=== PATIENT | male | born 1955 | race Caucasian/White ===

== ENCOUNTER 2020-06-27 12:12 | Emergency (ER) | payer MEDICARE, MEDICAID, SELFPAY ==
--- NOTE | ~2020-06-27 | CT_ITS ---
EXAMINATION: CT cervical spine wo con DATE: 06/27/2020 13:08 INDICATION: Head injury. Neck pain. TECHNIQUE: Computed tomography (CT) of the cervical spine was performed without intravenous contrast. Automated exposure control and iterative reconstruction technique were employed. The dose-length pro duct was 494.14 mGy-cm. COMPARISON: None FINDINGS: There is kyphosis and 3 degrees levocurvature of cervical spine. There is mild chronic ante rior wedging of T1 vertebral body. There is mildly decreased disc height at C5-C6 and C6-C7. 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 The following disc levels are specifically discussed: C2-C3: There is mild bilateral uncovertebral joint osteoarthritis. There is mild right and severe lef t facet joint osteoarthritis. There is no neural foraminal stenosis. There is no central canal stenos is. C3-C4: There is mild bilateral uncovertebral joint osteoarthritis. There is severe right and mild lef t facet joint osteoarthritis. There is mild right neural foraminal stenosis. There is mild central ca nal stenosis. C4-C5: There is mild bilateral uncovertebral joint osteoarthritis. There is severe right and mild lef t facet joint osteoarthritis. There is mild right neural foraminal stenosis. There is mild central ca nal stenosis. C5-C6: There is mild bilateral uncovertebral joint osteoarthritis. There is mild bilateral facet join t osteoarthritis. There is mild left neural foraminal stenosis. There is mild central canal stenosis. C6-C7: There is mild right and moderate left uncovertebral joint osteoarthritis. There is mild bilate ral facet joint osteoarthritis. There is mild left neural foraminal stenosis. There is mild central c anal stenosis. C7-T1: There is no uncovertebral joint osteoarthritis. There is moderate bilateral facet joint osteoa rthritis. There is no neural foraminal stenosis. There is no central canal stenosis. IMPRESSION: 1. No acute fracture. 2. Mild cervical spondylosis. Reviewed, dictated and finalized at location A. [facility]
--- NOTE | ~2020-06-27 | CT_ITS ---
EXAMINATION: CT brain wo con DATE: 06/27/2020 13:08 INDICATION: Head injury. Headache. Dizziness. TECHNIQUE: Computed tomography (CT) of the head was performed without intravenous contrast. The mA wa s adjusted according to patient size. Iterative reconstruction technique was employed. The dose-lengt h product was 605.33 mGy-cm. COMPARISON: Head CT 06/18/2012 FINDINGS: There are scattered areas of low attenuation in the cerebral white matter, which is within normal limits for the patient's age. There is no intracranial hemorrhage, acute infarction, or abnorm al intracranial mass lesion. The ventricles are normal in size. There is posterior scalp soft tissue swelling. There is mild mucosal thickening in the paranasal sinuses. The orbits are normal. The masto id air cells are normal. IMPRESSION: 1. Normal aging brain. Reviewed, dictated and finalized at location A. M1 [employer] IMPRESSION: 1. Normal aging brain.
[2020-06-27 12:43] VITALS: BP 159/81; PULSE 87; RESP 13; TEMP 37.1; O2SAT 97
--- NOTE | 2020-06-27 13:01 | ED.FALL ---
HPI - Fall General Chief Complaint: Fall Stated Complaint: fall, hit head Time Seen by Provider: 06/27/20 12:20 Source: patient Mode of arrival: wheelchair Limitations: no limitations History of Present Illness HPI Narrative: 65-year-old male Presents with complaint of concussion He has a lot of troubles with his hips, numerous operations, almost always uses a wheelchair instead of a walker He was trying to back his wheelchair into his house and flipped himself over backwards and whacked his head on the ground No loss of consciousness, not much of a headache, very little neck pain, no new neurologic symptoms, no amnesia, does take aspirin but no other blood thinners, main risk is general physical frailty and his age His only current complaint is slight nonspecific dizziness Related Data Allergies Allergy/AdvReac Type Severity Reaction Status Date / Time No Known Allergies Allergy Verified 02/24/13 15:38 Review of Systems Review of Systems: All systems reviewed & are unremarkable except as noted in HPI and below Constitutional: Constitutional: Denies chills, Reports fatigue, Denies fever(s), Denies headache(s) and Reports weakness Eyes: Eyes: Reports no additional eye complaints and Denies change in vision ENT: Denies headache(s), Denies epistaxis, Denies nasal congestion and Denies sore throat Cardiovascular: Cardiovascular: Denies chest pain, Denies leg edema, Denies palpitations and Denies dyspnea Respiratory: Respiratory: Denies cough, Denies dyspnea and Denies wheezing Gastrointestinal: Gastrointestinal: Denies nausea and Denies vomiting Musculoskeletal: Musculoskeletal: Reports myalgias, Denies deformity, Reports arthralgias, Reports joint swelling, Denies muscle weakness and Denies numbness Integumentary/Breasts: Skin/Breast: Denies rash and Denies wounds Neurologic: Reports dizziness, Denies headache(s), Reports focal weakness, Denies numbness and Denies weakness Psychiatric: Psychiatric: Reports no additional psychiatric complaints Endocrine: Endocrine: Denies fatigue and Denies palpitations Hematologic/Lymphatic: Hematologic/Lymphatic: Denies easy bleeding and Denies easy bruising Allergic/Immunologic: Allergic/Immunologic: Denies wheezing [facility] Family History Family History (Updated 04/06/14 @ 07:13 by DOCTOR UNKNOWN) Mother Family history of coronary artery disease Family history of osteoporosis Cerebrovascular accident Family history of arthritis Family history of heart disease in male family member before age 55 Sibling Family history of mental disorder Family history of arthritis Grandparent Family history of Alzheimer's disease Father Family history of emphysema Social History Social History Smoking status: Never smoker Alcohol intake: current Gender identity (if verbalized by the patient): Male Exam Const: General: no acute distress, well developed and awake Orientation/consciousness: patient oriented x3 (alert) Limitations: no limitations HENMT: Head: normal to inspection, normocephalic, atraumatic, no contusions, no hematomas and no lacerations Ears: external ears normal General nose exam: No nasal discharge present and no epistaxis Face and sinus: face symmetric Mouth: Yes moist mucous membranes Eyes: Conjunctivae: conjunctivae normal Sclera: sclerae normal EOM: EOMs intact bilaterally Neck: Neck: normal visual inspection, supple and no JVD Other: Nontender, good range of motion Chest: Chest palpation & inspection: normal inspection of the chest and deferred Resp: Effort & Inspection: normal respiratory effort Auscultation: clear to auscultation bilaterally and other (BS =) Cardio: Rate: regular rate Rhythm: regular rhythm Heart sounds: no gallops and no murmurs GI: Inspection: normal to inspection Back/Spine/Pelvis: Thoracic/Lumbar Spine: thoracic and lumbar spine normal to inspection Other: No T or L-spine tenderness Skin: Gene
--- NOTE | 2020-06-27 13:28 | ECG_ITS ---
Measurements Intervals V[place]ve Rate: 79 P: 36 [place]: 163 QRS: -24 QRSD: 126 T: 32 QT: 433 QTc: 499 Interpretive Statements SINUS RHYTHM INTRAVENTRICULAR CONDUCTION DELAY NONSPECIFIC ST & T-WAVE ABNORMALITY- DIFFUSE LEADS BASELINE ARTIFACT- I, II, AVR, AVF, V2-V6 BORDERLINE ECG Electronically Signed On 06-27-2020 15:40:58 PANTOGRAPH TRANSFERRER by Tiago Yeboah D.O.
[2020-06-27 13:45] LABS: Basophils Percent Auto 0.5 % (0.2-1.2); Eosinophils Absolute Auto 0.1 K/mm3 (0-0.3); Eosinophils Percent Auto 0.8 % (0-4.4); Hematocrit 43.5 % (42.0-52.0); Hemoglobin 14.8 g/dL (14.0-18.0); Immature Granulocyte Absolute 0.04 K/mm3 (0.00-0.031); Immature Granulocyte Percent A 0.6 % (0-0.5); Lymphocytes Absolute Auto 0.88 K/mm3 (0.9-3.2); Lymphocytes Percent Auto 13.6 % (18.3-44.2); Mean Corpuscular Hemoglobin 32.4 pg (26-34); Mean Corpuscular Volume 95.2 fl (80-100); Mean Platelet Volume 9.9 fl (7.4-10.4); Monocytes Absolute Auto 0.3 K/mm3 (0.1-0.6); Monocytes Percent Auto 4.8 % (2.6-8.5); Neutrophils Absolute Auto 5.2 K/mm3 (1.3-6.7); Neutrophils Percent Auto 79.7 % (45.5-73.1); Platelet Count Result 172 k/mm3 (150-375); Red Blood Count 4.57 M/mm3 (4.6-6.20); Red Cell Distribution Width 13.5 % (11.5-14.5); White Blood Count 6.5 K/mm3 (4.5-10.0)
[2020-06-27 13:59] LABS: Anion Gap 7 mmol/L (8-16); Blood Urea Nitrogen 12 mg/dL (9-20); Calcium 9.2 mg/dL (8.4-10.2); Carbon Dioxide 30 mmol/L (22-30); Chloride 101 mmol/L (98-107); Estimated CRCL calculation 141 ml/min; Estimated Glomerular Filt Rate > 60; Glucose 314 mg/dL (75-110); Potassium 4.5 mmol/L (3.4-5.0); Sodium 138 mmol/L (137-145)
[2020-06-27 14:46] VITALS: BP 124/77; PULSE 77; RESP 18; O2SAT 99
== END 2020-06-27 14:49 | disposition home or self-care (01) ==
PROVIDERS: Emergency Provider Emergency Medicine; PCP Family Medicine
DX: S00.93XA Contusion of unspecified part of head, initial encounter (principal); W05.0XXA Fall from non-moving wheelchair, initial encounter
CPT/HCPCS: 36415; 70450; 72125; 80048; 85025; 93005; 99284

== ENCOUNTER 2021-03-28 12:58 | Emergency (ER) | payer MEDICARE, MEDICAID, SELFPAY ==
[2021-03-28 13:32] VITALS: BP 165/77; PULSE 88; RESP 16; TEMP 36.8; O2SAT 100
--- NOTE | 2021-03-28 14:20 | PC.NURSE ---
Pt to desk yelling that he can not wait anymore because he needs to go home to take his diabetes medications. Pt demanded the ambulance that brought him be called back to take him home. Pt told that RN would be happy to call him a cab or family member for a ride but an ambulance cant be called for a ride home. Pt stated he wanted his brother called. Pts brother was called and came to picket [employer] patient. Pt told he is welcome to come back and be seen at anytime. Pt ambulatory with walker on departure with brother.
== END 2021-03-28 14:21 | disposition left against medical advice (07) ==
PROVIDERS: PCP Family Medicine
DX: S61.210A Laceration without foreign body of right index finger without damage to nail, initial encounter (principal)
CPT/HCPCS: 99199

== ENCOUNTER 2021-10-31 14:09 | Inpatient (IN) | payer OTHER, SELFPAY ==
[2021-10-31] VITALS (7 sets, daily range): BP systolic 130–142; BP diastolic 77–85; PULSE 80–88; RESP 16–18; TEMP 36.2–36.6; O2SAT 95–98; BMI 24.0
--- NOTE | ~2021-10-31 | XR_ITS ---
EXAMINATION: XR hip LT min 3V w AP pelvis INDICATION: Pain after fall, multiple pelvic surgeries TECHNIQUE: AP view the pelvis and three views of the left hip are obtained. COMPARISON: None available FINDINGS: There appears to be a nondisplaced intertrochanteric fracture of the left femur. Surgical c hanges are noted in the pelvis. There is profuse heterotopic ossification lateral to the acetabula. C alcified atherosclerosis is noted. IMPRESSION: 1. Probable nondisplaced intertrochanteric fracture of the left femur. CT is recommended for confirma tion. Reviewed, dictated and finalized at location B. IMPRESSION: 1. Probable nondisplaced intertrochanteric fracture of the left femur. CT is re commended for confirmation.
--- NOTE | ~2021-10-31 | CT_ITS ---
EXAMINATION: CT hip LT wo con EXAM DATE: 10/31/2021 15:31 INDICATION: Abnormal x-ray, left hip fracture. TECHNIQUE: Spiral CT hip LT wo con was performed without contrast. Axial, coronal and sagittal imag es were reviewed. The dose-length product (DLP) for this examination was 281.94 mGy-cm. The exposur e was tailored according to patient size (auto mA exposure control), and iterative reconstruction ( IR) was used as additional dose reduction technique. Correlation is made to left hip x-ray same date. FINDINGS: There is acute closed posttraumatic nondisplaced comminuted left hip intertrochanteric frac ture. There are old left rami and acetabular fractures. The left acetabular hardware is intact. No le ft inguinal lymphadenopathy. IMPRESSION: Acute nondisplaced left intertrochanteric fracture. Reviewed, dictated and finalized at location .
--- NOTE | ~2021-10-31 | XR_ITS ---
EXAMINATION: XR surgery orthopedic EXAM DATE: 11/01/2021 16:08 INDICATION: Left hip intertrochanteric fracture. TECHNIQUE: Fluoroscopy used during XR surgery orthopedic performed by Dr. Garry Rainey MD. Rad iologist was not present for the imaging or procedure. Total fluoroscopic time of 225 seconds. The DAP for this procedure was 2 mGym2. A total of 5 images sent to PACS from the exam. FINDINGS: Images demonstrate left hip gamma nail in expected position. There was pre-existing left a cetabular hardware. Correlate with procedure note. IMPRESSION: Fluoroscopy used during left hip gamma nail insertion. Reviewed, dictated and finalized at location G.
--- NOTE | ~2021-10-31 | XR_ITS ---
EXAMINATION: XR hip RT 1V INDICATION: Right hip pain after fall TECHNIQUE: Single AP view of the right hip is obtained. COMPARISON: None available FINDINGS: There are surgical changes in the pelvis. No acute fracture is identified. There is advance d osteoarthritis right hip. Heterotopic ossification is seen near the right acetabulum. IMPRESSION: 1. No acute osseous abnormality. Reviewed, dictated and finalized at location B.
--- NOTE | ~2021-10-31 | XR_ITS ---
EXAMINATION: XR chest 1V portable EXAM DATE: 10/31/2021 15:52 INDICATION: Pre-op. Left hip fracture. TECHNIQUE: Portable AP frontal chest x-ray was obtained. Comparison is made to prior examination from 11/06/2015. FINDINGS: The lungs are clear. There are no pleural effusions. The cardiomediastinal silhouette is within normal limits. There is no pneumothorax suspected. The bones and soft tissues are unremarkab le. IMPRESSION: No acute cardiopulmonary findings. Reviewed, dictated and finalized at location G.
--- NOTE | ~2021-10-31 | XR_ITS ---
EXAMINATION: XR chest 1V portable DATE: 11/02/2021 09:55 INDICATION: Chest pain TECHNIQUE: frontal view of the chest was obtained. COMPARISON: Chest radiograph dated 10/31/2021 FINDINGS: The lungs remain clear with no focal airspace opacities, pulmonary edema, pleural effusion or pneumot horax. The cardiomediastinal silhouette is normal. Old anterior right fourth rib fracture. Additional healed fracture of the proximal left humerus with partially visualized plate and screw fixation. IMPRESSION: 1. No acute cardiopulmonary disease. Reviewed, dictated and finalized at location A.
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
[2021-10-31 16:38] LABS: Basophils Percent Auto 0.4 % (0.2-1.2); Eosinophils Percent Auto 0.4 % (0-4.4); Hematocrit 43.1 % (42.0-52.0); Hemoglobin 14.8 g/dL (14.0-18.0); Immature Granulocyte Absolute 0.05 K/mm3 (0.00-0.031); Immature Granulocyte Percent A 0.6 % (0-0.5); Lymphocytes Absolute Auto 0.91 K/mm3 (0.9-3.2); Lymphocytes Percent Auto 11.3 % (18.3-44.2); Mean Corpuscular HGB Conc 34.3 g/dl (32-36); Mean Corpuscular Hemoglobin 33.2 pg (26-34); Mean Corpuscular Volume 96.6 fl (80-100); Mean Platelet Volume 9.9 fl (7.4-10.4); Monocytes Absolute Auto 0.4 K/mm3 (0.1-0.6); Monocytes Percent Auto 4.8 % (2.6-8.5); Neutrophils Absolute Auto 6.7 K/mm3 (1.3-6.7); Neutrophils Percent Auto 82.5 % (45.5-73.1); Platelet Count Result 155 k/mm3 (150-375); Red Blood Count 4.46 M/mm3 (4.6-6.20); Red Cell Distribution Width 13.3 % (11.5-14.5); White Blood Count 8.1 K/mm3 (4.5-10.0)
[2021-10-31 17:10] LABS: Anion Gap 7 mmol/L (8-16); Blood Urea Nitrogen 11 mg/dL (9-20); Calcium 9.4 mg/dL (8.4-10.2); Carbon Dioxide 29 mmol/L (22-30); Chloride 100 mmol/L (98-107); Estimated CRCL calculation 131 ml/min; Estimated Glomerular Filt Rate > 60; Glucose 190 mg/dL (65-110); Potassium 3.9 mmol/L (3.4-5.0); Sodium 136 mmol/L (137-145)
[2021-10-31 17:12] LABS: INR 1.1; Prothrombin Time 13.4 Seconds (11.1-14.7)
[2021-10-31 17:13] LABS: Partial Thromboplastin Time 29.9 SECONDS (22.3-36.8)
[2021-10-31] MEDS: SODIUM CHLORIDE 0.9% IV 1,000 ML 125 ML IV CONT ×2 (17:59→20:10)
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
--- NOTE | 2021-10-31 19:28 | ADMGEN ---
This patient, Lukas Benson, was admitted to [facility] Surg Room 306-02. Patient/family oriented to hospital policies and general routines including ID bracelet, bed and alarms, visiting hours, pain management, procedures, bathroom and other care routines, personal items, smoking policy, room service/diet, and visiting hours. Information on how to activate the Rapid Response Team has been discussed. Patient/Family are encouraged to report perceived risks to care and to ask questions if they do not understand what they are told or what they should do.
[2021-10-31] MEDS: MORPHINE SULFATE (*CRX) 4 MG/ML INJ IV PUSH (20:10)
[2021-11-01] VITALS (10 sets, daily range): BP systolic 102–159; BP diastolic 52–81; PULSE 73–90; RESP 10–20; TEMP 35.8–37.2; O2SAT 92–100
[2021-11-01 06:30] LABS: Anion Gap 10 mmol/L (8-16); Blood Urea Nitrogen 10 mg/dL (9-20); Calcium 8.9 mg/dL (8.4-10.2); Carbon Dioxide 25 mmol/L (22-30); Chloride 101 mmol/L (98-107); Estimated CRCL calculation 131 ml/min; Estimated Glomerular Filt Rate > 60; Glucose 196 mg/dL (65-110); Magnesium 1.7 mg/dL (1.6-2.3); Potassium 4.2 mmol/L (3.4-5.0); Sodium 136 mmol/L (137-145)
[2021-11-01 06:38] LABS: Basophils Percent Auto 0.4 % (0.2-1.2); Eosinophils Absolute Auto 0.1 K/mm3 (0-0.3); Eosinophils Percent Auto 0.8 % (0-4.4); Hematocrit 41.4 % (42.0-52.0); Immature Granulocyte Absolute 0.02 K/mm3 (0.00-0.031); Immature Granulocyte Percent A 0.3 % (0-0.5); Immature Platelet Fraction Pct 5.8 % (0.9-11.2); Lymphocytes Absolute Auto 0.87 K/mm3 (0.9-3.2); Lymphocytes Percent Auto 12.3 % (18.3-44.2); Mean Corpuscular HGB Conc 33.8 g/dl (32-36); Mean Corpuscular Hemoglobin 32.3 pg (26-34); Mean Corpuscular Volume 95.4 fl (80-100); Mean Platelet Volume 10.9 fl (7.4-10.4); Monocytes Absolute Auto 0.5 K/mm3 (0.1-0.6); Monocytes Percent Auto 6.4 % (2.6-8.5); Neutrophils Absolute Auto 5.6 K/mm3 (1.3-6.7); Neutrophils Percent Auto 79.8 % (45.5-73.1); Platelet Count Result 154 k/mm3 (150-375); Red Blood Count 4.34 M/mm3 (4.6-6.20); Red Cell Distribution Width 13.2 % (11.5-14.5); White Blood Count 7.1 K/mm3 (4.5-10.0)
[2021-11-01 07:42] LABS: Glucose Point of Care 192 mg/dl (65-105)
[2021-11-01] MEDS: ALPRAZolam (*CRX) 0.5 MG TABLET PO ×2 (08:14→17:24)
[2021-11-01] MEDS: MORPHINE SULFATE (*CRX) 4 MG/ML INJ IV PUSH (08:14)
--- NOTE | 2021-11-01 10:51 | PM.IMPN ---
Progress Note: A&P Assessment and Plan (1) Intertrochanteric fracture of left hip: Code(s): S72.142A - Displaced intertrochanteric fracture of left femur, initial encounter for closed fracture Status: Acute Assessment and Plan: -plan is for surgery today -management per ortho, appreciate the consulation -pt now c/o bilateral hip pain and ankle pain. Stat XR ordered prior to surgery today. (2) Hypertension: Code(s): I10 - Essential (primary) hypertension Status: Acute Assessment and Plan: -stable -home meds (3) Diabetes mellitus: Code(s): E11.9 - Type 2 diabetes mellitus without complications Status: Acute Assessment and Plan: -Accuchecks ACHS and sliding scale Subjective Date/time seen: 11/01/21 10:51 Interval history: 66 yo male w/ hx of HTN, HLD, DM, bipolar disorder, admitted for L hip fracture. Pt states pain is improved after morphine. He now c/o R hip pain and bilateral ankle pain, worse on the right. No N/V/abd pain/cp/sob. Scheduled for hip surgery this afternoon. Review of Systems Review of Systems: All systems reviewed & are unremarkable except as noted in HPI and below Exam Narrative: Constitutional: Patient is a 66-year-old gentleman who is unkempt and well-nourished. Patient is in no acute distress. Patient is alert and oriented x3 HEENT: Moist mucous membranes. No scleral icterus. Neck: Supple Lungs: Lung sounds are clear to auscultation bilaterally. No accessory muscle use. No rhonchi, rales, or wheezes noted. Cardiovascular: RRR, no murmur Abdomen: Soft, round, and nontender. No palpable masses. Extremities: No edema. Patient complains of pain to BI hips and BLE lower extremity. At this time there is no shortening or external rotation to the left leg. Skin: No rashes or lesions. Warm and dry. Skin is intact. Neurological: No focal neurological deficits. Cranial nerves II-XII grossly intact. Psychiatric: Cooperative, appropriate mood, and affect Objective Data Vital Signs Vital Signs: Vital Signs - 24 hr 10/31/21 14:29 10/31/21 15:20 10/31/21 16:30 Temperature 97.2 F L 97.6 F 97.6 F Pulse Rate 84 82 80 Respiratory Rate 16 16 16 Blood Pressure 141/77 H 140/80 Pulse Oximetry 98 98 98 10/31/21 17:30 10/31/21 18:31 10/31/21 20:00 Temperature 97.8 F 97.8 F 97.7 F Pulse Rate 82 80 88 Respiratory Rate 16 16 18 Blood Pressure 132/80 130/80 142/85 H Pulse Oximetry 98 98 95 10/31/21 21:14 Temperature Pulse Rate Respiratory Rate Blood Pressure Pulse Oximetry 95 Intake/Output Intake/Output: Intake & Output 10/29/21 10/30/21 10/31/21 11/01/21 23:59 23:59 23:59 23:59 Intake Total 1000 1000 Balance 1000 1000 Meds/Results Medications: Active Medications Generic Name Dose Route Start Last Admin Trade Name Freq PRN Reason Stop Dose Admin Alprazolam 0.5 mg 11/01/21 09:00 11/01/21 08:14 Alprazolam (*Crx) 0.5 Mg Tablet PO 0.5 mg BID CHONG Administration Dextrose 12.5 gm 10/31/21 19:37 Dextrose 50% 25 Gm/50 Ml Syringe IV PUSH PRN PRN Hypoglycemia Protocol Ezetimibe 10 mg 11/01/21 09:00 Ezetimibe 10 Mg Tablet PO DAILY CHONG Fluticasone Propionate 2 spray 11/01/21 07:18 Fluticasone Propionate 0.05% Na Spr 16 Gm Btl (*Bkc) NASAL DAILY PRN Runny Nose Glucagon 1 mg 10/31/21 19:37 Glucagon For Inj 1 Mg Vial IM PRN PRN Hypoglycemia Protocol Glucose 15 gm 10/31/21 19:37 Glucose Oral Gel 15 Gm Of Glucse In 37.5 Gm Tube PO PRN PRN Hypoglycemia Protocol Hydrochlorothiazide 25 mg 11/01/21 09:00 Hydrochlorothiazide 25 Mg Tablet PO DAILY CHONG Acetaminophen 1,000 mg in 100 mls @ 400 mls/hr 10/31/21 16:23 Ofirmev 1,000 Mg Ivpb IVPB 11/01/21 16:22 Q6H PRN Mild Pain (1-3) or Fever Sodium Chloride 1,000 mls @ 100 mls/hr 10/31/21 16:25 11/01/21 04:45 No
[2021-11-01 11:21] LABS: Glucose Point of Care 203 mg/dl (65-105)
[2021-11-01] MEDS: INSULIN ASPART (*BKC) 100 UNITS/ML SUB-Q (12:11)
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
[2021-11-01 13:57] LABS: Glucose Point of Care 148 mg/dl (65-105)
--- NOTE | 2021-11-01 14:04 | WPDANESEPPF ---
Anes - Initial Pre Proc Eval Procedure: Operation Date: 11/01/21 15:00 Proposed Procedures p Left Intertrochanteric Nail - Garry Rainey MD Date/Time: 11/01/21 14:04 Surgeon: Jacqueline Langley PA-C Pre Op Diagnosis: Hip R fracture Patient Data Age: 66 Gender: M Height: 1.96 m Weight: 92.1 kg Last Vital Signs Temp 36.5 C 10/31/21 20:00 Pulse 88 10/31/21 20:00 Resp 18 10/31/21 20:00 BP 142/85 H 10/31/21 20:00 Pulse Ox 95 10/31/21 21:14 Allergies Allergy/AdvReac Type Severity Reaction Status Date / Time No Known Allergies Allergy Verified 02/24/13 15:38 Home Medications Medication Instructions Recorded Confirmed Type alprazolam 0.5 mg PO BID 11/01/21 11/01/21 History ezetimibe 10 mg PO DAILY 11/01/21 11/01/21 History fluticasone propionate 50 mcg INTRANASAL DAILY PRN 11/01/21 11/01/21 History glimepiride 2 mg PO BID 11/01/21 11/01/21 History hydrochlorothiazide 25 mg PO DAILY 11/01/21 11/01/21 History losartan 25 mg PO DAILY 11/01/21 11/01/21 History metformin 500 mg PO BID 11/01/21 11/01/21 History mirabegron [Myrbetriq] 50 mg PO DAILY 11/01/21 11/01/21 History montelukast 10 mg PO DAILY 11/01/21 11/01/21 History sertraline 100 mg PO DAILY 11/01/21 11/01/21 History Laboratory Tests 10/31/21 10/31/21 10/31/21 16:12 16:12 16:56 WBC 8.1 K/mm3 K/mm3 (4.5-10.0) RBC 4.46 M/mm3 L M/mm3 (4.6-6.20) Hgb 14.8 g/dL g/dL (14.0-18.0) Hct 43.1 % % (42.0-52.0) MCV 96.6 fl fl (80-100) MCH 33.2 pg pg (26-34) MCHC 34.3 g/dl g/dl (32-36) RDW 13.3 % % (11.5-14.5) Plt Count 155 k/mm3 k/mm3 (150-375) MPV 9.9 fl fl (7.4-10.4) Immature Gran % (Auto) 0.6 % H % (0-0.5) Neut % (Auto) 82.5 % H % (45.5-73.1) Lymph % (Auto) 11.3 % L % (18.3-44.2) [place] % (Auto) 4.8 % % (2.6-8.5) Eos % (Auto) 0.4 % % (0-4.4) Baso % (Auto) 0.4 % % (0.2-1.2) Lymph # (Auto) 0.91 K/mm3 K/mm3 (0.9-3.2) [place] # (Auto) 0.4 K/mm3 K/mm3 (0.1-0.6) Eos # (Auto) 0.0 K/mm3 K/mm3 (0-0.3) Baso # (Auto) 0.0 K/mm3 K/mm3 (0.0-0.1) Abs Immat Gran (auto) 0.05 K/mm3 H K/mm3 (0.00-0.031) Absolute Neuts (auto) 6.7 K/mm3 K/mm3 (1.3-6.7) Absolute Nucleated RBC 0.0 K/mm3 K/mm3 (0.0-0.012) Nucleated RBC % 0.0 % % (0.0-0.2) % Immature Plt Fraction PT 13.4 Seconds Seconds (11.1-14.7) INR 1.1 APTT 29.9 SECONDS SECONDS (22.3-36.8) Sodium 136 mmol/L L mmol/L (137-145) Potassium 3.9 mmol/L mmol/L (3.4-5.0) Chloride 100 mmol/L mmol/L (98-107) Carbon Dioxide 29 mmol/L mmol/L (22-30) Anion Gap 7 mmol/L L mmol/L (8-16) BUN 11 mg/dL mg/dL (9-20) Creatinine 0.60 mg/dL L mg/dL (0.7-1.3) Estim Creat Clear Calc 131 ml/min ml/min Estimated GFR > 60 (59 - ) Glucose 190 mg/dL H mg/dL (65-110) POC Capillary Glucose Calcium 9.4 mg/dL mg/dL (8.4-10.2) Magnesium 11/01/21 11/01/21 11/01/21 06:05 06:05 07:39 WBC 7.1 K/mm3 K/mm3 (4.5-10.0) RBC 4.34 M/mm3 L M/mm3 (4.6-6.20) Hgb 14.0 g/dL g/dL (14.0-18.0) Hct 41.4 % L % (42.0-52.0) MCV 95.4 fl fl (80-100) MCH 32.3 pg pg (26-34) MCHC 33.8 g/dl g/dl (32-36) RDW 13.2 % % (11.5-14.5) Plt Count 154 k/mm3 k/mm3 (150-375) MPV 10.9 fl H fl (7.4-10.4) Immature Gran % (Auto) 0.3 % % (0-0.5) Neut % (Auto) 79.8 % H % (45.5-73.1) Lymph % (Auto) 12.3 % L % (18.3-44.2) [place] % (Auto) 6.4 % % (2.6-8.5) Eos % (Auto) 0.8 % % (0-4.4) Baso % (Auto) 0.4 % % (0.2-1.2) Ly
--- NOTE | 2021-11-01 14:04 | SUR.PREOP ---
1340; PT ALERT AND ORIENTED. ENTIRE BED IS FILLED WITH WET AND DRY URINE. PT STATES I ALMOST YESTERDAY, THERE FORE I HAVE AN AVERSION TO THE URINAL. CLEAN BEDDING WILL BE SENT TO OR. OFFERED PT A DEPENDS. PT STATES HE WOULD WEAR THAT. PT'S BILAT LEGS AND FEET ARE COVERED IN OLD ABRASIONS. MULTIPLE SCABS.
[2021-11-01] MEDS: LACTATED RINGERS 1,000 ML 30 ML IV CONT (14:07)
--- NOTE | 2021-11-01 14:28 | WPDHPUPDATE1 ---
History and Physical Update Update Date/Time: 11/01/21 14:28 History and Physical has been reviewed, including an updated exam of the patient. There are NO changes in the patient's condition. Risks, benefits, and alternatives have been discussed and questions answered. Patient agrees to proceed with procedure.
[2021-11-01] MEDS: ceFAZolin 2 GM/D5W 50 ML 2 GM/50 ML BAG IVPB ×2 (14:29→20:19)
[2021-11-01] MEDS: TRANEXAMIC ACID 1,000 MG/10 ML AMPUL 1000 MG IV PUSH (15:20)
--- NOTE | 2021-11-01 15:49 | W.PM.PROC2 ---
Procedure Note - Detailed Date of Procedure 11/01/21 Pre-op Diagnosis LEFT INTERTROCHANTERIC FEMUR FRACTURE Post-op Diagnosis Same Procedure Performed INSERTION IM KEVEN LEFT HIP Surgeon Garry Rainey MD Anesthesia General Description of Procedure THE PATIENT WAS TAKEN TO THE OPERATING ROOM AND PLACED ON A FRACTURE TABLE AFTER GIVEN GENERAL ANESTHESIA. THE LEFT LOWER EXTREMITY WAS PLACED IN A TRACTION BOOT AND USING SOME TRACTION AND INTERNAL ROTATION THE INNER TROCHANTERIC FRACTURE WAS REDUCED TO ANATOMIC POSITION. NEXT THE LEFT LOWER EXTREMITY WAS PREPPED AND DRAPED IN THE STERILE FASHION. AN INCISION WAS MADE PROXIMAL TO THE TIP OF THE GREATER TROCHANTER AND DISSECTION CONTINUED TILL THE TIP OF THE GREATER TROCHANTER WAS PALPATED. A GUIDE PIN WAS PLACED DOWN THE FEMORAL CANAL AND PAST THE FRACTURE SITE. THIS WAS CHECKED ON FLUOROSCOPY AND FOUND TO BE IN GOOD POSITION. AN INITIAL REAMER WAS USED TO REAM THE FEMORAL CANAL. A 10 BY 200 MM ARTHREX IM HIP KEVEN WAS INSERTED TILL THE CORRECT POSITION WAS IDENTIFIED ON XRAY. A GUIDE PIN WAS INSERTED THROUGH THE FEMORAL NECK AT [address] TILL IT REACHED THE TIP OF THE SUB CHONDRAL BONE SEEN ON XRAY. AFTER REAMING, LAG SCREW WAS INSERTED MEASURING 105 MM. XRAYS SHOWED IT TO BE IN GOOD POSITION. THE LAG SCREW WAS LOCKED PROXIMALLY. NEXT A DISTAL LOCKING SCREW WAS PLACED ACROSS THE KEVEN AND WAS IN GOOD POSITION ON XRAY. THE TRACTION WAS RELEASED. THE WOUNDS WERE WASHED. THE DEEP FASCIA WAS REPAIRED WITH 0 VICRYL SUTURE, THE SUB CUTANEOUS LAYER WITH 2-0 VICRYL, AND THE SKIN WITH LEN. THE WOUNDS WERE WASHED AND THEN STERILE DRESSING WAS APPLIED. PATIENT WAS EXTUBATED AND SENT TO RECOVERY ROOM. Estimated Blood Loss 100 Urine Output 300 Complications No immediate complications Condition Stable Disposition PACU
[2021-11-01 16:37] LABS: Glucose Point of Care 176 mg/dl (65-105)
[2021-11-01] MEDS: SODIUM CHLORIDE 0.9% IV 1,000 ML 125 ML IV CONT (17:23)
[2021-11-01] MEDS: MORPHINE SULFATE (*CRX) 4 MG/ML INJ 3 MG IV PUSH (17:24)
[2021-11-01] MEDS: ONDANSETRON INJ 4 MG/2 ML VIAL IV PUSH (17:24)
[2021-11-01] MEDS: SENNA/DOCUSATE SODIUM TABLET 2 TAB PO (17:25)
[2021-11-01] MEDS: metFORMIN HCL XR 500 MG TAB.SR.24H PO (17:26)
[2021-11-01 20:12] LABS: Glucose Point of Care 204 mg/dl (65-105)
[2021-11-01] MEDS: FAMOTIDINE 20 MG TABLET PO (20:19)
[2021-11-01] MEDS: HEPARIN SODIUM 5,000 UNITS/ML VIAL 5000 UNITS SUB-Q (20:19)
[2021-11-02] VITALS: BP 125/63; PULSE 90; RESP 20; TEMP 37.2; O2SAT 92
[2021-11-02] MEDS: SODIUM CHLORIDE 0.9% IV 1,000 ML 125 ML IV CONT ×3 (01:47→20:18)
[2021-11-02 04:00] VITALS: BP 142/58; PULSE 88; RESP 18; TEMP 36.2; O2SAT 98
[2021-11-02] MEDS: ceFAZolin 2 GM/D5W 50 ML 2 GM/50 ML BAG IVPB ×2 (05:44→13:33)
[2021-11-02 07:54] LABS: Basophils Percent Auto 0.6 % (0.2-1.2); Eosinophils Absolute Auto 0.1 K/mm3 (0-0.3); Eosinophils Percent Auto 0.7 % (0-4.4); Hematocrit 34.5 % (42.0-52.0); Hemoglobin 11.7 g/dL (14.0-18.0); Immature Granulocyte Absolute 0.04 K/mm3 (0.00-0.031); Immature Granulocyte Percent A 0.6 % (0-0.5); Lymphocytes Absolute Auto 0.57 K/mm3 (0.9-3.2); Mean Corpuscular HGB Conc 33.9 g/dl (32-36); Mean Corpuscular Hemoglobin 32.6 pg (26-34); Mean Corpuscular Volume 96.1 fl (80-100); Mean Platelet Volume 9.9 fl (7.4-10.4); Monocytes Absolute Auto 0.4 K/mm3 (0.1-0.6); Monocytes Percent Auto 6.1 % (2.6-8.5); Platelet Count Result 145 k/mm3 (150-375); Red Blood Count 3.59 M/mm3 (4.6-6.20); Red Cell Distribution Width 13.2 % (11.5-14.5); White Blood Count 7.1 K/mm3 (4.5-10.0)
[2021-11-02 08:00] VITALS: BP 138/56; PULSE 88; RESP 18; TEMP 35.9; O2SAT 97; O2SAT 98
[2021-11-02 08:05] LABS: Anion Gap 9 mmol/L (8-16); Blood Urea Nitrogen 8 mg/dL (9-20); Calcium 8.4 mg/dL (8.4-10.2); Carbon Dioxide 25 mmol/L (22-30); Chloride 102 mmol/L (98-107); Estimated CRCL calculation 155 ml/min; Estimated Glomerular Filt Rate > 60; Glucose 221 mg/dL (65-110); Potassium 3.8 mmol/L (3.4-5.0); Sodium 136 mmol/L (137-145)
[2021-11-02 08:13] LABS: Glucose Point of Care 218 mg/dl (65-105)
--- NOTE | 2021-11-02 09:11 | PM.PNORT ---
Progress Note: A&P Additional Plan POD 1 DOING WELL. HGB STABLE. RECOMMEND SNF ONCE STABLE PER MEDICINE Subjective Subjective Date/Time Seen: 11/02/21 09:11 POD 1 DOING WELL. SOME CONFUSION. NO CALF PAIN Exam Extrem: Other: VSS AFEBRILE DRESSING DRY NV INTACT MILD HEMATOMA, NEG HOMANS SIGN CALF SOFT Objective Data Vital Signs Vital Signs: Vital Signs - 24 hr 11/01/21 14:05 11/01/21 14:06 11/01/21 15:59 Temperature 36.6 C 36.4 C Pulse Rate 74 73 Respiratory Rate 16 10 L Blood Pressure 144/69 H 102/52 L Pulse Oximetry 95 99 100 11/01/21 16:05 11/01/21 16:20 11/01/21 16:35 Temperature 36.0 C L 35.8 C L Pulse Rate 80 82 81 Respiratory Rate 14 16 16 Blood Pressure 157/78 H 151/68 H 130/54 L Pulse Oximetry 96 95 11/01/21 16:50 11/01/21 17:05 11/01/21 18:05 Temperature 35.8 C L 36.1 C L Pulse Rate 81 85 85 Respiratory Rate 14 18 18 Blood Pressure 147/71 H 141/81 H 135/59 L Pulse Oximetry 94 94 96 11/01/21 20:00 11/02/21 00:00 11/02/21 04:00 Temperature 37.2 C 37.2 C 36.2 C L Pulse Rate 90 90 88 Respiratory Rate 20 20 18 Blood Pressure 156/53 H 125/63 142/58 H Pulse Oximetry 95 92 98 11/02/21 08:00 Temperature 35.9 C L Pulse Rate 88 Respiratory Rate 18 Blood Pressure 138/56 L Pulse Oximetry 98 Intake/Output Intake/Output: Intake & Output 10/30/21 10/31/21 11/01/21 11/02/21 23:59 23:59 23:59 23:59 Intake Total 1000 1310 1200 Output Total 350 700 Balance 1000 960 500 Meds/Results Medications: Active Medications Generic Name Dose Route Start Last Admin Trade Name Freq PRN Reason Stop Dose Admin Acetaminophen 650 mg 11/01/21 15:53 Acetaminophen 325 Mg Tablet PO Q6H PRN Mild Pain (1-3) or Fever Hydrocodone Bitart/Acetaminophen 1 tab 11/01/21 15:53 Hydrocodone/Acetaminophen (*Crx) 7.5-325 Mg Tablet PO Q3H PRN Pain Rated 4-6 Alprazolam 0.5 mg 11/01/21 09:00 11/01/21 17:24 Alprazolam (*Crx) 0.5 Mg Tablet PO 0.5 mg BID CHONG Administration Dextrose 12.5 gm 10/31/21 19:37 Dextrose 50% 25 Gm/50 Ml Syringe IV PUSH PRN PRN Hypoglycemia Protocol Ezetimibe 10 mg 11/01/21 09:00 11/01/21 10:52 Ezetimibe 10 Mg Tablet PO Not Given DAILY CHONG Famotidine 20 mg 11/01/21 21:00 11/01/21 20:19 Famotidine 20 Mg Tablet PO 20 mg Q12HR CHONG Administration Fluticasone Propionate 2 spray 11/01/21 07:18 Fluticasone Propionate 0.05% Na Spr 16 Gm Btl (*Bkc) NASAL DAILY PRN Runny Nose Glucagon 1 mg 10/31/21 19:37 Glucagon For Inj 1 Mg Vial IM PRN PRN Hypoglycemia Protocol Glucose 15 gm 10/31/21 19:37 Glucose Oral Gel 15 Gm Of Glucse In 37.5 Gm Tube PO PRN PRN Hypoglycemia Protocol Heparin Sodium (Porcine) 5,000 units 11/01/21 21:00 11/01/21 20:19 Heparin Sodium 5,000 Units/Ml Vial SUB-Q 5,000 units Q12HR CHONG Administration Hydrochlorothiazide 25 mg 11/01/21 09:00 11/01/21 10:52 Hydrochlorothiazide 25 Mg Tablet PO Not Given DAILY CHONG Hydroxyzine Pamoate 50 mg 11/01/21 15:53 Hydroxyzine Pamoate 25 Mg Capsule PO Q4H PRN Itching Dextrose 1,000 mls @ 100 mls/hr 10/31/21 19:37 Dextrose 5% 1,000 Ml IVPB PRN PRN Hypoglycemia Protocol Sodium Chloride 1,000 mls @ 125 mls/hr 11/01/21 15:55 11/02/21 01:47 Normal Saline Iv IV CONT 125 mls/hr .Q8H CHONG Administration Cefazolin Sodium 2 gm in 50 mls @ 100 mls/hr 11/01/21 20:00 11/02/21 05:44 Ancef 2 Gm/D5w 50 Ml IVPB 11/02/21 12:29 100 mls/hr Q8H CHONG Administration Insulin Aspart 3 - 6 units 11/02/21 12:00 Insulin Aspart (*Bkc) 100 Units/Ml SUB-Q TIDWM CHONG Protocol Losartan Potassium 25 mg 11/01/21 09:00 11/01/21 10:52 Losartan Potassium 25 Mg Tablet PO Not Given DAILY CHONG Metformin HCl 500 mg 11/01/21 08:00 11/01/21 17:26 Metformin Hcl Xr 500 Mg Tab.Sr.24h PO 500 mg BIDWM CHONG Administra
--- NOTE | 2021-11-02 09:41 | PM.IMPN ---
Progress Note: A&P Assessment and Plan (1) Intertrochanteric fracture of left hip: Qualifiers: Encounter type: initial encounter Fracture type: closed Fracture alignment: nondisplaced Qualified Code(s): S72.145A - Nondisplaced intertrochanteric fracture of left femur, initial encounter for closed fracture Code(s): S72.142A - Displaced intertrochanteric fracture of left femur, initial encounter for closed fracture Status: Acute Assessment and Plan: -POD #1 -stable for discharge to SNF from ortho standpoint\ -discharge planning, pain control, DVT prophylaxis per ortho (2) Hypertension: Code(s): I10 - Essential (primary) hypertension Status: Acute Assessment and Plan: -stable -home meds (3) Diabetes mellitus: Code(s): E11.9 - Type 2 diabetes mellitus without complications Status: Acute Assessment and Plan: -Accuchecks ACHS and sliding scale -somewhat elevated still, 221 this AM. Increased to moderate dose SS (4) Chest pain: Code(s): R07.9 - Chest pain, unspecified Status: Acute Assessment and Plan: -new as of this AM -check serial troponin, EKG, and CXR -consider cardiology consult if any abnormalities Subjective Date/time seen: 11/02/21 09:41 Interval history: 66 yo male w/ hx of HTN, HLD, DM, bipolar disorder, admitted for L hip fracture. Pt is A/Ox3 with some confusion. He c/o 9/10 pain to his hip. He also c/o 9/10 chest pain that started this morning. The pain is constant and non radiating. He denies sob or cough. Review of Systems Review of Systems: All systems reviewed & are unremarkable except as noted in HPI and below Exam Narrative: Constitutional: Patient is a 66-year-old gentleman who is unkempt and well-nourished. Patient is in no acute distress. Patient is alert and oriented x3 HEENT: Moist mucous membranes. No scleral icterus. Neck: Supple Lungs: rhonchi noted L upper lobe. Lungs otherwise CTA. No wheezing. No respiratory distress. Cardiovascular: RRR, no murmur Abdomen: Soft, round, and nontender. No palpable masses. Extremities: L hip dressing C/D/I Neurological: No focal neurological deficits. Cranial nerves II-XII grossly intact. Psychiatric: Confused but cooperative Objective Data Vital Signs Vital Signs: Vital Signs - 24 hr 11/01/21 14:05 11/01/21 14:06 11/01/21 15:59 Temperature 97.8 F 97.6 F Pulse Rate 74 73 Respiratory Rate 16 10 L Blood Pressure 144/69 H 102/52 L Pulse Oximetry 95 99 100 11/01/21 16:05 11/01/21 16:20 11/01/21 16:35 Temperature 96.8 F L 96.5 F L Pulse Rate 80 82 81 Respiratory Rate 14 16 16 Blood Pressure 157/78 H 151/68 H 130/54 L Pulse Oximetry 96 95 11/01/21 16:50 11/01/21 17:05 11/01/21 18:05 Temperature 96.5 F L 96.9 F L Pulse Rate 81 85 85 Respiratory Rate 14 18 18 Blood Pressure 147/71 H 141/81 H 135/59 L Pulse Oximetry 94 94 96 11/01/21 20:00 11/02/21 00:00 11/02/21 04:00 Temperature 98.9 F 98.9 F 97.2 F L Pulse Rate 90 90 88 Respiratory Rate 20 20 18 Blood Pressure 156/53 H 125/63 142/58 H Pulse Oximetry 95 92 98 11/02/21 08:00 Temperature 96.6 F L Pulse Rate 88 Respiratory Rate 18 Blood Pressure 138/56 L Pulse Oximetry 98 Intake/Output Intake/Output: Intake & Output 10/30/21 10/31/21 11/01/21 11/02/21 23:59 23:59 23:59 23:59 Intake Total 1000 1310 1200 Output Total 350 700 Balance 1000 960 500 Meds/Results Medications: Active Medications Generic Name Dose Route Start Last Admin Trade Name Freq PRN Reason Stop Dose Admin Acetaminophen 650 mg 11/01/21 15:53 Acetaminophen 325 Mg Tablet PO Q6H PRN Mild Pain (1-3) or Fever Hydrocodone Bitart/Acetaminophen 1 tab 11/01/21 15:53 Hydrocodone/Acetaminophen (*Crx) 7.5-325 Mg Tablet PO Q3H PRN Pain Rated 4-6 Alprazolam 0.5 mg 11/01/21 09:00 11/01/21 17:24 Alprazolam
--- NOTE | 2021-11-02 09:42 | ECG_ITS ---
Measurements Intervals [place] Rate: 86 P: 33 UT: 132 QRS: 3 QRSD: 118 T: 56 QT: 392 QTc: 470 Interpretive Statements SINUS RHYTHM MODERATE INTRAVENTRICULAR CONDUCTION DELAY [110+ ms QRS DURATION] NONSPECIFIC ST & T-WAVE ABNORMALITY COMPARED TO ECG 06/27/2020 12:31:38 NO SIGNIFICANT CHANGE, SLIGHTLY DIFFERENT LEAD POSITION Electronically Signed On 11-02-2021 13:22:15 CDT by Cortes Velez M.D.
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
[2021-11-02 10:23] LABS: Troponin I < 0.012 ng/mL (0.000-0.034)
[2021-11-02] MEDS: HYDROcodone/acetaminophen (*CRX) 7.5-325 MG TABLET 1 TAB PO ×2 (10:32→22:30)
[2021-11-02] MEDS: FAMOTIDINE 20 MG TABLET PO ×2 (10:33→20:19)
[2021-11-02] MEDS: metFORMIN HCL XR 500 MG TAB.SR.24H PO ×2 (10:33→17:44)
[2021-11-02] MEDS: MIRABEGRON 50 MG ER TABLET PO (10:33)
[2021-11-02] MEDS: EZETIMIBE 10 MG TABLET PO (10:33)
[2021-11-02] MEDS: SERTRALINE HCL 50 MG TABLET 100 MG PO (10:33)
[2021-11-02] MEDS: hydrOXYzine pamoate 25 MG CAPSULE 50 MG PO (10:33)
[2021-11-02] MEDS: LOSARTAN POTASSIUM 25 MG TABLET PO (10:34)
[2021-11-02] MEDS: hydroCHLOROthiazide 25 MG TABLET PO (10:34)
[2021-11-02] MEDS: MONTELUKAST SODIUM 10 MG TABLET PO (10:34)
[2021-11-02] MEDS: SENNA/DOCUSATE SODIUM TABLET 2 TAB PO ×2 (10:34→17:43)
[2021-11-02] MEDS: FLUTICASONE PROPIONATE 0.05% NA SPR 16 GM BTL (*BKC) 2 SPRAY NASAL (10:35)
[2021-11-02] MEDS: polyethylene glycoL 3350 17 GM POWD.PACK PO (10:35)
[2021-11-02] MEDS: HEPARIN SODIUM 5,000 UNITS/ML VIAL 5000 UNITS SUB-Q ×2 (10:35→20:19)
[2021-11-02] MEDS: ALPRAZolam (*CRX) 0.5 MG TABLET PO ×2 (10:37→17:45)
[2021-11-02 11:53] LABS: Troponin I < 0.012 ng/mL (0.000-0.034)
[2021-11-02 12:00] VITALS: BP 127/57; PULSE 86; RESP 16; TEMP 36.7; O2SAT 94
[2021-11-02 12:07] LABS: Glucose Point of Care 227 mg/dl (65-105)
[2021-11-02] MEDS: INSULIN ASPART (*BKC) 100 UNITS/ML SUB-Q (13:32)
[2021-11-02 14:42] LABS: Troponin I < 0.012 ng/mL (0.000-0.034)
[2021-11-02 16:00] VITALS: BP 135/62; PULSE 86; RESP 16; TEMP 36.8; O2SAT 94
[2021-11-02 16:54] LABS: Glucose Point of Care 165 mg/dl (65-105)
[2021-11-02 20:00] VITALS: BP 137/69; PULSE 84; RESP 18; TEMP 36.3; O2SAT 94
[2021-11-02 20:26] LABS: Glucose Point of Care 235 mg/dl (65-105)
[2021-11-03 06:00] VITALS: BP 156/64; PULSE 83; RESP 20; TEMP 36.4; O2SAT 93
[2021-11-03 07:31] LABS: Glucose Point of Care 195 mg/dl (65-105)
[2021-11-03] MEDS: hydrOXYzine pamoate 25 MG CAPSULE 50 MG PO (08:58)
[2021-11-03] MEDS: metFORMIN HCL XR 500 MG TAB.SR.24H PO ×2 (08:58→17:43)
[2021-11-03] MEDS: FAMOTIDINE 20 MG TABLET PO ×2 (08:59→21:20)
[2021-11-03] MEDS: SENNA/DOCUSATE SODIUM TABLET 2 TAB PO ×2 (08:59→17:43)
[2021-11-03] MEDS: hydroCHLOROthiazide 25 MG TABLET PO (08:59)
[2021-11-03] MEDS: LOSARTAN POTASSIUM 25 MG TABLET PO (08:59)
[2021-11-03] MEDS: MIRABEGRON 50 MG ER TABLET PO (08:59)
[2021-11-03] MEDS: EZETIMIBE 10 MG TABLET PO (08:59)
[2021-11-03] MEDS: MONTELUKAST SODIUM 10 MG TABLET PO (08:59)
[2021-11-03] MEDS: SERTRALINE HCL 50 MG TABLET 100 MG PO (08:59)
[2021-11-03] MEDS: polyethylene glycoL 3350 17 GM POWD.PACK PO (09:00)
[2021-11-03] MEDS: FLUTICASONE PROPIONATE 0.05% NA SPR 16 GM BTL (*BKC) 2 SPRAY NASAL (09:00)
[2021-11-03] MEDS: HEPARIN SODIUM 5,000 UNITS/ML VIAL 5000 UNITS SUB-Q ×2 (09:00→21:20)
[2021-11-03] MEDS: ALPRAZolam (*CRX) 0.5 MG TABLET PO ×2 (09:03→17:43)
--- NOTE | 2021-11-03 09:08 | PM.IMPN ---
Progress Note: A&P Assessment and Plan (1) Intertrochanteric fracture of left hip: Qualifiers: Encounter type: initial encounter Fracture alignment: nondisplaced Fracture type: closed Qualified Code(s): S72.145A - Nondisplaced intertrochanteric fracture of left femur, initial encounter for closed fracture Code(s): S72.142A - Displaced intertrochanteric fracture of left femur, initial encounter for closed fracture Status: Acute Assessment and Plan: -POD # -stable for discharge to SNF from ortho standpoint -discharge planning, pain control, DVT prophylaxis per ortho (2) Hypertension: Code(s): I10 - Essential (primary) hypertension Status: Acute Assessment and Plan: -stable -home meds (3) Diabetes mellitus: Code(s): E11.9 - Type 2 diabetes mellitus without complications Status: Acute Assessment and Plan: -Accuchecks ACHS and sliding scale -somewhat elevated still, 241 this AM. Increased to moderate dose SS. Consider adding Lantus. -check A1c (4) Chest pain: Code(s): R07.9 - Chest pain, unspecified Status: Acute Assessment and Plan: -resolved -trop x3 negative, EKG no ischemic changes, cxr negative. -unclear how reliable the complaint of chest pain at the time was due to patient's odd affect and sometimes confusion Subjective Date/time seen: 11/03/21 09:08 Interval history: 66 yo male w/ hx of HTN, HLD, DM, bipolar disorder, admitted for L hip fracture. Pt is A/Ox3 with some confusion. Today he has no complaints and denies pain. No cp, sob. No n/v/abd pain. No LE edema. Review of Systems Review of Systems: All systems reviewed & are unremarkable except as noted in HPI and below Exam Narrative: Constitutional: Patient is a 66-year-old gentleman who is unkempt and well-nourished. Patient is in no acute distress. Patient is alert and oriented x3 HEENT: Moist mucous membranes. No scleral icterus. Neck: Supple Lungs: rhonchi noted L upper lobe. Lungs otherwise CTA. No wheezing. No respiratory distress. Cardiovascular: RRR, no murmur Abdomen: Soft, round, and nontender. No palpable masses. Extremities: L hip dressing C/D/I, no edema BLE Neurological: No focal neurological deficits. Cranial nerves II-XII grossly intact. Psychiatric: Confused but cooperative Objective Data Vital Signs Vital Signs: Vital Signs - 24 hr 11/02/21 12:00 11/02/21 16:00 11/02/21 20:00 Temperature 98.1 F 98.3 F 97.3 F L Pulse Rate 86 86 84 Respiratory Rate 16 16 18 Blood Pressure 127/57 L 135/62 137/69 Pulse Oximetry 94 94 94 11/03/21 06:00 Temperature 97.5 F L Pulse Rate 83 Respiratory Rate 20 Blood Pressure 156/64 H Pulse Oximetry 93 Intake/Output Intake/Output: Intake & Output 10/31/21 11/01/21 11/02/21 11/03/21 23:59 23:59 23:59 23:59 Intake Total 1000 1310 4330 290 Output Total 350 1650 700 Balance 4382 735 2248 -410 Meds/Results Medications: Active Medications Generic Name Dose Route Start Last Admin Trade Name Freq PRN Reason Stop Dose Admin Acetaminophen 650 mg 11/01/21 15:53 Acetaminophen 325 Mg Tablet PO Q6H PRN Mild Pain (1-3) or Fever Hydrocodone Bitart/Acetaminophen 1 tab 11/01/21 15:53 11/02/21 22:30 Hydrocodone/Acetaminophen (*Crx) 7.5-325 Mg Tablet PO 1 tab Q3H PRN Administration Pain Rated 4-6 Alprazolam 0.5 mg 11/01/21 09:00 11/03/21 09:03 Alprazolam (*Crx) 0.5 Mg Tablet PO 0.5 mg BID CHONG Administration Dextrose 12.5 gm 10/31/21 19:37 Dextrose 50% 25 Gm/50 Ml Syringe IV PUSH PRN PRN Hypoglycemia Protocol Ezetimibe 10 mg 11/01/21 09:00 11/03/21 08:59 Ezetimibe 10 Mg Tablet PO 10 mg DAILY CHONG Administration Famotidine 20 mg 11/01/21 21:00 11/03/21 08:59 Famotidine 20 Mg Tablet PO 20 mg Q12HR CHONG Administration Fluticasone Propionate 2 spray 11/01/21 0
[2021-11-03] MEDS: HYDROcodone/acetaminophen (*CRX) 7.5-325 MG TABLET 1 TAB PO (09:21)
[2021-11-03 09:50] LABS: Basophils Percent Auto 0.5 % (0.2-1.2); Eosinophils Absolute Auto 0.1 K/mm3 (0-0.3); Eosinophils Percent Auto 1.9 % (0-4.4); Hematocrit 27.6 % (42.0-52.0); Hemoglobin 9.6 g/dL (14.0-18.0); Immature Granulocyte Absolute 0.04 K/mm3 (0.00-0.031); Immature Granulocyte Percent A 0.6 % (0-0.5); Lymphocytes Absolute Auto 0.59 K/mm3 (0.9-3.2); Lymphocytes Percent Auto 9.5 % (18.3-44.2); Mean Corpuscular HGB Conc 34.8 g/dl (32-36); Mean Corpuscular Hemoglobin 33.4 pg (26-34); Mean Corpuscular Volume 96.2 fl (80-100); Mean Platelet Volume 10.3 fl (7.4-10.4); Monocytes Absolute Auto 0.5 K/mm3 (0.1-0.6); Monocytes Percent Auto 7.3 % (2.6-8.5); Neutrophils Percent Auto 80.2 % (45.5-73.1); Platelet Count Result 126 k/mm3 (150-375); Red Blood Count 2.87 M/mm3 (4.6-6.20); Red Cell Distribution Width 13.2 % (11.5-14.5); White Blood Count 6.2 K/mm3 (4.5-10.0)
[2021-11-03 09:59] LABS: Anion Gap 4 mmol/L (8-16); Blood Urea Nitrogen 7 mg/dL (9-20); Calcium 8.1 mg/dL (8.4-10.2); Carbon Dioxide 28 mmol/L (22-30); Chloride 101 mmol/L (98-107); Estimated CRCL calculation 155 ml/min; Estimated Glomerular Filt Rate > 60; Glucose 241 mg/dL (65-110); Potassium 3.2 mmol/L (3.4-5.0); Sodium 133 mmol/L (137-145)
[2021-11-03 11:53] LABS: Glucose Point of Care 269 mg/dl (65-105)
[2021-11-03 12:00] VITALS: BP 130/57; PULSE 89; RESP 18; TEMP 36.4; O2SAT 96
[2021-11-03] MEDS: INSULIN ASPART (*BKC) 100 UNITS/ML SUB-Q ×2 (12:46→17:42)
[2021-11-03] MEDS: SODIUM CHLORIDE 0.9% IV 1,000 ML 125 ML IV CONT ×2 (12:52→21:20)
--- NOTE | 2021-11-03 13:51 | PM.PNORT ---
Progress Note: A&P Additional Plan POD 2 DOING WELL. HGB STABLE. SNF ONCE STABLE PER MEDICINE Subjective Subjective Date/Time Seen: 11/03/21 13:51 POD 2 DOING WELL. NO CALF PAIN Exam Extrem: Other: VSS AFEBRILE DRESSING DRY NV INTACT MILD HEMATOMA, NEG HOMANS SIGN CALF SOFT Objective Data Vital Signs Vital Signs: Vital Signs - 24 hr 11/02/21 16:00 11/02/21 20:00 11/03/21 06:00 Temperature 36.8 C 36.3 C L 36.4 C L Pulse Rate 86 84 83 Respiratory Rate 16 18 20 Blood Pressure 135/62 137/69 156/64 H Pulse Oximetry 94 94 93 Intake/Output Intake/Output: Intake & Output 10/31/21 11/01/21 11/02/21 11/03/21 23:59 23:59 23:59 23:59 Intake Total 1000 1310 4330 1290 Output Total 350 1650 700 Balance 9358 083 8826 590 Meds/Results Medications: Active Medications Generic Name Dose Route Start Last Admin Trade Name Freq PRN Reason Stop Dose Admin Acetaminophen 650 mg 11/01/21 15:53 Acetaminophen 325 Mg Tablet PO Q6H PRN Mild Pain (1-3) or Fever Hydrocodone Bitart/Acetaminophen 1 tab 11/01/21 15:53 11/03/21 09:21 Hydrocodone/Acetaminophen (*Crx) 7.5-325 Mg Tablet PO 1 tab Q3H PRN Administration Pain Rated 4-6 Alprazolam 0.5 mg 11/01/21 09:00 11/03/21 09:03 Alprazolam (*Crx) 0.5 Mg Tablet PO 0.5 mg BID CHONG Administration Dextrose 12.5 gm 10/31/21 19:37 Dextrose 50% 25 Gm/50 Ml Syringe IV PUSH PRN PRN Hypoglycemia Protocol Ezetimibe 10 mg 11/01/21 09:00 11/03/21 08:59 Ezetimibe 10 Mg Tablet PO 10 mg DAILY CHONG Administration Famotidine 20 mg 11/01/21 21:00 11/03/21 08:59 Famotidine 20 Mg Tablet PO 20 mg Q12HR CHONG Administration Fluticasone Propionate 2 spray 11/01/21 07:18 11/03/21 09:00 Fluticasone Propionate 0.05% Na Spr 16 Gm Btl (*Bkc) NASAL 2 spray DAILY PRN Administration Runny Nose Glucagon 1 mg 10/31/21 19:37 Glucagon For Inj 1 Mg Vial IM PRN PRN Hypoglycemia Protocol Glucose 15 gm 10/31/21 19:37 Glucose Oral Gel 15 Gm Of Glucse In 37.5 Gm Tube PO PRN PRN Hypoglycemia Protocol Heparin Sodium (Porcine) 5,000 units 11/01/21 21:00 11/03/21 09:00 Heparin Sodium 5,000 Units/Ml Vial SUB-Q 5,000 units Q12HR CHONG Administration Hydrochlorothiazide 25 mg 11/01/21 09:00 11/03/21 08:59 Hydrochlorothiazide 25 Mg Tablet PO 25 mg DAILY CHONG Administration Hydroxyzine Pamoate 50 mg 11/01/21 15:53 11/03/21 08:58 Hydroxyzine Pamoate 25 Mg Capsule PO 50 mg Q4H PRN Administration Itching Dextrose 1,000 mls @ 100 mls/hr 10/31/21 19:37 Dextrose 5% 1,000 Ml IVPB PRN PRN Hypoglycemia Protocol Sodium Chloride 1,000 mls @ 125 mls/hr 11/01/21 15:55 11/03/21 12:52 Normal Saline Iv IV CONT 125 mls/hr .Q8H CHONG Administration Insulin Aspart 3 - 6 units 11/02/21 12:00 11/03/21 12:46 Insulin Aspart (*Bkc) 100 Units/Ml SUB-Q 3 units TIDWM CHONG Administration Protocol Losartan Potassium 25 mg 11/01/21 09:00 11/03/21 08:59 Losartan Potassium 25 Mg Tablet PO 25 mg DAILY CHONG Administration Metformin HCl 500 mg 11/01/21 08:00 11/03/21 08:58 Metformin Hcl Xr 500 Mg Tab.Sr.24h PO 500 mg BIDWM CHONG Administration Mirabegron 50 mg 11/01/21 09:00 11/03/21 08:59 Mirabegron 50 Mg Er Tablet PO 50 mg DAILY CHONG Administration Montelukast Sodium 10 mg 11/01/21 09:00 11/03/21 08:59 Montelukast Sodium 10 Mg Tablet PO 10 mg DAILY CHONG Administration Morphine Sulfate 3 mg 11/01/21 15:53 11/01/21 17:24 Morphine Sulfate (*Crx) 4 Mg/Ml Inj IV PUSH 3 mg Q3H PRN Administration Pain Rated 7-10 Naloxone HCl 0.1 mg 11/01/21 15:53 Naloxone Hcl 0.4 Mg/Ml Vial IV PUSH Q2M PRN Opiate Reversal Ondansetron HCl 4 mg 11/01/21 15:53 11/01/21 17:24 Ondansetron Inj 4 Mg/2 Ml Vial IV PUSH 4 mg Q4H PRN Administration Nausea And Vomiting Polyethy
--- NOTE | 2021-11-03 15:46 | PCPTNOTE ---
Attempted to see patient for Physical therapy session; patient covered his head with blankets and refused stating my legs don't feel too good right now Reiterated importance of therapy, patient continued to declined stating maybe later .
[2021-11-03 17:07] LABS: Glucose Point of Care 258 mg/dl (65-105)
[2021-11-03 20:00] VITALS: PULSE 89; RESP 18; O2SAT 96
[2021-11-03 20:37] LABS: Glucose Point of Care 180 mg/dl (65-105)
--- NOTE | 2021-11-03 21:21 | ECG_ITS ---
Measurements Intervals [place] Rate: 88 P: 64 MA: 158 QRS: -12 QRSD: 121 T: 59 QT: 398 QTc: 483 Interpretive Statements MOTION ARTIFACT, POOR DATA QUALITY SINUS RHYTHM POSSIBLE RIGHT VENTRICULAR CONDUCTION DELAY [RSR (QR) IN V1/V2] NONSPECIFIC ST & T-WAVE ABNORMALITY COMPARED TO ECG 11/02/2021 11:02:43 NO SIGNIFICANT CHANGES Electronically Signed On 11-04-2021 7:40:01 CDT by Cortes Velez M.D.
[2021-11-04] MEDS: QUEtiapine FUMARATE 25 MG TABLET PO (00:16)
[2021-11-04] MEDS: MORPHINE SULFATE (*CRX) 4 MG/ML INJ 3 MG IV PUSH ×2 (00:18→09:44)
[2021-11-04 06:00] VITALS: BP 166/45; PULSE 86; RESP 18; TEMP 36.2; O2SAT 96
[2021-11-04 06:31] LABS: Basophils Percent Auto 0.6 % (0.2-1.2); Eosinophils Absolute Auto 0.2 K/mm3 (0-0.3); Eosinophils Percent Auto 2.8 % (0-4.4); Hemoglobin 9.3 g/dL (14.0-18.0); Immature Granulocyte Absolute 0.04 K/mm3 (0.00-0.031); Immature Granulocyte Percent A 0.8 % (0-0.5); Immature Platelet Fraction Pct 5.4 % (0.9-11.2); Lymphocytes Absolute Auto 0.69 K/mm3 (0.9-3.2); Lymphocytes Percent Auto 13.1 % (18.3-44.2); Mean Corpuscular HGB Conc 34.4 g/dl (32-36); Mean Corpuscular Volume 95.7 fl (80-100); Mean Platelet Volume 10.5 fl (7.4-10.4); Monocytes Absolute Auto 0.5 K/mm3 (0.1-0.6); Monocytes Percent Auto 8.5 % (2.6-8.5); Neutrophils Absolute Auto 3.9 K/mm3 (1.3-6.7); Neutrophils Percent Auto 74.2 % (45.5-73.1); Platelet Count Result 149 k/mm3 (150-375); Red Blood Count 2.82 M/mm3 (4.6-6.20); White Blood Count 5.3 K/mm3 (4.5-10.0)
[2021-11-04 06:32] LABS: Hemoglobin A1C 6.7 % (<5.7)
[2021-11-04 06:41] LABS: Potassium 3.1 mmol/L (3.4-5.0)
[2021-11-04 06:58] LABS: Anion Gap 5 mmol/L (8-16); Blood Urea Nitrogen 7 mg/dL (9-20); Calcium 8.1 mg/dL (8.4-10.2); Carbon Dioxide 29 mmol/L (22-30); Chloride 98 mmol/L (98-107); Estimated CRCL calculation 155 ml/min; Estimated Glomerular Filt Rate > 60; Glucose 221 mg/dL (65-110); Sodium 132 mmol/L (137-145)
[2021-11-04 07:57] LABS: Glucose Point of Care 214 mg/dl (65-105)
[2021-11-04] MEDS: POTASSIUM CHLORIDE 20 MEQ TABLET 40 MEQ PO (09:32)
[2021-11-04] MEDS: SERTRALINE HCL 50 MG TABLET 100 MG PO (09:33)
[2021-11-04] MEDS: SENNA/DOCUSATE SODIUM TABLET 2 TAB PO ×2 (09:33→16:51)
[2021-11-04] MEDS: MONTELUKAST SODIUM 10 MG TABLET PO (09:33)
[2021-11-04] MEDS: metFORMIN HCL XR 500 MG TAB.SR.24H PO ×2 (09:34→16:50)
[2021-11-04] MEDS: FAMOTIDINE 20 MG TABLET PO ×2 (09:34→20:22)
[2021-11-04] MEDS: hydroCHLOROthiazide 25 MG TABLET PO (09:34)
[2021-11-04] MEDS: EZETIMIBE 10 MG TABLET PO (09:34)
[2021-11-04] MEDS: LOSARTAN POTASSIUM 25 MG TABLET PO (09:34)
[2021-11-04] MEDS: MIRABEGRON 50 MG ER TABLET PO (09:34)
[2021-11-04] MEDS: ALPRAZolam (*CRX) 0.5 MG TABLET PO ×2 (09:38→16:50)
[2021-11-04] MEDS: polyethylene glycoL 3350 17 GM POWD.PACK PO (09:38)
[2021-11-04] MEDS: HEPARIN SODIUM 5,000 UNITS/ML VIAL 5000 UNITS SUB-Q ×2 (09:38→20:22)
[2021-11-04] MEDS: INSULIN ASPART (*BKC) 100 UNITS/ML SUB-Q ×2 (09:48→11:54)
[2021-11-04 11:20] LABS: Glucose Point of Care 216 mg/dl (65-105)
--- NOTE | 2021-11-04 14:32 | PM.IMPN ---
Progress Note: A&P Assessment and Plan (1) Intertrochanteric fracture of left hip: Qualifiers: Encounter type: initial encounter Fracture type: closed Fracture alignment: nondisplaced Qualified Code(s): S72.145A - Nondisplaced intertrochanteric fracture of left femur, initial encounter for closed fracture Code(s): S72.142A - Displaced intertrochanteric fracture of left femur, initial encounter for closed fracture Status: Acute Assessment and Plan: -POD # 2 -stable for discharge to SNF from ortho standpoint -discharge planning, pain control, DVT prophylaxis per ortho (2) Hypertension: Code(s): I10 - Essential (primary) hypertension Status: Acute Assessment and Plan: -stable -home meds (3) Diabetes mellitus: Code(s): E11.9 - Type 2 diabetes mellitus without complications Status: Acute Assessment and Plan: -Accuchecks ACHS and sliding scale -somewhat elevated still but improving Increased to moderate dose SS. Consider adding Lantus. -A1c 6.7 (4) Chest pain: Code(s): R07.9 - Chest pain, unspecified Status: Acute Assessment and Plan: -resolved -trop x3 negative, EKG no ischemic changes, cxr negative. -unclear how reliable the complaint of chest pain at the time was due to patient's odd affect and sometimes confusion Subjective Date/time seen: 11/04/21 14:32 Interval history: 66 yo male w/ hx of HTN, HLD, DM, bipolar disorder, admitted for L hip fracture. Pt is A/Ox3 with some intermittent confusion. Odd affect. Today he has no complaints and denies pain. No cp, sob. No n/v/abd pain. No LE edema. Review of Systems Review of Systems: All systems reviewed & are unremarkable except as noted in HPI and below Exam Narrative: Constitutional: Patient is a 66-year-old gentleman who is unkempt and well-nourished. Patient is in no acute distress. Patient is alert and oriented x3 HEENT: Moist mucous membranes. No scleral icterus. Neck: Supple Lungs: Lungs otherwise CTA. No wheezing. No respiratory distress. Cardiovascular: RRR, no murmur Abdomen: Soft, round, and nontender. No palpable masses. Extremities: L hip dressing C/D/I, no edema BLE Neurological: No focal neurological deficits. Cranial nerves II-XII grossly intact. Psychiatric: Confused but cooperative Objective Data Vital Signs Vital Signs: Vital Signs - 24 hr 11/03/21 20:00 11/04/21 06:00 Temperature 97.2 F L Pulse Rate 89 86 Respiratory Rate 18 18 Blood Pressure 166/45 H Pulse Oximetry 96 96 Intake/Output Intake/Output: Intake & Output 11/01/21 11/02/21 11/03/21 11/04/21 23:59 23:59 23:59 23:59 Intake Total 1310 4330 2770 1240 Output Total 350 1650 1400 875 Balance 960 2680 1370 365 Meds/Results Medications: Active Medications Generic Name Dose Route Start Last Admin Trade Name Freq PRN Reason Stop Dose Admin Acetaminophen 650 mg 11/01/21 15:53 Acetaminophen 325 Mg Tablet PO Q6H PRN Mild Pain (1-3) or Fever Hydrocodone Bitart/Acetaminophen 1 tab 11/01/21 15:53 11/03/21 09:21 Hydrocodone/Acetaminophen (*Crx) 7.5-325 Mg Tablet PO 1 tab Q3H PRN Administration Pain Rated 4-6 Alprazolam 0.5 mg 11/01/21 09:00 11/04/21 09:38 Alprazolam (*Crx) 0.5 Mg Tablet PO 0.5 mg BID CHONG Administration Dextrose 12.5 gm 10/31/21 19:37 Dextrose 50% 25 Gm/50 Ml Syringe IV PUSH PRN PRN Hypoglycemia Protocol Ezetimibe 10 mg 11/01/21 09:00 11/04/21 09:34 Ezetimibe 10 Mg Tablet PO 10 mg DAILY CHONG Administration Famotidine 20 mg 11/01/21 21:00 11/04/21 09:34 Famotidine 20 Mg Tablet PO 20 mg Q12HR CHONG Administration Fluticasone Propionate 2 spray 11/01/21 07:18 11/03/21 09:00 Fluticasone Propionate 0.05% Na Spr 16 Gm Btl (*Bkc) NASAL 2 spray DAILY PRN Administration Runny Nose Glucagon 1 mg 10/31/21 19:37
[2021-11-04 16:17] LABS: Glucose Point of Care 199 mg/dl (65-105)
[2021-11-04 20:00] VITALS: BP 138/63; PULSE 86; RESP 18; TEMP 36.8; O2SAT 97
[2021-11-04 20:13] LABS: Glucose Point of Care 179 mg/dl (65-105)
[2021-11-05] VITALS (7 sets, daily range): BP systolic 100–138; BP diastolic 48–61; PULSE 78–92; RESP 16–18; TEMP 35.7–37; O2SAT 96–98
[2021-11-05] MEDS: MORPHINE SULFATE (*CRX) 4 MG/ML INJ 3 MG IV PUSH (01:24)
[2021-11-05 06:19] LABS: Hematocrit 27.1 % (42.0-52.0); Hemoglobin 9.2 g/dL (14.0-18.0); Mean Corpuscular HGB Conc 33.9 g/dl (32-36); Mean Corpuscular Hemoglobin 32.7 pg (26-34); Mean Corpuscular Volume 96.4 fl (80-100); Mean Platelet Volume 10.3 fl (7.4-10.4); Platelet Count Result 152 k/mm3 (150-375); Red Blood Count 2.81 M/mm3 (4.6-6.20); Red Cell Distribution Width 13.2 % (11.5-14.5); White Blood Count 4.6 K/mm3 (4.5-10.0)
[2021-11-05 06:42] LABS: Anion Gap 3 mmol/L (8-16); Blood Urea Nitrogen 11 mg/dL (9-20); Calcium 8.5 mg/dL (8.4-10.2); Carbon Dioxide 32 mmol/L (22-30); Chloride 98 mmol/L (98-107); Estimated CRCL calculation 131 ml/min; Estimated Glomerular Filt Rate > 60; Glucose 265 mg/dL (65-110); Potassium 3.7 mmol/L (3.4-5.0); Sodium 133 mmol/L (137-145)
[2021-11-05 08:43] LABS: Glucose Point of Care 268 mg/dl (65-105)
[2021-11-05] MEDS: HEPARIN SODIUM 5,000 UNITS/ML VIAL 5000 UNITS SUB-Q ×2 (08:57→21:30)
[2021-11-05] MEDS: INSULIN ASPART (*BKC) 100 UNITS/ML SUB-Q ×2 (08:58→17:19)
[2021-11-05] MEDS: MIRABEGRON 50 MG ER TABLET PO (09:00)
[2021-11-05] MEDS: SENNA/DOCUSATE SODIUM TABLET 2 TAB PO ×2 (09:00→17:19)
[2021-11-05] MEDS: hydroCHLOROthiazide 25 MG TABLET PO (09:00)
[2021-11-05] MEDS: LOSARTAN POTASSIUM 25 MG TABLET PO (09:00)
[2021-11-05] MEDS: MONTELUKAST SODIUM 10 MG TABLET PO (09:00)
[2021-11-05] MEDS: ALPRAZolam (*CRX) 0.5 MG TABLET PO ×2 (09:00→17:19)
[2021-11-05] MEDS: EZETIMIBE 10 MG TABLET PO (09:00)
[2021-11-05] MEDS: metFORMIN HCL XR 500 MG TAB.SR.24H PO ×2 (09:01→17:19)
[2021-11-05] MEDS: SERTRALINE HCL 50 MG TABLET 100 MG PO (09:01)
[2021-11-05] MEDS: HYDROcodone/acetaminophen (*CRX) 7.5-325 MG TABLET 1 TAB PO (09:02)
[2021-11-05] MEDS: FAMOTIDINE 20 MG TABLET PO ×2 (09:05→21:25)
--- NOTE | 2021-11-05 11:06 | PM.IMPN ---
Progress Note: A&P Assessment and Plan (1) Intertrochanteric fracture of left hip: Qualifiers: Encounter type: initial encounter Fracture type: closed Fracture alignment: nondisplaced Qualified Code(s): S72.145A - Nondisplaced intertrochanteric fracture of left femur, initial encounter for closed fracture Code(s): S72.142A - Displaced intertrochanteric fracture of left femur, initial encounter for closed fracture Status: Acute Assessment and Plan: -POD # 3 -stable for discharge to SNF from ortho standpoint -discharge planning, pain control, DVT prophylaxis per ortho (2) Hypertension: Code(s): I10 - Essential (primary) hypertension Status: Acute Assessment and Plan: -stable -home meds (3) Diabetes mellitus: Code(s): E11.9 - Type 2 diabetes mellitus without complications Status: Acute Assessment and Plan: -Accuchecks ACHS and sliding scale -somewhat elevated still but improving Increased to moderate dose SS. -A1c 6.7 -still having >200 fasting glucose in the mornings, will try adding 10 units of Lantus tonight (4) Chest pain: Code(s): R07.9 - Chest pain, unspecified Status: Acute Assessment and Plan: -resolved -trop x3 negative, EKG no ischemic changes, cxr negative. -unclear how reliable the complaint of chest pain at the time was due to patient's odd affect and sometimes confusion Subjective Date/time seen: 11/05/21 11:06 Interval history: 66 yo male w/ hx of HTN, HLD, DM, bipolar disorder, admitted for L hip fracture. Pt is A/Ox3 with some intermittent confusion. Odd affect. Today he has no complaints and denies pain. No cp, sob. No n/v/abd pain. No LE edema. Review of Systems Review of Systems: All systems reviewed & are unremarkable except as noted in HPI and below Exam Narrative: Constitutional: Patient is a 66-year-old gentleman who is unkempt and well-nourished. Patient is in no acute distress. Patient is alert and oriented x3 HEENT: Moist mucous membranes. No scleral icterus. Neck: Supple Lungs: Lungs CTA. No wheezing. No respiratory distress. Cardiovascular: RRR, no murmur Abdomen: Soft, round, and nontender. No palpable masses. Extremities: L hip dressing C/D/I, no edema BLE Neurological: No focal neurological deficits. Cranial nerves II-XII grossly intact. Psychiatric: Confused but cooperative Objective Data Vital Signs Vital Signs: Vital Signs - 24 hr 11/04/21 20:00 11/05/21 02:26 11/05/21 04:00 Temperature 98.2 F 98.2 F 96.5 F L Pulse Rate 86 79 Respiratory Rate 18 18 Blood Pressure 138/63 138/61 Pulse Oximetry 97 98 11/05/21 08:00 Temperature 96.5 F L Pulse Rate 78 Respiratory Rate 18 Blood Pressure 133/56 L Pulse Oximetry 98 Intake/Output Intake/Output: Intake & Output 11/02/21 11/03/21 11/04/21 11/05/21 23:59 23:59 23:59 23:59 Intake Total 4330 2770 1340 100 Output Total 1650 1400 1675 800 Balance 2680 1370 -335 -700 Meds/Results Medications: Active Medications Generic Name Dose Route Start Last Admin Trade Name Freq PRN Reason Stop Dose Admin Acetaminophen 650 mg 11/01/21 15:53 Acetaminophen 325 Mg Tablet PO Q6H PRN Mild Pain (1-3) or Fever Hydrocodone Bitart/Acetaminophen 1 tab 11/01/21 15:53 11/05/21 09:02 Hydrocodone/Acetaminophen (*Crx) 7.5-325 Mg Tablet PO 1 tab Q3H PRN Administration Pain Rated 4-6 Alprazolam 0.5 mg 11/01/21 09:00 11/05/21 09:00 Alprazolam (*Crx) 0.5 Mg Tablet PO 0.5 mg BID CHONG Administration Dextrose 12.5 gm 10/31/21 19:37 Dextrose 50% 25 Gm/50 Ml Syringe IV PUSH PRN PRN Hypoglycemia Protocol Ezetimibe 10 mg 11/01/21 09:00 11/05/21 09:00 Ezetimibe 10 Mg Tablet PO 10 mg DAILY CHONG Administration Famotidine 20 mg 11/01/21 21:00 11/05/21 09:05 Famotidine 20 Mg Tablet PO 20 mg Q12HR CHONG Administr
[2021-11-05 17:04] LABS: Glucose Point of Care 230 mg/dl (65-105)
[2021-11-05] MEDS: INSULIN GLARGINE (*BKC) 100 UNITS/ML 10 UNITS SUB-Q (21:30)
[2021-11-05 21:48] LABS: Glucose Point of Care 237 mg/dl (65-105)
[2021-11-06 06:00] VITALS: BP 147/64; PULSE 81; RESP 16; TEMP 36.1; O2SAT 97
[2021-11-06 06:48] LABS: Hematocrit 26.7 % (42.0-52.0); Hemoglobin 9.1 g/dL (14.0-18.0); Mean Corpuscular HGB Conc 34.1 g/dl (32-36); Mean Corpuscular Hemoglobin 32.2 pg (26-34); Mean Corpuscular Volume 94.3 fl (80-100); Mean Platelet Volume 10.6 fl (7.4-10.4); Platelet Count Result 158 k/mm3 (150-375); Red Blood Count 2.83 M/mm3 (4.6-6.20)
[2021-11-06 06:50] LABS: Anion Gap 7 mmol/L (8-16); Blood Urea Nitrogen 10 mg/dL (9-20); Calcium 8.5 mg/dL (8.4-10.2); Carbon Dioxide 29 mmol/L (22-30); Chloride 97 mmol/L (98-107); Estimated CRCL calculation 155 ml/min; Estimated Glomerular Filt Rate > 60; Glucose 222 mg/dL (65-110); Potassium 3.4 mmol/L (3.4-5.0); Sodium 133 mmol/L (137-145)
[2021-11-06 08:19] LABS: Glucose Point of Care 227 mg/dl (65-105)
[2021-11-06] MEDS: MIRABEGRON 50 MG ER TABLET PO (08:46)
[2021-11-06] MEDS: INSULIN ASPART (*BKC) 100 UNITS/ML SUB-Q ×3 (08:46→17:17)
[2021-11-06] MEDS: metFORMIN HCL XR 500 MG TAB.SR.24H PO ×2 (08:46→17:18)
[2021-11-06] MEDS: hydroCHLOROthiazide 25 MG TABLET PO (08:46)
[2021-11-06] MEDS: ALPRAZolam (*CRX) 0.5 MG TABLET PO ×2 (08:46→17:18)
[2021-11-06] MEDS: SERTRALINE HCL 50 MG TABLET 100 MG PO (08:46)
[2021-11-06] MEDS: LOSARTAN POTASSIUM 25 MG TABLET PO (08:46)
[2021-11-06] MEDS: FAMOTIDINE 20 MG TABLET PO ×2 (08:46→21:10)
[2021-11-06] MEDS: MONTELUKAST SODIUM 10 MG TABLET PO (08:46)
[2021-11-06] MEDS: SENNA/DOCUSATE SODIUM TABLET 2 TAB PO ×2 (08:46→17:18)
[2021-11-06] MEDS: EZETIMIBE 10 MG TABLET PO (08:46)
[2021-11-06] MEDS: HEPARIN SODIUM 5,000 UNITS/ML VIAL 5000 UNITS SUB-Q ×2 (08:47→21:12)
[2021-11-06] MEDS: HYDROcodone/acetaminophen (*CRX) 7.5-325 MG TABLET 1 TAB PO ×2 (09:17→17:18)
[2021-11-06 12:02] LABS: Glucose Point of Care 259 mg/dl (65-105)
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
[2021-11-06 14:00] VITALS: BP 135/86; PULSE 80; RESP 16; TEMP 36.6; O2SAT 98
[2021-11-06 17:25] LABS: Glucose Point of Care 224 mg/dl (65-105)
[2021-11-06 20:00] VITALS: PULSE 79; RESP 16; O2SAT 96
[2021-11-06] MEDS: INSULIN GLARGINE (*BKC) 100 UNITS/ML 10 UNITS SUB-Q (21:10)
[2021-11-06 21:12] LABS: Glucose Point of Care 215 mg/dl (65-105)
[2021-11-06 22:00] VITALS: BP 132/62; PULSE 79; RESP 16; TEMP 36.3; O2SAT 96
[2021-11-07 06:00] VITALS: BP 144/63; PULSE 80; RESP 16; TEMP 36.5; O2SAT 98
[2021-11-07 06:09] LABS: Hemoglobin 10.4 g/dL (14.0-18.0); Mean Corpuscular HGB Conc 33.5 g/dl (32-36); Mean Corpuscular Hemoglobin 32.7 pg (26-34); Mean Corpuscular Volume 97.5 fl (80-100); Mean Platelet Volume 10.4 fl (7.4-10.4); Platelet Count Result 193 k/mm3 (150-375); Red Blood Count 3.18 M/mm3 (4.6-6.20); Red Cell Distribution Width 13.2 % (11.5-14.5); White Blood Count 5.2 K/mm3 (4.5-10.0)
[2021-11-07 06:23] LABS: Anion Gap 7 mmol/L (8-16); Blood Urea Nitrogen 17 mg/dL (9-20); Calcium 9.2 mg/dL (8.4-10.2); Carbon Dioxide 30 mmol/L (22-30); Chloride 98 mmol/L (98-107); Estimated CRCL calculation 131 ml/min; Estimated Glomerular Filt Rate > 60; Glucose 217 mg/dL (65-110); Potassium 3.8 mmol/L (3.4-5.0); Sodium 135 mmol/L (137-145)
[2021-11-07 08:00] VITALS: PULSE 80; RESP 16; O2SAT 98
[2021-11-07 08:43] VITALS: O2SAT 94
[2021-11-07] MEDS: EZETIMIBE 10 MG TABLET PO (08:53)
[2021-11-07] MEDS: metFORMIN HCL XR 500 MG TAB.SR.24H PO ×2 (08:53→17:18)
[2021-11-07] MEDS: SENNA/DOCUSATE SODIUM TABLET 2 TAB PO (08:53)
[2021-11-07] MEDS: MIRABEGRON 50 MG ER TABLET PO (08:53)
[2021-11-07] MEDS: hydroCHLOROthiazide 25 MG TABLET PO (08:53)
[2021-11-07] MEDS: FLUTICASONE PROPIONATE 0.05% NA SPR 16 GM BTL (*BKC) 2 SPRAY NASAL (08:53)
[2021-11-07] MEDS: SERTRALINE HCL 50 MG TABLET 100 MG PO (08:53)
[2021-11-07] MEDS: LOSARTAN POTASSIUM 25 MG TABLET PO (08:53)
[2021-11-07] MEDS: MONTELUKAST SODIUM 10 MG TABLET PO (08:54)
[2021-11-07] MEDS: INSULIN ASPART (*BKC) 100 UNITS/ML SUB-Q ×3 (08:54→17:18)
[2021-11-07] MEDS: FAMOTIDINE 20 MG TABLET PO ×2 (08:54→20:33)
[2021-11-07] MEDS: ALPRAZolam (*CRX) 0.5 MG TABLET PO ×2 (08:56→17:18)
[2021-11-07] MEDS: polyethylene glycoL 3350 17 GM POWD.PACK PO (09:01)
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
--- NOTE | 2021-11-07 09:20 | PC.NURSE ---
pt continues to yell and chant obscenities.
[2021-11-07] MEDS: ARIPiprazole 2.5 MG TABLET PO (11:43)
[2021-11-07 11:49] LABS: Glucose Point of Care 222 mg/dl (65-105)
[2021-11-07 11:49] LABS: Glucose Point of Care 209 mg/dl (65-105)
[2021-11-07 14:00] VITALS: BP 138/67; PULSE 79; RESP 18; TEMP 36.1; O2SAT 98
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
[2021-11-07 16:46] LABS: Glucose Point of Care 217 mg/dl (65-105)
[2021-11-07 20:00] VITALS: PULSE 82; RESP 18; O2SAT 96
[2021-11-07] MEDS: HEPARIN SODIUM 5,000 UNITS/ML VIAL 5000 UNITS SUB-Q (20:33)
[2021-11-07] MEDS: INSULIN GLARGINE (*BKC) 100 UNITS/ML 10 UNITS SUB-Q (20:33)
[2021-11-07] MEDS: QUEtiapine FUMARATE 12.5 MG TABLET PO (20:34)
[2021-11-07] MEDS: hydrOXYzine pamoate 25 MG CAPSULE 50 MG PO (20:34)
[2021-11-07 20:46] LABS: Glucose Point of Care 244 mg/dl (65-105)
[2021-11-07 22:00] VITALS: BP 126/64; PULSE 82; RESP 18; TEMP 36.4; O2SAT 96
[2021-11-08 00:02] VITALS: O2SAT 95
[2021-11-08] MEDS: HYDROcodone/acetaminophen (*CRX) 7.5-325 MG TABLET 1 TAB PO (00:38)
[2021-11-08 06:00] VITALS: BP 122/55; PULSE 78; RESP 16; TEMP 36.2; O2SAT 97
[2021-11-08 08:00] VITALS: O2SAT 97
[2021-11-08 08:22] LABS: Glucose Point of Care 227 mg/dl (65-105)
--- NOTE | 2021-11-08 08:48 | PCNWS ---
Weekly nutritional screen. Patient screened in for length of stay. Patient is tolerating current diet with adequate intake. No weight loss reported. No nutritional needs at this time. No nutritional interventions at this time. Will follow up in 7 days if pt has not been discharged.
[2021-11-08] MEDS: SERTRALINE HCL 50 MG TABLET 100 MG PO (08:51)
[2021-11-08] MEDS: FAMOTIDINE 20 MG TABLET PO (08:52)
[2021-11-08] MEDS: ARIPiprazole 2.5 MG TABLET PO (08:52)
[2021-11-08] MEDS: metFORMIN HCL XR 500 MG TAB.SR.24H PO ×2 (08:52→18:17)
[2021-11-08] MEDS: FLUTICASONE PROPIONATE 0.05% NA SPR 16 GM BTL (*BKC) 2 SPRAY NASAL (08:52)
[2021-11-08] MEDS: hydrOXYzine pamoate 25 MG CAPSULE 50 MG PO (08:52)
[2021-11-08] MEDS: LOSARTAN POTASSIUM 25 MG TABLET PO (08:52)
[2021-11-08] MEDS: MONTELUKAST SODIUM 10 MG TABLET PO (08:52)
[2021-11-08] MEDS: MIRABEGRON 50 MG ER TABLET PO (08:52)
[2021-11-08] MEDS: hydroCHLOROthiazide 25 MG TABLET PO (08:52)
[2021-11-08] MEDS: EZETIMIBE 10 MG TABLET PO (08:52)
[2021-11-08] MEDS: SENNA/DOCUSATE SODIUM TABLET 2 TAB PO (08:52)
[2021-11-08] MEDS: INSULIN ASPART (*BKC) 100 UNITS/ML SUB-Q ×3 (08:53→18:19)
[2021-11-08] MEDS: ALPRAZolam (*CRX) 0.5 MG TABLET PO ×2 (08:54→18:19)
[2021-11-08] MEDS: HEPARIN SODIUM 5,000 UNITS/ML VIAL 5000 UNITS SUB-Q (08:55)
[2021-11-08] MEDS: polyethylene glycoL 3350 17 GM POWD.PACK PO (08:58)
--- NOTE | 2021-11-08 11:49 | PCPTNOTE ---
Patient refused treatment this session stating I want to rest. Patient educated on the importance of participating with PT to improve mobility and strength. Patient continued to refuse stating I will be just fine. I am resting. I recommended patient to change his position in bed due to being positioned in the lower half of the bed with hips and knees flexed with no room to extend legs. Patient refused repositioning.
[2021-11-08 12:21] LABS: Glucose Point of Care 285 mg/dl (65-105)
[2021-11-08 13:39] LABS: EDCOVIDSCREEN Negative (Negative)
[2021-11-08 14:59] VITALS: O2SAT 96
[2021-11-08 14:59] LABS: Glucose Point of Care 191 mg/dl (65-105)
--- NOTE | 2021-11-08 15:05 | PM.DS ---
DS: Admitting Diagnosis Discharge Date 11/08/2021 Admitting Diagnosis Left hip fracture DS: Discharge Diagnosis Discharge Diagnosis (1) Intertrochanteric fracture of left hip: Qualifiers: Encounter type: initial encounter Fracture alignment: nondisplaced Fracture type: closed Qualified Code(s): S72.145A - Nondisplaced intertrochanteric fracture of left femur, initial encounter for closed fracture Code(s): S72.142A - Displaced intertrochanteric fracture of left femur, initial encounter for closed fracture Status: Acute Assessment and Plan: Patient fell onto left hip after slipping on wet concrete Hip x-ray on presentation showed nondisplaced intertrochanteric fracture of the left femur Patient is s/p surgical repair on 11/01/[address] Rainey Will continue therapy at SNF. Patient to be weight-bearing as tolerated Continue with heparin 5000 units subq BID for 4 weeks per Orthopedic surgery recommendations Follow-up with Dr. Rainey in 6 weeks (2) Hypertension: Code(s): I10 - Essential (primary) hypertension Status: Acute Assessment and Plan: Blood pressure reviewed and were stable Continue hydrochlorothiazide, losartan (3) Diabetes mellitus: Code(s): E11.9 - Type 2 diabetes mellitus without complications Status: Acute Assessment and Plan: A1c is 6.7 Blood sugars were elevated above target during admission Started Lantus 10 units which will be continued at nursing facility Continue home metformin and glimepiride Monitor glucose ACHS at facility and implement hypoglycemia protocol (4) Chest pain: Code(s): R07.9 - Chest pain, unspecified Status: Acute Assessment and Plan: Resolved trop x3 negative, EKG showed no ischemic changes, cxr negative seems to be situational, more likely related to anxiety based on overall clinical picture (5) Delusions: Code(s): F22 - Delusional disorders Status: Acute Assessment and Plan: Patient with history of bipolar disorder and schizophrenia exhibiting delusions during admission He was not on any antipsychotic medications Started on Abilify 2.5 mg daily and Seroquel 12.5 mg qHS He had overall improvement with these medications and no more delusions He will need outpatient psychiatric evaluation at his facility DS: Summary Hospital Course Hospital Course: Date of Admission: 10/31/2021 Date of discharge: 11/08/2021 Lukas Marcelino is a 66-year-old male with a history of bipolar disorder, hypertension, hyperlipidemia, and diabetes mellitus who presented to the emergency department on 10/31/2021 with complaints of left hip pain after slipping on wet concrete and landing onto the left hip. On evaluation, his hip x-ray showed nondisplaced intertrochanteric fracture of the left. He was admitted to the hospitalist service for further evaluation management was seen in consultation by Orthopedic surgery. Please see above for further details. Patient underwent surgical repair and tolerated this well. He had slow progress with physical therapy. He will continue to receive therapy at half-way facility. Patient has many underlying social and psychiatric issues that may placement somewhat difficult but eventually was able to find an accepting facility. Patient did experience delusions during admission and was started on Abilify and Seroquel with overall improvement. He will need psychiatric evaluation. Blood sugars will be monitored closely at his facility and he should continue to follow a diabetic diet. Patient had overall improvement was determined to no longer require inpatient care. Discussed case with orthopedic surgeon who was in agreement with plans for discharge. He was discharged in hemodynamically stable condition on 11/08/2021 Status at Discharge Overall status at discharge: patient is progressing back to baseline Time Spent with Patient Time attest
[2021-11-08 18:17] LABS: Glucose Point of Care 279 mg/dl (65-105)
== END 2021-11-08 20:33 | DRG 482 ==
LOC: ANHED 15:28 → ANH3MEDSUR 17:36
PROVIDERS: Nurse Practitioner Adult Health; Orthopaedic Surgery; Physician Assistant; Admitting Provider Internal Medicine; Emergency Provider Emergency Medicine; Visit Provider Family Medicine
PROC: 0QS734Z Reposition Left Upper Femur with Internal Fixation Device, Percutaneous Approach (ICD-10-PCS; CPT 27245; principal; 2021-11-01 15:00)
DX: S72.145A Nondisplaced intertrochanteric fracture of left femur, initial encounter for closed fracture (principal); W01.0XXA Fall on same level from slipping, tripping and stumbling without subsequent striking against object, initial encounter; F22 Delusional disorders; R07.9 Chest pain, unspecified; I10 Essential (primary) hypertension; E11.9 Type 2 diabetes mellitus without complications; Z20.822 Contact with and (suspected) exposure to COVID-19; F20.9 Schizophrenia, unspecified; F31.9 Bipolar disorder, unspecified; E78.5 Hyperlipidemia, unspecified; Z28.21 Immunization not carried out because of patient refusal; Z79.84 Long term (current) use of oral hypoglycemic drugs; Z79.899 Other long term (current) drug therapy
CPT/HCPCS: 36415; 71045; 73501; 73502; 73700; 80048; 82948; 83036; 83735; 84484; 85025; 85027; 85055; 85610; 85730; 87426; 93005; 96361; 96374; 96376; 97110; 97162; 97530; 97535; 99285; A9270; C1713; C9803; G0378; J0690; J1644; J1815; J2250; J2270; J2405; J7030; J7120

== ENCOUNTER 2021-11-27 10:18 | Inpatient (IN) | payer MEDICARE, MEDICAID, SELFPAY ==
[2021-11-27] VITALS (24 sets, daily range): BP systolic 103–125; BP diastolic 57–75; PULSE 79–86; RESP 9–23; TEMP 36.1–36.6; O2SAT 98–100; BMI 24.4
--- NOTE | ~2021-11-27 | XR_ITS ---
EXAMINATION: XR chest 2V DATE: 11/27/2021 11:03 INDICATION: Weakness. Sepsis. TECHNIQUE: Frontal and lateral views of the chest were obtained. COMPARISON: Chest single view 11/02/2021 FINDINGS: The chest demonstrates clear lungs without pneumonia, pleural effusion, or pneumothorax. Th e heart size is normal. There is an old healed fracture of proximal left humerus with internal fixati on. IMPRESSION: 1. No acute cardiopulmonary disease. Reviewed, dictated and finalized at location B.
--- NOTE | ~2021-11-27 | CT_ITS ---
EXAMINATION: CT hip LT w con DATE: 11/27/2021 12:09 INDICATION: Recent left hip surgery with incision infection. TECHNIQUE: High resolution computed tomography (CT) of the left hip was performed with 100 mL Omnipaq ue-350 intravenous contrast. Additional sagittal and coronal reconstructions were performed. Automate d exposure control and iterative reconstruction technique were employed. The dose-length product was 342.11 mGy-cm. COMPARISON: 10/31/2021 FINDINGS: Old healed fractures of the left superior and inferior pubic rami. Unchanged plate and screw fixation along the posterior posterior wall of the left acetabulum. Similar plate and screw fixation along th e posterior right acetabulum on the community relations assistant topogram. There is chronic heterotopic ossification extendi ng between the greater trochanters and the superolateral rim of the acetabula on both the left and ri ght. Also evident on the topogram is an IVC filter in the upper abdomen. Internal fixation of the previously noted now subacute ununited intratrochanteric fracture of the pro ximal left femur with antegrade intramedullary terry with femoral neck dynamic compression screw and di stal interlocking screw fixation. Alignment of the fracture fixation appears near-anatomic. There is new callus formation along portions of the fracture plane which appears to remain ununited. No new fr actures identified. There is skin thickening and small region of underlying phlegmonous change along the cephalad-most skin shara consistent with cellulitis but without organized abscess. There is a s maller 12 x 11 mm peripherally enhancing fluid collection in the subcutaneous tissues deep to a few a dditional skin shara near the level of the lesser tuberosity. Additional subtle 10 x 7 mm fluid col lection in the deeper proximal vastus lateralis muscle both which could represent either small absces ses or hematomas. Mild left hip osteoarthritis with no joint effusion. Moderate osteoarthritis at the left sacroiliac j oint. Small amount of heterotopic ossification along the proximal left biceps femoris tendon likely s equela of old trauma. Visualized portion of the bladder and bowels are normal. No pathologically enla rged left pelvic or inguinal lymphadenopathy. Scattered atherosclerotic calcification along the arter ies of the visualized left hemipelvis and proximal left thigh. IMPRESSION: 1. Interval internal fixation of a healing comminuted intratrochanteric fracture of the proximal left femur. 2. Skin thickening and small regions of underlying phlegmonous change consistent with cellulitis with out organized abscess deep to the cephalad-most skin shara. 4. A couple approximately 1 cm small loculated fluid collections deep to the next most caudal collect ion of skin shara consistent with either hematoma or potentially abscess. Reviewed, dictated and finalized at location A. IMPRESSION: 1. Interval internal fixation of a healing comminuted intratrochanteric fractur e of the proximal left femur. 2. Skin thickening and small regions of underlying phlegmonous change consisten t with cellulitis without organized abscess deep to the cephalad-most skin stap les. 4. A couple approximately 1 cm small loculated fluid collections deep to the ne xt most caudal collection of skin shara consistent with either hematoma or po tentially abscess.
--- NOTE | 2021-11-27 10:33 | ECG_ITS ---
Measurements Intervals [place] Rate: 81 P: -9 DC: 152 QRS: 31 QRSD: 120 T: 44 QT: 398 QTc: 465 Interpretive Statements SINUS RHYTHM WITH OCCASIONAL SUPRAVENTRICULAR PREMATURE COMPLEXES NONSPECIFIC INTRAVENTRICULAR CONDUCTION DELAY [110+ ms QRS DURATION] NONSPECIFIC ST AND T-WAVE ABNORMALITY BORDERLINE ECG COMPARED TO ECG 11/03/2021 21:48:48 NO SIGNIFICANT CHANGES Electronically Signed On 11-27-2021 18:04:27 CDT by Betito Leiva M.D.
[2021-11-27 11:00] LABS: Basophils Percent Auto 0.4 % (0.2-1.2); Eosinophils Absolute Auto 0.1 K/mm3 (0-0.3); Eosinophils Percent Auto 3.1 % (0-4.4); Hematocrit 28.2 % (42.0-52.0); Hemoglobin 9.2 g/dL (14.0-18.0); Immature Granulocyte Absolute 0.02 K/mm3 (0.00-0.031); Immature Granulocyte Percent A 0.4 % (0-0.5); Lymphocytes Absolute Auto 1.17 K/mm3 (0.9-3.2); Lymphocytes Percent Auto 25.6 % (18.3-44.2); Mean Corpuscular HGB Conc 32.6 g/dl (32-36); Mean Corpuscular Hemoglobin 30.5 pg (26-34); Mean Corpuscular Volume 93.4 fl (80-100); Monocytes Absolute Auto 0.4 K/mm3 (0.1-0.6); Monocytes Percent Auto 8.1 % (2.6-8.5); Neutrophils Absolute Auto 2.9 K/mm3 (1.3-6.7); Neutrophils Percent Auto 62.4 % (45.5-73.1); Platelet Count Result 282 k/mm3 (150-375); Red Blood Count 3.02 M/mm3 (4.6-6.20); Red Cell Distribution Width 12.6 % (11.5-14.5); White Blood Count 4.6 K/mm3 (4.5-10.0)
[2021-11-27 11:10] LABS: Alanine Aminotransferase 22 U/L (4-50); Albumin Level 3.6 g/dL (3.5-5.1); Alkaline Phosphatase 211 U/L (38-126); Anion Gap 7 mmol/L (8-16); Aspartate Amino Transferase 27 U/L (17-59); Bilirubin,Total 0.6 mg/dL (0.2-1.3); Blood Urea Nitrogen 22 mg/dL (9-20); Calcium 8.9 mg/dL (8.4-10.2); Carbon Dioxide 31 mmol/L (22-30); Chloride 96 mmol/L (98-107); Estimated CRCL calculation 114 ml/min; Estimated Glomerular Filt Rate > 60; Glucose 237 mg/dL (65-110); Potassium 3.3 mmol/L (3.4-5.0); Prothrombin Time 13.1 Seconds (11.1-14.7); Sodium 134 mmol/L (137-145)
[2021-11-27 11:11] LABS: Partial Thromboplastin Time 34.1 SECONDS (22.3-36.8)
[2021-11-27] MEDS: MORPHINE SULFATE (*CRX) 2 MG/ML INJ IV PUSH (11:51)
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
[2021-11-27 13:18] LABS: Appearance Urine Clear (Clear); Bilirubin Urine 1+ (Negative); Blood Urine Negative (Negative); Color Urine Yellow (Yellow); Glucose Urine UA Negative (Negative); Ketones Urine Negative (Negative); Leukocyte Esterase Ur Negative LEU/UL (Negative); Nitrate Urine Negative (Negative); Protein Urine Negative (Negative); Specific Grav Ur 1.015 (1.001-1.035); pH Urine 5.5 (5.0-9.0)
[2021-11-27 13:21] LABS: Mucus Urine Moderate /lpf; Squamous Epithelial Cell Urine Rare /hpf (Few)
[2021-11-27 13:26] LABS: Add Urine Microscopic? YES
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
--- NOTE | 2021-11-27 13:35 | PC.NURSE ---
into patients room multiple times to remind pt to keep arm straight to prevent occluding IV and infusion. pt has medication infusing via pump that could have serious adverse effects if extravasation were to occur. arm board placed to aid pt in keeping arm straight. pt informed on POC an agreeable stating, you guys are wonderful! You should've done this in the first place! .
--- NOTE | 2021-11-27 13:43 | PC.NURSE ---
pms intact to RUE s/p application of armboard and coban. coban free of lines/wrinkles.
--- NOTE | 2021-11-27 14:14 | PC.NURSE ---
vanc infusion complete. armboard and coban removed. pms intact.
--- NOTE | 2021-11-27 15:09 | PC.NURSE ---
This patient, Lukas Benson, was admitted to 2 Medical Room 257-. Patient/family oriented to hospital policies and general routines including ID bracelet, bed and alarms, visiting hours, pain management, procedures, bathroom and other care routines, personal items, smoking policy, room service/diet, and visiting hours. Information on how to activate the Rapid Response Team has been discussed. Patient/Family are encouraged to report perceived risks to care and to ask questions if they do not understand what they are told or what they should do.
[2021-11-27] MEDS: POTASSIUM CHLORIDE 20 MEQ TABLET 40 MEQ PO (16:07)
[2021-11-27] MEDS: SODIUM CHLORIDE 0.9% IV 1,000 ML 75 ML IV CONT (16:08)
[2021-11-27] MEDS: MORPHINE SULFATE (*CRX) 4 MG/ML INJ 2 MG IV PUSH (18:10)
[2021-11-27 20:50] LABS: Glucose Point of Care 221 mg/dl (65-105)
[2021-11-27] MEDS: INSULIN GLARGINE (*BKC) 100 UNITS/ML 10 UNITS SUB-Q (21:46)
[2021-11-28] VITALS (7 sets, daily range): BP systolic 105–138; BP diastolic 53–76; PULSE 63–82; RESP 16–18; TEMP 36.4–37; O2SAT 94–99
[2021-11-28] MEDS: HYDROcodone/acetaminophen (*CRX) 5-325 MG TABLET 1 TAB PO (01:16)
[2021-11-28] MEDS: SODIUM CHLORIDE 0.9% IV 1,000 ML 75 ML IV CONT (05:27)
[2021-11-28 06:07] LABS: Magnesium 1.7 mg/dL (1.6-2.3)
[2021-11-28 06:09] LABS: Prealbumin 10.4 mg/dL (17.6-36.0)
[2021-11-28 07:07] LABS: Basophils Percent Auto 0.3 % (0.2-1.2); Eosinophils Absolute Auto 0.1 K/mm3 (0-0.3); Hematocrit 29.2 % (42.0-52.0); Hemoglobin 9.4 g/dL (14.0-18.0); Immature Granulocyte Absolute 0.03 K/mm3 (0.00-0.031); Immature Granulocyte Percent A 0.8 % (0-0.5); Lymphocytes Absolute Auto 1.17 K/mm3 (0.9-3.2); Lymphocytes Percent Auto 32.1 % (18.3-44.2); Mean Corpuscular HGB Conc 32.2 g/dl (32-36); Mean Corpuscular Hemoglobin 29.8 pg (26-34); Mean Corpuscular Volume 92.7 fl (80-100); Mean Platelet Volume 9.3 fl (7.4-10.4); Monocytes Absolute Auto 0.3 K/mm3 (0.1-0.6); Monocytes Percent Auto 9.3 % (2.6-8.5); Neutrophils Percent Auto 54.5 % (45.5-73.1); Platelet Count Result 235 k/mm3 (150-375); Red Blood Count 3.15 M/mm3 (4.6-6.20); Red Cell Distribution Width 12.5 % (11.5-14.5); White Blood Count 3.7 K/mm3 (4.5-10.0)
[2021-11-28 07:24] LABS: Anion Gap 5 mmol/L (8-16); Blood Urea Nitrogen 13 mg/dL (9-20); Calcium 8.4 mg/dL (8.4-10.2); Carbon Dioxide 28 mmol/L (22-30); Chloride 102 mmol/L (98-107); Estimated CRCL calculation 164 ml/min; Estimated Glomerular Filt Rate > 60; Glucose 200 mg/dL (65-110); Potassium 3.6 mmol/L (3.4-5.0); Sodium 135 mmol/L (137-145)
[2021-11-28 07:34] LABS: Glucose Point of Care 181 mg/dl (65-105)
--- NOTE | 2021-11-28 08:48 | PCWOUND ---
WOCN NOTE Received referral for wound care orders for left thigh incision care. Patient had a surgery and the VISITOR USE ASSISTANT for the surgeon is following the patient for wound care needs. WOCN to be notified if any help is needed.
--- NOTE | 2021-11-28 09:23 | PM.CNOR ---
Assessment and Plan Assessment and plan (1) Postoperative wound infection of left hip: Code(s): T81.49XA - Infection following a procedure, other surgical site, initial encounter <RADHA Soares - Last Filed: 11/28/21 11:49> Status: Acute <RADHA Soares - Last Filed: 11/28/21 11:49> Assessment and Plan: Patient is 4 weeks status post IM terry insertion of the left hip. On exam today, the patient had shara still in place at 4 weeks postop. All sutures were removed. The 2 distal incisions are well-approximated. Areas of scabbing and small abscess noted on each side of the incision due to prolonged staple use. Proximal incision on the lateral aspect of the hip measures 2 point cm in length by 0.5 cm in width by 1.5 cm in depth with a tunnel at the 6 o'clock position to 2.5 cm. Surrounding tissue with redness, mild warmth. Unable to probe to bone. Mild serosanguineous drainage noted when probing the tunneling wound as mentioned above. CT of the left hip yesterday showed skin thickening and small regions of underlying phlegmonous change consistent with cellulitis and a couple small loculated fluid collections which could be hematomas or potential abscesses. Patient does have active and passive range of motion of the left hip without pain. Mild tenderness to the lateral hip. Patient may require incision and drainage in the operating room however we will begin with conservative treatment with dressing changes and IV antibiotics. Distal wounds cleansed with alcohol and painted with Betadine. The proximal wound pain and with Betadine and lightly packed with strip gauze. Covered with a Mepilex border dressing. Current white blood cell count is 2.5. The patient is afebrile. Orders for ESR and CRP lab draws have been placed. Continue IV antibiotics under the direction of the medicine team. Will continue to monitor and determine need for surgical intervention versus continued conservative treatment. <RADHA Soares - Last Filed: 11/28/21 11:49> (2) Insulin dependent type 2 diabetes mellitus: Code(s): E11.9 - Type 2 diabetes mellitus without complications; Z79.4 - salvage determiner (current) use of insulin <RADHA Soares - Last Filed: 11/28/21 11:49> Status: Acute <Laina Yusuf, TENTER FEEDER - Last Filed: 11/28/21 11:49> Assessment and Plan: Elevated blood glucose levels noted since admission. Will need close diabetic management and order for optimal healing of wound. <Laina Statonlian, TENTER FEEDER - Last Filed: 11/28/21 11:49> (3) Hip fracture, intertrochanteric: Qualifiers: Encounter type: subsequent encounter Fracture alignment: displaced Fracture healing: with routine healing Fracture type: closed Laterality: left Qualified Code(s): S72.142D - Displaced intertrochanteric fracture of left femur, subsequent encounter for closed fracture with routine healing <Laina Statonlian, TENTER FEEDER - Last Filed: 11/28/21 11:49> Code(s): S72.143A - Displaced intertrochanteric fracture of unspecified femur, initial encounter for closed fracture <Laina SajiRamila Yusuf, TENTER FEEDER - Last Filed: 11/28/21 11:49> Status: Acute <Laina Yusuf, TENTER FEEDER - Last Filed: 11/28/21 11:49> Assessment and Plan: Patient is 4 weeks status post left IT femur fracture. Patient underwent surgical intervention by Dr. Rainey on 11/01/2021. CT scan of the left hip today does show interval internal fixation of a healing comminuted intratrochanteric fracture of the proximal left femur. the patient has no pain with internal or external rotation of the left hip. Pain is mainly lateral in nature at the site of postoperative wound dehiscence. Per patient report, he has been working well with physical and occupational therapy at a group home facility walking with a walker. Okay to resume PT and OT with weight-bearing as tolerated. <Laina SajiLIANA LindoP - Last Filed: 11/28/21 11:49> (4) B
[2021-11-28] MEDS: LOSARTAN POTASSIUM 25 MG TABLET PO (09:26)
[2021-11-28] MEDS: MIRABEGRON 50 MG ER TABLET PO (09:26)
[2021-11-28] MEDS: ALPRAZolam (*CRX) 0.5 MG TABLET PO ×2 (09:26→16:11)
[2021-11-28] MEDS: ARIPiprazole 2.5 MG TABLET PO (09:26)
[2021-11-28] MEDS: GLIMEPIRIDE 2 MG TABLET PO ×2 (09:26→16:11)
[2021-11-28] MEDS: hydroCHLOROthiazide 25 MG TABLET PO (09:27)
[2021-11-28] MEDS: MONTELUKAST SODIUM 10 MG TABLET PO (09:27)
[2021-11-28] MEDS: SERTRALINE HCL 50 MG TABLET 100 MG PO (09:27)
[2021-11-28] MEDS: FERROUS SULFATE 324 MG TABLET PO (09:27)
[2021-11-28] MEDS: EZETIMIBE 10 MG TABLET PO (09:27)
--- NOTE | 2021-11-28 09:36 | PM.IMPN ---
Progress Note: A&P Assessment and Plan (1) Postoperative wound infection of left hip: Code(s): T81.49XA - Infection following a procedure, other surgical site, initial encounter Status: Acute Assessment and Plan: Cellulitis and possible deeper abscess status post IM terry on 11/01/2021. Imipenem and vancomycin day 2. Needs good glucose control for healing. Dr. Rainey consulted by the ED, input appreciated. (2) Insulin dependent type 2 diabetes mellitus: Code(s): E11.9 - Type 2 diabetes mellitus without complications; Z79.4 - group home (current) use of insulin Status: Acute Assessment and Plan: Random glucose today is 200 a hemoglobin A1c of 6.7% on 11/04/2021. Continue basal insulin and glimepiride. Continue sliding scale insulin, Accu-Cheks, and hypoglycemic protocol. (3) Anemia following surgery: Code(s): D64.9 - Anemia, unspecified Status: Acute Assessment and Plan: Secondary to blood loss from recent surgery. Hemoglobin and hematocrit are stable and will be monitored. Continue ferrous sulfate daily. (4) Electrolyte abnormality: Code(s): E87.8 - Other disorders of electrolyte and fluid balance, not elsewhere classified Status: Acute Assessment and Plan: Mild electrolyte abnormalities including hyponatremia (134), hypokalemia (3.3), and hypochloremia (96). Likely bit dry. Potassium will be replaced and monitored. Hydrated overnight with improvement (5) Hypertension: Code(s): I10 - Essential (primary) hypertension Status: Acute Assessment and Plan: Blood pressures were reviewed and they are stable. Resume antihypertensives and monitor. Should he have ongoing hypokalemia and hyponatremia, consider holding hydrochlorothiazide. (6) Psychiatric illness: Code(s): F99 - Mental disorder, not otherwise specified Status: Acute Assessment and Plan: No acute issues; patient did have delusions with his most recent hospitalization. Continue aripiprazole and quetiapine. Subjective Date/time seen: 11/28/21 09:36 Interval history: 66-year-old male with insulin-dependent diabetes, hypertension, bipolar disorder, and schizophrenia, admitted for post operative infection of the left hip. Pt is A/Ox3 today and has no complaints. He denies pain in the hip. No leg pain or swelling. No cp or sob. Review of Systems Review of Systems: All systems reviewed & are unremarkable except as noted in HPI and below Exam Narrative: General: Chronically ill-appearing male lying on his left side in no distress. Weight: 90 kg. BMI: 26.9. HEENT: PERRL, EOMI. Sclerae anicteric. Poor dentition throughout with many missing teeth. Neck: Supple. Respiratory: Lungs are clear to auscultation bilaterally. Cardiovascular: Regular rate and rhythm with S1-S2. Gastrointestinal: Abdomen is soft, nontender, and nondistended with positive bowel sounds. Skin: Warm and dry. Generalized pallor. Musculoskeletal: L hip dressing C/D/I, no surrounding erythema or ttp. Extremities: No cyanosis, clubbing, or edema. Radial and pedal pulses intact. Neurological: Alert. Cranial nerves 2-12 are grossly intact. No gross focal deficits to casual conversation. Psychiatric: Cooperative. Poor eye contact. Odd mood and affect. Objective Data Vital Signs Vital Signs: Vital Signs - 24 hr 11/27/21 10:21 11/27/21 10:46 11/27/21 11:09 Temperature 97.0 F L Pulse Rate 86 82 84 Respiratory Rate 20 18 16 Blood Pressure 111/57 L Pulse Oximetry 100 11/27/21 11:15 11/27/21 11:16 11/27/21 11:17 Temperature Pulse Rate 80 80 79 Respiratory Rate 11 L 10 L 16 Blood Pressure 118/66 Pulse Oximetry 11/27/21 11:36 11/27/21 11:45 11/27/21 12:07 Temperature Pulse Rate 81 80 82 Respiratory Rate 14 14 9 L Blood Pressure Pulse Oximetry 11/27/21 12:17 11/27/21 12:30 04
[2021-11-28 10:45] LABS: CRP 8.2 mg/dL (<1.0)
[2021-11-28 10:58] LABS: Erythrocyte Sedimentation Rate > 140 mm/hr (0-20)
[2021-11-28 11:30] LABS: Glucose Point of Care 237 mg/dl (65-105)
[2021-11-28] MEDS: INSULIN ASPART (*BKC) 100 UNITS/ML SUB-Q (11:44)
--- NOTE | 2021-11-28 14:07 | PC.NURSE ---
On 11/28/21, the student, [Edward Daniels, Crystal Tijerina], provided care and completed [facility] documentation on this patient. I have reviewed the student's documentation and agree with the findings.
[2021-11-28 16:37] LABS: Glucose Point of Care 196 mg/dl (65-105)
[2021-11-28 20:22] LABS: Glucose Point of Care 282 mg/dl (65-105)
[2021-11-28] MEDS: INSULIN GLARGINE (*BKC) 100 UNITS/ML 10 UNITS SUB-Q (20:27)
[2021-11-29] VITALS (16 sets, daily range): BP systolic 113–132; BP diastolic 57–77; PULSE 72–94; RESP 12–18; TEMP 35.9–36.8; O2SAT 93–100
[2021-11-29 01:32] LABS: Vancomycin Trough 8.1 ug/mL (10.0-20.0)
[2021-11-29 05:49] LABS: Basophils Percent Auto 0.7 % (0.2-1.2); Eosinophils Absolute Auto 0.1 K/mm3 (0-0.3); Eosinophils Percent Auto 2.2 % (0-4.4); Hematocrit 31.4 % (42.0-52.0); Hemoglobin 10.1 g/dL (14.0-18.0); Immature Granulocyte Absolute 0.05 K/mm3 (0.00-0.031); Immature Granulocyte Percent A 1.1 % (0-0.5); Lymphocytes Percent Auto 26.5 % (18.3-44.2); Mean Corpuscular HGB Conc 32.2 g/dl (32-36); Mean Corpuscular Hemoglobin 29.7 pg (26-34); Mean Corpuscular Volume 92.4 fl (80-100); Mean Platelet Volume 9.4 fl (7.4-10.4); Monocytes Absolute Auto 0.4 K/mm3 (0.1-0.6); Monocytes Percent Auto 7.7 % (2.6-8.5); Neutrophils Absolute Auto 2.8 K/mm3 (1.3-6.7); Neutrophils Percent Auto 61.8 % (45.5-73.1); Platelet Count Result 252 k/mm3 (150-375); Red Cell Distribution Width 12.6 % (11.5-14.5); White Blood Count 4.5 K/mm3 (4.5-10.0)
[2021-11-29 06:04] LABS: Alanine Aminotransferase 22 U/L (4-50); Albumin Level 3.6 g/dL (3.5-5.1); Alkaline Phosphatase 194 U/L (38-126); Anion Gap 6 mmol/L (8-16); Aspartate Amino Transferase 27 U/L (17-59); Bilirubin,Total 0.5 mg/dL (0.2-1.3); Blood Urea Nitrogen 8 mg/dL (9-20); Carbon Dioxide 28 mmol/L (22-30); Chloride 99 mmol/L (98-107); Estimated CRCL calculation 135 ml/min; Estimated Glomerular Filt Rate > 60; Glucose 278 mg/dL (65-110); Potassium 4.1 mmol/L (3.4-5.0); Sodium 133 mmol/L (137-145)
[2021-11-29 07:34] LABS: Glucose Point of Care 241 mg/dl (65-105)
[2021-11-29] MEDS: INSULIN ASPART (*BKC) 100 UNITS/ML SUB-Q (08:23)
[2021-11-29] MEDS: ALPRAZolam (*CRX) 0.5 MG TABLET PO ×2 (08:25→21:06)
[2021-11-29] MEDS: HYDROcodone/acetaminophen (*CRX) 5-325 MG TABLET 1 TAB PO (08:25)
--- NOTE | 2021-11-29 08:31 | PC.NURSE ---
pt NPO for pending procedure, requested xanax for anxiety and a pain pill, admistered with aprox 30ml of water
[2021-11-29] MEDS: LOSARTAN POTASSIUM 25 MG TABLET PO (09:22)
[2021-11-29] MEDS: ARIPiprazole 2.5 MG TABLET PO (09:22)
[2021-11-29] MEDS: SERTRALINE HCL 50 MG TABLET 100 MG PO (09:22)
--- NOTE | 2021-11-29 09:29 | PM.IMPN ---
Progress Note: A&P Assessment and Plan (1) Postoperative wound infection of left hip: Code(s): T81.49XA - Infection following a procedure, other surgical site, initial encounter Status: Acute Assessment and Plan: Cellulitis and possible deeper abscess status post IM terry on 11/01/2021. Imipenem and vancomycin day 3. Needs good glucose control for healing. Dr. Rainey consulted by the ED, plan is for I&D this afternoon spoke w/ Laina with ortho - states continue SCD for today as pt is scheduled for surgery this afternoon. Of note he is supposed to be on heparin 5,000 subq still as post op DVT prophylaxis from his hip repair 11/01/21. This should be resumed per ortho recommendations. (2) Insulin dependent type 2 diabetes mellitus: Code(s): E11.9 - Type 2 diabetes mellitus without complications; Z79.4 - half-way (current) use of insulin Status: Acute Assessment and Plan: Random glucose today is 278 a hemoglobin A1c of 6.7% on 11/04/2021. Continue basal insulin and glimepiride. Continue sliding scale insulin, Accu-Cheks, and hypoglycemic protocol. Was initially on low dose SS but increased to high dose as his sugars are still running in the high 200s. (3) Anemia following surgery: Code(s): D64.9 - Anemia, unspecified Status: Acute Assessment and Plan: Secondary to blood loss from recent surgery. Hemoglobin and hematocrit are stable and will be monitored. Continue ferrous sulfate daily. (4) Electrolyte abnormality: Code(s): E87.8 - Other disorders of electrolyte and fluid balance, not elsewhere classified Status: Acute Assessment and Plan: Mild electrolyte abnormalities including hyponatremia (134), hypokalemia (3.3), and hypochloremia (96). Likely bit dry. Potassium will be replaced and monitored. Hydrated overnight with improvement (5) Hypertension: Code(s): I10 - Essential (primary) hypertension Status: Acute Assessment and Plan: Blood pressures were reviewed and they are stable. Resume antihypertensives and monitor. Should he have ongoing hypokalemia and hyponatremia, consider holding hydrochlorothiazide. (6) Psychiatric illness: Code(s): F99 - Mental disorder, not otherwise specified Status: Acute Assessment and Plan: No acute issues; patient did have delusions with his most recent hospitalization. Continue aripiprazole and quetiapine. Subjective Date/time seen: 11/29/21 09:29 Interval history: 66-year-old male with insulin-dependent diabetes, hypertension, bipolar disorder, and schizophrenia, admitted for post operative infection of the left hip. Pt is A/Ox3 today and has no complaints. He denies pain in the hip. No leg pain or swelling. No cp or sob. On surgery schedule for this afternoon for I&D. Review of Systems Review of Systems: All systems reviewed & are unremarkable except as noted in HPI and below Exam Narrative: General: Chronically ill-appearing male lying on his right side in no distress. Weight: 90 kg. BMI: 26.9. HEENT: PERRL. Sclerae anicteric. Poor dentition throughout with many missing teeth. Neck: Supple. Respiratory: Lungs are clear to auscultation bilaterally. Cardiovascular: Regular rate and rhythm with S1-S2. Gastrointestinal: Abdomen is soft, nontender, and nondistended with positive bowel sounds. Skin: Warm and dry. Generalized pallor. Musculoskeletal: L hip dressing in place per ortho, no drainage noted, some underlying erythema Extremities: No cyanosis, clubbing, or edema. Radial and pedal pulses intact. Neurological: Alert. Cranial nerves 2-12 are grossly intact. No gross focal deficits to casual conversation. Psychiatric: Cooperative. Poor eye contact. Odd mood and affect. Objective Data Vital Signs Vital Signs: Vital Signs - 24 hr 11/28/21 13:58 11/28/21 16:00 11/28/21 20:15 Temperatur
--- NOTE | 2021-11-29 09:52 | PM.PNORT ---
Progress Note: A&P Assessment and Plan (1) Postoperative wound infection of left hip: Code(s): T81.49XA - Infection following a procedure, other surgical site, initial encounter <RADHA Soares - Last Filed: 11/29/21 10:05> Status: Acute <LainaRADHA King - Last Filed: 11/29/21 10:05> Assessment and Plan: Patient is 4 weeks status post IM terry insertion of the left hip. Distal incisions remain intact with improved appearance since removing stables yesterday. Proximal incision on the lateral aspect of the hip without improvement, measuring 2 cm in length by 0.5 cm in width by 1.5 cm in depth with a tunnel at the 6 o'clock position to 2.5 cm. Surrounding tissue with continued redness, mild warmth. Unable to probe to bone. Mild serosanguineous drainage noted when probing the tunneling wound as mentioned above. CT of the left hip yesterday showed skin thickening and small regions of underlying phlegmonous change consistent with cellulitis and a couple small loculated fluid collections which could be hematomas or potential abscesses. Patient does have active and passive range of motion of the left hip without pain. Mild tenderness to the lateral hip. ESR/CRP elevated. Patient would benefit from return to operating room for I&D of the left hip incisional wound. Risks of surgery including but not limited to neurovascular damage, wound complications, blood clot, pulmonary embolus, stroke, myocardial infarction, anesthetic risks up to and including were reviewed. Continued pain and possible dysfunction were explained. No guarantees were offered. The patient understands and wishes to proceed. Plan: I&D of the left hip by Dr. Rainey NPO DVT prophylaxis held. Obtain consent from patient/POA. Keep dressing c/d/i in the interim. 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 Will need close diabetic management and order for optimal healing of wound. <RADHA Soares - Last Filed: 11/29/21 10:05> (3) Hip fracture, intertrochanteric: Qualifiers: Encounter type: subsequent encounter Fracture alignment: displaced Fracture healing: with routine healing Fracture type: closed Laterality: left Qualified Code(s): S72.142D - Displaced intertrochanteric fracture of left femur, subsequent encounter for closed fracture with routine healing <LIANA SoaresP - Last Filed: 11/29/21 10:05> Code(s): S72.143A - Displaced intertrochanteric fracture of unspecified femur, initial encounter for closed fracture <RADHA Soares - Last Filed: 11/29/21 10:05> Status: Acute <RADHA Soares - Last Filed: 11/29/21 10:05> Assessment and Plan: Patient is 4 weeks status post left IT femur fracture. Patient underwent surgical intervention by Dr. Rainey on 11/01/2021. CT scan of the left hip does show interval internal fixation of a healing comminuted intratrochanteric fracture of the proximal left femur. the patient has no pain with internal or external rotation of the left hip. Pain is mainly lateral in nature at the site of postoperative wound dehiscence. Per patient report, he has been working well with physical and occupational therapy at a residential facility walking with a walker. Okay to resume PT and OT with weight-bearing as tolerated. <RADHA Soares - Last Filed: 11/29/21 10:05> (4) Bipolar disorder: Code(s): F31.9 - Bipolar disorder, unspecified <RADHA Soares - Last Filed: 11/29/21 10:05> Status: Acute <Josefa Soares
[2021-11-29 11:32] LABS: Glucose Point of Care 134 mg/dl (65-105)
--- NOTE | 2021-11-29 12:28 | PC.NURSE ---
surgery requests I send 1200 dose of IV antibiotic with pt
--- NOTE | 2021-11-29 12:30 | PC.NURSE ---
pt to surgery via bed, consent is placed in chart
[2021-11-29 13:00] LABS: Glucose Point of Care 149 mg/dl (65-105)
--- NOTE | 2021-11-29 13:06 | WPDANESEPPF ---
Anes - Initial Pre Proc Eval Procedure: Operation Date: 11/29/21 13:30 Proposed Procedures p Incision and Drainage of Left Hip Wound; Possible Intertrochanteric Nail Removal - Garry Rainey MD Date/Time: 11/29/21 13:06 Surgeon: Jacqueline Langley PA-C Pre Op Diagnosis: Post Op Infection Patient Data Age: 66 Gender: M Height: 1.83 m Weight: 83.3 kg Last Vital Signs Temp 36.4 C 11/29/21 10:00 Pulse 77 11/29/21 10:00 Resp 18 11/29/21 10:00 BP 125/57 L 11/29/21 10:00 Pulse Ox 100 11/29/21 10:00 Allergies Allergy/AdvReac Type Severity Reaction Status Date / Time No Known Allergies Allergy Verified 11/29/21 13:05 Home Medications Medication Instructions Recorded Confirmed Type Myrbetriq 50 mg PO DAILY 11/01/21 11/27/21 History fluticasone propionate 50 mcg INTRANASAL DAILY PRN 11/01/21 11/27/21 History glimepiride 2 mg PO BID 11/01/21 11/27/21 History hydrochlorothiazide 25 mg PO DAILY 11/01/21 11/27/21 History losartan 25 mg PO DAILY 11/01/21 11/27/21 History metformin 500 mg PO BID 11/01/21 11/27/21 History montelukast 10 mg PO DAILY 11/01/21 11/27/21 History acetaminophen [Mapap 650 mg PO Q6H PRN #60 tablet 11/08/21 11/27/21 Rx (acetaminophen)] alprazolam 0.5 mg PO BID #60 tablet 11/08/21 11/27/21 Rx aripiprazole 2.5 mg PO DAILY #20 tablet 11/08/21 11/27/21 Rx heparin (porcine) 5,000 unit SUBCUT Q12HR 30 Days 11/08/21 11/27/21 Rx #60 ml hydrocodone-acetaminophen 1 tablet PO Q6H PRN #20 tablet 11/08/21 11/27/21 Rx insulin glargine [Lantus U-100 10 unit SUBCUT HS #10 ml 11/08/21 11/27/21 Rx Insulin] polyethylene glycol 3350 [Miralax] 17 g PO QAM PRN #30 ea 11/08/21 11/27/21 Rx ergocalciferol (vitamin D2) 50,000 unit PO WEEKLY 11/27/21 11/27/21 History ezetimibe 10 mg PO DAILY 11/27/21 11/27/21 History ferrous sulfate 325 mg PO DAILY 11/27/21 11/27/21 History sertraline 100 mg PO DAILY 11/27/21 11/27/21 History Laboratory Tests 11/28/21 11/28/21 11/29/21 16:30 20:18 00:13 WBC RBC Hgb Hct MCV MCH MCHC RDW Plt Count MPV Immature Gran % (Auto) Neut % (Auto) Lymph % (Auto) [place] % (Auto) Eos % (Auto) Baso % (Auto) Lymph # (Auto) [place] # (Auto) Eos # (Auto) Baso # (Auto) Abs Immat Gran (auto) Absolute Neuts (auto) Absolute Nucleated RBC Nucleated RBC % Sodium Potassium Chloride Carbon Dioxide Anion Gap BUN Creatinine Estim Creat Clear Calc Estimated GFR Glucose POC Capillary Glucose 196 mg/dl H mg/dl 282 mg/dl H mg/dl (65-105) (65-105) Calcium Total Bilirubin AST ALT Alkaline Phosphatase Total Protein Albumin Vancomycin Trough 8.1 ug/mL L ug/mL (10.0-20.0) 11/29/21 11/29/21 11/29/21 05:27 05:27 07:24 WBC 4.5 K/mm3 K/mm3 (4.5-10.0) RBC 3.40 M/mm3 L M/mm3 (4.6-6.20) Hgb 10.1 g/dL L g/dL (14.0-18.0) Hct 31.4 % L % (42.0-52.0) MCV 92.4 fl fl (80-100) MCH 29.7 pg pg (26-34) MCHC 32.2 g/dl g/dl (32-36) RDW 12.6 % % (11.5-14.5) Plt Count 252 k/mm3 k/mm3 (150-375) MPV 9.4 fl fl (7.4-10.4) Immature Gran % (Auto) 1.1 % H % (0-0.5) Neut % (Auto) 61.8 % % (45.5-73.1) Lymph % (Auto) 26.5 % % (18.3-44.2) [place] % (Auto) 7.7 % % (2.6-8.5) Eos % (Auto) 2.2 % % (0-4.4) Baso % (Auto) 0.7 % % (0.2-1.2) Lymph # (Auto) 1.20 K/mm3 K/mm3 (0.9-3.2) [place] # (Auto) 0.4 K/
--- NOTE | 2021-11-29 14:00 | WPDHPUPDATE1 ---
History and Physical Update Update Date/Time: 11/29/21 14:00 History and Physical has been reviewed, including an updated exam of the patient. There are NO changes in the patient's condition. Risks, benefits, and alternatives have been discussed and questions answered. Patient agrees to proceed with procedure.
--- NOTE | 2021-11-29 14:48 | PCWOUND ---
WOCN NOTE Received call to bring [employer] wound vac to OR.dropped off vac with back shoe operator in OR.
[2021-11-29] MEDS: LACTATED RINGERS 1,000 ML 30 ML IV CONT (15:38)
--- NOTE | 2021-11-29 15:50 | P.OP_ITS ---
Procedure Note - Detailed Date of Procedure 11/29/21 Pre-op Diagnosis LEFT HIP WOUND INFECTION Post-op Diagnosis Same Procedure Performed I AND D LEFT HIP WOUND Surgeon Garry Rainey MD Anesthesia General Indications THE PATIENT UNDERWENT IM RODDING WITH SLIDING HIP SCREW ABOUT 4 WEEKS AGO. HE WAS FOUND TO HAVE A DRAINING WOUND AND THE PRESENCE OF SKIN LEN. LEN APPARENTLY WERE NOT REMOVED AFTER THE ROUTINE 2 WEEKS AFTER SURGERY. THE PATIENT WAS INDICATED FOR I AND D LEFT HIP Description of Procedure THE PATIENT WAS TAKEN TO THE OPERATING ROOM AND PLACED ON A FRACTURE TABLE AFTER GIVEN GENERAL ANESTHESIA. THE LEFT LOWER EXTREMITY WAS PLACED IN A TRACTION BOOT. THE LEFT LOWER EXTREMITY WAS THEN PREPPED AND DRAPED IN A STERILE FASHION. THE MAIN PROXIMAL WOUND WAS DRAINING PURULENT DISCHARGE. AN INCISION WAS MADE OVER THE WOUND AND DISSECTION CONTINUED DOWN TO THE FASCIA AND TO THE LEVEL OF THE GREATER TROCHANTER. INFECTED WAS DRAINED. CULTURES WERE TAKEN. REMOVAL OF OLD SUTURES AND DEVITALIZED TISSUE WAS DEBRIDED. BLEEDERS WERE CA UTERIZED. THE WOUND AND DEEP TISSUES WERE THEN IRRIGATED WITH STERILE WATER AND STERILE BETADINE. THE STERILE BETADINE MIXED WITH WATER WAS LATER IRRIGATED AFTER 3 MIN. THE WOUND APPEARED CLEAN THERE WAS NO OTHER SIGN OF PURULENCE. THERE WAS NO COMMUNICATION WITH THE MAIN WOUND AND THE OTHER DISTAL WOUNDS. THE WOUND WAS PACKED WITH A WOUND VAC AND WAS FUNCTIONING WELL. THE OTHER WOUNDS WERE WASHED AND THEN STERILE DRESSING WAS APPLIED. PATIENT WAS EXTUBATED AND SENT TO RECOVERY ROOM. Estimated Blood Loss -850.0 Urine Output -300.0 Drains No Packing Yes (WOUND VAC) Pathology Yes (CULTURES SENT) Complications No immediate complications Condition Stable Disposition PACU
[2021-11-29 15:58] LABS: Glucose Point of Care 157 mg/dl (65-105)
[2021-11-29 16:01] LABS: Hematocrit 27.8 % (42.0-52.0)
[2021-11-29] MEDS: fentaNYL CITRATE INJ (*CRX) 100 MCG/2 ML VIAL 25 MCG IV PUSH (16:10)
[2021-11-29] MEDS: TRANEXAMIC ACID 1,000MG/ISO100 1,000 MG/100 ML BAG 200 MG IVPB (17:48)
[2021-11-29] MEDS: FERROUS SULFATE 324 MG TABLET PO (17:59)
[2021-11-29] MEDS: SODIUM CHLORIDE 0.9% IV 1,000 ML 125 ML IV CONT (17:59)
[2021-11-29] MEDS: hydroCHLOROthiazide 25 MG TABLET PO (17:59)
[2021-11-29] MEDS: MONTELUKAST SODIUM 10 MG TABLET PO (17:59)
[2021-11-29] MEDS: MIRABEGRON 50 MG ER TABLET PO (17:59)
[2021-11-29] MEDS: metFORMIN HCL XR 500 MG TAB.SR.24H PO (17:59)
[2021-11-29] MEDS: GLIMEPIRIDE 2 MG TABLET PO (17:59)
[2021-11-29] MEDS: EZETIMIBE 10 MG TABLET PO (18:00)
[2021-11-29 20:28] LABS: Glucose Point of Care 327 mg/dl (65-105)
[2021-11-29] MEDS: HEPARIN SODIUM 5,000 UNITS/ML VIAL 5000 UNITS SUB-Q (21:06)
[2021-11-29] MEDS: INSULIN GLARGINE (*BKC) 100 UNITS/ML 10 UNITS SUB-Q (21:06)
--- NOTE | 2021-11-30 00:01 | PC.NURSE ---
FOUND IV OUT, ATTEMPTED TO RESTART AND HE BECAME EXTREMELY AGITATED AND YELLING. WILL ATTEMPT LATER
--- NOTE | 2021-11-30 01:01 | PC.NURSE ---
ATTEMPTED TO START IV PT AGREEABLE AT FIRST THEN BECAME AGITATED AND YELLING. WILL TRY AGAIN LATER
[2021-11-30 02:56] VITALS: O2SAT 94
[2021-11-30] MEDS: HYDROcodone/acetaminophen (*CRX) 7.5-325 MG TABLET 1 TAB PO ×2 (02:57→09:41)
--- NOTE | 2021-11-30 02:59 | PC.NURSE ---
PT HAD MCKNIGHT CATHETER IN BED WITH HIM PLAYING WITH IT LIKE A LASSO, GETS AGITATED WHEN ATTEMPTING TO TAKE CATHETER AWAY FROM HIM. TUBING REMAINS IN PENIS. FINALLY PUT MCKNIGHT BAG DOWN AND STARTED C/O PAIN IN HIS PENIS, PAIN MED GIVEN
[2021-11-30 03:08] VITALS: BP 100/53; PULSE 78; RESP 18; TEMP 36; O2SAT 96
--- NOTE | 2021-11-30 07:18 | WPDANESPN ---
Anes - Prog Note Post-Op Date/Time: 11/30/21 07:18 Cardiovascular status: normal Respiratory status: normal Airway patency: baseline Mental status: baseline Post-Op hydration status: normal Vital Signs: Last Vital Signs Temp 96.8 F L 11/30/21 03:08 Pulse 78 11/30/21 03:08 Resp 18 11/30/21 03:08 BP 100/53 L 11/30/21 03:08 Pulse Ox 96 11/30/21 03:08 Pain Score (VAS): 08/19 I/O: Intake & Output 11/29/21 11/29/21 11/30/21 15:59 23:59 07:59 Intake Total 100 1340 1500 Output Total 120 550 Balance 100 1220 950 Laboratory Tests 11/29/21 15:55 11/29/21 05:27 11/29/21 11/29/21 11/29/21 07:24 11:30 12:55 Hgb Hct POC Capillary Glucose 241 H 134 H 149 H Blood Type Antibody Screen 11/29/21 11/29/21 11/29/21 15:15 15:43 15:55 Hgb 9.0 L Hct 27.8 L POC Capillary Glucose 157 H Blood Type O Positive Antibody Screen Negative 11/29/21 20:22 Hgb Hct POC Capillary Glucose 327 H Blood Type Antibody Screen Microbiology 11/27/21 11:28 Incision Wound Culture - Preliminary Staphylococcus aureus Post-procedural complaints: none Patient Feedback: Patient satisfied with anesthetic care.
[2021-11-30 07:44] LABS: Basophils Percent Auto 0.4 % (0.2-1.2); Eosinophils Absolute Auto 0.1 K/mm3 (0-0.3); Eosinophils Percent Auto 1.3 % (0-4.4); Hematocrit 27.2 % (42.0-52.0); Hemoglobin 8.8 g/dL (14.0-18.0); Immature Granulocyte Absolute 0.09 K/mm3 (0.00-0.031); Immature Granulocyte Percent A 1.1 % (0-0.5); Lymphocytes Absolute Auto 1.99 K/mm3 (0.9-3.2); Lymphocytes Percent Auto 23.8 % (18.3-44.2); Mean Corpuscular HGB Conc 32.4 g/dl (32-36); Mean Corpuscular Volume 92.8 fl (80-100); Mean Platelet Volume 9.4 fl (7.4-10.4); Monocytes Absolute Auto 0.5 K/mm3 (0.1-0.6); Monocytes Percent Auto 6.5 % (2.6-8.5); Neutrophils Absolute Auto 5.6 K/mm3 (1.3-6.7); Neutrophils Percent Auto 66.9 % (45.5-73.1); Platelet Count Result 290 k/mm3 (150-375); Red Blood Count 2.93 M/mm3 (4.6-6.20); Red Cell Distribution Width 12.5 % (11.5-14.5); White Blood Count 8.4 K/mm3 (4.5-10.0)
[2021-11-30 07:47] LABS: Anion Gap 6 mmol/L (8-16); Blood Urea Nitrogen 10 mg/dL (9-20); Calcium 8.6 mg/dL (8.4-10.2); Carbon Dioxide 30 mmol/L (22-30); Chloride 98 mmol/L (98-107); Estimated CRCL calculation 114 ml/min; Estimated Glomerular Filt Rate > 60; Glucose 166 mg/dL (65-110); Potassium 3.5 mmol/L (3.4-5.0); Sodium 134 mmol/L (137-145)
[2021-11-30 07:52] LABS: Glucose Point of Care 145 mg/dl (65-105)
[2021-11-30 09:00] VITALS: BP 129/54; PULSE 86; RESP 20; TEMP 35.9; O2SAT 100
[2021-11-30] MEDS: FLUTICASONE PROPIONATE 0.05% NA SPR 16 GM BTL (*BKC) 1 SPRAY NASAL (09:14)
[2021-11-30] MEDS: SENNA/DOCUSATE SODIUM TABLET 2 TAB PO ×2 (09:14→16:54)
[2021-11-30] MEDS: polyethylene glycoL 3350 17 GM POWD.PACK PO (09:14)
[2021-11-30] MEDS: MIRABEGRON 50 MG ER TABLET PO (09:15)
[2021-11-30] MEDS: MONTELUKAST SODIUM 10 MG TABLET PO (09:15)
[2021-11-30] MEDS: GLIMEPIRIDE 2 MG TABLET PO ×2 (09:15→16:54)
[2021-11-30] MEDS: EZETIMIBE 10 MG TABLET PO (09:15)
[2021-11-30] MEDS: LOSARTAN POTASSIUM 25 MG TABLET PO (09:15)
[2021-11-30] MEDS: metFORMIN HCL XR 500 MG TAB.SR.24H PO ×2 (09:15→16:54)
[2021-11-30] MEDS: FERROUS SULFATE 324 MG TABLET PO (09:15)
[2021-11-30] MEDS: SERTRALINE HCL 50 MG TABLET 100 MG PO (09:15)
[2021-11-30] MEDS: ARIPiprazole 2.5 MG TABLET PO (09:15)
[2021-11-30] MEDS: HEPARIN SODIUM 5,000 UNITS/ML VIAL 5000 UNITS SUB-Q ×2 (09:16→20:20)
[2021-11-30] MEDS: hydroCHLOROthiazide 25 MG TABLET PO (09:16)
[2021-11-30] MEDS: ALPRAZolam (*CRX) 0.5 MG TABLET PO ×2 (09:18→16:54)
--- NOTE | 2021-11-30 09:44 | PC.NURSE ---
Patient states he has chest pain at times. Occurred when PT discussed having therapy with him. States leg doesn't hurt from surgery.
--- NOTE | 2021-11-30 10:30 | PM.IMPN ---
Progress Note: A&P Assessment and Plan (1) Postoperative wound infection of left hip: Code(s): T81.49XA - Infection following a procedure, other surgical site, initial encounter Status: Acute Assessment and Plan: Cellulitis and possible deeper abscess status post IM terry on 11/01/2021. Imipenem and vancomycin day 3 Glucose up and down, continue to trend, adjust therapy as indicated 1St wound culture grew MRSA, sensitive to vancomycin Will likely need IV antibiotics for the long haul Other cultures obtained in OR, awaiting results Dr. Rainey consulted I&D done 11/29/21 Post op care per ortho DVT Heparin 5000 units Q12hr PT/OT Pain medications [place] 5/325, 7.5/325 Q6H PRN, Morphine 3mg IV Q3H PRN (2) Insulin dependent type 2 diabetes mellitus: Code(s): E11.9 - Type 2 diabetes mellitus without complications; Z79.4 - halfway (current) use of insulin Status: Acute Assessment and Plan: Random glucose 130-330 A1c of 6.7% on 11/04/2021. Continue basal insulin and glimepiride. Continue sliding scale insulin, Accu-Cheks, and hypoglycemic protocol. High dose sliding scale Trend glucose Adjust therapy as indicated (3) Anemia following surgery: Code(s): D64.9 - Anemia, unspecified Status: Acute Assessment and Plan: H/H stable 8.8/27.2 Secondary to blood loss from recent surgery. Trend H/H Get anemia labs in the am Continue ferrous sulfate daily. (4) Electrolyte abnormality: Code(s): E87.8 - Other disorders of electrolyte and fluid balance, not elsewhere classified Status: Acute Assessment and Plan: Electrolytes a bit low on presentation Seems to be stable at this time Replace as indicated Trend volume status Strict I&Os (5) Hypertension: Code(s): I10 - Essential (primary) hypertension Status: Acute Assessment and Plan: BP 129/54 Blood pressures were reviewed and they are stable. Resume antihypertensives Losartan 25mg, HCTZ 25mg PO Trend BP Adjust therapy as indicated (6) Psychiatric illness: Code(s): F99 - Mental disorder, not otherwise specified Status: Acute Assessment and Plan: No acute issues; patient did have delusions with his most recent hospitalization. Continue aripiprazole and quetiapine. Time Spent With Patient Time with patient: Greater than 35 minutes Subjective Date/time seen: 11/30/21 10:30 Interval history: Date/Time: 11/27/21 13:30 Narrative: This is a 66-year-old male with insulin-dependent diabetes, hypertension, bipolar disorder, and schizophrenia who presented to the emergency department via EMS for evaluation of redness and discharge from left hip incision. He is not see greatest historian and as such some of the following is supplemented via a review of his electronic medical records. He was recently admitted to the hospital on 10/31/2021 with a nondisplaced intertrochanteric fracture left hip status post IM terry per Dr. Rainey. His stay was extended due to slow progression with physical therapy. Throughout that stay he suffered from delusions, felt to be due to his untreated psychiatric illnesses and he was started on aripiprazole and quetiapine with improvement. He was ultimately discharged to [facility] on 11/08/2021 for longterm and further rehabilitation. He has been participating in physical therapy and is ambulating with a walker quite well (per his report) however he does have discomfort in his left knee walking. The last several days, staff at the facility have noticed redness and purulent discharge from the wound site and he was sent in for evaluation. He was afebrile on arrival to the emergency department his vital signs have been stable. CT of the left hip showed skin thickening and small regions of underlying phlegmonous change consistent with cellulitis and a couple small loculated
--- NOTE | 2021-11-30 10:30 | P.PNIM_ITS ---
Progress Note: A&P Assessment and Plan (1) Postoperative wound infection of left hip: Code(s): T81.49XA - Infection following a procedure, other surgical site, initial encounter Status: Acute Assessment and Plan: * Cellulitis and possible deeper abscess status post IM terry on 11/01/2021. * Imipenem and vancomycin day 3 * Glucose up and down, continue to trend, adjust therapy as indicated * 1St wound culture grew MRSA, sensitive to vancomycin * Will likely need IV antibiotics for the long haul * Other cultures obtained in OR, awaiting results * Dr. 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 * Continue basal insulin and glimepiride. * Continue sliding scale insulin, Accu-Cheks, and hypoglycemic protocol. * High dose sliding scale * Trend glucose * Adjust therapy as indicated (3) Anemia following surgery: Code(s): D64.9 - Anemia, unspecified Status: Acute Assessment and Plan: * H/H stable 8.8/27.2 * Secondary to blood loss from recent surgery. * Trend H/H * Get anemia labs in the am * Continue ferrous sulfate daily. (4) Electrolyte abnormality: Code(s): E87.8 - Other disorders of electrolyte and fluid balance, not elsewhere classified Status: Acute Assessment and Plan: * Electrolytes a bit low on presentation * Seems to be stable at this time * Replace as indicated * Trend volume status * Strict I&Os (5) Hypertension: Code(s): I10 - Essential (primary) hypertension Status: Acute Assessment and Plan: * BP 129/54 * Blood pressures were reviewed and they are stable. * Resume antihypertensives Losartan 25mg, HCTZ 25mg PO * Trend BP * Adjust therapy as indicated (6) Psychiatric illness: Code(s): F99 - Mental disorder, not otherwise specified Status: Acute Assessment and Plan: * No acute issues; patient did have delusions with his most recent hospitalization. * Continue aripiprazole and quetiapine. Time Spent With Patient Time with patient: Greater than 35 minutes Subjective Date/time seen: 11/30/21 10:30 Interval history: Date/Time: 11/27/21 13:30 Narrative: This is a 66-year-old male with insulin-dependent diabetes, hypertension, bipolar disorder, and schizophrenia who presented to the emergency department via EMS for evaluation of redness and discharge from left hip incision. He is not see greatest historian and as such some of the following is supplemented via a review of his electronic medical records. He was recently admitted to the hospital on 10/31/2021 with a nondisplaced intertrochanteric fracture left hip status post IM terry per Dr. Rainey. His stay was extended due to slow progression with physical therapy. Throughout that stay he suffered from delusions, felt to be due to his untreated psychiatric illnesses and he was started on aripiprazole and quetiapine with improvement. He was ultimately discharged to [facility] on 11/08/2021 for penitentiary and further rehabilitation. He has been participating in physical thera
[2021-11-30 12:22] LABS: Glucose Point of Care 205 mg/dl (65-105)
[2021-11-30] MEDS: INSULIN ASPART (*BKC) 100 UNITS/ML SUB-Q ×2 (12:33→16:55)
--- NOTE | 2021-11-30 14:23 | PM.PNORT ---
Progress Note: A&P Additional Plan POD 1 DOING WELL. PLAN FOR RETURN TO OR FOR WOUND CLOSURE ON THURSDAY Subjective Subjective Date/Time Seen: 11/30/21 14:23 POD 1 DOING WELL. PAIN CONTROLLED. NO CALF PAIN Exam Extrem: Other: VSS AFEBRILE WOUND VAC IN PLACE, [place] INTACT CALF SOFT Objective Data Vital Signs Vital Signs: Vital Signs - 24 hr 11/29/21 15:17 11/29/21 15:38 11/29/21 15:50 Temperature 36.0 C L 36.4 C L Pulse Rate 81 72 82 Respiratory Rate 18 12 16 Blood Pressure 127/65 117/67 124/63 Pulse Oximetry 100 100 100 11/29/21 16:05 11/29/21 16:20 11/29/21 16:35 Temperature Pulse Rate 82 82 81 Respiratory Rate 16 14 14 Blood Pressure 123/77 116/59 L 117/62 Pulse Oximetry 100 100 100 11/29/21 16:50 11/29/21 17:30 11/29/21 18:00 Temperature 36.1 C L 35.9 C L Pulse Rate 83 88 87 Respiratory Rate 18 18 Blood Pressure 119/68 126/72 119/77 Pulse Oximetry 100 100 93 11/29/21 19:00 11/29/21 19:51 11/29/21 23:54 Temperature 35.9 C L 36.5 C 35.9 C L Pulse Rate 90 94 92 Respiratory Rate 18 18 18 Blood Pressure 118/63 118/69 113/65 Pulse Oximetry 100 100 98 11/30/21 02:56 11/30/21 03:08 11/30/21 09:00 Temperature 36.0 C L 35.9 C L Pulse Rate 78 86 Respiratory Rate 18 20 Blood Pressure 100/53 L 129/54 L Pulse Oximetry 94 96 100 Intake/Output Intake/Output: Intake & Output 11/27/21 11/28/21 11/29/21 11/30/21 23:59 23:59 23:59 23:59 Intake Total 650 2650 2140 1560 Output Total 450 450 120 550 Balance 200 2200 2020 1010 Meds/Results Medications: Active Medications Generic Name Dose Route Start Last Admin Trade Name Freq PRN Reason Stop Dose Admin Acetaminophen 650 mg 11/27/21 20:03 Acetaminophen 325 Mg Tablet PO Q6H PRN Mild Pain (1-3) Or Fever Acetaminophen 650 mg 11/29/21 17:02 Acetaminophen 325 Mg Tablet PO Q6H PRN Pain Rated 1-3 Hydrocodone Bitart/Acetaminophen 1 tab 11/27/21 20:03 11/29/21 08:25 Hydrocodone/Acetaminophen (*Crx) 5-325 Mg Tablet PO 1 tab Q6H PRN Administration PAIN 4-6 Hydrocodone Bitart/Acetaminophen 1 tab 11/29/21 17:02 11/30/21 09:41 Hydrocodone/Acetaminophen (*Crx) 7.5-325 Mg Tablet PO 1 tab Q6H PRN Administration Pain Rated 4-6 Alprazolam 0.5 mg 11/28/21 09:00 11/30/21 09:18 Alprazolam (*Crx) 0.5 Mg Tablet PO 0.5 mg BID CHONG Administration Aripiprazole 2.5 mg 11/28/21 09:00 11/30/21 09:15 Aripiprazole 2.5 Mg Tablet PO 2.5 mg DAILY CHONG Administration Dextrose 12.5 gm 11/27/21 19:59 Dextrose 50% 25 Gm/50 Ml Syringe IV PUSH PRN PRN Hypoglycemia Protocol Diazepam 5 mg 11/29/21 17:02 Diazepam (*Crx) 5 Mg Tablet PO Q8H PRN Muscle Spasm Ezetimibe 10 mg 11/28/21 09:00 11/30/21 09:15 Ezetimibe 10 Mg Tablet PO 10 mg DAILY CHONG Administration Ergocalciferol 50,000 unit 12/05/21 09:00 Ergocalciferol 50,000 Unit Capsule PO Th@0900 CHONG Ferrous Sulfate 324 mg 11/28/21 09:00 11/30/21 09:15 Ferrous Sulfate 324 Mg Tablet PO 324 mg DAILY CHONG Administration Fluticasone Propionate 1 spray 11/27/21 20:03 11/30/21 09:14 Fluticasone Propionate 0.05% Na Spr 16 Gm Btl (*Bkc) NASAL 1 spray DAILY PRN Administration Runny Nose Glimepiride 2 mg 11/28/21 08:00 11/30/21 09:15 Glimepiride 2 Mg Tablet PO 2 mg BIDWM CHONG Administration Glucagon 1 mg 11/27/21 19:59 Glucagon For Inj 1 Mg Vial IM PRN PRN Hypoglycemia Protocol Glucose 15 gm 11/27/21 19:59 Glucose Oral Gel 15 Gm Of Glucse In 37.5 Gm Tube PO PRN PRN Hypoglycemia Protocol Heparin Sodium (Porcine) 5,000 units 11/29/21 21:00 11/30/21 09:16 Heparin Sodium 5,000 Units/Ml Vial SUB-Q 5,000 units Q12HR CHONG Administration Hydrochlorothiazide 25 mg 11/28/21 09:00 11/30/21 09:16 Hydrochlorothiazide 25 Mg Tablet PO 25 mg DAILY CHONG Administration Imipenem/Cilastatin Sodium 500
[2021-11-30 15:05] VITALS: BP 112/55; PULSE 81; RESP 14; TEMP 36.2; O2SAT 100
[2021-11-30 16:49] LABS: Glucose Point of Care 217 mg/dl (65-105)
[2021-11-30 19:34] VITALS: BP 105/60; PULSE 87; RESP 17; TEMP 36.6; O2SAT 99
[2021-11-30] MEDS: INSULIN GLARGINE (*BKC) 100 UNITS/ML 10 UNITS SUB-Q (20:20)
[2021-11-30 20:43] LABS: Glucose Point of Care 156 mg/dl (65-105)
[2021-12-01 00:42] VITALS: BP 112/70; PULSE 83; RESP 18; TEMP 36.4; O2SAT 96
[2021-12-01 05:36] VITALS: BP 104/76; PULSE 80; RESP 18; TEMP 36.6; O2SAT 99
[2021-12-01 06:30] LABS: Basophils Percent Auto 0.3 % (0.2-1.2); Eosinophils Absolute Auto 0.1 K/mm3 (0-0.3); Eosinophils Percent Auto 1.6 % (0-4.4); Hemoglobin 8.4 g/dL (14.0-18.0); Immature Granulocyte Absolute 0.06 K/mm3 (0.00-0.031); Immature Granulocyte Percent A 0.8 % (0-0.5); Lymphocytes Absolute Auto 1.47 K/mm3 (0.9-3.2); Lymphocytes Percent Auto 20.1 % (18.3-44.2); Mean Corpuscular HGB Conc 32.3 g/dl (32-36); Mean Corpuscular Hemoglobin 30.3 pg (26-34); Mean Corpuscular Volume 93.9 fl (80-100); Mean Platelet Volume 9.4 fl (7.4-10.4); Monocytes Absolute Auto 0.4 K/mm3 (0.1-0.6); Monocytes Percent Auto 5.9 % (2.6-8.5); Neutrophils Absolute Auto 5.2 K/mm3 (1.3-6.7); Neutrophils Percent Auto 71.3 % (45.5-73.1); Platelet Count Result 263 k/mm3 (150-375); Red Blood Count 2.77 M/mm3 (4.6-6.20); Red Cell Distribution Width 12.6 % (11.5-14.5); White Blood Count 7.3 K/mm3 (4.5-10.0)
[2021-12-01 06:34] LABS: Alanine Aminotransferase 17 U/L (4-50); Albumin Level 3.6 g/dL (3.5-5.1); Alkaline Phosphatase 177 U/L (38-126); Anion Gap 4 mmol/L (8-16); Aspartate Amino Transferase 21 U/L (17-59); Bilirubin,Total 0.4 mg/dL (0.2-1.3); Blood Urea Nitrogen 7 mg/dL (9-20); Calcium 8.7 mg/dL (8.4-10.2); Carbon Dioxide 30 mmol/L (22-30); Chloride 102 mmol/L (98-107); Estimated CRCL calculation 135 ml/min; Estimated Glomerular Filt Rate > 60; Glucose 155 mg/dL (65-110); Magnesium 1.4 mg/dL (1.6-2.3); Potassium 3.7 mmol/L (3.4-5.0); Sodium 136 mmol/L (137-145)
[2021-12-01] MEDS: MAGNESIUM SULF 4 GM/WATER100ML 4 GM/100 ML BAG IVPB (07:20)
[2021-12-01 08:09] LABS: Immature Reticulocyte Fraction 30.5 % (3.0-15.9); Reticulocyte Hemoglobin Conten 36.8 pg (28.2-35.7); Reticulocyte Percent 3.05 % (0.7-4.3); Reticulocytes Absolute 0.08 B/L (32.2-175.7)
[2021-12-01 08:09] LABS: Glucose Point of Care 154 mg/dl (65-105)
--- NOTE | 2021-12-01 08:15 | PM.IMPN ---
Progress Note: A&P Assessment and Plan (1) Postoperative wound infection of left hip: Code(s): T81.49XA - Infection following a procedure, other surgical site, initial encounter Status: Acute Assessment and Plan: Cellulitis and possible deeper abscess status post IM terry on 11/01/2021. Imipenem and vancomycin day 4 Glucose up and down, continue to trend, adjust therapy as indicated 1St wound culture grew MRSA, sensitive to vancomycin Will likely need IV antibiotics for the long haul Other cultures obtained in OR, preliminary few WBC Dr. 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 Continue basal insulin and glimepiride. Continue sliding scale insulin, Accu-Cheks, and hypoglycemic protocol. High dose sliding scale Trend glucose Adjust therapy as indicated (3) Anemia following surgery: Code(s): D64.9 - Anemia, unspecified Status: Acute Assessment and Plan: H/H stable 8.8/27.2 Secondary to blood loss from recent surgery. Trend H/H Get anemia labs: Continue ferrous sulfate daily. (4) Electrolyte abnormality: Code(s): E87.8 - Other disorders of electrolyte and fluid balance, not elsewhere classified Status: Acute Assessment and Plan: Electrolytes a bit low on presentation MG 1.4 today Replaced with 4gm Trend volume status Strict I&Os (5) Hypertension: Code(s): I10 - Essential (primary) hypertension Status: Acute Assessment and Plan: BP 104/76 Blood pressures were reviewed and they are stable. Resume antihypertensives Losartan 25mg, HCTZ 25mg PO Trend BP Adjust therapy as indicated (6) Psychiatric illness: Code(s): F99 - Mental disorder, not otherwise specified Status: Acute Assessment and Plan: No acute issues; patient did have delusions with his most recent hospitalization. Continue aripiprazole and quetiapine. Time Spent With Patient Time with patient: Greater than 35 minutes Subjective Date/time seen: 12/01/21 06:41 Interval history: Date/Time: 11/27/21 13:30 Narrative: This is a 66-year-old male with insulin-dependent diabetes, hypertension, bipolar disorder, and schizophrenia who presented to the emergency department via EMS for evaluation of redness and discharge from left hip incision. He is not see greatest historian and as such some of the following is supplemented via a review of his electronic medical records. He was recently admitted to the hospital on 10/31/2021 with a nondisplaced intertrochanteric fracture left hip status post IM terry per Dr. Rainey. His stay was extended due to slow progression with physical therapy. Throughout that stay he suffered from delusions, felt to be due to his untreated psychiatric illnesses and he was started on aripiprazole and quetiapine with improvement. He was ultimately discharged to [facility] on 11/08/2021 for [facility] and further rehabilitation. He has been participating in physical therapy and is ambulating with a walker quite well (per his report) however he does have discomfort in his left knee walking. The last several days, staff at the facility have noticed redness and purulent discharge from the wound site and he was sent in for evaluation. He was afebrile on arrival to the emergency department his vital signs have been stable. CT of the left hip showed skin thickening and small regions of underlying phlegmonous change consistent with cellulitis and a couple small loculated fluid collections which could b
--- NOTE | 2021-12-01 08:15 | P.PNIM_ITS ---
Progress Note: A&P Assessment and Plan (1) Postoperative wound infection of left hip: Code(s): T81.49XA - Infection following a procedure, other surgical site, initial encounter Status: Acute Assessment and Plan: * Cellulitis and possible deeper abscess status post IM terry on 11/01/2021. * Imipenem and vancomycin day 4 * Glucose up and down, continue to trend, adjust therapy as indicated * 1St wound culture grew MRSA, sensitive to vancomycin * Will likely need IV antibiotics for the long haul * Other cultures obtained in OR, preliminary few WBC * Dr. Rainey consulted * I&D done 11/29/21 * Post op care per ortho * DVT Heparin 5000 units Q12hr * PT/OT * Pain medications [place] 5/325, 7.5/325 Q6H PRN, Morphine 3mg IV Q3H PRN (2) Insulin dependent type 2 diabetes mellitus: Code(s): E11.9 - Type 2 diabetes mellitus without complications; Z79.4 - longterm (current) use of insulin Status: Acute Assessment and Plan: * Glucose 155 today * A1c of 6.7% on 11/04/2021. * Continue basal insulin and glimepiride. * Continue sliding scale insulin, Accu-Cheks, and hypoglycemic protocol. * High dose sliding scale * Trend glucose * Adjust therapy as indicated (3) Anemia following surgery: Code(s): D64.9 - Anemia, unspecified Status: Acute Assessment and Plan: * H/H stable 8.8/27.2 * Secondary to blood loss from recent surgery. * Trend H/H * Get anemia labs: * Continue ferrous sulfate daily. (4) Electrolyte abnormality: Code(s): E87.8 - Other disorders of electrolyte and fluid balance, not elsewhere classified Status: Acute Assessment and Plan: * Electrolytes a bit low on presentation * MG 1.4 today * Replaced with 4gm * Trend volume status * Strict I&Os (5) Hypertension: Code(s): I10 - Essential (primary) hypertension Status: Acute Assessment and Plan: * BP 104/76 * Blood pressures were reviewed and they are stable. * Resume antihypertensives Losartan 25mg, HCTZ 25mg PO * Trend BP * Adjust therapy as indicated (6) Psychiatric illness: Code(s): F99 - Mental disorder, not otherwise specified Status: Acute Assessment and Plan: * No acute issues; patient did have delusions with his most recent hospitalization. * Continue aripiprazole and quetiapine. Time Spent With Patient Time with patient: Greater than 35 minutes Subjective Date/time seen: 12/01/21 06:41 Interval history: Date/Time: 11/27/21 13:30 Narrative: This is a 66-year-old male with insulin-dependent diabetes, hypertension, bipolar disorder, and schizophrenia who presented to the emergency department via EMS for evaluation of redness and discharge from left hip incision. He is not see greatest historian and as such some of the following is supplemented via a review of his electronic medical records. He was recently admitted to the hospital on 10/31/2021 with a nondisplaced intertrochanteric fracture left hip status post IM terry per Dr. Rainey. His stay was extended due to slow progression with physical therapy. Throughout that stay he suffered from delusions, felt to be due to his untreated psychiatric illnesses and he was started on aripiprazole and quetiapine with improvement. He was ultimately discharged to [facility] on 11/08/2021 for snf and further rehabilitation. He has been participating in physical therapy and is ambulating with a
[2021-12-01] MEDS: GLIMEPIRIDE 2 MG TABLET PO ×2 (08:33→16:37)
[2021-12-01] MEDS: ARIPiprazole 2.5 MG TABLET PO (08:33)
[2021-12-01] MEDS: HEPARIN SODIUM 5,000 UNITS/ML VIAL 5000 UNITS SUB-Q ×2 (08:33→20:47)
[2021-12-01] MEDS: polyethylene glycoL 3350 17 GM POWD.PACK PO (08:33)
[2021-12-01] MEDS: metFORMIN HCL XR 500 MG TAB.SR.24H PO ×2 (08:34→16:36)
[2021-12-01] MEDS: LOSARTAN POTASSIUM 25 MG TABLET PO (08:34)
[2021-12-01] MEDS: MONTELUKAST SODIUM 10 MG TABLET PO (08:34)
[2021-12-01] MEDS: MIRABEGRON 50 MG ER TABLET PO (08:34)
[2021-12-01] MEDS: SERTRALINE HCL 50 MG TABLET 100 MG PO (08:34)
[2021-12-01] MEDS: SENNA/DOCUSATE SODIUM TABLET 2 TAB PO ×2 (08:34→16:37)
[2021-12-01] MEDS: FERROUS SULFATE 324 MG TABLET PO ×2 (08:34→16:37)
[2021-12-01] MEDS: ALPRAZolam (*CRX) 0.5 MG TABLET PO ×2 (08:34→16:36)
[2021-12-01] MEDS: hydroCHLOROthiazide 25 MG TABLET PO (08:35)
[2021-12-01] MEDS: EZETIMIBE 10 MG TABLET PO (08:35)
[2021-12-01 09:22] LABS: Iron 30 ug/dL (49-181)
[2021-12-01 09:24] LABS: Lactate Dehydrogenase 296 U/L (313-618); Transferrin 176 mg/dL (206-381)
[2021-12-01 09:31] LABS: Percent Iron Saturation 11 % (20-50)
[2021-12-01 10:32] LABS: Folic Acid 7.9 ng/mL (2.76->20)
[2021-12-01 12:00] VITALS: BP 110/72; PULSE 80; RESP 18; TEMP 36.4; O2SAT 96
[2021-12-01 12:16] LABS: Glucose Point of Care 190 mg/dl (65-105)
[2021-12-01 16:00] VITALS: BP 145/57; PULSE 82; RESP 18; TEMP 36.8; O2SAT 100
[2021-12-01 16:30] LABS: Glucose Point of Care 259 mg/dl (65-105)
[2021-12-01] MEDS: INSULIN ASPART (*BKC) 100 UNITS/ML SUB-Q (16:35)
[2021-12-01 20:00] VITALS: BP 127/59; PULSE 84; RESP 21; TEMP 36.3; O2SAT 100
[2021-12-01] MEDS: INSULIN GLARGINE (*BKC) 100 UNITS/ML 10 UNITS SUB-Q (20:47)
[2021-12-01 21:00] LABS: Glucose Point of Care 142 mg/dl (65-105)
[2021-12-01] MEDS: ACETAMINOPHEN 325 MG TABLET 650 MG PO (22:19)
[2021-12-02] VITALS (7 sets, daily range): BP systolic 120–142; BP diastolic 43–61; PULSE 79–86; RESP 20–21; TEMP 36.1–36.5; O2SAT 98–100
[2021-12-02 05:49] LABS: Basophils Percent Auto 0.5 % (0.2-1.2); Eosinophils Absolute Auto 0.2 K/mm3 (0-0.3); Eosinophils Percent Auto 2.6 % (0-4.4); Hematocrit 26.6 % (42.0-52.0); Hemoglobin 8.8 g/dL (14.0-18.0); Immature Granulocyte Absolute 0.06 K/mm3 (0.00-0.031); Immature Granulocyte Percent A 1.1 % (0-0.5); Lymphocytes Absolute Auto 1.29 K/mm3 (0.9-3.2); Lymphocytes Percent Auto 22.7 % (18.3-44.2); Mean Corpuscular HGB Conc 33.1 g/dl (32-36); Mean Corpuscular Hemoglobin 29.9 pg (26-34); Mean Corpuscular Volume 90.5 fl (80-100); Mean Platelet Volume 9.2 fl (7.4-10.4); Monocytes Absolute Auto 0.4 K/mm3 (0.1-0.6); Neutrophils Absolute Auto 3.8 K/mm3 (1.3-6.7); Neutrophils Percent Auto 66.1 % (45.5-73.1); Platelet Count Result 264 k/mm3 (150-375); Red Blood Count 2.94 M/mm3 (4.6-6.20); Red Cell Distribution Width 13.2 % (11.5-14.5); White Blood Count 5.7 K/mm3 (4.5-10.0)
[2021-12-02 06:03] LABS: Alanine Aminotransferase 15 U/L (4-50); Albumin Level 3.4 g/dL (3.5-5.1); Alkaline Phosphatase 189 U/L (38-126); Anion Gap 7 mmol/L (8-16); Aspartate Amino Transferase 21 U/L (17-59); Bilirubin,Total 0.5 mg/dL (0.2-1.3); Blood Urea Nitrogen 6 mg/dL (9-20); Calcium 8.6 mg/dL (8.4-10.2); Carbon Dioxide 28 mmol/L (22-30); Chloride 100 mmol/L (98-107); Estimated CRCL calculation 135 ml/min; Estimated Glomerular Filt Rate > 60; Glucose 207 mg/dL (65-110); Magnesium 1.7 mg/dL (1.6-2.3); Potassium 3.3 mmol/L (3.4-5.0); Sodium 135 mmol/L (137-145)
[2021-12-02 07:41] LABS: Glucose Point of Care 193 mg/dl (65-105)
[2021-12-02] MEDS: POTASSIUM CHLORIDE 20 MEQ TABLET PO (08:27)
[2021-12-02] MEDS: SERTRALINE HCL 50 MG TABLET 100 MG PO (08:27)
[2021-12-02] MEDS: SENNA/DOCUSATE SODIUM TABLET 2 TAB PO ×2 (08:27→16:23)
[2021-12-02] MEDS: metFORMIN HCL XR 500 MG TAB.SR.24H PO ×2 (08:27→16:23)
[2021-12-02] MEDS: polyethylene glycoL 3350 17 GM POWD.PACK PO (08:28)
[2021-12-02] MEDS: HEPARIN SODIUM 5,000 UNITS/ML VIAL 5000 UNITS SUB-Q ×2 (08:28→20:49)
[2021-12-02] MEDS: FERROUS SULFATE 324 MG TABLET PO ×2 (08:28→16:23)
[2021-12-02] MEDS: MIRABEGRON 50 MG ER TABLET PO (08:28)
[2021-12-02] MEDS: ALPRAZolam (*CRX) 0.5 MG TABLET PO ×2 (08:28→16:23)
[2021-12-02] MEDS: MONTELUKAST SODIUM 10 MG TABLET PO (08:28)
[2021-12-02] MEDS: GLIMEPIRIDE 2 MG TABLET PO ×2 (08:28→16:23)
[2021-12-02] MEDS: LOSARTAN POTASSIUM 25 MG TABLET PO (08:28)
[2021-12-02] MEDS: EZETIMIBE 10 MG TABLET PO (08:28)
[2021-12-02] MEDS: hydroCHLOROthiazide 25 MG TABLET PO (08:28)
[2021-12-02] MEDS: ARIPiprazole 2.5 MG TABLET PO (09:04)
--- NOTE | 2021-12-02 09:55 | PM.PNORT ---
Progress Note: A&P Assessment and Plan (1) Postoperative wound infection of left hip: Code(s): T81.49XA - Infection following a procedure, other surgical site, initial encounter Status: Acute Assessment and Plan: POD #3: I&D Left Hip Wound VAC in place and functioning well. Plan for return to operating room tomorrow for wound closure by Dr. Rainey. Keep wound VAC in place in the interim, monitor output. NPO at midnight/obtain consent from POA. Wound cultures revealing MRSA, sensitive to vancomycin. Intraoperative cultures pending. Plan for PICC line for 4 weeks of IV antibiotics and then transition to oral Clindamycin per Dr. Rainey. PT/OT. WBAT. Walker. Fall Precautions. SCDs. Incentive Spirometry. Dispo: SNF with IV antibiotics pending medical stability and closure of wound. (2) Post-operative infection: Qualifiers: Encounter type: initial encounter Postoperative infection type: unspecified type Qualified Code(s): T81.40XA - Infection following a procedure, unspecified, initial encounter Code(s): T81.40XA - Infection following a procedure, unspecified, initial encounter Status: Acute Assessment and Plan: Cultures reveal MRSA. PICC line for Vancomycin x4 weeks and then transition to Clindamycin for 4 weeks. Total of 8 weeks antibiotic therapy. (3) Insulin dependent type 2 diabetes mellitus: Code(s): E11.9 - Type 2 diabetes mellitus without complications; Z79.4 - residential (current) use of insulin Status: Acute Assessment and Plan: Elevated blood glucose levels noted since admission. Will need close diabetic management and order for optimal healing of wound. (4) Hip fracture, intertrochanteric: Qualifiers: Encounter type: subsequent encounter Fracture alignment: displaced Fracture healing: with routine healing Fracture type: closed Laterality: left Qualified Code(s): S72.142D - Displaced intertrochanteric fracture of left femur, subsequent encounter for closed fracture with routine healing Code(s): S72.143A - Displaced intertrochanteric fracture of unspecified femur, initial encounter for closed fracture Status: Acute Assessment and Plan: Patient is 5 weeks status post left IT femur fracture. Patient underwent surgical intervention by Dr. Rainey on 11/01/2021. CT scan of the left hip does show interval internal fixation of a healing comminuted intratrochanteric fracture of the proximal left femur. Okay to continue PT and OT with weight-bearing as tolerated. (5) Bipolar disorder: Code(s): F31.9 - Bipolar disorder, unspecified Status: Acute Assessment and Plan: Per Medicine Team Additional Plan Reviewed history, exam, labs and CT finding with attending MD and patient's previous surgeon/consulted physician, Dr. Rainey. Agrees with above plan of care. No further recommendations at this time. Subjective Subjective Date/Time Seen: 12/02/21 09:55 Post Op day: 3 Interval history: POD #3: I&D Left Hip and WOUND VAC placement Patient doing well. No complaints. Review of Systems Review of Systems: ROS unobtainable: Yes unobtainable due to mental status (Confused to situation, answering questions somewhat appropriately ) Constitutional: Constitutional: Denies chills, Denies fever(s) and Denies weakness Eyes: Eyes: Reports no additional eye complaints and Denies change in vision ENT: Reports system reviewed and no additional complaints, except as documented and Reports Normal hearing present Cardiovascular: Cardiovascular: Denies chest pain, Denies diaphoresis, Denies leg ulcers and Denies dyspnea on exertion Respiratory: Respiratory: Reports no additional respiratory complaints, Denies cough and Denies dyspnea on exertion Gastrointestinal: Gastrointestinal: Reports no additional gastrointestinal complaints, Denies abdominal pain, Denies constipation, Denies nausea and Denies vomiting Genitourinary:
[2021-12-02 11:15] LABS: Glucose Point of Care 206 mg/dl (65-105)
[2021-12-02] MEDS: INSULIN ASPART (*BKC) 100 UNITS/ML SUB-Q ×2 (11:41→16:20)
[2021-12-02] MEDS: HYDROcodone/acetaminophen (*CRX) 5-325 MG TABLET 1 TAB PO ×2 (12:02→17:18)
--- NOTE | 2021-12-02 15:19 | P.PNIM_ITS ---
Progress Note: A&P Assessment and Plan (1) Postoperative wound infection of left hip: Code(s): T81.49XA - Infection following a procedure, other surgical site, initial encounter Status: Acute Assessment and Plan: * Cellulitis and possible deeper abscess status post IM terry on 11/01/2021. * Imipenem and vancomycin day 5, will likely need filler leaf cutter long IV antibiotics * First wound culture grew MRSA, sensitive to vancomycin * New cultures obtained in OR, preliminary few WBC * Dr. 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 * Continue basal insulin and glimepiride. * Continue high dose sliding scale insulin, Accu-Cheks, and hypoglycemic protocol. * Increase Lantus from 10 to 12 (3) Anemia following surgery: Code(s): D64.9 - Anemia, unspecified Status: Acute Assessment and Plan: * H/H stable 8.8/26.6 * Likely secondary to blood loss from recent surgery and iron deficiency * Iron low, TIBC low * Trend H/H * Continue ferrous sulfate daily. (4) Electrolyte abnormality: Code(s): E87.8 - Other disorders of electrolyte and fluid balance, not elsewhere classified Status: Acute Assessment and Plan: * Electrolytes a bit low on presentation * MG 1.4 on * Replaced with 4gm, now 1.7 * Repeat mag level tomorrow (5) Hypertension: Code(s): I10 - Essential (primary) hypertension Status: Acute Assessment and Plan: * BP 121/43 * Blood pressures were reviewed and they are stable. * Resume antihypertensives Losartan 25mg, HCTZ 25mg PO * Trend BP * Adjust therapy as indicated (6) Psychiatric illness: Code(s): F99 - Mental disorder, not otherwise specified Status: Acute Assessment and Plan: * No acute issues; patient did have delusions with his most recent hospitalization. * Continue aripiprazole and quetiapine. Subjective Date/time seen: 12/02/21 15:19 Interval history: 66-year-old male with insulin-dependent diabetes, hypertension, bipolar disorder, and schizophrenia, admitted for post operative infection of the left hip. He is POD #3 s/p I&D Left Hip and WOUND VAC placement. Patient doing well. No complaints. He denies pain in the hip. Scheduled to go back to OR tomorrow for wound closure. Review of Systems Review of Systems: All systems reviewed & are unremarkable except as noted in HPI and below Exam Narrative: General: Chronically ill-appearing, NAD HEENT: PERRL. Sclerae anicteric. Poor dentition throughout with many missing teeth. Neck: Supple. Respiratory: Lungs are clear to auscultation bilaterally. Cardiovascular: Regular rate and rhythm with S1-S2. Gastrointestinal: Abdomen is soft, nontender, and nondistended with positive bowel sounds. Skin: Warm and dry. Generalized pallor. Musculoskeletal: L hip wound VAC in place w/ sanguinous fluid in the chamber. No surrounding erythema. Extremities: No edema. Radial and pedal pulses intact. Neurological: Alert. Cranial nerves 2-12 are grossly intact. No gross focal defi
--- NOTE | 2021-12-02 15:19 | PM.IMPN ---
Progress Note: A&P Assessment and Plan (1) Postoperative wound infection of left hip: Code(s): T81.49XA - Infection following a procedure, other surgical site, initial encounter Status: Acute Assessment and Plan: Cellulitis and possible deeper abscess status post IM terry on 11/01/2021. Imipenem and vancomycin day 5, will likely need long-term IV antibiotics First wound culture grew MRSA, sensitive to vancomycin New cultures obtained in OR, preliminary few WBC Dr. Rainey consulted I&D on 11/29/21 DVT Heparin 5000 units Q12hr Scheduled for wound closure in OR tomorrow (2) Insulin dependent type 2 diabetes mellitus: Code(s): E11.9 - Type 2 diabetes mellitus without complications; Z79.4 - senior living (current) use of insulin Status: Acute Assessment and Plan: Glucose 207 today A1c of 6.7% on 11/04/2021. Continue basal insulin and glimepiride. Continue high dose sliding scale insulin, Accu-Cheks, and hypoglycemic protocol. Increase Lantus from 10 to 12 (3) Anemia following surgery: Code(s): D64.9 - Anemia, unspecified Status: Acute Assessment and Plan: H/H stable 8.8/26.6 Likely secondary to blood loss from recent surgery and iron deficiency Iron low, TIBC low Trend H/H Continue ferrous sulfate daily. (4) Electrolyte abnormality: Code(s): E87.8 - Other disorders of electrolyte and fluid balance, not elsewhere classified Status: Acute Assessment and Plan: Electrolytes a bit low on presentation MG 1.4 on Replaced with 4gm, now 1.7 Repeat mag level tomorrow (5) Hypertension: Code(s): I10 - Essential (primary) hypertension Status: Acute Assessment and Plan: BP 121/43 Blood pressures were reviewed and they are stable. Resume antihypertensives Losartan 25mg, HCTZ 25mg PO Trend BP Adjust therapy as indicated (6) Psychiatric illness: Code(s): F99 - Mental disorder, not otherwise specified Status: Acute Assessment and Plan: No acute issues; patient did have delusions with his most recent hospitalization. Continue aripiprazole and quetiapine. Subjective Date/time seen: 12/02/21 15:19 Interval history: 66-year-old male with insulin-dependent diabetes, hypertension, bipolar disorder, and schizophrenia, admitted for post operative infection of the left hip. He is POD #3 s/p I&D Left Hip and WOUND VAC placement. Patient doing well. No complaints. He denies pain in the hip. Scheduled to go back to OR tomorrow for wound closure. Review of Systems Review of Systems: All systems reviewed & are unremarkable except as noted in HPI and below Exam Narrative: General: Chronically ill-appearing, NAD HEENT: PERRL. Sclerae anicteric. Poor dentition throughout with many missing teeth. Neck: Supple. Respiratory: Lungs are clear to auscultation bilaterally. Cardiovascular: Regular rate and rhythm with S1-S2. Gastrointestinal: Abdomen is soft, nontender, and nondistended with positive bowel sounds. Skin: Warm and dry. Generalized pallor. Musculoskeletal: L hip wound VAC in place w/ sanguinous fluid in the chamber. No surrounding erythema. Extremities: No edema. Radial and pedal pulses intact. Neurological: Alert. Cranial nerves 2-12 are grossly intact. No gross focal deficits to casual conversation. Psychiatric: Cooperative. Poor eye contact. Odd affect. Objective Data Vital Signs Vital Signs: Vital Signs - 24 hr 12/01/21 16:00 12/01/21 20:00 12/02/21 00:00 Temperature 98.2 F 97.3 F L 97.5 F L Pulse Rate 82 84 79 Respiratory Rate 18 21 H 21 H Blood Pressure 145/57 H 127/59 L 121/43 L Pulse Oximetry 100 100 100 12/02/21 04:00 12/02/21 08:00 12/02/21 12:00 Temperature 97.4 F L 97.6 F 97.7 F Pulse Rate 81 86 82 Respiratory Rate 21 H 20 20 Blood Pressure 142/61 H 134/57 L 132/56 L Pulse Oximetry 100 1
[2021-12-02 16:14] LABS: Glucose Point of Care 230 mg/dl (65-105)
[2021-12-02] MEDS: INSULIN GLARGINE (*BKC) 100 UNITS/ML 12 UNITS SUB-Q (20:50)
[2021-12-02 21:22] LABS: Glucose Point of Care 159 mg/dl (65-105)
[2021-12-03] VITALS (18 sets, daily range): BP systolic 110–149; BP diastolic 47–93; PULSE 77–98; RESP 16–21; TEMP 36.2–36.9; O2SAT 98–100
[2021-12-03 05:39] LABS: Basophils Percent Auto 0.5 % (0.2-1.2); Eosinophils Absolute Auto 0.2 K/mm3 (0-0.3); Eosinophils Percent Auto 2.9 % (0-4.4); Hematocrit 26.4 % (42.0-52.0); Hemoglobin 8.5 g/dL (14.0-18.0); Immature Granulocyte Absolute 0.05 K/mm3 (0.00-0.031); Immature Granulocyte Percent A 0.8 % (0-0.5); Lymphocytes Absolute Auto 1.09 K/mm3 (0.9-3.2); Lymphocytes Percent Auto 17.7 % (18.3-44.2); Mean Corpuscular HGB Conc 32.2 g/dl (32-36); Mean Corpuscular Hemoglobin 30.1 pg (26-34); Mean Corpuscular Volume 93.6 fl (80-100); Mean Platelet Volume 9.3 fl (7.4-10.4); Monocytes Absolute Auto 0.5 K/mm3 (0.1-0.6); Monocytes Percent Auto 7.3 % (2.6-8.5); Neutrophils Absolute Auto 4.4 K/mm3 (1.3-6.7); Neutrophils Percent Auto 70.8 % (45.5-73.1); Platelet Count Result 273 k/mm3 (150-375); Red Blood Count 2.82 M/mm3 (4.6-6.20); Red Cell Distribution Width 13.4 % (11.5-14.5); White Blood Count 6.2 K/mm3 (4.5-10.0)
[2021-12-03 05:46] LABS: Alanine Aminotransferase 14 U/L (4-50); Albumin Level 3.4 g/dL (3.5-5.1); Alkaline Phosphatase 184 U/L (38-126); Anion Gap 6 mmol/L (8-16); Aspartate Amino Transferase 30 U/L (17-59); Bilirubin,Total 0.5 mg/dL (0.2-1.3); Blood Urea Nitrogen 6 mg/dL (9-20); Calcium 8.7 mg/dL (8.4-10.2); Carbon Dioxide 28 mmol/L (22-30); Chloride 100 mmol/L (98-107); Estimated CRCL calculation 135 ml/min; Estimated Glomerular Filt Rate > 60; Glucose 193 mg/dL (65-110); Magnesium 1.7 mg/dL (1.6-2.3); Potassium 3.5 mmol/L (3.4-5.0); Sodium 134 mmol/L (137-145)
[2021-12-03 07:46] LABS: Glucose Point of Care 156 mg/dl (65-105)
--- NOTE | 2021-12-03 08:07 | WPDANESEPPF ---
Anes - Initial Pre Proc Eval Procedure: Operation Date: 11/29/21 13:30 Proposed Procedures p Incision and Drainage of Left Hip Wound; Possible Intertrochanteric Nail Removal - Garry Rainey MD Operation Date: 12/03/21 13:30 Proposed Procedures p Closure Of Left Hip Wound,Removal Of Wound Vac - Garry Rainey MD Date/Time: 12/03/21 08:07 Surgeon: Jacqueline Langley PA-C Pre Op Diagnosis: Post Op Infection Patient Data Age: 66 Gender: M Height: 1.83 m Weight: 83 kg Last Vital Signs Temp 36.7 C 12/03/21 04:00 Pulse 85 12/03/21 04:00 Resp 21 H 12/03/21 04:00 BP 113/72 12/03/21 04:00 Pulse Ox 100 12/03/21 04:00 Allergies Allergy/AdvReac Type Severity Reaction Status Date / Time No Known Allergies Allergy Verified 11/29/21 13:05 Home Medications Medication Instructions Recorded Confirmed Type Myrbetriq 50 mg PO DAILY 11/01/21 11/27/21 History fluticasone propionate 50 mcg INTRANASAL DAILY PRN 11/01/21 11/27/21 History glimepiride 2 mg PO BID 11/01/21 11/27/21 History hydrochlorothiazide 25 mg PO DAILY 11/01/21 11/27/21 History losartan 25 mg PO DAILY 11/01/21 11/27/21 History metformin 500 mg PO BID 11/01/21 11/27/21 History montelukast 10 mg PO DAILY 11/01/21 11/27/21 History acetaminophen [Mapap 650 mg PO Q6H PRN #60 tablet 11/08/21 11/27/21 Rx (acetaminophen)] alprazolam 0.5 mg PO BID #60 tablet 11/08/21 11/27/21 Rx aripiprazole 2.5 mg PO DAILY #20 tablet 11/08/21 11/27/21 Rx heparin (porcine) 5,000 unit SUBCUT Q12HR 30 Days 11/08/21 11/27/21 Rx #60 ml hydrocodone-acetaminophen 1 tablet PO Q6H PRN #20 tablet 11/08/21 11/27/21 Rx insulin glargine [Lantus U-100 10 unit SUBCUT HS #10 ml 11/08/21 11/27/21 Rx Insulin] polyethylene glycol 3350 [Miralax] 17 g PO QAM PRN #30 ea 11/08/21 11/27/21 Rx ergocalciferol (vitamin D2) 50,000 unit PO WEEKLY 11/27/21 11/27/21 History ezetimibe 10 mg PO DAILY 11/27/21 11/27/21 History ferrous sulfate 325 mg PO DAILY 11/27/21 11/27/21 History sertraline 100 mg PO DAILY 11/27/21 11/27/21 History Laboratory Tests 12/02/21 12/02/21 12/02/21 11:05 16:07 20:49 WBC RBC Hgb Hct MCV MCH MCHC RDW Plt Count MPV Immature Gran % (Auto) Neut % (Auto) Lymph % (Auto) Upton % (Auto) Eos % (Auto) Baso % (Auto) Lymph # (Auto) Upton # (Auto) Eos # (Auto) Baso # (Auto) Abs Immat Gran (auto) Absolute Neuts (auto) Absolute Nucleated RBC Nucleated RBC % Sodium Potassium Chloride Carbon Dioxide Anion Gap BUN Creatinine Estim Creat Clear Calc Estimated GFR Glucose POC Capillary Glucose 206 mg/dl H mg/dl 230 mg/dl H mg/dl 159 mg/dl H mg/dl (65-105) (65-105) (65-105) Calcium Magnesium Total Bilirubin AST ALT Alkaline Phosphatase Total Protein Albumin 12/03/21 12/03/21 12/03/21 05:27 05:27 07:36 WBC 6.2 K/mm3 K/mm3 (4.5-10.0) RBC 2.82 M/mm3 L M/mm3 (4.6-6.20) Hgb 8.5 g/dL L g/dL (14.0-18.0) Hct 26.4 % L % (42.0-52.0) MCV 93.6 fl fl (80-100) MCH 30.1 pg pg (26-34) MCHC 32.2 g/dl g/dl (32-36) RDW 13.4 % % (11.5-14.5) Plt Count 273 k/mm3 k/mm3 (150-375) MPV 9.3 fl fl (7.4-10.4) Immature Gran % (Auto) 0.8 % H % (0-0.5) Neut % (Auto) 70.8 % % (45.5-73.1) Lymph % (Auto) 17.7 % L % (18.3-44.2) Upton % (Auto) 7.3 % % (2.6-8.5) Eos % (Auto) 2.9 % % (0-4.4) Baso
[2021-12-03] MEDS: ARIPiprazole 2.5 MG TABLET PO (08:22)
[2021-12-03] MEDS: MONTELUKAST SODIUM 10 MG TABLET PO (08:23)
[2021-12-03] MEDS: SERTRALINE HCL 50 MG TABLET 100 MG PO (08:23)
[2021-12-03] MEDS: MIRABEGRON 50 MG ER TABLET PO (08:23)
[2021-12-03] MEDS: ALPRAZolam (*CRX) 0.5 MG TABLET PO ×2 (08:24→18:22)
[2021-12-03 11:34] LABS: Glucose Point of Care 159 mg/dl (65-105)
--- NOTE | 2021-12-03 11:59 | WPDHPUPDATE1 ---
History and Physical Update Update Date/Time: 12/03/21 11:59 History and Physical has been reviewed, including an updated exam of the patient. There are NO changes in the patient's condition. Risks, benefits, and alternatives have been discussed and questions answered. Patient agrees to proceed with procedure.
[2021-12-03 12:40] LABS: Vancomycin Trough 17.2 ug/mL (10.0-20.0)
--- NOTE | 2021-12-03 12:57 | P.PNIM_ITS ---
Progress Note: A&P Assessment and Plan (1) Postoperative wound infection of left hip: Code(s): T81.49XA - Infection following a procedure, other surgical site, initial encounter Status: Acute Assessment and Plan: * Cellulitis and possible deeper abscess status post IM terry on 11/01/2021. 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 * Continue basal insulin and glimepiride. * Continue high dose sliding scale insulin, Accu-Cheks, and hypoglycemic protocol. * Increased Lantus from 10 to 12 with mild improvement (3) Anemia following surgery: Code(s): D64.9 - Anemia, unspecified Status: Acute Assessment and Plan: * H/H stable 8.8/26.6 * Likely secondary to blood loss from recent surgery and iron deficiency * Iron low, TIBC low * Trend H/H * Continue ferrous sulfate daily. (4) Electrolyte abnormality: Code(s): E87.8 - Other disorders of electrolyte and fluid balance, not elsewhere classified Status: Acute Assessment and Plan: * Electrolytes a bit low on presentation * MG 1.4 on * Replaced with 4gm, now 1.7 (5) Hypertension: Code(s): I10 - Essential (primary) hypertension Status: Acute Assessment and Plan: * BP 146/76 * Blood pressures were reviewed and they are stable. * Resumed antihypertensives Losartan 25mg, HCTZ 25mg PO * Trend BP * Adjust therapy as indicated (6) Psychiatric illness: Code(s): F99 - Mental disorder, not otherwise specified Status: Acute Assessment and Plan: * No acute issues; patient did have delusions with his most recent hospitalization. * Continue aripiprazole and quetiapine. Subjective Date/time seen: 12/03/21 12:57 Interval history: 66-year-old male with insulin-dependent diabetes, hypertension, bipolar disorder, and schizophrenia, admitted for post operative infection of the left hip. He is POD #4 s/p I&D Left Hip and WOUND VAC placement. Patient doing well. No complaints. He denies pain in the hip. Scheduled to go back to OR today for wound closure. Review of Systems Review of Systems: All systems reviewed & are unremarkable except as noted in HPI and below Exam Narrative: General: Chronically ill-appearing, NAD HEENT: PERRL. Sclerae anicteric. Poor dentition throughout with many missing teeth. Neck: Supple. Respiratory: Lungs are clear to auscultation bilaterally. Cardiovascular: Regular rate and rhythm with S1-S2. Gastrointestinal: Abdomen is soft, nontender, and nondistended with positive bowel sounds. Skin: Warm and dry. Generalized pallor. Musculoskeletal: L hip wound VAC in place w/ sanguinous fluid in the chamber. No surrounding erythema. Extremities: No edema. Radial and pedal pulses intact. Neurological: Alert. Cranial nerves 2-12 are grossly intact. No gross fo
--- NOTE | 2021-12-03 12:57 | PM.IMPN ---
Progress Note: A&P Assessment and Plan (1) Postoperative wound infection of left hip: Code(s): T81.49XA - Infection following a procedure, other surgical site, initial encounter Status: Acute Assessment and Plan: Cellulitis and possible deeper abscess status post IM terry on 11/01/2021. Imipenem and vancomycin day 6, will likely need residential IV antibiotics First wound culture grew MRSA, sensitive to vancomycin New cultures obtained in OR, preliminary few WBC Dr. Rainey consulted I&D on 11/29/21 DVT Heparin 5000 units Q12hr - on hold for surgery today Scheduled for wound closure in OR today (2) Insulin dependent type 2 diabetes mellitus: Code(s): E11.9 - Type 2 diabetes mellitus without complications; Z79.4 - [facility] (current) use of insulin Status: Acute Assessment and Plan: Glucose 193 today A1c of 6.7% on 11/04/2021. Continue basal insulin and glimepiride. Continue high dose sliding scale insulin, Accu-Cheks, and hypoglycemic protocol. Increased Lantus from 10 to 12 with mild improvement (3) Anemia following surgery: Code(s): D64.9 - Anemia, unspecified Status: Acute Assessment and Plan: H/H stable 8.8/26.6 Likely secondary to blood loss from recent surgery and iron deficiency Iron low, TIBC low Trend H/H Continue ferrous sulfate daily. (4) Electrolyte abnormality: Code(s): E87.8 - Other disorders of electrolyte and fluid balance, not elsewhere classified Status: Acute Assessment and Plan: Electrolytes a bit low on presentation MG 1.4 on Replaced with 4gm, now 1.7 (5) Hypertension: Code(s): I10 - Essential (primary) hypertension Status: Acute Assessment and Plan: BP 146/76 Blood pressures were reviewed and they are stable. Resumed antihypertensives Losartan 25mg, HCTZ 25mg PO Trend BP Adjust therapy as indicated (6) Psychiatric illness: Code(s): F99 - Mental disorder, not otherwise specified Status: Acute Assessment and Plan: No acute issues; patient did have delusions with his most recent hospitalization. Continue aripiprazole and quetiapine. Subjective Date/time seen: 12/03/21 12:57 Interval history: 66-year-old male with insulin-dependent diabetes, hypertension, bipolar disorder, and schizophrenia, admitted for post operative infection of the left hip. He is POD #4 s/p I&D Left Hip and WOUND VAC placement. Patient doing well. No complaints. He denies pain in the hip. Scheduled to go back to OR today for wound closure. Review of Systems Review of Systems: All systems reviewed & are unremarkable except as noted in HPI and below Exam Narrative: General: Chronically ill-appearing, NAD HEENT: PERRL. Sclerae anicteric. Poor dentition throughout with many missing teeth. Neck: Supple. Respiratory: Lungs are clear to auscultation bilaterally. Cardiovascular: Regular rate and rhythm with S1-S2. Gastrointestinal: Abdomen is soft, nontender, and nondistended with positive bowel sounds. Skin: Warm and dry. Generalized pallor. Musculoskeletal: L hip wound VAC in place w/ sanguinous fluid in the chamber. No surrounding erythema. Extremities: No edema. Radial and pedal pulses intact. Neurological: Alert. Cranial nerves 2-12 are grossly intact. No gross focal deficits to casual conversation. Psychiatric: Cooperative. Poor eye contact. Odd affect. Objective Data Vital Signs Vital Signs: Vital Signs - 24 hr 12/02/21 16:00 12/02/21 20:35 12/02/21 20:57 Temperature 97.7 F 97.0 F L Pulse Rate 80 80 Respiratory Rate 20 21 H Blood Pressure 130/58 L 120/52 L Pulse Oximetry 100 100 98 12/03/21 00:30 12/03/21 04:00 12/03/21 08:00 Temperature 97.1 F L 98.0 F 98.2 F Pulse Rate 84 85 79 Respiratory Rate 21 H 21 H 20 Blood Pressure 146/76 H 113/72 111/58 L Pulse Oximetry 100 100 98
[2021-12-03] MEDS: LACTATED RINGERS 1,000 ML 30 ML IV CONT (14:00)
[2021-12-03 14:22] LABS: Glucose Point of Care 142 mg/dl (65-105)
--- NOTE | 2021-12-03 16:58 | W.PM.PROC2 ---
Procedure Note - Detailed Date of Procedure 12/03/21 Pre-op Diagnosis LEFT HIP WOUND INFECTION Post-op Diagnosis Same Procedure Performed I AND D WITH WOUND CLOSURE LEFT HIP Surgeon Garry Rainey MD Anesthesia General Description of Procedure THE PATIENT WAS TAKEN TO THE OPERATING ROOM IN STABLE CONDITION. THE LEFT LOWER EXTREMITY WAS PREPPED AND DRAPED IN THE STERILE FASHION. THE HIP WOUND APPEARED TO BE CLEAN WITHOUT ANY OBVIOUS PURULENCE. THERE WAS MINIMAL DEVITALIZED TISSUE WHICH WAS REMOVED. THE WOUND WAS IRRIGATED WITH 3 LITERS OF STERILE WATER INCLUDING A MIXTURE OF STERILE BETADINE AND WATER. THERE WERE NO OBVIOUS BLEEDERS. THE FASCIA WAS CLOSED WITH #1 VICRYL, THE SUB CUTANEOUS LAYER WITH #2-0 VICRYL AND THE SKIN WITH 3-0 PROLINE. THE WOUND WAS WASHED AND A PROVENA DRESSING WAS PLACED. THE PATIENT WAS EXTUBATED AND SENT TO RECOVERY ROOM IN STABLE CONDITION. Estimated Blood Loss 20 Urine Output -300.0 Drains No Packing No Pathology None sent Complications No immediate complications Condition Stable Disposition PACU
[2021-12-03 17:22] LABS: Glucose Point of Care 140 mg/dl (65-105)
[2021-12-03] MEDS: metFORMIN HCL XR 500 MG TAB.SR.24H PO (18:17)
[2021-12-03] MEDS: FERROUS SULFATE 324 MG TABLET PO (18:17)
[2021-12-03] MEDS: SENNA/DOCUSATE SODIUM TABLET 2 TAB PO (18:17)
[2021-12-03] MEDS: GLIMEPIRIDE 2 MG TABLET PO (18:17)
[2021-12-03] MEDS: MORPHINE SULFATE (*CRX) 2 MG/ML INJ IV PUSH (18:26)
[2021-12-03] MEDS: SODIUM CHLORIDE 0.9% IV 1,000 ML 125 ML IV CONT (18:56)
[2021-12-03] MEDS: INSULIN GLARGINE (*BKC) 100 UNITS/ML 12 UNITS SUB-Q (20:20)
[2021-12-03 21:16] LABS: Glucose Point of Care 214 mg/dl (65-105)
[2021-12-04 03:46] VITALS: BP 139/55; PULSE 80; RESP 20; TEMP 36.2; O2SAT 99
[2021-12-04 05:35] LABS: Basophils Percent Auto 0.6 % (0.2-1.2); Eosinophils Absolute Auto 0.1 K/mm3 (0-0.3); Eosinophils Percent Auto 1.6 % (0-4.4); Hemoglobin 8.3 g/dL (14.0-18.0); Immature Granulocyte Absolute 0.05 K/mm3 (0.00-0.031); Immature Granulocyte Percent A 0.7 % (0-0.5); Lymphocytes Absolute Auto 1.39 K/mm3 (0.9-3.2); Lymphocytes Percent Auto 20.4 % (18.3-44.2); Mean Corpuscular HGB Conc 31.9 g/dl (32-36); Mean Corpuscular Hemoglobin 30.1 pg (26-34); Mean Corpuscular Volume 94.2 fl (80-100); Monocytes Absolute Auto 0.4 K/mm3 (0.1-0.6); Monocytes Percent Auto 6.3 % (2.6-8.5); Neutrophils Absolute Auto 4.8 K/mm3 (1.3-6.7); Neutrophils Percent Auto 70.4 % (45.5-73.1); Platelet Count Result 288 k/mm3 (150-375); Red Blood Count 2.76 M/mm3 (4.6-6.20); Red Cell Distribution Width 13.6 % (11.5-14.5); White Blood Count 6.8 K/mm3 (4.5-10.0)
[2021-12-04 05:50] LABS: Alanine Aminotransferase 14 U/L (4-50); Albumin Level 3.4 g/dL (3.5-5.1); Alkaline Phosphatase 178 U/L (38-126); Anion Gap 7 mmol/L (8-16); Aspartate Amino Transferase 26 U/L (17-59); Bilirubin,Total 0.4 mg/dL (0.2-1.3); Blood Urea Nitrogen 7 mg/dL (9-20); Calcium 8.4 mg/dL (8.4-10.2); Carbon Dioxide 28 mmol/L (22-30); Chloride 103 mmol/L (98-107); Estimated CRCL calculation 114 ml/min; Estimated Glomerular Filt Rate > 60; Glucose 169 mg/dL (65-110); Potassium 3.8 mmol/L (3.4-5.0); Sodium 138 mmol/L (137-145)
[2021-12-04 07:42] LABS: Glucose Point of Care 138 mg/dl (65-105)
[2021-12-04] MEDS: SENNA/DOCUSATE SODIUM TABLET 2 TAB PO ×2 (09:18→16:22)
[2021-12-04] MEDS: ALPRAZolam (*CRX) 0.5 MG TABLET PO ×2 (09:18→16:22)
[2021-12-04] MEDS: metFORMIN HCL XR 500 MG TAB.SR.24H PO ×2 (09:19→16:23)
[2021-12-04] MEDS: ARIPiprazole 2.5 MG TABLET PO (09:19)
[2021-12-04] MEDS: MIRABEGRON 50 MG ER TABLET PO (09:19)
[2021-12-04] MEDS: MONTELUKAST SODIUM 10 MG TABLET PO (09:19)
[2021-12-04] MEDS: GLIMEPIRIDE 2 MG TABLET PO ×2 (09:19→16:23)
[2021-12-04] MEDS: SERTRALINE HCL 50 MG TABLET 100 MG PO (09:19)
[2021-12-04] MEDS: FERROUS SULFATE 324 MG TABLET PO ×2 (09:19→16:23)
[2021-12-04] MEDS: hydroCHLOROthiazide 25 MG TABLET PO (09:19)
[2021-12-04] MEDS: LOSARTAN POTASSIUM 25 MG TABLET PO (09:20)
[2021-12-04] MEDS: EZETIMIBE 10 MG TABLET PO (09:20)
[2021-12-04] MEDS: polyethylene glycoL 3350 17 GM POWD.PACK PO (09:20)
--- NOTE | 2021-12-04 09:59 | P.PNIM_ITS ---
Progress Note: A&P Assessment and Plan (1) Postoperative wound infection of left hip: Code(s): T81.49XA - Infection following a procedure, other surgical site, initial encounter Status: Acute Assessment and Plan: * Imipenem and vancomycin day 7, care coordination his coordinated placement with long-term vancomycin. * First wound culture grew MRSA, sensitive to vancomycin * New cultures obtained in OR, preliminary few WBC * Wound closure on 12/03, i&D on 11/29/21 * DVT Heparin 5000 units Q12hr. * Surgery is following, ok for discharge tomorrow once PICC is in place. (2) Insulin dependent type 2 diabetes mellitus: Code(s): E11.9 - Type 2 diabetes mellitus without complications; Z79.4 - nursing home (current) use of insulin Status: Acute Assessment and Plan: * Glucose 138 today * A1c of 6.7% on 11/04/2021. * Continue basal insulin and glimepiride. * Continue high dose sliding scale insulin, Accu-Cheks, and hypoglycemic protocol. * Increased Lantus at 12 with good blood glucose readings (3) Anemia following surgery: Code(s): D64.9 - Anemia, unspecified Status: Acute Assessment and Plan: * H/H stable 8.11/02. * Likely secondary to blood loss from recent surgery and iron deficiency * Iron low, TIBC low * Trend H/H * Continue ferrous sulfate daily. (4) Electrolyte abnormality: Code(s): E87.8 - Other disorders of electrolyte and fluid balance, not elsewhere classified Status: Acute Assessment and Plan: * Electrolytes a bit low on presentation * MG 1.7/has normalized. * Continue to monitor (5) Hypertension: Code(s): I10 - Essential (primary) hypertension Status: Acute Assessment and Plan: * BP 139/55 * Blood pressures were reviewed and they are stable. * Resumed antihypertensives Losartan 25mg, HCTZ 25mg PO * Trend BP * Adjust therapy as indicated (6) Psychiatric illness: Code(s): F99 - Mental disorder, not otherwise specified Status: Acute Assessment and Plan: * Patient is disinhibited and gleeful today; patient did have delusions with his most recent hospitalization. * Continue aripiprazole and quetiapine. (7) Transaminitis: Code(s): R74.01 - Elevation of levels of liver transaminase levels Status: Acute Assessment and Plan: * Alk-phos is 178 today, down trending since admission. * Continue to monitor Subjective Date/time seen: 12/04/21 09:59 66-year-old male with insulin-dependent diabetes, hypertension, bipolar disorder, and schizophrenia, admitted for post operative infection of the left hip. He is POD #1 I&D with wound closure of the left hip and #4 s/p I&D Left Hip and WOUND VAC placement. Patient doing well. No complaints. He denies pain in the hip. He had his PICC line placed by nurse today. He denies chest pain, shortness a breath, abdominal pain, bowel or bladder changes, fever, chills. Review of Systems Review of Systems: All systems reviewed & are unremarkable except as noted in HPI and below Exam Narrative: GENERAL APPEARANCE: Thin and chronically ill appearing. Alert and oriented x 3, in no apparent distress. HEENT: PERRL, EOMI. Sclerae anicteric. Moist mucous membranes. NECK: Supple. No JVD or obvious carotid bruits. RESPIRATORY: Respirations are nonlabored. Catina
--- NOTE | 2021-12-04 09:59 | PM.IMPN ---
Progress Note: A&P Assessment and Plan (1) Postoperative wound infection of left hip: Code(s): T81.49XA - Infection following a procedure, other surgical site, initial encounter Status: Acute Assessment and Plan: Imipenem and vancomycin day 7, care coordination his coordinated placement with long-term vancomycin. First wound culture grew MRSA, sensitive to vancomycin New cultures obtained in OR, preliminary few WBC Wound closure on 12/03, i&D on 11/29/21 DVT Heparin 5000 units Q12hr. Surgery is following, ok for discharge tomorrow once PICC is in place. 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 Continue basal insulin and glimepiride. Continue high dose sliding scale insulin, Accu-Cheks, and hypoglycemic protocol. Increased Lantus at 12 with good blood glucose readings (3) Anemia following surgery: Code(s): D64.9 - Anemia, unspecified Status: Acute Assessment and Plan: H/H stable 8.11/02. Likely secondary to blood loss from recent surgery and iron deficiency Iron low, TIBC low Trend H/H Continue ferrous sulfate daily. (4) Electrolyte abnormality: Code(s): E87.8 - Other disorders of electrolyte and fluid balance, not elsewhere classified Status: Acute Assessment and Plan: Electrolytes a bit low on presentation MG 1.7/has normalized. Continue to monitor (5) Hypertension: Code(s): I10 - Essential (primary) hypertension Status: Acute Assessment and Plan: BP 139/55 Blood pressures were reviewed and they are stable. Resumed antihypertensives Losartan 25mg, HCTZ 25mg PO Trend BP Adjust therapy as indicated (6) Psychiatric illness: Code(s): F99 - Mental disorder, not otherwise specified Status: Acute Assessment and Plan: Patient is disinhibited and gleeful today; patient did have delusions with his most recent hospitalization. Continue aripiprazole and quetiapine. (7) Transaminitis: Code(s): R74.01 - Elevation of levels of liver transaminase levels Status: Acute Assessment and Plan: Alk-phos is 178 today, down trending since admission. Continue to monitor Subjective Date/time seen: 12/04/21 09:59 66-year-old male with insulin-dependent diabetes, hypertension, bipolar disorder, and schizophrenia, admitted for post operative infection of the left hip. He is POD #1 I&D with wound closure of the left hip and #4 s/p I&D Left Hip and WOUND VAC placement. Patient doing well. No complaints. He denies pain in the hip. He had his PICC line placed by nurse today. He denies chest pain, shortness a breath, abdominal pain, bowel or bladder changes, fever, chills. Review of Systems Review of Systems: All systems reviewed & are unremarkable except as noted in HPI and below Exam Narrative: GENERAL APPEARANCE: Thin and chronically ill appearing. Alert and oriented x 3, in no apparent distress. HEENT: PERRL, EOMI. Sclerae anicteric. Moist mucous membranes. NECK: Supple. No JVD or obvious carotid bruits. RESPIRATORY: Respirations are nonlabored. Breath sounds are equal and clear bilaterally. No wheezes, Rhonchi, or rales. CARDIOVASCULAR: Regular rate and rhythm with normal S1-S2. Murmur present. GASTROINTESTINAL: Soft, flat, and benign. No mass, tenderness, guarding, or rebound. No organomegaly or hernia. Bowel sounds are present. : Cam catheter in place. SKIN: Warm, dry, well perfused. Wound VAC present over left hip wound. PICC line in place in right upper extremity EXTREMITIES: No cyanosis, clubbing, or edema. Radial and pedal pulses intact. NEUROLOGICAL: Alert. Cranial nerves 2-12 are
--- NOTE | 2021-12-04 10:31 | WPDANESPN ---
Anes - Prog Note Post-Op Date/Time: 12/04/21 10:31 Cardiovascular status: normal Respiratory status: normal Airway patency: baseline Mental status: baseline Post-Op hydration status: normal Vital Signs: Last Vital Signs Temp 97.1 F L 12/04/21 03:46 Pulse 80 12/04/21 03:46 Resp 20 12/04/21 03:46 BP 139/55 L 12/04/21 03:46 Pulse Ox 99 12/04/21 03:46 Pain Score (VAS): 08/19 I/O: Intake & Output 12/03/21 12/04/21 12/04/21 23:59 07:59 15:59 Intake Total 990 1500 Output Total 850 700 Balance 140 800 Laboratory Tests 12/04/21 05:21 12/04/21 05:21 12/03/21 12/03/21 12/03/21 11:27 11:56 14:19 WBC RBC Hgb Hct MCV MCH MCHC RDW Plt Count MPV Immature Gran % (Auto) Neut % (Auto) Lymph % (Auto) Dickson % (Auto) Eos % (Auto) Baso % (Auto) Lymph # (Auto) Dickson # (Auto) Eos # (Auto) Baso # (Auto) Abs Immat Gran (auto) Absolute Neuts (auto) Absolute Nucleated RBC Nucleated RBC % Sodium Potassium Chloride Carbon Dioxide Anion Gap BUN Creatinine Estim Creat Clear Calc Estimated GFR Glucose POC Capillary Glucose 159 H 142 H Calcium Total Bilirubin AST ALT Alkaline Phosphatase Total Protein Albumin Vancomycin Trough 17.2 12/03/21 12/03/21 12/04/21 17:12 20:16 05:21 WBC 6.8 RBC 2.76 L Hgb 8.3 L Hct 26.0 L MCV 94.2 MCH 30.1 MCHC 31.9 L RDW 13.6 Plt Count 288 MPV 9.0 Immature Gran % (Auto) 0.7 H Neut % (Auto) 70.4 Lymph % (Auto) 20.4 Dickson % (Auto) 6.3 Eos % (Auto) 1.6 Baso % (Auto) 0.6 Lymph # (Auto) 1.39 Dickson # (Auto) 0.4 Eos # (Auto) 0.1 Baso # (Auto) 0.0 Abs Immat Gran (auto) 0.05 H Absolute Neuts (auto) 4.8 Absolute Nucleated RBC 0.0 Nucleated RBC % 0.0 Sodium Potassium Chloride Carbon Dioxide Anion Gap BUN Creatinine Estim Creat Clear Calc Estimated GFR Glucose POC Capillary Glucose 140 H 214 H Calcium Total Bilirubin AST ALT Alkaline Phosphatase Total Protein Albumin Vancomycin Trough 12/04/21 12/04/21 05:21 07:37 WBC RBC Hgb Hct MCV MCH MCHC RDW Plt Count MPV Immature Gran % (Auto) Neut % (Auto) Lymph % (Auto) Dickson % (Auto) Eos % (Auto) Baso % (Auto) Lymph # (Auto) Dickson # (Auto) Eos # (Auto) Baso # (Auto) Abs Immat Gran (auto) Absolute Neuts (auto) Absolute Nucleated RBC Nucleated RBC % Sodium 138 Potassium 3.8 Chloride 103 Carbon Dioxide 28 Anion Gap 7 L BUN 7 L Creatinine 0.60 L Estim Creat Clear Calc 114 Estimated GFR > 60 Glucose 169 H POC Capillary Glucose 138 H Calcium 8.4 Total Bilirubin 0.4 AST 26 ALT 14 Alkaline Phosphatase 178 H Total Protein 6.0 L Albumin 3.4 L Vancomycin Trough Post-procedural complaints: none Patient Feedback: Patient satisfied with anesthetic care.
[2021-12-04 10:41] VITALS: BP 140/68; PULSE 84; RESP 12; TEMP 36.3; O2SAT 100
[2021-12-04 11:42] LABS: Glucose Point of Care 177 mg/dl (65-105)
[2021-12-04] MEDS: CENTRAL LINE FLUSH 10 ML IV PUSH ×2 (13:58→20:58)
--- NOTE | 2021-12-04 14:17 | PCPTNOTE ---
Attempted physical therapy re-evaluation, patient adamantly refusing to participate in skilled therapy at this date. Patient stated I can't without giving a reason. RN attempted to convince patient, but patient refused. will follow
[2021-12-04 14:54] VITALS: BP 127/75; PULSE 82; RESP 12; TEMP 36.3; O2SAT 100
[2021-12-04] MEDS: HYDROcodone/acetaminophen (*CRX) 7.5-325 MG TABLET 1 TAB PO (15:23)
[2021-12-04 15:46] VITALS: BP 124/75; PULSE 78; RESP 14; TEMP 36.2; O2SAT 98
--- NOTE | 2021-12-04 16:06 | PM.PNORT ---
Progress Note: A&P Additional Plan POD 1 DOING WELL. HE WILL RECEIVE A PICC LINE AND THEN WOULD RECOMMEND RIDES ATTENDANT IV ANTIBIOTIC THERAPY Subjective Subjective Date/Time Seen: 12/04/21 16:06 POD 1 DOING WELL. NO FEVER OR CHILLS. NO CALF PAIN. 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 [employer] SIGN Objective Data Vital Signs Vital Signs: Vital Signs - 24 hr 12/03/21 16:56 12/03/21 17:10 12/03/21 17:16 Temperature 36.9 C Pulse Rate 77 81 Respiratory Rate 16 16 Blood Pressure 140/68 145/77 H Pulse Oximetry 100 100 100 12/03/21 17:25 12/03/21 17:40 12/03/21 17:55 Temperature Pulse Rate 83 83 81 Respiratory Rate 20 18 18 Blood Pressure 146/69 H 149/72 H 146/70 H Pulse Oximetry 100 100 100 12/03/21 18:15 12/03/21 18:30 12/03/21 18:45 Temperature 36.4 C L 36.4 C L 36.7 C Pulse Rate 85 85 84 Respiratory Rate 18 18 18 Blood Pressure 148/47 H 144/63 H 138/62 Pulse Oximetry 99 99 100 12/03/21 19:46 12/03/21 23:46 12/04/21 03:46 Temperature 36.4 C 36.3 C L 36.2 C L Pulse Rate 85 98 80 Respiratory Rate 21 H 21 H 20 Blood Pressure 122/58 L 115/93 H 139/55 L Pulse Oximetry 100 100 99 12/04/21 10:41 12/04/21 14:54 Temperature 36.3 C L 36.3 C L Pulse Rate 84 82 Respiratory Rate 12 12 Blood Pressure 140/68 127/75 Pulse Oximetry 100 100 Intake/Output Intake/Output: Intake & Output 12/01/21 12/02/21 12/03/21 12/04/21 23:59 23:59 23:59 23:59 Intake Total 2252 2152 0 2019 Output Total 9161 284 4630 700 Balance 452 4040 622 [id number] Meds/Results Medications: Active Medications Generic Name Dose Route Start Last Admin Trade Name Freq PRN Reason Stop Dose Admin Acetaminophen 650 mg 11/29/21 17:02 Acetaminophen 325 Mg Tablet PO Q6H PRN Pain Rated 1-3 Hydrocodone Bitart/Acetaminophen 1 tab 11/29/21 17:02 12/04/21 15:23 Hydrocodone/Acetaminophen (*Crx) 7.5-325 Mg Tablet PO 1 tab Q6H PRN Administration Pain Rated 7-10 Hydrocodone Bitart/Acetaminophen 1 tab 12/03/21 18:01 Hydrocodone/Acetaminophen (*Crx) 5-325 Mg Tablet PO Q3H PRN Pain Rated 4-6 Alprazolam 0.5 mg 11/28/21 09:00 12/04/21 09:18 Alprazolam (*Crx) 0.5 Mg Tablet PO 0.5 mg BID CHONG Administration Aripiprazole 2.5 mg 11/28/21 09:00 12/04/21 09:19 Aripiprazole 2.5 Mg Tablet PO 2.5 mg DAILY CHONG Administration Dextrose 12.5 gm 11/27/21 19:59 Dextrose 50% 25 Gm/50 Ml Syringe IV PUSH PRN PRN Hypoglycemia Protocol Diazepam 5 mg 11/29/21 17:02 Diazepam (*Crx) 5 Mg Tablet PO Q8H PRN Muscle Spasm Ezetimibe 10 mg 11/28/21 09:00 12/04/21 09:20 Ezetimibe 10 Mg Tablet PO 10 mg DAILY CHONG Administration Ergocalciferol 50,000 unit 12/05/21 09:00 Ergocalciferol 50,000 Unit Capsule PO Th@0900 CHONG Ferrous Sulfate 324 mg 12/01/21 17:00 12/04/21 09:19 Ferrous Sulfate 324 Mg Tablet PO 324 mg BIDWM CHONG Administration Fluticasone Propionate 1 spray 11/27/21 20:03 11/30/21 09:14 Fluticasone Propionate 0.05% Na Spr 16 Gm Btl (*Bkc) NASAL 1 spray DAILY PRN Administration Runny Nose Glimepiride 2 mg 11/28/21 08:00 12/04/21 09:19 Glimepiride 2 Mg Tablet PO 2 mg BIDWM CHONG Administration Glucagon 1 mg 11/27/21 19:59 Glucagon For Inj 1 Mg Vial IM PRN PRN Hypoglycemia Protocol Glucose 15 gm 11/27/21 19:59 Glucose Oral Gel 15 Gm Of Glucse In 37.5 Gm Tube PO PRN PRN Hypoglycemia Protocol Heparin Sodium (Porcine) 5,000 units 11/29/21 21:00 12/02/21 20:49 Heparin Sodium 5,000 Units/Ml Vial SUB-Q 5,000 units Q12HR CHONG Administration Hydrochlorothiazide 25 mg 11/28/21 09:00 12/04/21 09:19 Hydrochlorothiazide 25 Mg Tablet PO 25 mg DAILY CHONG Administration Imipenem/Cilastatin Sodium 500 100 mls @ 300 mls/hr 11/28/21 00:00 12/04/21 12:00 mg/ Sodium Chloride IVPB Infused Q6H CHONG Infusion Dextrose
[2021-12-04 16:27] LABS: Glucose Point of Care 245 mg/dl (65-105)
[2021-12-04] MEDS: INSULIN ASPART (*BKC) 100 UNITS/ML SUB-Q (17:24)
[2021-12-04 20:00] VITALS: PULSE 73; RESP 16; O2SAT 93
[2021-12-04 20:42] LABS: Glucose Point of Care 129 mg/dl (65-105)
[2021-12-04] MEDS: INSULIN GLARGINE (*BKC) 100 UNITS/ML 12 UNITS SUB-Q (20:52)
[2021-12-04 21:06] VITALS: BP 140/70; PULSE 73; RESP 16; TEMP 36.6; O2SAT 93
[2021-12-05 01:52] VITALS: BP 134/60; PULSE 81; RESP 16; TEMP 36.6; O2SAT 100
[2021-12-05] MEDS: diazePAM (*CRX) 5 MG TABLET PO (03:10)
[2021-12-05] MEDS: HYDROcodone/acetaminophen (*CRX) 7.5-325 MG TABLET 1 TAB PO (03:11)
[2021-12-05] MEDS: CENTRAL LINE FLUSH 10 ML IV PUSH (05:18)
[2021-12-05 06:43] LABS: Basophils Percent Auto 0.6 % (0.2-1.2); Eosinophils Absolute Auto 0.1 K/mm3 (0-0.3); Eosinophils Percent Auto 1.7 % (0-4.4); Hematocrit 25.4 % (42.0-52.0); Hemoglobin 8.2 g/dL (14.0-18.0); Immature Granulocyte Absolute 0.05 K/mm3 (0.00-0.031); Immature Granulocyte Percent A 0.7 % (0-0.5); Lymphocytes Absolute Auto 1.26 K/mm3 (0.9-3.2); Lymphocytes Percent Auto 18.2 % (18.3-44.2); Mean Corpuscular HGB Conc 32.3 g/dl (32-36); Mean Platelet Volume 9.3 fl (7.4-10.4); Monocytes Absolute Auto 0.4 K/mm3 (0.1-0.6); Monocytes Percent Auto 6.2 % (2.6-8.5); Neutrophils Percent Auto 72.6 % (45.5-73.1); Platelet Count Result 310 k/mm3 (150-375); Red Blood Count 2.73 M/mm3 (4.6-6.20); White Blood Count 6.9 K/mm3 (4.5-10.0)
[2021-12-05 06:52] LABS: Alanine Aminotransferase 13 U/L (4-50); Albumin Level 3.2 g/dL (3.5-5.1); Alkaline Phosphatase 184 U/L (38-126); Anion Gap 5 mmol/L (8-16); Aspartate Amino Transferase 24 U/L (17-59); Bilirubin,Total 0.4 mg/dL (0.2-1.3); Blood Urea Nitrogen 7 mg/dL (9-20); Calcium 8.4 mg/dL (8.4-10.2); Carbon Dioxide 29 mmol/L (22-30); Chloride 101 mmol/L (98-107); Estimated CRCL calculation 135 ml/min; Estimated Glomerular Filt Rate > 60; Glucose 115 mg/dL (65-110); Potassium 3.4 mmol/L (3.4-5.0); Sodium 135 mmol/L (137-145)
--- NOTE | 2021-12-05 07:00 | P.DS_ITS ---
DS: Admitting Diagnosis Discharge Date 12/05/21 1200 <Jodie Mike PA-C - Last Filed: 12/05/21 11:27> Admitting Diagnosis Post operative infection <Jodie Mike PA-C - Last Filed: 12/05/21 11:27> DS: Discharge Diagnosis Discharge Diagnosis (1) Postoperative wound infection of left hip: Code(s): T81.49XA - Infection following a procedure, other surgical site, initial encounter <Jodie Mike PA-C - Last Filed: 12/05/21 11:27> Status: Acute <Jodie Mike PA-C - Last Filed: 12/05/21 11:27> Assessment and Plan: * Imipenem day 7, Vancomycin day 2, care coordination coordinated placement at [facility] with long-term vancomycin. * Per Care coordination, orthopedics to order vancomycin for outpatient abx therapy. * First wound culture grew MRSA, sensitive to vancomycin * New cultures obtained in OR, preliminary few WBC * Wound closure on 12/03, I&D on 11/29/21. * Surgery is following, ok for discharge today. * PICC line is in place and patient has received his vancomycin today through this. * Patient currently has hernandez catheter, will keep this in place until suture removal, as his prior wound site was soaked with urine, leading to the surgical site infection. <Jodie Mike PA-C - Last Filed: 12/05/21 11:27> (2) Insulin dependent type 2 diabetes mellitus: Code(s): E11.9 - Type 2 diabetes mellitus without complications; Z79.4 - snf (current) use of insulin <Jodie Mike PA-C - Last Filed: 12/05/21 11:27> Status: Acute <Jodie Mike PA-C - Last Filed: 12/05/21 11:27> Assessment and Plan: * Glucose 115 today * A1c of 6.7% on 11/04/2021. * Continue basal insulin and glimepiride. * Continue high dose sliding scale insulin, Accu-Cheks, and hypoglycemic protocol. * On discharge, resume home metformin, Insulin as prescribed, discontinue sliding scale. * Follow up with primary care for further management of diabetes. <Jodie Mike PA-C - Last Filed: 12/05/21 11:27> (3) Anemia following surgery: Code(s): D64.9 - Anemia, unspecified <Jodie Mike PA-C - Last Filed: 12/05/21 11:27> Status: Acute <Jodie Mike PA-C - Last Filed: 12/05/21 11:27> Assessment and Plan: * H/H stable 8.3/26. * Likely secondary to blood loss from recent surgery and iron deficiency * Iron low, TIBC low * Trend H/H * Continue ferrous sulfate daily after discharge. <Jodie Mike PA-C - Last Filed: 12/05/21 11:27> (4) Electrolyte abnormality: Code(s): E87.8 - Other disorders of electrolyte and fluid balance, not elsewhere classified <Jodie Mike PA-C - Last Filed: 12/05/21 11:27> Status: Acute <Jodie Mike PA-C - Last Filed: 12/05/21 11:27> Assessment and Plan: * Electrolytes a bit low on presentation * MG 1.7/has normalized after replenishment <Jodie Mike PA-C - Last Filed: 12/05/21 11:27> (5) Hypertension: Code(s): I10 - Essential (primary) hypertension <Jodie Mike PA-C - Last Filed: 12/05/21 11:27> Status: Acute <Jodie Mike PA-C - Last Filed: 12/05/21 11:27> Assessment and Plan: * BP 134/60 * Resumed antihypertensives Losartan 25mg, HCTZ 25mg PO, and continue these upon discharge. <Jodie Mike PA-C - Last Filed: 12/05/21 11:27> (6) Psychiatric illness: Code(s): F99 - Mental disorder, not otherwise specified <KOBE Almnedarez -
--- NOTE | 2021-12-05 07:00 | PM.DS ---
DS: Admitting Diagnosis Discharge Date 12/05/21 1200 <Jodie Mike PA-C - Last Filed: 12/05/21 11:27> Admitting Diagnosis Post operative infection <Jodie Mike PA-C - Last Filed: 12/05/21 11:27> DS: Discharge Diagnosis Discharge Diagnosis (1) Postoperative wound infection of left hip: Code(s): T81.49XA - Infection following a procedure, other surgical site, initial encounter <Jodie Mike PA-C - Last Filed: 12/05/21 11:27> Status: Acute <Jodie Mike PA-C - Last Filed: 12/05/21 11:27> Assessment and Plan: Imipenem day 7, Vancomycin day 2, care coordination coordinated placement at [facility] with long-term vancomycin. Per Care coordination, orthopedics to order vancomycin for outpatient abx therapy. First wound culture grew MRSA, sensitive to vancomycin New cultures obtained in OR, preliminary few WBC Wound closure on 12/03, I&D on 11/29/21. Surgery is following, ok for discharge today. PICC line is in place and patient has received his vancomycin today through this. Patient currently has hernandez catheter, will keep this in place until suture removal, as his prior wound site was soaked with urine, leading to the surgical site infection. <Jodie Mike PA-C - Last Filed: 12/05/21 11:27> (2) Insulin dependent type 2 diabetes mellitus: Code(s): E11.9 - Type 2 diabetes mellitus without complications; Z79.4 - longterm (current) use of insulin <Jodie Mike PA-C - Last Filed: 12/05/21 11:27> Status: Acute <HENRRY Almendarez Last Filed: 12/05/21 11:27> Assessment and Plan: Glucose 115 today A1c of 6.7% on 11/04/2021. Continue basal insulin and glimepiride. Continue high dose sliding scale insulin, Accu-Cheks, and hypoglycemic protocol. On discharge, resume home metformin, Insulin as prescribed, discontinue sliding scale. Follow up with primary care for further management of diabetes. <Jodie Mike PA-C - Last Filed: 12/05/21 11:27> (3) Anemia following surgery: Code(s): D64.9 - Anemia, unspecified <Jodie DaoHENRRY tsang - Last Filed: 12/05/21 11:27> Status: Acute <Jodie DaoKOBE tsangC - Last Filed: 12/05/21 11:27> Assessment and Plan: H/H stable 8.3/26. Likely secondary to blood loss from recent surgery and iron deficiency Iron low, TIBC low Trend H/H Continue ferrous sulfate daily after discharge. <Jodie DaoHENRRY tsang - Last Filed: 12/05/21 11:27> (4) Electrolyte abnormality: Code(s): E87.8 - Other disorders of electrolyte and fluid balance, not elsewhere classified <Jodie DaoKOBE tsangC - Last Filed: 12/05/21 11:27> Status: Acute <Jodie Montano HENRRY Mike - Last Filed: 12/05/21 11:27> Assessment and Plan: Electrolytes a bit low on presentation MG 1.7/has normalized after replenishment <Jodie GarnerRamila RashidKOBE tsangC - Last Filed: 12/05/21 11:27> (5) Hypertension: Code(s): I10 - Essential (primary) hypertension <Jodie GarnerRamila RashidHENRRY tsang - Last Filed: 12/05/21 11:27> Status: Acute <Jodie DaoHENRRY tsang - Last Filed: 12/05/21 11:27> Assessment and Plan: BP 134/60 Resumed antihypertensives Losartan 25mg, HCTZ 25mg PO, and continue these upon discharge. <Jodie GarnerRamila Mike PA-C - Last Filed: 12/05/21 11:27> (6) Psychiatric illness: Code(s): F99 - Mental disorder, not otherwise specified <Jodie PatsyRamila Mike PA-C - Last Filed: 12/05/21 11:27> Status: Acute <Jodie Montano HENRRY Mike - Last Filed: 12/05/21 11:27> Assessment and Plan: Patient is disinhibited and gleeful today; patient did have delusions with his most recent hospitalization. Continue aripiprazole and quetiapine, and follow up with your primary care/psychiatry team as needed. <Jodie Mike PA-C - Last Filed: 12/05/21 11:27> (7) Transaminit
[2021-12-05 07:29] LABS: Glucose Point of Care 125 mg/dl (65-105)
[2021-12-05 07:41] LABS: Glucose Point of Care 126 mg/dl (65-105)
[2021-12-05] MEDS: SENNA/DOCUSATE SODIUM TABLET 2 TAB PO (08:29)
[2021-12-05] MEDS: SERTRALINE HCL 50 MG TABLET 100 MG PO (08:29)
[2021-12-05] MEDS: GLIMEPIRIDE 2 MG TABLET PO (08:29)
[2021-12-05 08:30] VITALS: RESP 16; O2SAT 97
[2021-12-05] MEDS: MIRABEGRON 50 MG ER TABLET PO (08:30)
[2021-12-05] MEDS: MONTELUKAST SODIUM 10 MG TABLET PO (08:30)
[2021-12-05] MEDS: FERROUS SULFATE 324 MG TABLET PO (08:30)
[2021-12-05] MEDS: EZETIMIBE 10 MG TABLET PO (08:30)
[2021-12-05] MEDS: polyethylene glycoL 3350 17 GM POWD.PACK PO (08:30)
[2021-12-05] MEDS: metFORMIN HCL XR 500 MG TAB.SR.24H PO (08:30)
[2021-12-05] MEDS: ARIPiprazole 2.5 MG TABLET PO (08:30)
[2021-12-05] MEDS: hydroCHLOROthiazide 25 MG TABLET PO (08:30)
[2021-12-05] MEDS: ERGOCALCIFEROL 50,000 UNIT CAPSULE 50000 UNITS PO (08:31)
[2021-12-05] MEDS: LOSARTAN POTASSIUM 25 MG TABLET PO (08:31)
[2021-12-05] MEDS: ALPRAZolam (*CRX) 0.5 MG TABLET PO (08:36)
[2021-12-05 10:19] VITALS: BP 128/60; PULSE 71; RESP 16; TEMP 36.8; O2SAT 97
[2021-12-05 11:19] LABS: Glucose Point of Care 246 mg/dl (65-105)
[2021-12-05] MEDS: INSULIN ASPART (*BKC) 100 UNITS/ML SUB-Q (11:53)
--- NOTE | 2021-12-05 14:20 | PC.NURSE ---
On 12/05/21, the student, [Kirti Levine], provided care and completed [employer] documentation on this patient. I have reviewed the student's documentation and agree with the findings.
== END 2021-12-05 14:00 | DRG 857 ==
LOC: ANHED 11:00 → ANH2MED 14:49
PROVIDERS: Emergency Medicine; Nurse Practitioner; Nurse Practitioner Family; Orthopaedic Surgery; Physician Assistant; Student in an Organized Health Care Education/Training Program; Admitting Provider Internal Medicine; Emergency Provider Nurse Practitioner Family; Visit Provider Internal Medicine
PROC: 0J9M0ZZ Drainage of Left Upper Leg Subcutaneous Tissue and Fascia, Open Approach (ICD-10-PCS; CPT 27245; principal; 2021-11-29 13:30)
PROC: 0JDM0ZZ Extraction of Left Upper Leg Subcutaneous Tissue and Fascia, Open Approach (ICD-10-PCS; principal; 2021-12-03 13:30)
DX: T81.41XA Infection following a procedure, superficial incisional surgical site, initial encounter (principal); D62 Acute posthemorrhagic anemia; L03.116 Cellulitis of left lower limb; L02.416 Cutaneous abscess of left lower limb; E11.9 Type 2 diabetes mellitus without complications; E87.8 Other disorders of electrolyte and fluid balance, not elsewhere classified; E78.5 Hyperlipidemia, unspecified; I10 Essential (primary) hypertension; F41.9 Anxiety disorder, unspecified; F20.9 Schizophrenia, unspecified; S72.142D Displaced intertrochanteric fracture of left femur, subsequent encounter for closed fracture with routine healing; D50.9 Iron deficiency anemia, unspecified; Z82.49 Family history of ischemic heart disease and other diseases of the circulatory system; F31.9 Bipolar disorder, unspecified; Z82.0 Family history of epilepsy and other diseases of the nervous system; R74.01 Elevation of levels of liver transaminase levels; Z86.14 Personal history of Methicillin resistant Staphylococcus aureus infection; Z79.899 Other long term (current) drug therapy; Z79.4 Long term (current) use of insulin
CPT/HCPCS: 36415; 36569; 71046; 73701; 80048; 80053; 80202; 81001; 82607; 82728; 82746; 82948; 83540; 83550; 83605; 83615; 83735; 84134; 84466; 85014; 85018; 85025; 85046; 85610; 85652; 85730; 86140; 86850; 86900; 86901; 87040; 87070; 87075; 87086; 87088; 87147; 87186; 87205; 93005; 96361; 96365; 96366; 96367; 96375; 96376; 97110; 97162; 97530; 99285; A9270; C1751; G0378; J0330; J0743; J1100; J1644; J1815; J2250; J2270; J2405; J2704; J3010; J3370; J3475; J7030; J7120; Q9967

== ENCOUNTER 2025-01-10 17:30 | Inpatient (IN) | payer MEDICARE, MEDICAID, SELFPAY ==
[2025-01-10] VITALS (10 sets, daily range): BP systolic 130–167; BP diastolic 39–88; PULSE 92–107; RESP 18–37; TEMP 36.5–37.5; O2SAT 96–100
--- NOTE | ~2025-01-10 | CT_ITS ---
CT brain wo con Ordering provider: Nanette Rivas PA-C History: 69 years Male with . fall, possible HI . Comparison: June 18, 2012 and the Technique: CT of the head without contrast. Radiation reduction technique utilized.The dose-length pr oduct was 681 mGy-cm. FINDINGS: BRAIN PARENCHYMA AND CSF SPACES: Mild leukoaraiosis and diffuse cortical atrophy. Mild atheromatous d isease. No midline shift, mass effect or hemorrhage. The brain parenchyma and CSF spaces are otherwi se normal. VISUALIZED PARANASAL SINUSES: Well aerated. MASTOIDS: Well aerated. BONES: The bones appear intact. Highly suggestive fracture of the right lateral C1 arch. SOFT TISSUES: Visualized nasopharynx is normal. Superficial soft tissues are normal. IMPRESSION: No acute intracranial findings. Highly suggestive fracture in the right C1 lateral arch. Reviewed, dictated and finalized at location A.
--- NOTE | ~2025-01-10 | XR_ITS ---
XR chest 1V Ordering provider: Nanette Rivas PA-C History: 69 years Male with . fall, unknown mechanism . Comparison: November 27, 2021 FINDINGS: MEDIASTINUM: The cardiac silhouette is slightly enlarged. Congestive baltazar. LUNGS: No effusions or pneumothorax. Perihilar opacification the left lung. OTHER: No free air under the diaphragm. Degenerative changes of the spine IMPRESSION: Cardiomegaly with congestive baltazar. Left perihilar opacification which may indicate atelectasis. Reviewed, dictated and finalized at location A.
--- NOTE | ~2025-01-10 | XR_ITS ---
XR hip BI 2V w AP pelvis Ordering provider: Nanette Rivas PA-C History: . fall, uknown injruy . Comparison: December 19, 2021 FINDINGS: BONES: Postoperative changes in both acetabula. Postoperative changes in the left femoral neck. No ac tim fracture or dislocation. HIP JOINT SPACES: Bilateral severely narrowed. SACROILIAC JOINT SPACES/LUMBAR SPINE: The sacroiliac joint spaces are normal. Mild degenerative day es of the visualized lower lumbar spine. PUBIC SYMPHYSIS: Pubic symphysitis. SOFT TISSUES: Bilateral myositis ossificans. IMPRESSION: No acute osseous abnormality of the bilateral hips and pelvis. Reviewed, dictated and finalized at location A.
--- NOTE | ~2025-01-10 | XR_ITS ---
XR chest 1V portable 01/12/2025 09:51 Indication: Fever and tachypnea Procedure: AP portable chest Comparison: Comparison to multiple prior studies sequentially, with oldest reviewed study dated 10/31. Findings: Patchy bilateral airspace disease, compatible with pneumonia. Heart size upper normal for t echnique. No pleural effusion or pneumothorax. Impression: 1: Patchy bilateral airspace disease, compatible with pneumonia. Reviewed, dictated and finalized at location A. Impression: 1: Patchy bilateral airspace disease, compatible with pneumonia.
--- NOTE | ~2025-01-10 | US_ITS ---
US renal BI 01/11/2025 08:42 Procedure: Realtime transabdominal ultrasound of the kidneys and bladder. Indication: Acute renal injury Comparison: No prior studies for comparison. Findings: Renal echotexture is normal bilaterally without hydronephrosis, contour deforming mass or r enal calculus. The right kidney measures 10.4 cm and left kidney measures 11.5 cm. There is dependent debris in the bladder lumen. Possible mild bladder wall thickening. Impression: 1: Possible mild bladder wall thickening with debris in the bladder lumen which may represent protein aceous material or blood products. Consider cystitis in the appropriate clinical setting. Reviewed, dictated and finalized at location A. Impression: 1: Possible mild bladder wall thickening with debris in the bladder lumen which may represent proteinaceous material or blood products. Consider cystitis in t he appropriate clinical setting.
--- NOTE | ~2025-01-10 | CT_ITS ---
CT cervical spine wo con Ordering provider: Nanette Rivas PA-C History: . fall, possible HI . Comparison: June 27, 2020 Technique: CT of the cervical spine was performed without contrast. Sagittal and coronal reformatted images were also obtained and reviewed. Automated exposure control and iterative reconstruction melanie hnique were employed. The dose-length product was 510.93 mGy-cm. FINDINGS: VERTEBRAE: Defect in the right lateral arch of C1 which is unchanged from this examination. No sublux ation or acute fracture. The occipital condyles are intact. Degenerative changes of the spine. DISC SPACES: Degenerative disc disease at the level of C6-C7. Multilevel facet joint disease. Multile gabo uncovertebral joint osteoarthritic changes. Multilevel intervertebral foraminal narrowing. PARASPINOUS SOFT TISSUES: Bilateral carotid calcifications. IMPRESSION: No acute osseous abnormality cervical spine. Defect in the right lateral arch of C1 which is unchanged from previous examination. Degenerative disc disease at the level of C6-C7 with multilevel intervertebral foraminal narrowing. Reviewed, dictated and finalized at location A. IMPRESSION: No acute osseous abnormality cervical spine. Defect in the right lateral arch of C1 which is unchanged from previous examina tion. Degenerative disc disease at the level of C6-C7 with multilevel intervertebral foraminal narrowing.
--- NOTE | ~2025-01-10 | US_ITS ---
US abdomen limited INDICATION: Evaluate for hepatosplenomegaly. PROCEDURE: Realtime right upper abdominal ultrasound. COMPARISON: No prior studies for comparison. FINDINGS: The pancreas is normal without focal mass or pancreatic ductal dilation. Liver echotexture is normal without focal mass or intrahepatic biliary dilatation. There is normal directional flow i n the portal vein. There is gallbladder wall thickening. No gallstones. Common bile duct measures 3 mm. No sonographic Lyon's sign. Spleen is enlarged measuring 15 cm. IMPRESSION: 1: Splenomegaly. 2: Gallbladder wall thickening. This could indicate interstitial edema, chronic liver disease or web content executive guy cholecystitis. Reviewed, dictated and finalized at location A. IMPRESSION: 1: Splenomegaly. 2: Gallbladder wall thickening. This could indicate interstitial edema, chronic liver disease or chronic cholecystitis.
--- NOTE | 2025-01-10 17:40 | ECG_ITS ---
Test Date: 2025-01-10 18:19:12 Measurements Intervals [place] Rate: 98 P: 56 AK: 164 QRS: -1 QRSD: 107 T: 55 QT: 350 QTc: 448 Interpretive Statements SINUS RHYTHM INCOMPLETE RIGHT BUNDLE BRANCH BLOCK NONSPECIFIC ST-T WAVE ABNORMALITY- HIGH LATERAL LEADS BASELINE ARTIFACT- I, III, AVL, V1 BORDERLINE ECG No previous ECG available for comparison Electronically Signed On 01-10-2025 18:49:04 CDT by Tiago Yeboah D.O.
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
--- OUTSIDE RECORDS SUMMARY | 2025-01-10 17:51 | XMS_ITS | Continuity of Care Document ---
Author Name [facility] Organization [facility] Care Team Providers Care Concrete Placement Equipment Operator Name Role Phone [facility] Unavailable Unavailable Encounters Combined list of: 1) Encounters from Department of Veterans Affairs facilities going backup to the last 18 months, not all VA inpatient encounters are included; 2) Encounters from the Department of Defense facilities going backup to 280 months. Location Location Details Encounter Type Encounter Number Reason For Visit Attending Provider ADM Date DC Date Status Disposition Source [facility] Outpatient Encounter [id number] 04[facility]
--- OUTSIDE RECORDS SUMMARY | 2025-01-10 17:51 | XMS_ITS | Encounter Summary ---
Author Organization [facility] Healthcare Address [address] [place] [address] Care Team Providers Care Engine Repairer Service Name Role Phone Korey Butcher MD Primary Care Provider [phone] Joaquin Briscoe MD Primary Care Provider [phone] Encounter Details Date Type Department Care Team (Late st Contact Info) Description 12/31/2023 Telephone [facility] [address] [place] [address] Leonides Crockett RN Social History Tobacco Use Types Packs/Day Years Used Date Smoking Tobacco: Never Alcohol Use Standard Drinks/Week Comments Yes 1 (1 standard drink = 0.6 oz pur e alcohol) [facility] Utilities Answer Date Recorded In the past 12 months has [employer] electric, gas, oil, or water company threatened to shut off services in your home? No 12/14/2023 Social Connection and Isolation Panel [NHANES] A nswer Date Recorded In a typical week, how many times do you talk on the phone with family, friends, or neighbors? Once a week 12/14/2023 How often do you get together with friends or re latives? Once a week 12/14/2023 How often do you attend baptism or cheondoism serv ices? Never 12/14/2023 Do you belong to any clubs o r organizations such as baptism groups, unions, fraternal or athletic groups, or school groups? No 12/14/2023 How often do you attend meet ings of the clubs or organizations you belong to? Never 12/14/2023 Are you , , di vorced, , never , or living with a partner? Never 12/14/2023 AUDIT-C Answer Date Recorded Q1: How often do you have a drink containing alc ohol? Patient declined 12/08/2023 Q2: How many drinks containi ng alcohol do you have on a typical day when you are drinking? Patient declined 12/08/2023 Q3: How often do you have si x or more drinks on one occasion? Patient declined 12/08/2023 Overall Financial Resource Strain (CARDIA) Answe r Date Recorded How hard is it for you to pa y for the very basics like food, housing, medical care, and heating? Not hard at all 12/14/2023 Hunger Vital Sign Answer Date Recorded Within the past 12 months, y ou worried that your food would run out before you got the money to buy more. Never true 12/14/19 24 Within the past 12 months, t he food you bought just didn't last and you didn't have money to get more. Never true 12/14/2023 PRAPARE - Transportation Answer Date Re corded In the past 12 months, has l ack of transportation kept you from medical appointments or from getting medications? No 01/2024 In the past 12 months, has l ack of transportation kept you from meetings, work, or from getting things needed for daily living? No 12/14/2023 Housing Stability Vital Sign Answer Jasen e Recorded In the last 12 months, was t here a time when you were not able to pay the mortgage or rent on time? No 12/14/2023 In the last 12 months, how many places have you lived? 1 12/14/2023 In the last 12 months, was t here a time when you did not have a steady place to sleep or slept in a alf (including now)? No 12/14/2023 Personal Safety Answer Date Recorded Have you ever been in or are you currently in a harmful physical or emotional relationship or is someone making you feel afraid or unsafe? 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 02/27/2024 03/01/2024 05/27/2024 3:05 AM C DT COVID: Suspected 12/03/2024 12/03/2024 12/03/2024 9:47 AM CDT documented as of this encounter Care Teams Engine Repairer Service Relationship Specialty Start Date End Date Korey Butcher MD [address] [place] [address] PCP - General Internal Medicine 12/08/23 09/11/24 Joaquin Briscoe MD [address] [place] [address] PCP - General Internal Medicine 09/12/24 documented as of this encounter
--- OUTSIDE RECORDS SUMMARY | 2025-01-10 17:51 | XMS_ITS | Continuity of Care Document ---
Author Organization [facility] Address [address] [place] [address] Phone Care Team Providers Care Spare Parts Clerk Name Role Phone Paul Jolly Unavailable Unavailable Procedures Procedure Date Office/outpatient Visit, [facility] Dilated Retinal Exam W Interpretation Ma Advance Directives Directive Yes / No Effective Date File Name No Information Encounters Encounter Description Practice Location Reason(s) For Visit Diagnoses Date Provider Providers Copied on Encounter Office/outpat ient Visit, [facility], [address], [place], [place], [id number], [place] tel:[phone] [facility] No Information 0-201 0 Shanae Paul. [address], [place], [address], [place]. tel:[phone] Family History Family Member Type Diagnosis Age At Onset No Information Payers Payer name Insurance type Covered libertarian ID Authoriza tion(s) Medicare [facility] [id number] Medicaid [facility] [id number] Social History Type Description Quantity Date Captured Comments Sex Male Smoking Status No Information Chief Complaint And Reason For Visit No Information Reason For Referral Reason For Referral No Information History Of Present Illness Encounter Date Complaint History Of Prese nt Illness No Information Functional Status Date Functional Assessmen t No Information Instructions Date Instruction Additional Infor mation No Information Assessments Type Assessment Date No Information Patient Care Teams Name Effective Dates (start - stop) Status Members No Information
--- OUTSIDE RECORDS SUMMARY | 2025-01-10 17:52 | XMS_ITS | Referral Summary ---
Author Organization [facility] Address [address] [place] [id number] Care Team Providers [employer] Name Role Phone Joaquin Briscoe MD Primary Care Provider Encounters Date Type Department Care Team Description 12/03/2024 8:04 AM CDT - 12/09/2024 2:35 PM CDT Hospital Encounter [address] [phone] Ward Mcmullen MD Morgan, Zachary A., MD Vermette, David Michael, MD Chang, Dennis Tian-Shu, MD Acute cystitis without hematuria (Primary Dx); Fall, initial encounter; Head injury, initial encounter; LULÚ (acute kidney injury) Discharge Disposition: Discharge to long term facility [facility] Community Health Worker [address] [place] [id number] Tosha Roberts 12/05/2024 12:54 PM CDT - 12/05/2024 11:59 PM CDT Hospital Encounter [facility] [address] [place] [id number] Discharge Disposition: Discharge to home or self care 12/02/2024 4:04 PM CDT - 12/02/2024 6:46 PM CDT Emergency [address] [phone] Rainer Peralta MD Fall, initial encounter (Primary Dx); Head injury, initial encounter; Eyebrow laceration, left, initial encounter Discharge Disposition: Discharge to home or self care from Last 3 Months Allergies Active Allergy Reactions Criticality Noted Date Comments Grass Pollen Unknown 12/23/2016 Mold Unknown 12/23/2016 [place] Itching,Sneezing Low 01/16/2024 Vancomycin Unknown 02/16/2023 Medications montelukast (SINGULAIR) 10 mg tablet Take 1 tablet (10 mg total) by mouth daily 2 Active sertraline (ZOLOFT) 25 mg tablet Take 3 tablets (75 mg total) by mouth daily 9 Active ALPRAZolam (XANAX) 0.5 mg tablet Take 1 tablet (0.5 mg total) by mouth 2 (two) times a day 6 tablet 4 Active traZODone (DESYREL) 50 mg tablet Take 1 tablet (50 mg total) by mouth nightly Active loratadine (CLARITIN) 10 mg tablet Take 1 tablet (10 mg total) by mouth daily Active risperiDONE (RisperDAL) 0.5 mg tablet Take 1 tablet (0.5 mg total) by mouth 2 (two) times a day 4 Active insulin glargine 100 unit/mL vial for injection Inject 13 Units under the skin nightly 3.9 mL 1 4 Active ezetimibe-simva statin (VYTORIN) 10-10 mg per tablet Take 1 tablet by mouth nightly Active ketorolac (ACULAR) 0.5 % ophthalmic solution Administer 1 drop into both eyes 3 (three) times a day Active ofloxacin (OCUFLOX) 0.3 % ophthalmic solution Administer 1 drop into both eyes 3 (three) times a day Active prednisoLONE acetate (PRED FORTE) 1 % ophthalmic suspension Administer 1 drop into both eyes 3 (three) times a day Active ferrous sulfate 325 mg (65 mg of elemental iron) tabletIndicatio ns:Iron Deficiency Anemia Take 1 tablet (325 mg total) by mouth daily with breakfast Active ondansetron (ZOFRAN) 4 mg tablet Take 1 tablet (4 mg total) by mouth every 6 (six) hours as needed for nausea or vomiting Active divalproex (DEPAKOTE SPRINKLE) 125 mg capsule Take 2 capsules (250 mg total) by mouth 4 (four) times a day 5 12/10/19 26 Active ergocalciferol (VITAMIN D) 50,000 unit capsule Take 1 capsule (50,000 Units total) by mouth once a week for 7 doses 5 01/28/20 25 Active Active Problems Problem Noted Date Diagnosed Date Acute cystitis without hematuria 12/03/2024 Elevated troponin 07/11/2024 (HFpEF) heart failure with preserved ejection fr action 07/11/2024 Community acquired pneumonia 07/10/2024 Thrombocytopenia 02/17/2024 Leukopenia 02/17/2024 Stage 3a chronic kidney disease 02/17/2024 Hyponatremia 02/16/2024 COVID-19 virus infection 02/15/2024 Schizophrenia 12/15/2023 Acute renal failure superimp osed on chronic kidney disease, unspecified acute renal failure type, unspecified CKD stage 12/11/2023 Abdominal pain 12/11/2023 Moderate malnutrition 12/09/[address] of the abdomen 12/09/2023 Acute on chronic anemia 12/09/2023 Biliary drain displacement, initial encounter Acute cholecystitis 11/28/2023 E coli bacteremia 11/28/2023 UTI due to Klebsiella species 11/28/2023 Septic shock 11/24/2023 DM (diabetes mellitus) 12/23/2016 Hypercholesterolemia 12/23/2016 Primary hypertension 12/23/2016 Social History Tobacco Use Types Packs/Day Years Used Date Smoking Tobacco: Never Tobacco Cessation:Counseling Given: Not Answered Alcohol Use Standard Drinks/Week Comments Yes 1 (1 standard drink = 0.6 oz pur e alcohol) [facility] Utilities Answer Date Recorded In the past 12 months has e electric, gas, oil, or water company threatened to shut off services in your home? Patient unable to answer 12/06/2024 Social Connection and Isolation Panel [NHANES] A nswer Date Recorded In a typical week, how many times do you talk on the phone with family, friends, or neighbors? Patient unable to answer 12/06/2024 How often do you get togethe r with friends or relatives? Patient unable to answer 12/06/2024 How often do you attend chur ch or baptist services? Patient unable to answer 12/06/2024 Do you belong to any clubs o r organizations such as confucianism groups, unions, fraternal or athletic groups, or school groups? Patient unable to answer 12/06/2024 How often do you attend meet ings of the clubs or organizations you belong to? Patient unable to answer 12/06/2024 Are you , , di vorced, , never , or living with a partner? Patient unable to answer 12/06/2024 AUDIT-C Answer Date Recorded Q1: How often do you have a drink containing alcohol? Never 07/11/2024 Q2: How many drinks containi ng alcohol do you have on a typical day when you are drinking? Patient does not drink Q3: How often do you have si x or more drinks on one occasion? Never 07/11/2024 Overall Financial Resource Strain (CARDIA) Answe r Date Recorded How hard is it for you to pa y for the very basics like food, housing, medical care, and heating? Patient unable to answer 12/06/2024 Hunger Vital Sign Answer Date Recorded Within the past 12 months, y ou worried that your food would run out before you got the money to buy more. Patient unable to answer 12/06/2024 Within the past 12 months, t he food you bought just didn't last and you didn't have money to get more. Patient unable to answer 12/06/2024 PRAPARE - Transportation Answer Date Re corded In the past 12 months, has l ack of transportation kept you from medical appointments or from getting medications? Patient unable to answer 12/06/2024 In the past 12 months, has l ack of transportation kept you from meetings, work, or from getting things needed for daily living? Patient unable to answer 12/06/2024 Housing Stability Vital Sign Answer Jasen e [...] place to sleep or slept in a long term (including now)? No 12/14/2023 Housing Stability Vital Sign Answer Jasen e Recorded In the last 12 months, was t here a time when you were not able to pay the mortgage or rent on time? Patient unable to answer 12/06/2024 In the past 12 months, how m any times have you moved where you were living? 0 12/06/2024 At any time in the past 12 m [facility], were you homeless or living in a long term (including now)? Patient unable to answer 12/06/2024 Personal Safety Answer Date Recorded Have you ever been in or are you currently in a harmful physical or emotional relationship or is someone making you feel afraid or unsafe? Denies 12/03/2024 Sex and Gender Information Value Date Recorded Sex Assigned at Not on file Legal Sex Male 1:22 AM SMUDGER Gender Identity Not on file Sexual Orientation Not on file Last Filed Vital Signs Vital Sign Reading Time Taken Comments Blood Pressure 150/74 12/09/2024 2:20 PM CDT Pulse 84 12/09/2024 2:25 PM CDT Temperature 36.4 C (97.5 F) 12/09/2024 7:15 AM CDT Respiratory Rate 18 12/09/2024 7:15 AM CDT Oxygen Saturation 95% 12/09/2024 7:15 AM CDT Inhaled Oxygen Concentration - - Weight 87 kg (191 lb 12.8 oz) 12/04/2024 11:40 A M CDT Height 182.9 cm (6') 12/04/2024 9:20 AM CDT Body Mass Index 26.01 12/04/2024 9:20 AM CDT Plan of Treatment Not on file Procedures Procedure Name Priority Date/Time Associated Diagnosis Comments POCT GLUCOSE DEVICE Routine 12/09/2024 1 :02 PM CDT POCT GLUCOSE DEVICE Routine 12/09/2024 9 :06 AM CDT POCT GLUCOSE DEVICE Routine 12/09/2024 3 :47 AM CDT POCT GLUCOSE DEVICE Routine 12/08/2024 11:38 PM CDT EGFR Routine 12/08/2024 11:36 PM CDT DIFFERENTIAL AUTO Routine 12/08/2024 11:36 PM CDT CBC WITH AUTO DIFFERENTIAL Routine 12/08/2024 11:36 PM CDT BASIC METABOLIC PANEL Routine 12/08/2024 11:36 PM CDT POCT GLUCOSE DEVICE Routine 12/08/2024 8 :58 PM CDT POCT GLUCOSE DEVICE Routine 12/08/2024 5 :17 PM CDT POCT GLUCOSE DEVICE Routine 12/08/2024 12:18 PM CDT POCT GLUCOSE DEVICE Routine 12/08/2024 7 :54 AM CDT POCT GLUCOSE DEVICE Routine 12/08/2024 4 :05 AM CDT EGFR Routine 12/08/2024 12:50 AM CDT DIFFERENTIAL AUTO Routine 12/08/2024 12:50 AM CDT VITAMIN D 25 HYDROXY Routine 12/08/2024 12:50 AM CDT CBC WITH AUTO DIFFERENTIAL Routine 12/08/2024 12:50 AM CDT BASIC METABOLIC PANEL Routine 12/08/2024 12:50 AM CDT POCT GLUCOSE DEVICE Routine 12/07/2024 11:58 PM CDT POCT GLUCOSE DEVICE Routine 12/07/2024 9 :25 PM CDT POCT GLUCOSE DEVICE Routine 12/07/2024 7 :45 PM CDT POCT GLUCOSE DEVICE Routine 12/07/2024 5 :48 PM CDT POCT GLUCOSE DEVICE Routine 12/07/2024 12:44 PM CDT POCT GLUCOSE DEVICE Routine 12/07/2024 8 :29 AM CDT POCT GLUCOSE DEVICE Routine 12/07/2024 3 :35 AM CDT POCT GLUCOSE DEVICE Routine 12/06/2024 11:46 PM CDT EGFR Routine 12/06/2024 11:32 PM CDT DIFFERENTIAL AUTO Routine 12/06/2024 11:32 PM CDT TYPE AND SCREEN Timed 12/06/2024 11:32 PM CDT CBC WITH AUTO DIFFERENTIAL Routine 12/06/2024 11:32 PM CDT BASIC METABOLIC PANEL Routine 12/06/2024 11:32 PM CDT POCT GLUCOSE DEVICE Routine 12/06/2024 9 :11 PM CDT POCT GLUCOSE DEVICE Routine 12/06/2024 5 :41 PM CDT EGFR Routine 12/06/2024 1:21 PM CDT BASIC METABOLIC PANEL Routine 12/06/2024 1:21 PM CDT LACTATE Routine 12/06/2024 1:21 PM CDT POCT GLUCOSE DEVICE Routine 12/06/2024 11:35 AM CDT POCT GLUCOSE DEVICE Routine 12/06/2024 7 :51 AM CDT POCT GLUCOSE DEVICE Routine 12/06/2024 3 :42 AM CDT POCT GLUCOSE DEVICE Routine 12/06/2024 12:21 AM CDT EGFR Routine 12/05/2024 10:37 PM CDT BASIC METABOLIC PANEL Routine 12/05/2024 10:37 PM CDT DIFFERENTIAL AUTO Timed 12/05/2024 10:37 PM CDT VITAMIN B12 Routine 12/05/2024 10:37 PM CDT FOLATE Routine 12/05/2024 10:37 PM CDT FERRITIN Routine 12/05/2024 10:37 PM CDT IRON PROFILE W/ IBC Routine 12/05/2024 10:37 PM CDT CBC WITH AUTO DIFFERENTIAL Timed 12/05/2024 10:37 PM CDT POCT GLUCOSE DEVICE Routine 12/05/2024 7 :51 PM CDT POCT GLUCOSE DEVICE Routine 12/05/2024 5 :07 PM CDT FL MODIFIED BARIUM SWALLOW W VIDEO IP Routine 12/05/2024 1:20 PM CDT PIANO TECHNICIAN EVALUATE AND TREAT VIDEOFLUOROSCOPIC SWALLOW STUDY Routine 12/05/2024 1:03 PM CDT POCT GLUCOSE DEVICE Routine 12/05/2024 11:55 AM CDT US KIDNEY COMPLETE IP Routine 12/05/2024 11:11 AM CDT UREA NITROGEN, URINE, RANDOM Routine 12/05/2024 10:47 AM CDT PROTEIN / CREATININE RATIO, URINE, RANDOM Routine 12/05/2024 10:47 AM CDT SODIUM, URINE, RANDOM Routine 12/05/2024 10:47 AM CDT CREATININE, URINE, RANDOM Routine 12/05/2024 10:47 AM CDT DIFFERENTIAL AUTO Timed 12/05/2024 8:2 2 AM CDT CBC WITH AUTO DIFFERENTIAL Timed 12/05/2024 8:22 AM CDT POCT GLUCOSE DEVICE Routine 12/05/2024 7 :50 AM CDT POCT GLUCOSE DEVICE Routine 12/05/2024 3 :21 AM CDT POCT GLUCOSE DEVICE Routine 12/04/2024 11:24 PM CDT ECG 12-LEAD STAT 12/04/2024 10:07 PM CDT Procedure Note - Antione Honeycutt MD - 12/03/2024 8:28 AM CDTThis note is in progress. Procedure ECG 12 lead Date/Time: 12/03/2024 8:28 AM Performed by: Antione Honeycutt MD Authorized by: Antione Honeycutt MD Rate: ECG rate: 83 ECG rate assessment: normal Rhythm: Rhythm: sinus rhythm Ectopy: Ectopy: none QRS: QRS axis: Normal Conduction: Conduction: normal ST segments: ST segments: Normal T waves: T waves: normal Previous ECG: Previous ECG: Unavailable Interpretation: Interpretation: No significant change Recommended Follow-up: Recommended follow up: further workup in the ED Antione Honeycutt MD 12/03/24 0932 EGFR Timed 12/04/2024 8:56 PM CDT DIFFERENTIAL AUTO Timed 12/04/2024 8:5 6 PM CDT RENAL FUNCTION PANEL Timed 12/04/2024 8:56 PM CDT MAGNESIUM Timed 12/04/2024 8:56 PM CDT CBC WITH AUTO DIFFERENTIAL Timed 12/04/2024 8:56 PM CDT POCT GLUCOSE DEVICE Routine 12/04/2024 7 :43 PM CDT POCT GLUCOSE DEVICE Routine 12/04/2024 5 :27 PM CDT EGFR Routine 12/04/2024 1:52 PM CDT HEMOGLOBIN AND HEMATOCRIT STAT 12/04/2024 1:52 PM CDT TYPE AND SCREEN Timed 12/04/2024 1:52 PM CDT RENAL FUNCTION PANEL Routine 12/04/2024 1:52 PM CDT MAGNESIUM Routine 12/04/2024 1:52 PM CDT EGFR STAT 12/04/2024 12:13 PM CDT DIFFERENTIAL AUTO STAT 12/04/2024 12:13 PM CDT CBC WITH AUTO DIFFERENTIAL STAT 12/04/2024 12:13 PM CDT BASIC METABOLIC PANEL STAT 12/04/2024 12:13 PM CDT BLOOD CULTURE Timed 12/04/2024 12:13 PM CDT POCT GLUCOSE DEVICE Routine 12/04/2024 11:36 AM CDT POCT GLUCOSE DEVICE Routine 12/04/2024 7 :19 AM CDT POCT GLUCOSE DEVICE Routine 12/04/2024 4 :44 AM CDT BLOOD CULTURE Routine 12/04/2024 4:44 AM CDT POCT GLUCOSE DEVICE Routine 12/04/2024 12:03 AM CDT HEMOGLOBIN A1C Routine 12/03/2024 8:04 PM CDT EGFR Routine 12/03/2024 8:04 PM CDT VALPROIC ACID LEVEL, TOTAL Routine 12/03/2024 8:04 PM CDT MAGNESIUM Routine 12/03/2024 8:04 PM CDT DIFFERENTIAL AUTO Routine 12/03/2024 8:0 4 PM CDT RENAL FUNCTION PANEL Routine 12/03/2024 8:04 PM CDT CBC WITH AUTO DIFFERENTIAL Routine 12/03/2024 8:04 PM CDT POCT GLUCOSE DEVICE Routine 12/03/2024 7 :51 PM CDT POCT GLUCOSE DEVICE Routine 12/03/2024 6 :25 PM CDT POCT GLUCOSE DEVICE Routine 12/03/2024 4 :17 PM CDT POCT GLUCOSE DEVICE Routine 12/03/2024 12:[address] RECON THORACIC AND LUMBAR SPINE W CONTRAST ED Urgent/IP Urgent 12/03/2024 10:[address] HEAD AND CERVICAL SPINE WO CONTRAST ED Urgent/IP Urgent 12/03/2024 10:[address] CHEST ABDOMEN PELVIS W CONTRAST ED Urgent/IP Urgent 12/03/2024 10:25 AM CDT XR PELVIS 1 OR 2 VIEWS ED Urgent/IP Urgent 12/03/2024 9:11 AM CDT XR CHEST 1 VIEW ED Urgent/IP Urgent 12/03/2024 9:11 AM CDT POCT CREATININE - DEVICE Routine 12/03/2024 8:47 AM CDT POCT LACTATE - DEVICE Routine 12/03/2024 8:43 AM CDT URINALYSIS, MICROSCOPIC ONLY STAT 12/03/2024 8:38 AM CDT URINE CULTURE STAT 12/03/2024 8:38 AM CDT URINALYSIS AND REFLEX TO MICROSCOPIC AND CULTURE STAT 12/03/2024 8:38 AM CDT EGFR STAT 12/03/2024 8:36 AM CDT DIFFERENTIAL AUTO STAT 12/03/2024 8:3 6 AM CDT TROPONIN I HIGH-SENSITIVITY SERIES (BASELINE, 2HR, 4HR, 6HR) STAT 12/03/2024 8:36 AM CDT CBC WITH AUTO DIFFERENTIAL STAT 12/03/2024 8:36 AM CDT COMPREHENSIVE METABOLIC PANEL STAT 12/03/2024 8:36 AM CDT BLOOD CULTURE STAT 12/03/2024 8:36 AM CDT BLOOD CULTURE STAT 12/03/2024 8:36 AM CDT RESPIRATORY PATHOGEN PANEL STAT 12/03/2024 8:36 AM CDT POCT GLUCOSE DEVICE Routine 12/03/2024 8 :16 AM CDT ED LACERATION REPAIR Routine 12/02/2024 5:[address] CERVICAL SPINE WO CONTRAST ED 12/02/2024 4:[address] HEAD WO CONTRAST ED 12/02/2024 4 :30 PM CDT LIPID PANEL Timed 07/11/2024 3:37 AM SMUDGER HEPATITIS PANEL, ACUTE STAT 2:47 PM CDT from Last 3 Months or Most Recently Relevant to Health Maintenance Results * POCT glucose (12/09/2024 1:02 PM CDT) Glucose, POC 184 70 - 199 mg/dL Blood 12/09/2024 1:02 PM CDT 12/09/2024 1:02 PM CDT us Markus Solomon MD LAB POCT ORDERABLES - D EVICE Final Result Performing Organization Address [facility] de Phone Number [facility] [place] [address] * POCT glucose (12/09/2024 9:06 AM CDT) Glucose, POC 150 70 - 199 mg/dL Blood 12/09/2024 9:06 AM CDT 12/09/2024 9:06 AM CDT us Markus Solomon MD LAB POCT ORDERABLES - D EVICE Final Result Performing Organization Address [facility] de Phone Number [facility] [place] [address] * POCT glucose (12/09/2024 3:47 AM CDT) Glucose, POC 110 70 - 199 mg/dL Blood 12/09/2024 3:47 AM CDT 12/09/2024 3:47 AM CDT us Markus Solomon MD LAB POCT ORDERABLES - D EVICE Final Result Performing Organization Address [facility] [place] [address] * POCT glucose (12/08/2024 11:38 PM CDT) Glucose, POC 121 70 - 199 mg/dL Blood 12/08/2024 11:3 8 PM CDT 12/08/2024 11:38 PM CDT us Markus Solomon MD LAB POCT ORDERABLES - D EVICE Final Result Performing Organization Address [facility] Co de Phone Number [facility] Department [place] [address] * (ABNORMAL) eGFR (12/08/2024 11:36 PM CDT) Pathologist [facility] eGFR 33(L) >=60 mL/min/1. 73 m2 Comment: Interpretive Data Reference Interval Normal >/= 90 mL/min/1.73m2 Mildly decreased* 60 - 89 mL/min/1.73m2 Mildly to moderately decreased 45 - 59 mL/min/1.73m2 Moderately to severely decreased 30 - 44 mL/min/1.73m2 Severely decreased 15 - 29 mL/min/1.73m2 Kidney Failure < 15 mL/min/1.73m2 *Relative to young adult level Estimated glomerular filtration rate is determined by the 2020 CKD-EPI equation recommended by the National Kidney Foundation (A Unifying Approach to GFR Estimation: Recommendations of the NKF-ASK Task Force on Reassessing the Inclusion of Race in Diagnosing Kidney Disease, JASN 2020). The CKD-EPI equation should not be used for patients with unstable renal function and has not been validated in children and those over 70. Current interpretive data was last reviewed 2021. Blood 12/08/2024 11:3 6 PM CDT 12/09/2024 1:05 AM CDT Markus Solomon MD LAB BLOOD ORDERABLES Fi nal Result Performing Organization Address City/[facility]/ZIP Co de Phone Number [facility] [place] [address] * (ABNORMAL) Differential, auto (12/08/2024 11:36 PM CDT) Pathologist [facility] Neutrophil abs 2.59 1.50 - 6.50 K/cumm Imm gran abs 0.11(H) 0.00 - 0.10 K/cumm [facility] Lymphocyte abs 0.65(L) 0.80 - 3.30 K/cumm [facility] Monocyte abs 0.37 0.20 - 0.80 K/cumm [facility] Eosinophil abs 0.07 0.00 - 0.50 K/cumm [facility] Basophil abs 0.02 0.00 - 0.10 K/cumm [facility] Neutrophil pct 68.0 % [facility] Comment: Interpretive Data Percent cell count reference ranges are not reported, since discordance with absolute values may lead to misinterpretation of CBC data. Current Interpretive Data was last revised on 2017. Imm gran pct 2.9 % [facility] Comment: Interpretive Data Percent cell count reference ranges are not reported, since discordance with absolute values may lead to misinterpretation of CBC data. Current Interpretive Data was last revised on 2017. Lymphocyte pct 17.1 % [facility] Comment: Interpretive Data Percent cell count reference ranges are not reported, since discordance with absolute values may lead to misinterpretation of CBC data. Current Interpretive Data was last revised on 2017. Monocyte pct 9.7 % [facility] Comment: Interpretive Data Percent cell count reference ranges are not reported, since discordance with absolute values may lead to misinterpretation of CBC data. Current Interpretive Data was last revised on 2017. Eosinophil pct 1.8 % [facility] Comment: Interpretive Data Percent cell count reference ranges are not reported, since discordance with absolute values may lead to misinterpretation of CBC data. Current Interpretive Data was last revised on 2017. Basophil pct 0.5 % [facility] Comment: Interpretive Data Percent cell count reference ranges are not reported, since discordance with absolute values may lead to misinterpretation of CBC data. Current Interpretive Data was last revised on 2017. Blood 12/08/2024 11:3 6 PM CDT 12/09/2024 12:55 AM CDT us Markus Solomon MD LAB BLOOD ORDERABLES Fi nal Result [facility] Department [place] [address] * (ABNORMAL) CBC with auto differential (12/08/2024 11:36 PM CDT) [facility] WBC 3.81 3.80 - 9.90 K/cumm Hgb 7.5(L) 13.0 - 17.5 g/dL [facility] Hct 23.3(L) 38.9 - 50.3 % [facility] Plt 142(L) 150 - 400 K/cumm [facility] MPV 10.9 9.1 - 12.3 fL [facility] RBC 2.47(L) 4.30 - 5.80 M/cumm [facility] MCV 94.3 81.3 - 96.4 fL [facility] MCH 30.4 27.1 - 33.3 pg [facility] MCHC 32.2(L) 32.3 - 35.7 g/dL [facility] RDW CV 13.9 11.1 - 14.9 % [facility] RDW SD 47.9 35.7 - 48.1 fL [facility] NRBC abs 0.00 0.00 - 0.01 K/cumm [facility] Blood 12/08/2024 11:3 6 PM CDT 12/09/2024 12:55 AM CDT us Markus Solomon MD LAB BLOOD ORDERABLES Fi nal Result [facility] Department [place] [address] * (ABNORMAL) Basic metabolic panel (12/08/2024 11:36 PM CDT) [facility] Sodium 140 135 - 145 mmol/L Potassium, pl 4.4 3.3 - 4.9 mmol/L [facility] Chloride 106 97 - 110 mmol/L [facility] CO2 25 22 - 32 mmol/L [facility] Anion gap 9 2 - 15 mmol/L [facility] BUN 36(H) 6 - 25 mg/dL [facility] Creatinine 2.11(H) 0.80 - 1.30 mg/dL [facility] Glucose 111 70 - 199 mg/dL [facility] Comment: Interpretive Data Fasting glucose >/= 126 mg/dl is diagnostic for diabetes. Fasting is defined as no caloric intake for at least 8 hours. Fasting glucose between 100 mg/dl to 125 mg/dl is diagnostic of prediabetes. In a patient with classic symptoms of hyperglycemia or hyperglycemic crisis, a random glucose >/= 200 mg/dl is diagnostic for diabetes. In the absence of unequivocal hyperglycemia, results should be confirmed by repeat testing. The classification and Diagnosis of Diabetes Diabetes Care 2021; 46: S19-S40. Current interpretive data was last revised 2022. Calcium 8.3(L) 8.5 - 10.3 mg/dL [facility] Blood 12/08/2024 11:3 6 PM CDT 12/09/2024 1:05 AM CDT Markus Solomon MD LAB BLOOD ORDERABLES Fi nal Result Performing Organization Address City/[facility]/ZIP Co de Phone Number [facility] [place] [address] * POCT glucose (12/08/2024 8:58 PM CDT) Glucose, POC 120 70 - 199 mg/dL Blood 12/08/2024 8:58 PM CDT 12/08/2024 8:58 PM CDT Markus Solomon MD LAB POCT ORDERABLES - D EVICE Final Result [facility] [place] [address] * POCT glucose (12/08/2024 5:17 PM CDT) Glucose, POC 187 70 - 199 mg/dL Blood 12/08/2024 5:17 PM CDT 12/08/2024 5:17 PM CDT Markus Solomon MD LAB POCT ORDERABLES - D EVICE Final Result Performing Organization Address City/[facility]/ZIP Co de Phone Number [facility] [place] [address] * POCT glucose (12/08/2024 12:18 PM CDT) Glucose, POC 177 70 - 199 mg/dL Blood 12/08/2024 12:1 8 PM CDT 12/08/2024 12:18 PM CDT us Markus Solomon MD LAB POCT ORDERABLES - D EVICE Final Result Performing Organization Address [facility] Co de Phone Number [facility] [place] [address] * POCT glucose (12/08/2024 7:54 AM CDT) Glucose, POC 127 70 - 199 mg/dL Blood 12/08/2024 7:54 AM CDT 12/08/2024 7:54 AM CDT us Markus Solomon MD LAB POCT ORDERABLES - D EVICE Final Result Performing Organization Address City/[facility] [facility]/ZIP Co de Phone Number [facility] [place] [address] * POCT glucose (12/08/2024 4:05 AM CDT) Glucose, POC 128 70 - 199 mg/dL Blood 12/08/2024 4:05 AM CDT 12/08/2024 4:05 AM CDT us Markus Solomon MD LAB POCT ORDERABLES - D EVICE Final Result Performing Organization Address City/[facility]/ZIP Co de Phone Number [facility] [place] [address] * (ABNORMAL) eGFR (12/08/2024 12:50 AM CDT) eGFR 24(L) >=60 mL/min/1. 73 m2 Comment: Interpretive Data Reference Interval Normal >/= 90 mL/min/1.73m2 Mildly decreased* 60 - 89 mL/min/1.73m2 Mildly to moderately decreased 45 - 59 mL/min/1.73m2 Moderately to severely decreased 30 - 44 mL/min/1.73m2 Severely decreased 15 - 29 mL/min/1.73m2 Kidney Failure < 15 mL/min/1.73m2 *Relative to young adult level Estimated glomerular filtration rate is determined by the 2020 CKD-EPI equation recommended by the National Kidney Foundation (A Unifying Approach to GFR Estimation: Recommendations of the NKF-ASK Task Force on Reassessing the Inclusion of Race in Diagnosing Kidney Disease, JASN 2020). The CKD-EPI equation should not be used for patients with unstable renal function and has not been validated in children and those over 70. Current interpretive data was last reviewed 2021. Blood 12/08/2024 12:5 0 AM CDT 12/08/2024 1:10 AM CDT us Markus Solomon MD LAB BLOOD ORDERABLES Fi nal Result [facility] One [facility] [place] [address] * (ABNORMAL) Differential, auto (12/08/2024 12:50 AM CDT) Pathologist [facility] Neutrophil abs 2.93 1.50 - 6.50 K/cumm Imm gran abs 0.09 0.00 - 0.10 K/cumm [facility] Lymphocyte abs 0.61(L) 0.80 - 3.30 K/cumm [facility] Monocyte abs 0.38 0.20 - 0.80 K/cumm [facility] Eosinophil abs 0.06 0.00 - 0.50 K/cumm [facility] Basophil abs 0.01 0.00 - 0.10 K/cumm [facility] Neutrophil pct 71.8 % [facility] Comment: Interpretive Data Percent cell count reference ranges are not reported, since discordance with absolute values may lead to misinterpretation of CBC data. Current Interpretive Data was last revised on 2017. Imm gran pct 2.2 % [facility] Comment: Interpretive Data Percent cell count reference ranges are not reported, since discordance with absolute values may lead to misinterpretation of CBC data. Current Interpretive Data was last revised on 2017. Lymphocyte pct 15.0 % [facility] Comment: Interpretive Data Percent cell count reference ranges are not reported, since discordance with absolute values may lead to misinterpretation of CBC data. Current Interpretive Data was last revised on 2017. Monocyte pct 9.3 % [facility] Comment: Interpretive Data Percent cell count reference ranges are not reported, since discordance with absolute values may lead to misinterpretation of CBC data. Current Interpretive Data was last revised on 2017. Eosinophil pct 1.5 % [facility] Comment: Interpretive Data Percent cell count reference ranges are not reported, since discordance with absolute values may lead to misinterpretation of CBC data. Current Interpretive Data was last revised on 2017. Basophil pct 0.2 % [facility] Comment: Interpretive Data Percent cell count reference ranges are not reported, since discordance with absolute values may lead to misinterpretation of CBC data. Current Interpretive Data was last revised on 2017. Blood 12/08/2024 12:5 0 AM CDT 12/08/2024 1:10 AM CDT us Markus Solomon MD LAB BLOOD ORDERABLES Fi nal Result [facility] One [facility] [place] [address] * (ABNORMAL) CBC with auto differential (12/08/2024 12:50 AM CDT) WBC 4.08 3.80 - 9.90 K/cumm Hgb 7.0(L) 13.0 - 17.5 g/dL [facility] Hct 21.7(L) 38.9 - 50.3 % [facility] Plt 122(L) 150 - 400 K/cumm [facility] MPV 11.2 9.1 - 12.3 fL [facility] RBC 2.30(L) 4.30 - 5.80 M/cumm [facility] MCV 94.3 81.3 - 96.4 fL [facility] MCH 30.4 27.1 - 33.3 pg [facility] MCHC 32.3 32.3 - 35.7 g/dL [facility] RDW CV 14.1 11.1 - 14.9 % [facility] RDW SD 48.5(H) 35.7 - 48.1 fL [facility] NRBC abs 0.00 0.00 - 0.01 K/cumm [facility] Blood 12/08/2024 12:5 0 AM CDT 12/08/2024 1:10 AM CDT Markus Solomon MD LAB BLOOD ORDERABLES Fi nal Result Performing Organization Address City/[facility]/ZIP Co de Phone Number [facility] [place] [address] * (ABNORMAL) Vitamin D 25 hydroxy (12/08/2024 12:50 AM CDT) Pathologist [facility] Vitamin D 25-OH 15(L) 30 - 80 ng/mL Blood 12/08/2024 12:5 0 AM CDT 12/08/2024 1:10 AM CDT Markus Solomon MD LAB BLOOD ORDERABLES Fi nal Result [facility] [place] [address] * (ABNORMAL) Basic metabolic panel (12/08/2024 12:50 AM CDT) Pathologist [facility] Sodium 139 135 - 145 mmol/L Potassium, pl 4.2 3.3 - 4.9 mmol/L [facility] Chloride 105 97 - 110 mmol/L [facility] CO2 24 22 - 32 mmol/L [facility] Anion gap 10 2 - 15 mmol/L [facility] BUN 50(H) 6 - 25 mg/dL [facility] Creatinine 2.79(H) 0.80 - 1.30 mg/dL [facility] Glucose 174 70 - 199 mg/dL [facility] Comment: Interpretive Data Fasting glucose >/= 126 mg/dl is diagnostic for diabetes. Fasting is defined as no caloric intake for at least 8 hours. Fasting glucose between 100 mg/dl to 125 mg/dl is diagnostic of prediabetes. In a patient with classic symptoms of hyperglycemia or hyperglycemic crisis, a random glucose >/= 200 mg/dl is diagnostic for diabetes. In the absence of unequivocal hyperglycemia, results should be confirmed by repeat testing. The classification and Diagnosis of Diabetes Diabetes Care 2021; 46: S19-S40. Current interpretive data was last revised 2022. Calcium 8.1(L) 8.5 - 10.3 mg/dL [facility] Blood 12/08/2024 12:5 0 AM CDT 12/08/2024 1:10 AM CDT Markus Solomon MD LAB BLOOD ORDERABLES Fi nal Result Performing Organization Address City/[facility]/ZIP Co de Phone Number [facility] [place] [address] * POCT glucose (12/07/2024 11:58 PM CDT) [facility] Signature Glucose, POC 197 70 - 199 mg/dL Blood 12/07/2024 11:5 8 PM CDT 12/07/2024 11:58 PM CDT Markus Solomon MD LAB POCT ORDERABLES - D EVICE Final Result Performing Organization Address [facility]/ZIP Co de Phone Number [facility] [place] [address] * POCT glucose (12/07/2024 9:25 PM CDT) Glucose, POC 176 70 - 199 mg/dL Blood 12/07/2024 9:25 PM CDT 12/07/2024 9:25 PM CDT Markus Solomon MD LAB POCT ORDERABLES - D EVICE Final Result Performing Organization Address City/[facility]/[place] [address] * POCT glucose (12/07/2024 7:45 PM CDT) Glucose, POC 182 70 - 199 mg/dL Blood 12/07/2024 7:45 PM CDT 12/07/2024 7:45 PM CDT Markus Solomon MD LAB POCT ORDERABLES - D EVICE Final Result Performing Organization Address City/[facility]/[place] [address] * POCT glucose (12/07/2024 5:48 PM CDT) Glucose, POC 188 70 - 199 mg/dL Blood 12/07/2024 5:48 PM CDT 12/07/2024 5:48 PM CDT Markus Solomon MD LAB POCT ORDERABLES - D EVICE Final Result Performing Organization Address City/[facility] [place] [address] * POCT glucose (12/07/2024 12:44 PM CDT) Glucose, POC 134 70 - 199 mg/dL Blood 12/07/2024 12:4 4 PM CDT 12/07/2024 12:44 PM CDT us Markus Solomon MD LAB POCT ORDERABLES - D EVICE Final Result Performing Organization Address [facility] de Phone Number [facility] [place] [address] * POCT glucose (12/07/2024 8:29 AM CDT) Glucose, POC 142 70 - 199 mg/dL Blood 12/07/2024 8:29 AM CDT 12/07/2024 8:29 AM CDT Markus Solomon MD LAB POCT ORDERABLES - D EVICE Final Result Performing Organization Address [facility] de Phone Number [facility] [place] [address] * POCT glucose (12/07/2024 3:35 AM CDT) Glucose, POC 129 70 - 199 mg/dL Blood 12/07/2024 3:35 AM CDT 12/07/2024 3:35 AM CDT Markus Solomon MD LAB POCT ORDERABLES - D EVICE Final Result Performing Organization Address [facility] de Phone Number [facility] [place] [address] * (ABNORMAL) POCT glucose (12/06/2024 11:46 PM CDT) Glucose, POC 203(H) 70 - 199 mg/dL Blood 12/06/2024 11:4 6 PM CDT 12/06/2024 11:46 PM CDT Markus Solomon MD LAB POCT ORDERABLES - D EVICE Final Result Performing Organization Address [facility] Co de Phone Number [facility] Department [place] [address] * (ABNORMAL) eGFR (12/06/2024 11:32 PM CDT) Pathologist [facility] eGFR 16(L) >=60 mL/min/1. 73 m2 Comment: Interpretive Data Reference Interval Normal >/= 90 mL/min/1.73m2 Mildly decreased* 60 - 89 mL/min/1.73m2 Mildly to moderately decreased 45 - 59 mL/min/1.73m2 Moderately to severely decreased 30 - 44 mL/min/1.73m2 Severely decreased 15 - 29 mL/min/1.73m2 Kidney Failure < 15 mL/min/1.73m2 *Relative to young adult level Estimated glomerular filtration rate is determined by the 2020 CKD-EPI equation recommended by the National Kidney Foundation (A Unifying Approach to GFR Estimation: Recommendations of the NKF-ASK Task Force on Reassessing the Inclusion of Race in Diagnosing Kidney Disease, JASN 2020). The CKD-EPI equation should not be used for patients with unstable renal function and has not been validated in children and those over 70. Current interpretive data was last reviewed 2021. Blood 12/06/2024 11:3 2 PM CDT 12/07/2024 12:43 AM CDT Markus Solomon MD LAB BLOOD ORDERABLES Fi nal Result Performing Organization Address [facility]/ZIP Co de Phone Number [facility] [place] [address] * (ABNORMAL) Differential, auto (12/06/2024 11:32 PM CDT) Pathologist [facility] Neutrophil abs 4.01 1.50 - 6.50 K/cumm Imm gran abs 0.05 0.00 - 0.10 K/cumm [facility] Lymphocyte abs 0.46(L) 0.80 - 3.30 K/cumm [facility] Monocyte abs 0.39 0.20 - 0.80 K/cumm [facility] Eosinophil abs 0.05 0.00 - 0.50 K/cumm [facility] Basophil abs 0.01 0.00 - 0.10 K/cumm [facility] Neutrophil pct 80.7 % [facility] Comment: Interpretive Data Percent cell count reference ranges are not reported, since discordance with absolute values may lead to misinterpretation of CBC data. Current Interpretive Data was last revised on 2017. Imm gran pct 1.0 % [facility] Comment: Interpretive Data Percent cell count reference ranges are not reported, since discordance with absolute values may lead to misinterpretation of CBC data. Current Interpretive Data was last revised on 2017. Lymphocyte pct 9.3 % [facility] Comment: Interpretive Data Percent cell count reference ranges are not reported, since discordance with absolute values may lead to misinterpretation of CBC data. Current Interpretive Data was last revised on 2017. Monocyte pct 7.8 % [facility] Comment: Interpretive Data Percent cell count reference ranges are not reported, since discordance with absolute values may lead to misinterpretation of CBC data. Current Interpretive Data was last revised on 2017. Eosinophil pct 1.0 % [facility] Comment: Interpretive Data Percent cell count reference ranges are not reported, since discordance with absolute values may lead to misinterpretation of CBC data. Current Interpretive Data was last revised on 2017. Basophil pct 0.2 % [facility] Comment: Interpretive Data Percent cell count reference ranges are not reported, since discordance with absolute values may lead to misinterpretation of CBC data. Current Interpretive Data was last revised on 2017. Blood 12/06/2024 11:3 2 PM CDT 12/07/2024 12:44 AM CDT us Markus Solomon MD LAB BLOOD ORDERABLES Fi nal Result [facility] One [facility] [place] [address] * (ABNORMAL) CBC with auto differential (12/06/2024 11:32 PM CDT) WBC 4.97 3.80 - 9.90 K/cumm Hgb 7.6(L) 13.0 - 17.5 g/dL [facility] Hct 22.7(L) 38.9 - 50.3 % [facility] Plt 108(L) 150 - 400 K/cumm [facility] MPV 11.3 9.1 - 12.3 fL [facility] RBC 2.46(L) 4.30 - 5.80 M/cumm [facility] MCV 92.3 81.3 - 96.4 fL [facility] MCH 30.9 27.1 - 33.3 pg [facility] MCHC 33.5 32.3 - 35.7 g/dL [facility] RDW CV 13.6 11.1 - 14.9 % [facility] RDW SD 46.1 35.7 - 48.1 fL [facility] NRBC abs 0.00 0.00 - 0.01 K/cumm [facility] Blood 12/06/2024 11:3 2 PM CDT 12/07/2024 12:44 AM CDT Markus Solomon MD LAB BLOOD ORDERABLES Fi nal Result [facility] One [facility] [place] [address] * Type and screen (12/06/2024 11:32 PM CDT) ABO Rh O Positive Ana, indirect Negative [facility] Blood 12/06/2024 11:3 2 PM CDT 12/07/2024 12:54 AM CDT Narrative [facility] - 12/07/2024 1:54 AM CDT Has the patient had Daratumumab or Isatuximab in the past 6 months?->Unknown Markus Solomon MD LAB BLOOD BANK TEST ORD ERABLES Final Result [facility] [place] [address] * (ABNORMAL) Basic metabolic panel (12/06/2024 11:32 PM CDT) Sodium 140 135 - 145 mmol/L Potassium, pl 4.1 3.3 - 4.9 mmol/L [facility] Chloride 105 97 - 110 mmol/L [facility] CO2 23 22 - 32 mmol/L [facility] Anion gap 12 2 - 15 mmol/L [facility] BUN 71(H) 6 - 25 mg/dL [facility] Creatinine 3.87(H) 0.80 - 1.30 mg/dL [facility] Glucose 182 70 - 199 mg/dL [facility] Comment: Interpretive Data Fasting glucose >/= 126 mg/dl is diagnostic for diabetes. Fasting is defined as no caloric intake for at least 8 hours. Fasting glucose between 100 mg/dl to 125 mg/dl is diagnostic of prediabetes. In a patient with classic symptoms of hyperglycemia or hyperglycemic crisis, a random glucose >/= 200 mg/dl is diagnostic for diabetes. In the absence of unequivocal hyperglycemia, results should be confirmed by repeat testing. The classification and Diagnosis of Diabetes Diabetes Care 202; 46: S19-S40. Current interpretive data was last revised 2022. Calcium 8.2(L) 8.5 - 10.3 mg/dL [facility] Blood 12/06/2024 11:3 2 PM CDT 12/07/2024 12:43 AM CDT us Markus Solomon MD LAB BLOOD ORDERABLES Fi nal Result Performing Organization Address City/[facility]/ZIP Co de Phone Number [facility] [place] [address] * (ABNORMAL) POCT glucose (12/06/2024 9:11 PM CDT) Glucose, POC 60(L) 70 - 199 mg/dL Blood 12/06/2024 9:11 PM CDT 12/06/2024 9:11 PM CDT Markus Solomon MD LAB POCT ORDERABLES - D EVICE Final Result Performing Organization Address [facility] de Phone Number [facility] [place] [address] * POCT glucose (12/06/2024 5:41 PM CDT) [facility] Glucose, POC 127 70 - 199 mg/dL Blood 12/06/2024 5:41 PM CDT 12/06/2024 5:41 PM CDT Markus Solomon MD LAB POCT ORDERABLES - D EVICE Final Result Performing Organization Address [facility] de Phone Number [facility] [place] [address] * Lactate (12/06/2024 1:21 PM CDT) [facility] Lactate 0.9 0.7 - 2.0 mmol/L Blood 12/06/2024 1:21 PM CDT 12/06/2024 1:33 PM CDT Markus Solomon MD LAB BLOOD ORDERABLES Fi nal Result Performing Organization Address [facility] de Phone Number [facility] [place] [address] * (ABNORMAL) eGFR (12/06/2024 1:21 PM CDT) [facility] eGFR 13(L) >=60 mL/min/1. 73 m2 Comment: Interpretive Data Reference Interval Normal >/= 90 mL/min/1.73m2 Mildly decreased* 60 - 89 mL/min/1.73m2 Mildly to moderately decreased 45 - 59 mL/min/1.73m2 Moderately to severely decreased 30 - 44 mL/min/1.73m2 Severely decreased 15 - 29 mL/min/1.73m2 Kidney Failure < 15 mL/min/1.73m2 *Relative to young adult level Estimated glomerular filtration rate is determined by the 2020 CKD-EPI equation recommended by the National Kidney Foundation (A Unifying Approach to GFR Estimation: Recommendations of the NKF-ASK Task Force on Reassessing the Inclusion of Race in Diagnosing Kidney Disease, JASN 2020). The CKD-EPI equation should not be used for patients with unstable renal function and has not been validated in children and those over 70. Current interpretive data was last reviewed 2021. Blood 12/06/2024 1:21 PM CDT 12/06/2024 1:34 PM CDT us Markus Solomon MD LAB BLOOD ORDERABLES Fi nal Result [facility] One [facility] [place] [address] * (ABNORMAL) Basic metabolic panel (12/06/2024 1:21 PM CDT) [facility] Sodium 136 135 - 145 mmol/L Potassium, pl 4.2 3.3 - 4.9 mmol/L [facility] Chloride 101 97 - 110 mmol/L [facility] CO2 25 22 - 32 mmol/L [facility] Anion gap 10 2 - 15 mmol/L [facility] BUN 81(H) 6 - 25 mg/dL [facility] Creatinine 4.53(H) 0.80 - 1.30 mg/dL [facility] Glucose 106 70 - 199 mg/dL [facility] Comment: Interpretive Data Fasting glucose >/= 126 mg/dl is diagnostic for diabetes. Fasting is defined as no caloric intake for at least 8 hours. Fasting glucose between 100 mg/dl to 125 mg/dl is diagnostic of prediabetes. In a patient with classic symptoms of hyperglycemia or hyperglycemic crisis, a random glucose >/= 200 mg/dl is diagnostic for diabetes. In the absence of unequivocal hyperglycemia, results should be confirmed by repeat testing. The classification and Diagnosis of Diabetes Diabetes Care 202; 46: S19-S40. Current interpretive data was last revised 2022. Calcium 8.5 8.5 - 10.3 mg/dL [facility] Blood 12/06/2024 1:21 PM CDT 12/06/2024 1:34 PM CDT Markus Solomon MD LAB BLOOD ORDERABLES Fi nal Result Performing Organization Address City/[facility] Co de Phone Number [facility] [place] [address] * POCT glucose (12/06/2024 11:35 AM CDT) Glucose, POC 118 70 - 199 mg/dL Blood 12/06/2024 11:3 5 AM CDT 12/06/2024 11:35 AM CDT Markus Solomon MD LAB POCT ORDERABLES - D EVICE Final Result Performing Organization Address [facility] Co de Phone Number [facility] [place] [address] * POCT glucose (12/06/2024 7:51 AM CDT) Glucose, POC 106 70 - 199 mg/dL Blood 12/06/2024 7:51 AM CDT 12/06/2024 7:51 AM CDT Markus Solomon MD LAB POCT ORDERABLES - D EVICE Final Result Performing Organization Address City/[facility] Co de Phone Number [facility] [place] [address] * POCT glucose (12/06/2024 3:42 AM CDT) Glucose, POC 128 70 - 199 mg/dL Blood 12/06/2024 3:42 AM CDT 12/06/2024 3:42 AM CDT Markus Solomon MD LAB POCT ORDERABLES - D EVICE Final Result [facility] [place] [address] * POCT glucose (12/06/2024 12:21 AM CDT) Glucose, POC 161 70 - 199 mg/dL Blood 12/06/2024 12:2 1 AM CDT 12/06/2024 12:21 AM CDT Markus Solomon MD LAB POCT ORDERABLES - D EVICE Final Result Performing Organization Address [facility] Co de Phone Number [facility] [place] [address] * (ABNORMAL) eGFR (12/05/2024 10:37 PM CDT) eGFR 12(L) >=60 mL/min/1. 73 m2 Comment: Interpretive Data Reference Interval Normal >/= 90 mL/min/1.73m2 Mildly decreased* 60 - 89 mL/min/1.73m2 Mildly to moderately decreased 45 - 59 mL/min/1.73m2 Moderately to severely decreased 30 - 44 mL/min/1.73m2 Severely decreased 15 - 29 mL/min/1.73m2 Kidney Failure < 15 mL/min/1.73m2 *Relative to young adult level Estimated glomerular filtration rate is determined by the 2020 CKD-EPI equation recommended by the National Kidney Foundation (A Unifying Approach to GFR Estimation: Recommendations of the NKF-ASK Task Force on Reassessing the Inclusion of Race in Diagnosing Kidney Disease, JASN 2020). The CKD-EPI equation should not be used for patients with unstable renal function and has not been validated in children and those over 70. Current interpretive data was last reviewed 2021. Blood 12/05/2024 10:3 7 PM CDT 12/05/2024 10:56 PM CDT Vani Pedro MD LAB BLOOD ORDER DARYA Final Result [facility] One [facility] [place] [address] * (ABNORMAL) Differential, auto (12/05/2024 10:37 PM CDT) Pathologist [facility] Neutrophil abs 5.79 1.50 - 6.50 K/cumm Imm gran abs 0.05 0.00 - 0.10 K/cumm [facility] Lymphocyte abs 0.33(L) 0.80 - 3.30 K/cumm [facility] Monocyte abs 0.44 0.20 - 0.80 K/cumm [facility] Eosinophil abs 0.06 0.00 - 0.50 K/cumm [facility] Basophil abs 0.01 0.00 - 0.10 K/cumm [facility] Neutrophil pct 86.8 % [facility] Comment: Interpretive Data Percent cell count reference ranges are not reported, since discordance with absolute values may lead to misinterpretation of CBC data. Current Interpretive Data was last revised on 2017. Imm gran pct 0.7 % [facility] Comment: Interpretive Data Percent cell count reference ranges are not reported, since discordance with absolute values may lead to misinterpretation of CBC data. Current Interpretive Data was last revised on 2017. Lymphocyte pct 4.9 % [facility] Comment: Interpretive Data Percent cell count reference ranges are not reported, since discordance with absolute values may lead to misinterpretation of CBC data. Current Interpretive Data was last revised on 2017. Monocyte pct 6.6 % [facility] Comment: Interpretive Data Percent cell count reference ranges are not reported, since discordance with absolute values may lead to misinterpretation of CBC data. Current Interpretive Data was last revised on 2017. Eosinophil pct 0.9 % [facility] Comment: Interpretive Data Percent cell count reference ranges are not reported, since discordance with absolute values may lead to misinterpretation of CBC data. Current Interpretive Data was last revised on 2017. Basophil pct 0.1 % [facility] Comment: Interpretive Data Percent cell count reference ranges are not reported, since discordance with absolute values may lead to misinterpretation of CBC data. Current Interpretive Data was last revised on 2017. Blood 12/05/2024 10:3 7 PM CDT 12/05/2024 10:56 PM CDT Chucho Manrique MD LAB BLOOD ORDERABLES F inal Result Performing Organization Address [facility] Co de Phone Number [facility] [place] [address] * (ABNORMAL) Iron profile w/ IBC (12/05/2024 10:37 PM CDT) Pathologist [facility] Iron 45(L) 50 - 150 mcg/dL TIBC 140(L) 250 - 400 mcg/dL [facility] Transferrin saturation 32 20 - 50 % [facility] Blood 12/05/2024 10:3 7 PM CDT 12/05/2024 10:56 PM CDT us Markus Solomon MD LAB BLOOD ORDERABLES Fi nal Result Performing Organization Address [facility] Co de Phone Number [facility] [place] [address] * (ABNORMAL) CBC with auto differential (12/05/2024 10:37 PM CDT) WBC 6.68 3.80 - 9.90 K/cumm Hgb 7.7(L) 13.0 - 17.5 g/dL [facility] Hct 23.3(L) 38.9 - 50.3 % [facility] Plt 110(L) 150 - 400 K/cumm [facility] MPV 11.3 9.1 - 12.3 fL [facility] RBC 2.52(L) 4.30 - 5.80 M/cumm [facility] MCV 92.5 81.3 - 96.4 fL [facility] MCH 30.6 27.1 - 33.3 pg [facility] MCHC 33.0 32.3 - 35.7 g/dL [facility] RDW CV 13.7 11.1 - 14.9 % [facility] RDW SD 46.8 35.7 - 48.1 fL [facility] NRBC abs 0.00 0.00 - 0.01 K/cumm [facility] Blood 12/05/2024 10:3 7 PM CDT 12/05/2024 10:56 PM CDT Chucho Manrique MD LAB BLOOD ORDERABLES F inal Result Performing Organization Address City/[facility] Co de Phone Number [facility] [place] [address] * Folate (12/05/2024 10:37 PM CDT) Pathologist [facility] Folic acid 14.3 >=5.0 ng/mL Blood 12/05/2024 10:3 7 PM CDT 12/05/2024 10:56 PM CDT Markus Solomon MD LAB BLOOD ORDERABLES Fi nal Result Performing Organization Address [facility] Co de Phone Number [facility] [place] [address] * (ABNORMAL) Ferritin (12/05/2024 10:37 PM CDT) Ferritin 1,240(H) 30 - 400 ng/mL Blood 12/05/2024 10:3 7 PM CDT 12/05/2024 10:56 PM CDT Markus Solomon MD LAB BLOOD ORDERABLES Fi nal Result Performing Organization Address City/[facility] Co de Phone Number [facility] [place] [address] * Vitamin B12 (12/05/2024 10:37 PM CDT) Pathologist [facility] Vitamin B12 908 230 - 1,250 pg/mL Blood 12/05/2024 10:3 7 PM CDT 12/05/2024 10:56 PM CDT Markus Solomon MD LAB BLOOD ORDERABLES Fi nal Result [facility] One [facility] [place] [address] * (ABNORMAL) Basic metabolic panel (12/05/2024 10:37 PM CDT) Pathologist [facility] Sodium 137 135 - 145 mmol/L Potassium, pl 4.7 3.3 - 4.9 mmol/L [facility] Chloride 99 97 - 110 mmol/L [facility] CO2 16(L) 22 - 32 mmol/L [facility] Anion gap 22(H) 2 - 15 mmol/L [facility] BUN 85(H) 6 - 25 mg/dL [facility] Creatinine 5.05(H) 0.80 - 1.30 mg/dL [facility] Glucose 130 70 - 199 mg/dL [facility] Comment: Interpretive Data Fasting glucose >/= 126 mg/dl is diagnostic for diabetes. Fasting is defined as no caloric intake for at least 8 hours. Fasting glucose between 100 mg/dl to 125 mg/dl is diagnostic of prediabetes. In a patient with classic symptoms of hyperglycemia or hyperglycemic crisis, a random glucose >/= 200 mg/dl is diagnostic for diabetes. In the absence of unequivocal hyperglycemia, results should be confirmed by repeat testing. The classification and Diagnosis of Diabetes Diabetes Care 2021; 46: S19-S40. Current interpretive data was last revised 2022. Calcium 8.3(L) 8.5 - 10.3 mg/dL [facility] Blood 12/05/2024 10:3 7 PM CDT 12/05/2024 10:56 PM CDT Vani Pedro MD LAB BLOOD ORDER DARYA Final Result Performing Organization Address [facility] Co de Phone Number [facility] [place] [address] * POCT glucose (12/05/2024 7:51 PM CDT) Glucose, POC 145 70 - 199 mg/dL Blood 12/05/2024 7:51 PM CDT 12/05/2024 7:51 PM CDT Markus Solomon MD LAB POCT ORDERABLES - D EVICE Final Result Performing Organization Address [facility] [place] [address] * POCT glucose (12/05/2024 5:07 PM CDT) Glucose, POC 164 70 - 199 mg/dL Blood 12/05/2024 5:07 PM CDT 12/05/2024 5:07 PM CDT Markus Solomon MD LAB POCT ORDERABLES - D EVICE Final Result Performing Organization Address [facility] Phone Number [facility] [place] [address] * FL Modified Barium Swallow W Video (12/05/2024 1:20 PM CDT) Anatomical Region Laterality Modality Head and Neck N/A Computed Radiogr aphy 12/05/2024 2:03 PM CDT Impressions 12/05/2024 2:15 PM CDT The swallowing mechanism is normal; see above comments. Please refer to the Speech Pathology procedure note for safe swallow recommendations as well as additional information regarding the oral-pharyngeal swallow function, plan of care, and recommended follow up. Dictated by: Radha Feliciano M.D. The radiology attending physician has personally reviewed this study, and had reviewed and/or edited this written report and agrees with it. Electronically signed by: Rayray Hagan M.D. Narrative 12/05/2024 2:15 PM CDT EXAMINATION: MODIFIED BARIUM SWALLOW HISTORY: Dysphagia. TECHNIQUE: This procedure was completed in conjunction with a Speech Language Pathologist. The patient was given barium of multiple different consistencies to swallow. Video fluoroscopy was employed during the exam. FINDINGS: Oral-pharyngeal swallow function is mostly within functional limits. Penetration: Yes There is penetration of thin liquids and nectar thick liquid. Penetration is sensed. The penetrated material is cleared. Aspiration: No Residue:Yes There is pharyngeal residue of thin liquids, nectar thick liquids, purees, and solids. Residue is not sensed. The residual material is cleared. Other comments: None Procedure Note Rayray Hagan MD - 12/05/2024 EXAMINATION: MODIFIED BARIUM SWALLOW HISTORY: Dysphagia. TECHNIQUE: This procedure was completed in conjunction with a Speech Language Pathologist. The patient was given barium of multiple different consistencies to swallow. Video fluoroscopy was employed during the exam. FINDINGS: Oral-pharyngeal swallow function is mostly within functional limits. Penetration: Yes There is penetration of thin liquids and nectar thick liquid. Penetration is sensed. The penetrated material is cleared. Aspiration: No Residue:Yes There is pharyngeal residue of thin liquids, nectar thick liquids, purees, and solids. Residue is not sensed. The residual material is cleared. Other comments: None IMPRESSION: The swallowing mechanism is normal; see above comments. Please refer to the Speech Pathology procedure note for safe swallow recommendations as well as additional information regarding the oral-pharyngeal swallow function, plan of care, and recommended follow up. Dictated by: Radha Feliciano M.D. The radiology attending physician has personally reviewed this study, and had reviewed and/or edited this written report and agrees with it. Electronically signed by: Rayray Hagan M.D. Chucho Manrique MD IMG FLUOROSCOPY PROCED URES Final Result * PIANO TECHNICIAN Evaluate and Treat (VFSS) (12/05/2024 1:03 PM CDT) Narrative Vicky Tenorio, PIANO TECHNICIAN - 12/05/2024 1:03 PM CDT Vicky Tenorio, BRIDGETTE 12/05/2024 4:17 PM Speech-Language Pathology: Videofluoroscopic Study of Swallow (VFSS/MBS) [facility] 69 y.o. male with Alzheimer's dementia, HTN, ?HFpEF (EF 50-55% 07/2024), T2DM on insulin, mood disorder vs. ?schizophrenia who presents from his longterm [facility] A after a fall from his wheelchair on to his face. In the ED 12/03- RN performed a bedside swallow eval and he started coughing with water. He is on nectar think liquids and reg diet at [facility]. Will start on nectar think liquids and [facility] soft foods for now. If he has signs of aspiration, will NPO until speech evaluation. MBS 07/13/24 at OSH: Larger thin drinks result in penetration before the swallow with silent aspiration. Tolerance of thin liquids improves with small tsp sized bolus and or chin tuck. Patient exhibits cognitive concerns and does not appear safe for diet recommendations reliant on compensatory strategy use at this time. Recommend regular diet/nectar thick liquid. Respiratory/Intubation Status: RA Imaging: CT Head 12/03- No acute intracranial intracranial process. No large acute territory infarct. 2. No evidence of acute fracture in the cervical, thoracic, or lumbar spine. 3. Stable chronic fracture of the right posterior arch of C1, unchanged from July 2024. CT chest 12/03- Atelectasis is present dependently in both lungs. There is trace pulmonary edema in the lung apices. No pleural effusion or pneumothorax. No suspicious pulmonary nodule or mass. Central airways are widely patent. No pulmonary contusion or laceration. Precautions: fall, elopement Current Diet Order: Mechanical soft diet, nectar thick liquids Baseline Diet: per chart review, regular diet and nectar thick liquid General Information Lukas Benson 12/05/24 PIANO TECHNICIAN Received On: 12/05/24 General Observations: Seated upright in chair. Alert with intermittent suspected confusion but overall cooperative throughout the evaluation. Refused additional PO trials midway throughout the evaluation but continued with frequent verbal cueing. Reason for Referral: To further assess for aspiration and dysphagia prior to diet advancement Pain Score: 0 - No pain If pain >4, was RN notified? N/A Patient Stated Goal/Comments: None stated Clinical Impression & Professional Recommendations Diet Solids Recommendation: Regular Diet Liquids Recommendations: Thin/regular Recommended Form of Medications: As tolerated Compensatory Strategies/Modifications: Slow rate, Single sips, Small bites, Alternate solids and liquids Postural Recommendations: Upright Specialty Instructions: Good oral care 2-3x day Overall Clinical Impression/Additional Information: Accepted tsp and straw sips of thin and nectar thick liquids, puree, and hard solids. Oral and pharyngeal phase grossly WFL with the following deviants: Oral Phase Deficits: Oral phase significant for mildly slowed mastication, repetitive lingual pumping with puree and solids, and decreased bolus control with premature spill to the epiglottis and/or pyriform sinuses. Pharyngeal Phase Deficits: Pharyngeal phase significant for mildly decreased pharyngeal stripping wave, reduced base of tongue retraction, partial epiglottic inversion, and partial hyoid excursion. Of note, pt with trace retrograde flow of thin liquids to the level of the pyriform sinuses. Deficits result in: Pt with intermittent high transient penetration with thin liquids and nectar thick liquids but no aspiration. No penetration or aspiration with puree or hard solids. Pt with mild to moderate amount of vallecular residue across consistencies but functionally cleared with liquid wash. No further PIANO TECHNICIAN warranted. Assessment Details & Results Purpose and Procedure of Videofluoroscopic Study of Swallow: Videofluoroscopic Study of Swallow completed to assess oropharyngeal swallow function and safety/efficiency of the swallow so that diet recommendations can be made. This test is completed in conjunction with Radiology. Results of this test are indicative of performance at the time of the exam. Standard procedure is in lateral view at 90 degrees. Consistencies Administered: Thin liquids, Snover thickened liquids, Purees, Solids Respiratory Support: No Significant Impairment- Respiratory support is adequate for speech & swallowing Administered consistencies contain barium product. Thin Liquids: Laryngeal Penetration: Present Aspiration Present: No Successful Modifications : None Unsuccessful Modifications: None Successful Modification Combinations: None Unsuccessful Modification Combinations: None Penetration Aspiration Scale-Thin: 2-Material enters the airway, remains above the vocal folds and is ejected from the airway Snover Thickened Liquids: Laryngeal Penetration: Present Aspiration Present: No Successful Modifications : None Unsuccessful Modifications: None Successful Modification Combinations: None Unsuccessful Modification Combinations: None Penetration Aspiration Scale-Snover: 2-Material enters the airway, remains above the vocal folds and is ejected from the airway Purees: Laryngeal Penetration: None Aspiration Present: No Successful Modifications : Alternated liquids and solids Unsuccessful Modifications: None Successful Modification Combinations: None Unsuccessful Modification Combinations: None Penetration Aspiration Scale-Puree: 1-Material does not enter airway Solids: Laryngeal Penetration: None Aspiration Present: No Successful Modifications : Alternated liquids and solids Unsuccessful Modifications: None Successful Modification Combinations: None Unsuccessful Modification Combinations: None Penetration Aspiration Scale-Solids: 1-Material does not enter airway MBSImp: MBSImp Results: Lip closure : 0-No labial escape Tongue Control with Bolus Hold: 2-Posterior escape of less than half of bolus Bolus Preparation/Mastication : 1-Slow prolonged chewing/mashing with complete re-collection Bolus Transport/Lingual Motion : 3-Repetitive/disorganized tongue motion Oral Residue: 1-Trace residue lining oral structures (normal variant) Initiation of Pharyngeal Swallow : 3-Bolus head in pyriforms Soft Palate : 0-No bolus between soft palate and pharyngeal wall Laryngeal Elevation : 0-Complete superior movement of thyroid cartilage with complete approximation of arytenoids to epiglottic petiole Anterior Hyoid Excursion: 1-Partial anterior movement Epiglottic Movement: 1-Partial inversion Laryngeal Vestibular Closure: 0-Complete, no air/contrast in the laryngeal vestibule Pharyngeal Stripping Wave: 1-Present but diminished Pharyngeal Contraction (AP view only): Not assessed, No AP view Pharyngoesophageal Segment Opening : 0-Complete distention and complete duration, no obstruction of flow Tongue Base Retraction : 2-Narrow column of contrast or air between tongue base and posterior pharyngeal wall Pharyngeal Residue : 2-Collection of residue within or on pharyngeal structures Esophageal Clearance (upright position): Not assessed, No AP view Dysphagia Outcome and Severity Scale: Dysphagia Outcomes and Severity Scale: 6 Modified independence Levels 1 & 2 on the NIRAV indicate need for nonoral nutrition. Treatment Treatment was not provided this date. Please reference care plan for treatment goals and details, if indicated. Plan PIANO TECHNICIAN Frequency of Services during current admission: Discharge from this Service PIANO TECHNICIAN Recommendation (Add'l Services): No further PIANO TECHNICIAN indicated Next Visit Plan: No further ST warranted Additional Referrals: None Discharge Summary Statement If this is the last swallow therapy visit, this serves as the discharge summary. us Chucho Manrique MD PIANO TECHNICIAN ORDERABLES Final Result * POCT glucose (12/05/2024 11:55 AM CDT) Glucose, POC 143 70 - 199 mg/dL Blood 12/05/2024 11:5 5 AM CDT 12/05/2024 11:55 AM CDT Markus Solomon MD LAB POCT ORDERABLES - D EVICE Final Result [facility] [place] [address] * US Kidney Complete (12/05/2024 11:11 AM CDT) Anatomical Region Laterality Modality Kidney N/A Ultrasound 12/05/2024 11:3 5 AM CDT Impressions 12/05/2024 11:35 AM CDT Normal kidneys. No hydronephrosis. Electronically signed by: Vianey Thomas M.D. Narrative 12/05/2024 11:35 AM CDT EXAMINATION: COMPLETE RENAL SONOGRAM HISTORY: LULÚ on CKD COMPARISON: CT abdomen and pelvis, 12/03/2024 FINDINGS: Kidneys: The echogenicity of both kidneys is normal. The kidneys are normal in size. The right kidney measures 12.7 cm in length, and the left, 12.9 cm in length. There is no hydronephrosis in either kidney. There are no renal calculi visualized. Bladder: The urinary bladder is normal Procedure Note Vianey Thomas MD - 12/05/2024 EXAMINATION: COMPLETE RENAL SONOGRAM HISTORY: LULÚ on CKD COMPARISON: CT abdomen and pelvis, 12/03/2024 FINDINGS: Kidneys: The echogenicity of both kidneys is normal. The kidneys are normal in size. The right kidney measures 12.7 cm in length, and the left, 12.9 cm in length. There is no hydronephrosis in either kidney. There are no renal calculi visualized. Bladder: The urinary bladder is normal IMPRESSION: Normal kidneys. No hydronephrosis. Electronically signed by: Vianey Thomas M.D. Markus Solomon MD IMG US PROCEDURES Final Result * Urea nitrogen, urine, random (12/05/2024 10:47 AM CDT) Urea nitrogen, ur 259 mg/dL Comment: Interpretive Data No reference range established. Current interpretive data was last revised 2018. Urine 12/05/2024 10:4 7 AM CDT 12/05/2024 12:06 PM CDT Markus Solomon MD LAB URINE ORDERABLES Fi nal Result Performing Organization Address [facility] de Phone Number [facility] [place] [address] * (ABNORMAL) Protein / creatinine ratio, urine, random (12/05/2024 10:47 AM CDT) Protein, ur, quant 167.3 mg/dL Comment: Interpretive Data No reference range established. Current interpretive data was last revised 2018. Creatinine Ur 147.5 mg/dL [facility] Comment: Interpretive Data No reference range established. Current interpretive data was last revised 2018. Protein/creatinin e ratio 1,134.2(H ) 0.0 - 180.0 mg/g CR [facility] Urine 12/05/2024 10:4 7 AM CDT 12/05/2024 12:06 PM CDT Markus Solomon MD LAB URINE ORDERABLES Fi nal Result Performing Organization Address [facility] Co de Phone Number [facility] [place] [address] * Sodium, urine, random (12/05/2024 10:47 AM CDT) Sodium, ur 32 mmol/L Comment: Interpretive Data No reference range established. Current interpretive data was last revised 2018. Urine 12/05/2024 10:4 7 AM CDT 12/05/2024 12:06 PM CDT Markus Solomon MD LAB URINE ORDERABLES Fi nal Result Performing Organization Address City/[facility] Co de Phone Number [facility] [place] [address] * Creatinine, urine, random (12/05/2024 10:47 AM CDT) Creatinine Ur 147.5 mg/dL Comment: Interpretive Data No reference range established. Current interpretive data was last revised 2018. Urine 12/05/2024 10:4 7 AM CDT 12/05/2024 12:06 PM CDT Markus Solomon MD LAB URINE ORDERABLES Fi nal Result Performing Organization Address [facility] de Phone Number [facility] [place] [address] * (ABNORMAL) Differential, auto (12/05/2024 8:22 AM CDT) Neutrophil abs 7.15(H) 1.50 - 6.50 K/cumm Imm gran abs 0.06 0.00 - 0.10 K/cumm [facility] Lymphocyte abs 0.57(L) 0.80 - 3.30 K/cumm [facility] Monocyte abs 0.54 0.20 - 0.80 K/cumm [facility] Eosinophil abs 0.08 0.00 - 0.50 K/cumm [facility] Basophil abs 0.02 0.00 - 0.10 K/cumm [facility] Neutrophil pct 84.9 % [facility] Comment: Interpretive Data Percent cell count reference ranges are not reported, since discordance with absolute values may lead to misinterpretation of CBC data. Current Interpretive Data was last revised on 2017. Imm gran pct 0.7 % [facility] Comment: Interpretive Data Percent cell count reference ranges are not reported, since discordance with absolute values may lead to misinterpretation of CBC data. Current Interpretive Data was last revised on 2017. Lymphocyte pct 6.8 % [facility] Comment: Interpretive Data Percent cell count reference ranges are not reported, since discordance with absolute values may lead to misinterpretation of CBC data. Current Interpretive Data was last revised on 2017. Monocyte pct 6.4 % [facility] Comment: Interpretive Data Percent cell count reference ranges are not reported, since discordance with absolute values may lead to misinterpretation of CBC data. Current Interpretive Data was last revised on 2017. Eosinophil pct 1.0 % [facility] Comment: Interpretive Data Percent cell count reference ranges are not reported, since discordance with absolute values may lead to misinterpretation of CBC data. Current Interpretive Data was last revised on 2017. Basophil pct 0.2 % [facility] Comment: Interpretive Data Percent cell count reference ranges are not reported, since discordance with absolute values may lead to misinterpretation of CBC data. Current Interpretive Data was last revised on 2017. Blood 12/05/2024 8:22 AM CDT 12/05/2024 8:31 AM CDT us Chucho Manrique MD LAB BLOOD ORDERABLES F inal Result [facility] [place] [address] * (ABNORMAL) CBC with auto differential (12/05/2024 8:22 AM CDT) WBC 8.42 3.80 - 9.90 K/cumm Hgb 8.6(L) 13.0 - 17.5 g/dL [facility] Hct 26.4(L) 38.9 - 50.3 % [facility] Plt 119(L) 150 - 400 K/cumm [facility] MPV 10.9 9.1 - 12.3 fL [facility] RBC 2.81(L) 4.30 - 5.80 M/cumm [facility] MCV 94.0 81.3 - 96.4 fL [facility] MCH 30.6 27.1 - 33.3 pg [facility] MCHC 32.6 32.3 - 35.7 g/dL [facility] RDW CV 13.8 11.1 - 14.9 % [facility] RDW SD 47.1 35.7 - 48.1 fL [facility] NRBC abs 0.00 0.00 - 0.01 K/cumm [facility] Blood 12/05/2024 8:22 AM CDT 12/05/2024 8:31 AM CDT us Chucho Manrique MD LAB BLOOD ORDERABLES F inal Result [facility] [place] [address] * POCT glucose (12/05/2024 7:50 AM CDT) Glucose, POC 106 70 - 199 mg/dL Blood 12/05/2024 7:50 AM CDT 12/05/2024 7:50 AM CDT us Markus Solomon MD LAB POCT ORDERABLES - D EVICE Final Result Performing Organization Address City/[facility] Co de Phone Number [facility] [place] [address] * POCT glucose (12/05/2024 3:21 AM CDT) Glucose, POC 72 70 - 199 mg/dL Blood 12/05/2024 3:21 AM CDT 12/05/2024 3:21 AM CDT us Markus Solomon MD LAB POCT ORDERABLES - D EVICE Final Result Performing Organization Address City/[facility] Co de Phone Number [facility] [place] [address] * POCT glucose (12/04/2024 11:24 PM CDT) Glucose, POC 91 70 - 199 mg/dL Blood 12/04/2024 11:2 4 PM CDT 12/04/2024 11:24 PM CDT Markus Solomon MD LAB POCT ORDERABLES - D EVICE Final Result Performing Organization Address City/[facility]/ZIP Co de Phone Number [facility] [place] [address] * (ABNORMAL) eGFR (12/04/2024 8:56 PM CDT) [facility] eGFR 13(L) >=60 mL/min/1. 73 m2 Comment: Interpretive Data Reference Interval Normal >/= 90 mL/min/1.73m2 Mildly decreased* 60 - 89 mL/min/1.73m2 Mildly to moderately decreased 45 - 59 mL/min/1.73m2 Moderately to severely decreased 30 - 44 mL/min/1.73m2 Severely decreased 15 - 29 mL/min/1.73m2 Kidney Failure < 15 mL/min/1.73m2 *Relative to young adult level Estimated glomerular filtration rate is determined by the 2020 CKD-EPI equation recommended by the National Kidney Foundation (A Unifying Approach to GFR Estimation: Recommendations of the NKF-ASK Task Force on Reassessing the Inclusion of Race in Diagnosing Kidney Disease, JASN 2020). The CKD-EPI equation should not be used for patients with unstable renal function and has not been validated in children and those over 70. Current interpretive data was last reviewed 2021. Blood 12/04/2024 8:56 PM CDT 12/04/2024 9:47 PM CDT Cindy Carmichael MD LAB BLOOD ORDERABLES F inal Result Performing Organization Address City/[facility]/ZIP Co de Phone Number [facility] [place] [address] * (ABNORMAL) Differential, auto (12/04/2024 8:56 PM CDT) Neutrophil abs 7.70(H) 1.50 - 6.50 K/cumm Imm gran abs 0.05 0.00 - 0.10 K/cumm [facility] Lymphocyte abs 0.58(L) 0.80 - 3.30 K/cumm [facility] Monocyte abs 0.60 0.20 - 0.80 K/cumm [facility] Eosinophil abs 0.04 0.00 - 0.50 K/cumm [facility] Basophil abs 0.01 0.00 - 0.10 K/cumm [facility] Neutrophil pct 85.7 % [facility] Comment: Interpretive Data Percent cell count reference ranges are not reported, since discordance with absolute values may lead to misinterpretation of CBC data. Current Interpretive Data was last revised on 2017. Imm gran pct 0.6 % [facility] Comment: Interpretive Data Percent cell count reference ranges are not reported, since discordance with absolute values may lead to misinterpretation of CBC data. Current Interpretive Data was last revised on 2017. Lymphocyte pct 6.5 % [facility] Comment: Interpretive Data Percent cell count reference ranges are not reported, since discordance with absolute values may lead to misinterpretation of CBC data. Current Interpretive Data was last revised on 2017. Monocyte pct 6.7 % [facility] Comment: Interpretive Data Percent cell count reference ranges are not reported, since discordance with absolute values may lead to misinterpretation of CBC data. Current Interpretive Data was last revised on 2017. Eosinophil pct 0.4 % [facility] Comment: Interpretive Data Percent cell count reference ranges are not reported, since discordance with absolute values may lead to misinterpretation of CBC data. Current Interpretive Data was last revised on 2017. Basophil pct 0.1 % [facility] Comment: Interpretive Data Percent cell count reference ranges are not reported, since discordance with absolute values may lead to misinterpretation of CBC data. Current Interpretive Data was last revised on 2017. Blood 12/04/2024 8:56 PM CDT 12/04/2024 9:48 PM CDT Chucho Manrique MD LAB BLOOD ORDERABLES F inal Result Performing Organization Address [facility] de Phone Number [facility] [place] [address] * (ABNORMAL) CBC with auto differential (12/04/2024 8:56 PM CDT) [facility] WBC 8.98 3.80 - 9.90 K/cumm Hgb 7.6(L) 13.0 - 17.5 g/dL [facility] Hct 23.2(L) 38.9 - 50.3 % [facility] Plt 116(L) 150 - 400 K/cumm [facility] MPV 11.2 9.1 - 12.3 fL [facility] RBC 2.46(L) 4.30 - 5.80 M/cumm [facility] MCV 94.3 81.3 - 96.4 fL [facility] MCH 30.9 27.1 - 33.3 pg [facility] MCHC 32.8 32.3 - 35.7 g/dL [facility] RDW CV 13.8 11.1 - 14.9 % [facility] RDW SD 47.4 35.7 - 48.1 fL [facility] NRBC abs 0.00 0.00 - 0.01 K/cumm [facility] Blood 12/04/2024 8:56 PM CDT 12/04/2024 9:48 PM CDT Chucho Manrique MD LAB BLOOD ORDERABLES F inal Result Performing Organization Address City/[facility] Co de Phone Number [facility] [place] [address] * Magnesium (12/04/2024 8:56 PM CDT) [facility] Magnesium 2.1 1.4 - 2.5 mg/dL Blood 12/04/2024 8:56 PM CDT 12/04/2024 9:47 PM CDT Cindy Carmichael MD LAB BLOOD ORDERABLES F inal Result Performing Organization Address [facility]/ZIP Co de Phone Number [facility] [place] [address] * (ABNORMAL) Renal function panel (12/04/2024 8:56 PM CDT) Sodium 136 135 - 145 mmol/L Potassium, pl 4.8 3.3 - 4.9 mmol/L [facility] Chloride 102 97 - 110 mmol/L [facility] CO2 22 22 - 32 mmol/L [facility] Anion gap 12 2 - 15 mmol/L [facility] BUN 77(H) 6 - 25 mg/dL [facility] Creatinine 4.61(H) 0.80 - 1.30 mg/dL [facility] Glucose 88 70 - 199 mg/dL [facility] Comment: Interpretive Data Fasting glucose >/= 126 mg/dl is diagnostic for diabetes. Fasting is defined as no caloric intake for at least 8 hours. Fasting glucose between 100 mg/dl to 125 mg/dl is diagnostic of prediabetes. In a patient with classic symptoms of hyperglycemia or hyperglycemic crisis, a random glucose >/= 200 mg/dl is diagnostic for diabetes. In the absence of unequivocal hyperglycemia, results should be confirmed by repeat testing. The classification and Diagnosis of Diabetes Diabetes Care 202; 46: S19-S40. Current interpretive data was last revised 2022. Calcium 8.3(L) 8.5 - 10.3 mg/dL [facility] Phosphorus, pl 4.3 2.3 - 4.5 mg/dL [facility] Albumin 2.8(L) 3.5 - 5.0 g/dL [facility] Blood 12/04/2024 8:56 PM CDT 12/04/2024 9:47 PM CDT iCndy Carmichael MD LAB BLOOD ORDERABLES F inal Result Performing Organization Address [facility]/ZIP Co de Phone Number [facility] [place] [address] * POCT glucose (12/04/2024 7:43 PM CDT) Glucose, POC 95 70 - 199 mg/dL Blood 12/04/2024 7:43 PM CDT 12/04/2024 7:43 PM CDT Chucho Manrique MD LAB POCT ORDERABLES - DEVICE Final Result Performing Organization Address City/[facility]/ZIP Co de Phone Number [facility] [place] [address] * POCT glucose (12/04/2024 5:27 PM CDT) Glucose, POC 86 70 - 199 mg/dL Blood 12/04/2024 5:27 PM CDT 12/04/2024 5:27 PM CDT Chucho Manrique MD LAB POCT ORDERABLES - DEVICE Final Result Performing Organization Address [facility] de Phone Number [facility] [place] [address] * (ABNORMAL) eGFR (12/04/2024 1:52 PM CDT) Pathologist [facility] eGFR 14(L) >=60 mL/min/1. 73 m2 Comment: Interpretive Data Reference Interval Normal >/= 90 mL/min/1.73m2 Mildly decreased* 60 - 89 mL/min/1.73m2 Mildly to moderately decreased 45 - 59 mL/min/1.73m2 Moderately to severely decreased 30 - 44 mL/min/1.73m2 Severely decreased 15 - 29 mL/min/1.73m2 Kidney Failure < 15 mL/min/1.73m2 *Relative to young adult level Estimated glomerular filtration rate is determined by the 2020 CKD-EPI equation recommended by the National Kidney Foundation (A Unifying Approach to GFR Estimation: Recommendations of the NKF-ASK Task Force on Reassessing the Inclusion of Race in Diagnosing Kidney Disease, JASN 2020). The CKD-EPI equation should not be used for patients with unstable renal function and has not been validated in children and those over 70. Current interpretive data was last reviewed 2021. Blood 12/04/2024 1:52 PM CDT 12/04/2024 2:16 PM CDT Jake Mccray MD LAB BLOOD ORDERABLES Final Result Performing Organization Address [facility] Co de Phone Number [facility] [place] [address] * (ABNORMAL) Hemoglobin and hematocrit (12/04/2024 1:52 PM CDT) Hgb 9.1(L) 13.0 - 17.5 g/dL Hct 28.3(L) 38.9 - 50.3 % [facility] Blood 12/04/2024 1:52 PM CDT 12/04/2024 2:38 PM CDT Chucho Manrique MD LAB BLOOD ORDERABLES F inal Result Performing Organization Address [facility] de Phone Number [facility] [place] [address] * Type and screen (12/04/2024 1:52 PM CDT) ABO Rh O Positive Ana, indirect Negative [facility] Blood 12/04/2024 1:52 PM CDT 12/04/2024 2:06 PM CDT Narrative [facility] - 12/04/2024 2:58 PM CDT Has the patient had Daratumumab or Isatuximab in the past 6 months?->Unknown Chucho Manrique MD LAB BLOOD BANK TEST OR DERABLES Final Result Performing Organization Address [facility] Co de Phone Number [facility] [place] [address] * Magnesium (12/04/2024 1:52 PM CDT) Magnesium 2.2 1.4 - 2.5 mg/dL Blood 12/04/2024 1:52 PM CDT 12/04/2024 2:16 PM CDT Jake Mccray MD LAB BLOOD ORDERABLES Final Result [facility] [place] [address] * (ABNORMAL) Renal function panel (12/04/2024 1:52 PM CDT) Pathologist [facility] Sodium 136 135 - 145 mmol/L Potassium, pl 4.7 3.3 - 4.9 mmol/L [facility] Chloride 99 97 - 110 mmol/L [facility] CO2 25 22 - 32 mmol/L [facility] Anion gap 12 2 - 15 mmol/L [facility] BUN 74(H) 6 - 25 mg/dL [facility] Creatinine 4.37(H) 0.80 - 1.30 mg/dL [facility] Glucose 152 70 - 199 mg/dL [facility] Comment: Interpretive Data Fasting glucose >/= 126 mg/dl is diagnostic for diabetes. Fasting is defined as no caloric intake for at least 8 hours. Fasting glucose between 100 mg/dl to 125 mg/dl is diagnostic of prediabetes. In a patient with classic symptoms of hyperglycemia or hyperglycemic crisis, a random glucose >/= 200 mg/dl is diagnostic for diabetes. In the absence of unequivocal hyperglycemia, results should be confirmed by repeat testing. The classification and Diagnosis of Diabetes Diabetes Care 202; 46: S19-S40. Current interpretive data was last revised 2022. Calcium 8.7 8.5 - 10.3 mg/dL [facility] Phosphorus, pl 4.5 2.3 - 4.5 mg/dL [facility] Albumin 3.3(L) 3.5 - 5.0 g/dL [facility] Blood 12/04/2024 1:52 PM CDT 12/04/2024 2:16 PM CDT us Jake Mccray MD LAB BLOOD ORDERABLES Final Result Performing Organization Address [facility] Co de Phone Number [facility] [place] [address] * (ABNORMAL) eGFR (12/04/2024 12:13 PM CDT) eGFR 15(L) >=60 mL/min/1. 73 m2 Comment: Interpretive Data Reference Interval Normal >/= 90 mL/min/1.73m2 Mildly decreased* 60 - 89 mL/min/1.73m2 Mildly to moderately decreased 45 - 59 mL/min/1.73m2 Moderately to severely decreased 30 - 44 mL/min/1.73m2 Severely decreased 15 - 29 mL/min/1.73m2 Kidney Failure < 15 mL/min/1.73m2 *Relative to young adult level Estimated glomerular filtration rate is determined by the 2020 CKD-EPI equation recommended by the National Kidney Foundation (A Unifying Approach to GFR Estimation: Recommendations of the NKF-ASK Task Force on Reassessing the Inclusion of Race in Diagnosing Kidney Disease, JASN 2020). The CKD-EPI equation should not be used for patients with unstable renal function and has not been validated in children and those over 70. Current interpretive data was last reviewed 2021. Blood 12/04/2024 12:1 3 PM CDT 12/04/2024 12:29 PM CDT us Chucho Manrique MD LAB BLOOD ORDERABLES F inal Result Performing Organization Address City/[facility]/ZIP Co de Phone Number [facility] [place] [address] * (ABNORMAL) Differential, auto (12/04/2024 12:13 PM CDT) Neutrophil abs 9.09(H) 1.50 - 6.50 K/cumm Imm gran abs 0.07 0.00 - 0.10 K/cumm [facility] Lymphocyte abs 0.60(L) 0.80 - 3.30 K/cumm [facility] Monocyte abs 0.79 0.20 - 0.80 K/cumm [facility] Eosinophil abs 0.01 0.00 - 0.50 K/cumm [facility] Basophil abs 0.02 0.00 - 0.10 K/cumm [facility] Neutrophil pct 85.8 % [facility] Comment: Interpretive Data Percent cell count reference ranges are not reported, since discordance with absolute values may lead to misinterpretation of CBC data. Current Interpretive Data was last revised on 2017. Imm gran pct 0.7 % [facility] Comment: Interpretive Data Percent cell count reference ranges are not reported, since discordance with absolute values may lead to misinterpretation of CBC data. Current Interpretive Data was last revised on 2017. Lymphocyte pct 5.7 % [facility] Comment: Interpretive Data Percent cell count reference ranges are not reported, since discordance with absolute values may lead to misinterpretation of CBC data. Current Interpretive Data was last revised on 2017. Monocyte pct 7.5 % [facility] Comment: Interpretive Data Percent cell count reference ranges are not reported, since discordance with absolute values may lead to misinterpretation of CBC data. Current Interpretive Data was last revised on 2017. Eosinophil pct 0.1 % [facility] Comment: Interpretive Data Percent cell count reference ranges are not reported, since discordance with absolute values may lead to misinterpretation of CBC data. Current Interpretive Data was last revised on 2017. Basophil pct 0.2 % [facility] Comment: Interpretive Data Percent cell count reference ranges are not reported, since discordance with absolute values may lead to misinterpretation of CBC data. Current Interpretive Data was last revised on 2017. Blood 12/04/2024 12:1 3 PM CDT 12/04/2024 12:29 PM CDT us Chucho Manrique MD LAB BLOOD ORDERABLES F inal Result [facility] [place] [address] * (ABNORMAL) CBC with auto differential (12/04/2024 12:13 PM CDT) WBC 10.58(H) 3.80 - 9.90 K/cumm Hgb 6.5(L) 13.0 - 17.5 g/dL [facility] Hct 20.3(L) 38.9 - 50.3 % [facility] Plt 125(L) 150 - 400 K/cumm [facility] MPV 11.0 9.1 - 12.3 fL [facility] RBC 2.13(L) 4.30 - 5.80 M/cumm [facility] MCV 95.3 81.3 - 96.4 fL [facility] MCH 30.5 27.1 - 33.3 pg [facility] MCHC 32.0(L) 32.3 - 35.7 g/dL [facility] RDW CV 13.7 11.1 - 14.9 % [facility] RDW SD 47.4 35.7 - 48.1 fL [facility] NRBC abs 0.00 0.00 - 0.01 K/cumm [facility] Blood 12/04/2024 12:1 3 PM CDT 12/04/2024 12:29 PM CDT Chucho Manrique MD LAB BLOOD ORDERABLES F inal Result [facility] [place] [address] * Blood culture Blood (12/04/2024 12:13 PM CDT) Pathologist [facility] Report Final Report: No growth Blood 12/04/2024 12:1 3 PM CDT 12/04/2024 12:26 PM CDT Narrative [facility] - 12/08/2024 4:00 PM CDT Collection->Peripheral 1. Blood cultures are incubated for 4 days on a continuously monitored blood culture system. The first report of a negative culture is issued within 24 hours of receipt of the specimen in the laboratory. 2. Positive culture results are reported as soon as they are detected. 3. The most important factor for detection of microbes in the setting of bloodstream infection is the volume of blood submitted for culture. Failure to collect an optimal blood volume can result in false negative blood cultures. 4. For pediatric patients, the recommended blood volume to collect follows a weight based strategy. See the electronic test catalog for collection instructions. 5. For positive blood cultures, a rapid molecular test may be performed for organism identification using the [employer]netta ePlex blood culture identification panel for gram positive (BCID-GP) and gram negative (BCID-GN) organisms. This nucleic acid amplification test detects microbial DNA in positive blood culture broth. This assay has been cleared by the [place] Food and Drug Administration and its performance characteristics have been verified by the [facility]. For questions about this culture, contact the Microbiology Laboratory at [phone]. Interpretive data was last revised on 24. Amber Wiggins MD LAB [facility]OLOGY - [facility] ORDERABLES Final Result [facility] [place] [address] * (ABNORMAL) Basic metabolic panel (12/04/2024 12:13 PM CDT) Sodium 138 135 - 145 mmol/L Potassium, pl 4.6 3.3 - 4.9 mmol/L [facility] Chloride 101 97 - 110 mmol/L [facility] CO2 24 22 - 32 mmol/L [facility] Anion gap 13 2 - 15 mmol/L [facility] BUN 78(H) 6 - 25 mg/dL [facility] Creatinine 4.23(H) 0.80 - 1.30 mg/dL [facility] Glucose 190 70 - 199 mg/dL [facility] Comment: Interpretive Data Fasting glucose >/= 126 mg/dl is diagnostic for diabetes. Fasting is defined as no caloric intake for at least 8 hours. Fasting glucose between 100 mg/dl to 125 mg/dl is diagnostic of prediabetes. In a patient with classic symptoms of hyperglycemia or hyperglycemic crisis, a random glucose >/= 200 mg/dl is diagnostic for diabetes. In the absence of unequivocal hyperglycemia, results should be confirmed by repeat testing. The classification and Diagnosis of Diabetes Diabetes Care 2021; 46: S19-S40. Current interpretive data was last revised 2022. Calcium 8.4(L) 8.5 - 10.3 mg/dL [facility] Blood 12/04/2024 12:1 3 PM CDT 12/04/2024 12:29 PM CDT Chucho Manrique MD LAB BLOOD ORDERABLES F inal Result Performing Organization Address City/[facility] Co de Phone Number [facility] [place] [address] * (ABNORMAL) POCT glucose (12/04/2024 11:36 AM CDT) Glucose, POC 218(H) 70 - 199 mg/dL Blood 12/04/2024 11:3 6 AM CDT 12/04/2024 11:36 AM CDT Chucho Manrique MD LAB POCT ORDERABLES - DEVICE Final Result Performing Organization Address [facility] Co de Phone Number [facility] [place] [address] * POCT glucose (12/04/2024 7:19 AM CDT) Glucose, POC 175 70 - 199 mg/dL Blood 12/04/2024 7:19 AM CDT 12/04/2024 7:19 AM CDT Chucho Manrique MD LAB POCT ORDERABLES - DEVICE Final Result Performing Organization Address City/[facility] Co de Phone Number [facility] [place] [address] * POCT glucose (12/04/2024 4:44 AM CDT) Glucose, POC 194 70 - 199 mg/dL Blood 12/04/2024 4:44 AM CDT 12/04/2024 4:44 AM CDT Jake Mccray MD LAB POCT ORDERABLES - DEVIC E Final Result Performing Organization Address [facility]/ZIP Co de Phone Number [facility] [place] [address] * Blood culture Blood (12/04/2024 4:44 AM CDT) Report Final Report: No growth Blood 12/04/2024 4:44 AM CDT 12/04/2024 6:01 AM CDT Narrative [facility] - 12/08/2024 7:00 AM CDT Collection->Peripheral 1. Blood cultures are incubated for 4 days on a continuously monitored blood culture system. The first report of a negative culture is issued within 24 hours of receipt of the specimen in the laboratory. 2. Positive culture results are reported as soon as they are detected. 3. The most important factor for detection of microbes in the setting of bloodstream infection is the volume of blood submitted for culture. Failure to collect an optimal blood volume can result in false negative blood cultures. 4. For pediatric patients, the recommended blood volume to collect follows a weight based strategy. See the electronic test catalog for collection instructions. 5. For positive blood cultures, a rapid molecular test may be performed for organism identification using the renetta ePlex blood culture identification panel for gram positive (BCID-GP) and gram negative (BCID-GN) organisms. This nucleic acid amplification test detects microbial DNA in positive blood culture broth. This assay has been cleared by the [place] Food and Drug Administration and its performance characteristics have been verified by the [facility]. For questions about this culture, contact the Microbiology Laboratory at [phone]. Interpretive data was last revised on 24. Jake Mccray MD LAB MICROBIOLOGY - GENERAL ORDERABLES Final Result Performing Organization Address [facility] Co de Phone Number [facility] [place] [address] * POCT glucose (12/04/2024 12:03 AM CDT) Pathologist [facility] Glucose, POC 157 70 - 199 mg/dL Blood 12/04/2024 12:0 3 AM CDT 12/04/2024 12:03 AM CDT Jake Mccray MD LAB POCT ORDERABLES - DEVIC E Final Result Performing Organization Address City/[facility]/ZIP Co de Phone Number [facility] [place] [address] * (ABNORMAL) eGFR (12/03/2024 8:04 PM CDT) [facility] eGFR 19(L) >=60 mL/min/1. 73 m2 Comment: Interpretive Data Reference Interval Normal >/= 90 mL/min/1.73m2 Mildly decreased* 60 - 89 mL/min/1.73m2 Mildly to moderately decreased 45 - 59 mL/min/1.73m2 Moderately to severely decreased 30 - 44 mL/min/1.73m2 Severely decreased 15 - 29 mL/min/1.73m2 Kidney Failure < 15 mL/min/1.73m2 *Relative to young adult level Estimated glomerular filtration rate is determined by the 2020 CKD-EPI equation recommended by the National Kidney [employer] (A Unifying Approach to GFR Estimation: Recommendations of the NKF-ASK Task Force on Reassessing the Inclusion of Race in Diagnosing Kidney Disease, JASN 2020). The CKD-EPI equation should not be used for patients with unstable renal function and has not been validated in children and those over 70. Current interpretive data was last reviewed 2021. Blood 12/03/2024 8:04 PM CDT 12/03/2024 8:24 PM CDT us Jake Mccray MD LAB BLOOD ORDERABLES Final Result [facility] [place] [address] * (ABNORMAL) Differential, auto (12/03/2024 8:04 PM CDT) Neutrophil abs 9.93(H) 1.50 - 6.50 K/cumm Imm gran abs 0.07 0.00 - 0.10 K/cumm [facility] Lymphocyte abs 0.49(L) 0.80 - 3.30 K/cumm [facility] Monocyte abs 1.09(H) 0.20 - 0.80 K/cumm [facility] Eosinophil abs 0.00 0.00 - 0.50 K/cumm [facility] Basophil abs 0.02 0.00 - 0.10 K/cumm [facility] Neutrophil pct 85.6 % [facility] Comment: Interpretive Data Percent cell count reference ranges are not reported, since discordance with absolute values may lead to misinterpretation of CBC data. Current Interpretive Data was last revised on 2017. Imm gran pct 0.6 % [facility] Comment: Interpretive Data Percent cell count reference ranges are not reported, since discordance with absolute values may lead to misinterpretation of CBC data. Current Interpretive Data was last revised on 2017. Lymphocyte pct 4.2 % [facility] Comment: Interpretive Data Percent cell count reference ranges are not reported, since discordance with absolute values may lead to misinterpretation of CBC data. Current Interpretive Data was last revised on 2017. Monocyte pct 9.4 % [facility] Comment: Interpretive Data Percent cell count reference ranges are not reported, since discordance with absolute values may lead to misinterpretation of CBC data. Current Interpretive Data was last revised on 2017. Eosinophil pct 0.0 % [facility] Comment: Interpretive Data Percent cell count reference ranges are not reported, since discordance with absolute values may lead to misinterpretation of CBC data. Current Interpretive Data was last revised on 2017. Basophil pct 0.2 % [facility] Comment: Interpretive Data Percent cell count reference ranges are not reported, since discordance with absolute values may lead to misinterpretation of CBC data. Current Interpretive Data was last revised on 2017. Blood 12/03/2024 8:04 PM CDT 12/03/2024 8:14 PM CDT Jake Mccray MD LAB BLOOD ORDERABLES Final Result Performing Organization Address [facility] Co de Phone Number [facility] Department [place] [address] * (ABNORMAL) CBC with auto differential (12/03/2024 8:04 PM CDT) WBC 11.60(H) 3.80 - 9.90 K/cumm Hgb 8.1(L) 13.0 - 17.5 g/dL [facility] Hct 24.8(L) 38.9 - 50.3 % [facility] Plt 124(L) 150 - 400 K/cumm [facility] MPV 10.4 9.1 - 12.3 fL [facility] RBC 2.62(L) 4.30 - 5.80 M/cumm [facility] MCV 94.7 81.3 - 96.4 fL [facility] MCH 30.9 27.1 - 33.3 pg [facility] MCHC 32.7 32.3 - 35.7 g/dL [facility] RDW CV 13.6 11.1 - 14.9 % [facility] RDW SD 47.3 35.7 - 48.1 fL [facility] NRBC abs 0.00 0.00 - 0.01 K/cumm [facility] Blood 12/03/2024 8:04 PM CDT 12/03/2024 8:14 PM CDT Jake Mccray MD LAB BLOOD ORDERABLES Final Result Performing Organization Address City/[facility]/ZIP Co de Phone Number [facility] [place] [address] * Magnesium (12/03/2024 8:04 PM CDT) Pathologist [facility] Magnesium 2.1 1.4 - 2.5 mg/dL Blood 12/03/2024 8:04 PM CDT 12/03/2024 8:11 PM CDT Result [facility] Jake Mccray MD LAB BLOOD ORDERABLES Final Result Performing Organization Address [facility] [place] [address] * (ABNORMAL) Hemoglobin A1c (12/03/2024 8:04 PM CDT) Hgb A1C 6.2(H) 4.0 - 5.6 % Estimated Average Glucose 131 mg/dL [facility] Comment: The ADA recommends reporting an estimated Average Glucose (eAG) with all Hemoglobin A1c results using the equation derived from a study of 507 normal and diabetic adults. Minority populations were underrepresented and children were not included. (Diabetes Care 2020; 43(S1): S66-S76). The eAG is not equivalent to a fasting glucose. Blood 12/03/2024 8:04 PM CDT 12/03/2024 8:21 PM CDT Result [facility] Jake Mccray MD LAB BLOOD ORDERABLES Final Result Performing Organization Address [facility] [place] [address] * (ABNORMAL) Valproic acid level, total (12/03/2024 8:04 PM CDT) Valproic Acid 16.0(L) 50.0 - 100.0 mcg/mL Comment: Interpretive Data Therapeutic or toxic effects of anticonvulsant drugs may occur at different concentrations in different patients and the correlation between dose and clinical effect must be evaluated individually. Current interpretative data was last revised on 13. Blood 12/03/2024 8:04 PM CDT 12/03/2024 8:11 PM CDT Result Raman Mccray MD LAB BLOOD ORDERABLES Final Result Performing Organization Address City/[facility]/ZIP Co de Phone Number [facility] [place] [address] * (ABNORMAL) Renal function panel (12/03/2024 8:04 PM CDT) Sodium 139 135 - 145 mmol/L Potassium, pl 5.2(H) 3.3 - 4.9 mmol/L [facility] Chloride 105 97 - 110 mmol/L [facility] CO2 23 22 - 32 mmol/L [facility] Anion gap 11 2 - 15 mmol/L [facility] BUN 68(H) 6 - 25 mg/dL [facility] Creatinine 3.43(H) 0.80 - 1.30 mg/dL [facility] Glucose 199 70 - 199 mg/dL [facility] Comment: Interpretive Data Fasting glucose >/= 126 mg/dl is diagnostic for diabetes. Fasting is defined as no caloric intake for at least 8 hours. Fasting glucose between 100 mg/dl to 125 mg/dl is diagnostic of prediabetes. In a patient with classic symptoms of hyperglycemia or hyperglycemic crisis, a random glucose >/= 200 mg/dl is diagnostic for diabetes. In the absence of unequivocal hyperglycemia, results should be confirmed by repeat testing. The classification and Diagnosis of Diabetes Diabetes Care 202; 46: S19-S40. Current interpretive data was last revised 2022. Calcium 8.8 8.5 - 10.3 mg/dL [facility] Phosphorus, pl 3.6 2.3 - 4.5 mg/dL [facility] Albumin 3.0(L) 3.5 - 5.0 g/dL [facility] Blood 12/03/2024 8:04 PM CDT 12/03/2024 8:11 PM CDT Jake Mccray MD LAB BLOOD ORDERABLES Final Result Performing Organization Address City/[facility]/ZIP Co de Phone Number [facility] [place] [address] * (ABNORMAL) POCT glucose (12/03/2024 7:51 PM CDT) Glucose, POC 210(H) 70 - 199 mg/dL Blood 12/03/2024 7:51 PM CDT 12/03/2024 7:51 PM CDT Jake Mccray MD LAB POCT ORDERABLES - DEVIC E Final Result Performing Organization Address [facility] de Phone Number [facility] [place] [address] * (ABNORMAL) POCT glucose (12/03/2024 6:25 PM CDT) Glucose, POC 230(H) 70 - 199 mg/dL Blood 12/03/2024 6:25 PM CDT 12/03/2024 6:25 PM CDT Jake Mccray MD LAB POCT ORDERABLES - DEVIC E Final Result Performing Organization Address [facility] de Phone Number [facility] [place] [address] * (ABNORMAL) POCT glucose (12/03/2024 4:17 PM CDT) Glucose, POC 228(H) 70 - 199 mg/dL Blood 12/03/2024 4:17 PM CDT 12/03/2024 4:17 PM CDT Jake Mccray MD LAB POCT ORDERABLES - DEVIC E Final Result Performing Organization Address [facility] de Phone Number [facility] [place] [address] * (ABNORMAL) POCT glucose (12/03/2024 12:22 PM CDT) Glucose, POC 216(H) 70 - 199 mg/dL Blood 12/03/2024 12:2 2 PM CDT 12/03/2024 12:22 PM CDT us Jake Mccray MD LAB POCT ORDERABLES - DEVIC E Final Result [facility] [place] [address] * CT Recon Thoracic and Lumbar Spine W Contrast (C) (12/03/2024 10:25 AM CDT) Anatomical Region Laterality Modality Spine N/A Computed Tomogra phy 12/03/2024 11:2 1 AM CDT Impressions 12/03/2024 11:31 AM CDT 1. No acute intracranial intracranial process. No large acute territory infarct. 2. No evidence of acute fracture in the cervical, thoracic, or lumbar spine. 3. Stable chronic fracture of the right posterior arch of C1, unchanged from July 2024. 4. Please refer to concurrent CT chest abdomen and pelvis study for chest and body findings. Dictated by: Víctor Rabago M.D. The radiology attending physician has personally reviewed this study, and had reviewed and/or edited this written report and agrees with it. Electronically signed by: Selena Greene M.D. Narrative 12/03/2024 11:31 AM CDT EXAMINATION: 1. CT head without contrast 2. CT of the cervical spine without contrast 3. CT of the thoracic spine with contrast 4. CT of the lumbar spine with contrast HISTORY: Fall TECHNIQUE: CT of the head was performed with images acquired from skull base to vertex without intravenous contrast. CT of the cervical spine was performed according to the standard protocol without intravenous contrast. Dedicated reconstructions of the thoracic and lumbar spine were generated using data from a CT of the chest, abdomen, and pelvis acquired with intravenous contrast according to standard protocol. COMPARISON: CT 12/02/2024, 07/28/2024 FINDINGS: HEAD: Areas of hypoattenuation in the periventricular and deep white matter, which are nonspecific but can be seen in the setting of microvascular ischemic disease. Diffuse cerebral volume loss and diffuse enlargement of the ventricles. Atherosclerotic calcification of the intracranial vessels. There is no acute intracranial hemorrhage. No mass effect or midline shift is present. The pike-white matter differentiation is otherwise normal. The visualized portions of the orbits are normal. The visualized portions of the mastoids are normal. Mucosal thickening of the left maxillary sinus. Chronic nasal bone fracture. CERVICAL SPINE: Reversal of normal cervical lordosis. There is no acute fracture. Chronic fracture of the right posterior arch of C1, unchanged from CT dated 07/28/2024. Mild degenerative anterolisthesis of C4-C5. Multilevel degenerative disc disease, worst at C6-C7 without high-grade canal stenosis. Mild atheromatous plaque in the bilateral carotid bifurcations. THORACIC SPINE: There are 12 rib-bearing thoracic vertebra. The alignment of the thoracic spine is normal. There is no acute fracture. Mild inferior endplate compression deformity of the T10 and T11 vertebral bodies. Multilevel disc bulges. There is no severe facet hypertrophy. No high-grade spinal canal or neural foraminal narrowing. LUMBAR SPINE: The alignment of the lumbar spine is normal. There is no acute fracture. The vertebral bodies are normal in height without compression fractures. No high-grade osseous canal stenosis. Inferior vena cava filter. Atherosclerotic but not aneurysmal abdominal aorta. Please refer to concurrent CT chest abdomen and pelvis study for chest and body findings. Procedure Note Selena Moncada MD - 12/03/2024 EXAMINATION: 1. CT head without contrast 2. CT of the cervical spine without contrast 3. CT of the thoracic spine with contrast 4. CT of the lumbar spine with contrast HISTORY: Fall TECHNIQUE: CT of the head was performed with images acquired from skull base to vertex without intravenous contrast. CT of the cervical spine was performed according to the standard protocol without intravenous contrast. Dedicated reconstructions of the thoracic and lumbar spine were generated using data from a CT of the chest, abdomen, and pelvis acquired with intravenous contrast according to standard protocol. COMPARISON: CT 12/02/2024, 07/28/2024 FINDINGS: HEAD: Areas of hypoattenuation in the periventricular and deep white matter, which are nonspecific but can be seen in the setting of microvascular ischemic disease. Diffuse cerebral volume loss and diffuse enlargement of the ventricles. Atherosclerotic calcification of the intracranial vessels. There is no acute intracranial hemorrhage. No mass effect or midline shift is present. The pike-white matter differentiation is otherwise normal. The visualized portions of the orbits are normal. The visualized portions of the mastoids are normal. Mucosal thickening of the left maxillary sinus. Chronic nasal bone fracture. CERVICAL SPINE: Reversal of normal cervical lordosis. There is no acute fracture. Chronic fracture of the right posterior arch of C1, unchanged from CT dated 07/28/2024. Mild degenerative anterolisthesis of C4-C5. Multilevel degenerative disc disease, worst at C6-C7 without high-grade canal stenosis. Mild atheromatous plaque in the bilateral carotid bifurcations. THORACIC SPINE: There are 12 rib-bearing thoracic vertebra. The alignment of the thoracic spine is normal. There is no acute fracture. Mild inferior endplate compression deformity of the T10 and T11 vertebral bodies. Multilevel disc bulges. There is no severe facet hypertrophy. No high-grade spinal canal or neural foraminal narrowing. LUMBAR SPINE: The alignment of the lumbar spine is normal. There is no acute fracture. The vertebral bodies are normal in height without compression fractures. No high-grade osseous canal stenosis. Inferior vena cava filter. Atherosclerotic but not aneurysmal abdominal aorta. Please refer to concurrent CT chest abdomen and pelvis study for chest and body findings. IMPRESSION: 1. No acute intracranial intracranial process. No large acute territory infarct. 2. No evidence of acute fracture in the cervical, thoracic, or lumbar spine. 3. Stable chronic fracture of the right posterior arch of C1, unchanged from July 2024. 4. Please refer to concurrent CT chest abdomen and pelvis study for chest and body findings. Dictated by: Víctor Rabago M.D. The radiology attending physician has personally reviewed this study, and had reviewed and/or edited this written report and agrees with it. Electronically signed by: Selena Greene M.D. Ward Mcmullen MD IM CT PROCEDURES Becky l Result * CT Head and Cervical Spine WO Contrast (12/03/2024 10:25 AM CDT) Anatomical Region Laterality Modality Head and Neck N/A Computed Tomogra phy 12/03/2024 11:2 1 AM CDT Impressions 12/03/2024 11:31 AM CDT 1. No acute intracranial intracranial process. No large acute territory infarct. 2. No evidence of acute fracture in the cervical, thoracic, or lumbar spine. 3. Stable chronic fracture of the right posterior arch of C1, unchanged from July 2024. 4. Please refer to concurrent CT chest abdomen and pelvis study for chest and body findings. Dictated by: Víctor Rabago M.D. The radiology attending physician has personally reviewed this study, and had reviewed and/or edited this written report and agrees with it. Electronically signed by: Selena Greene M.D. Narrative 12/03/2024 11:31 AM CDT EXAMINATION: 1. CT head without contrast 2. CT of the cervical spine without contrast 3. CT of the thoracic spine with contrast 4. CT of the lumbar spine with contrast HISTORY: Fall TECHNIQUE: CT of the head was performed with images acquired from skull base to vertex without intravenous contrast. CT of the cervical spine was performed according to the standard protocol without intravenous contrast. Dedicated reconstructions of the thoracic and lumbar spine were generated using data from a CT of the chest, abdomen, and pelvis acquired with intravenous contrast according to standard protocol. COMPARISON: CT 12/02/2024, 07/28/2024 FINDINGS: HEAD: Areas of hypoattenuation in the periventricular and deep white matter, which are nonspecific but can be seen in the setting of microvascular ischemic disease. Diffuse cerebral volume loss and diffuse enlargement of the ventricles. Atherosclerotic calcification of the intracranial vessels. There is no acute intracranial hemorrhage. No mass effect or midline shift is present. The pike-white matter differentiation is otherwise normal. The visualized portions of the orbits are normal. The visualized portions of the mastoids are normal. Mucosal thickening of the left maxillary sinus. Chronic nasal bone fracture. CERVICAL SPINE: Reversal of normal cervical lordosis. There is no acute fracture. Chronic fracture of the right posterior arch of C1, unchanged from CT dated 07/28/2024. Mild degenerative anterolisthesis of C4-C5. Multilevel degenerative disc disease, worst at C6-C7 without high-grade canal stenosis. Mild atheromatous plaque in the bilateral carotid bifurcations. THORACIC SPINE: There are 12 rib-bearing thoracic vertebra. The alignment of the thoracic spine is normal. There is no acute fracture. Mild inferior endplate compression deformity of the T10 and T11 vertebral bodies. Multilevel disc bulges. There is no severe facet hypertrophy. No high-grade spinal canal or neural foraminal narrowing. LUMBAR SPINE: The alignment of the lumbar spine is normal. There is no acute fracture. The vertebral bodies are normal in height without compression fractures. No high-grade osseous canal stenosis. Inferior vena cava filter. Atherosclerotic but not aneurysmal abdominal aorta. Please refer to concurrent CT chest abdomen and pelvis study for chest and body findings. Procedure Note Selena Moncada MD - 12/03/2024 EXAMINATION: 1. CT head without contrast 2. CT of the cervical spine without contrast 3. CT of the thoracic spine with contrast 4. CT of the lumbar spine with contrast HISTORY: Fall TECHNIQUE: CT of the head was performed with images acquired from skull base to vertex without intravenous contrast. CT of the cervical spine was performed according to the standard protocol without intravenous contrast. Dedicated reconstructions of the thoracic and lumbar spine were generated using data from a CT of the chest, abdomen, and pelvis acquired with intravenous contrast according to standard protocol. COMPARISON: CT 12/02/2024, 07/28/2024 FINDINGS: HEAD: Areas of hypoattenuation in the periventricular and deep white matter, which are nonspecific but can be seen in the setting of microvascular ischemic disease. Diffuse cerebral volume loss and diffuse enlargement of the ventricles. Atherosclerotic calcification of the intracranial vessels. There is no acute intracranial hemorrhage. No mass effect or midline shift is present. The pike-white matter differentiation is otherwise normal. The visualized portions of the orbits are normal. The visualized portions of the mastoids are normal. Mucosal thickening of the left maxillary sinus. Chronic nasal bone fracture. CERVICAL SPINE: Reversal of normal cervical lordosis. There is no acute fracture. Chronic fracture of the right posterior arch of C1, unchanged from CT dated 07/28/2024. Mild degenerative anterolisthesis of C4-C5. Multilevel degenerative disc disease, worst at C6-C7 without high-grade canal stenosis. Mild atheromatous plaque in the bilateral carotid bifurcations. THORACIC SPINE: There are 12 rib-bearing thoracic vertebra. The alignment of the thoracic spine is normal. There is no acute fracture. Mild inferior endplate compression deformity of the T10 and T11 vertebral bodies. Multilevel disc bulges. There is no severe facet hypertrophy. No high-grade spinal canal or neural foraminal narrowing. LUMBAR SPINE: The alignment of the lumbar spine is normal. There is no acute fracture. The vertebral bodies are normal in height without compression fractures. No high-grade osseous canal stenosis. Inferior vena cava filter. Atherosclerotic but not aneurysmal abdominal aorta. Please refer to concurrent CT chest abdomen and pelvis study for chest and body findings. IMPRESSION: 1. No acute intracranial intracranial process. No large acute territory infarct. 2. No evidence of acute fracture in the cervical, thoracic, or lumbar spine. 3. Stable chronic fracture of the right posterior arch of C1, unchanged from July 2024. 4. Please refer to concurrent CT chest abdomen and pelvis study for chest and body findings. Dictated by: Víctor Rabago M.D. The radiology attending physician has personally reviewed this study, and had reviewed and/or edited this written report and agrees with it. Electronically signed by: Selena Greene M.D. Ward Mcmullen MD IMG CT PROCEDURES Becky l Result * CT Chest Abdomen Pelvis W Contrast (12/03/2024 10:25 AM CDT) Anatomical Region Laterality Modality Body N/A Computed Tomogra phy 12/03/2024 10:4 6 AM CDT Impressions 12/03/2024 10:46 AM CDT 1. No acute traumatic injury in the chest abdomen or pelvis. 2. Nonspecific urothelial thickening within the proximal right ureter for which correlation with urinalysis is recommended for the possibility of urinary tract infection. Electronically signed by: Sohail Lewis M.D. Narrative 12/03/2024 10:46 AM CDT EXAMINATION: Computed tomography of the chest, abdomen and pelvis with intravenous contrast HISTORY: Trauma. TECHNIQUE: Transaxial computed tomographic images of the chest, abdomen and pelvis were obtained with intravenous contrast according to the standard protocol after the uneventful administration of 93 mL Opti-Ray 350 intravenous contrast. Of note, the patient had an elevated creatinine at the time of the scan, but the benefits of the exam were felt to outweigh the risks per the requesting team. COMPARISON: 07/11/2024 FINDINGS: Atelectasis is present dependently in both lungs. There is trace pulmonary edema in the lung apices. No pleural effusion or pneumothorax. No suspicious pulmonary nodule or mass. Central airways are widely patent. No pulmonary contusion or laceration. Normal heart size without pericardial effusion. Nonaneurysmal thoracic aorta. Coronary atherosclerotic calcifications are present. No thoracic lymphadenopathy. No mediastinal hematoma. No suspicious liver lesion or biliary duct dilatation. Nondistended gallbladder. Normal-appearing adrenal glands pancreas and spleen. No solid organ laceration or perivisceral hematoma. No hydronephrosis or suspicious renal lesion. Mild urothelial thickening is noted within the proximal right ureter. Atherosclerotic, nonaneurysmal abdominal aorta. Inferior vena cava filter in place. No abdominal or pelvic lymphadenopathy. Urinary bladder decompressed by Cam catheter. Normal sized prostate gland. No free intraperitoneal fluid or free gas. No intestinal obstruction or focal bowel wall thickening. No peritoneal or omental nodularity. Normal appendix. No mesenteric or retroperitoneal hematoma. There are changes from bilateral acetabular reconstruction and left femur intramedullary nail placement. 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 Thoracolumbar spine degenerative disc disease without vertebral body height loss. There are old right-sided rib fractures. Procedure Note Sohail Lewis MD - 12/03/2024 EXAMINATION: Computed tomography of the chest, abdomen and pelvis with intravenous contrast HISTORY: Trauma. TECHNIQUE: Transaxial computed tomographic images of the chest, abdomen and pelvis were obtained with intravenous contrast according to the standard protocol after the uneventful administration of 93 mL Opti-Ray 350 intravenous contrast. Of note, the patient had an elevated creatinine at the time of the scan, but the benefits of the exam were felt to outweigh the risks per the requesting team. COMPARISON: 07/11/2024 FINDINGS: Atelectasis is present dependently in both lungs. There is trace pulmonary edema in the lung apices. No pleural effusion or pneumothorax. No suspicious pulmonary nodule or mass. Central airways are widely patent. No pulmonary contusion or laceration. Normal heart size without pericardial effusion. Nonaneurysmal thoracic aorta. Coronary atherosclerotic calcifications are present. No thoracic lymphadenopathy. No mediastinal hematoma. No suspicious liver lesion or biliary duct dilatation. Nondistended gallbladder. Normal-appearing adrenal glands pancreas and spleen. No solid organ laceration or perivisceral hematoma. No hydronephrosis or suspicious renal lesion. Mild urothelial thickening is noted within the proximal right ureter. Atherosclerotic, nonaneurysmal abdominal aorta. Inferior vena cava filter in place. No abdominal or pelvic lymphadenopathy. Urinary bladder decompressed by Cam catheter. Normal sized prostate gland. No free intraperitoneal fluid or free gas. No intestinal obstruction or focal bowel wall thickening. No peritoneal or omental nodularity. Normal appendix. No mesenteric or retroperitoneal hematoma. There are changes from bilateral acetabular reconstruction and left femur intramedullary nail placement. 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 Thoracolumbar spine degenerative disc disease without vertebral body height loss. There are old right-sided rib fractures. IMPRESSION: 1. No acute traumatic injury in the chest abdomen or pelvis. 2. Nonspecific urothelial thickening within the proximal right ureter for which correlation with urinalysis is recommended for the possibility of urinary tract infection. Electronically signed by: Sohail Lewis M.D. Antione Honeycutt MD IM CT PROCEDURES F inal Result * XR Pelvis 1 or 2 Views (12/03/2024 9:11 AM CDT) Anatomical Region Laterality Modality Body, Pelvis N/A Computed Radiogr aphy 12/03/2024 9:17 AM CDT Impressions 12/03/2024 9:17 AM CDT 1. No acute traumatic injury within the chest or pelvis. Electronically signed by: Sohail Lewis M.D. Narrative 12/03/2024 9:17 AM CDT EXAMINATION: XR CHEST 1 VIEW, XR PELVIS 1 OR 2 VIEWS HISTORY: Trauma COMPARISON: 07/11/2024 FINDINGS: Single view exam of the chest demonstrates small lung volumes with bibasilar atelectasis. Normal heart size. No pleural effusion or pneumothorax. Partially imaged internally fixated left humerus fracture. Single view exam of the pelvis demonstrates changes of bilateral acetabular reconstruction and left femur intramedullary nailing. Healed fractures of the left superior and inferior pelvic rami. Extensive heterotopic ossification surrounds both hip joint spaces. Procedure Note Sohail Lewis MD - 12/03/2024 EXAMINATION: XR CHEST 1 VIEW, XR PELVIS 1 OR 2 VIEWS HISTORY: Trauma COMPARISON: 07/11/2024 FINDINGS: Single view exam of the chest demonstrates small lung volumes with bibasilar atelectasis. Normal heart size. No pleural effusion or pneumothorax. Partially imaged internally fixated left humerus fracture. Single view exam of the pelvis demonstrates changes of bilateral acetabular reconstruction and left femur intramedullary nailing. Healed fractures of the left superior and inferior pelvic rami. Extensive heterotopic ossification surrounds both hip joint spaces. IMPRESSION: 1. No acute traumatic injury within the chest or pelvis. Electronically signed by: Sohail Lewis M.D. Antione Honeycutt MD IMG XR PROCEDURES F inal Result * XR Chest 1 View (12/03/2024 9:11 AM CDT) Anatomical Region Laterality Modality Body, Chest N/A Computed Radiogr aphy 12/03/2024 9:17 AM CDT Impressions 12/03/2024 9:17 AM CDT 1. No acute traumatic injury within the chest or pelvis. Electronically signed by: Sohail Lewis M.D. Narrative 12/03/2024 9:17 AM CDT EXAMINATION: XR CHEST 1 VIEW, XR PELVIS 1 OR 2 VIEWS HISTORY: Trauma COMPARISON: 07/11/2024 FINDINGS: Single view exam of the chest demonstrates small lung volumes with bibasilar atelectasis. Normal heart size. No pleural effusion or pneumothorax. Partially imaged internally fixated left humerus fracture. Single view exam of the pelvis demonstrates changes of bilateral acetabular reconstruction and left femur intramedullary nailing. Healed fractures of the left superior and inferior pelvic rami. Extensive heterotopic ossification surrounds both hip joint spaces. Procedure Note Sohail Lewis MD - 12/03/2024 EXAMINATION: XR CHEST 1 VIEW, XR PELVIS 1 OR 2 VIEWS HISTORY: Trauma COMPARISON: 07/11/2024 FINDINGS: Single view exam of the chest demonstrates small lung volumes with bibasilar atelectasis. Normal heart size. No pleural effusion or pneumothorax. Partially imaged internally fixated left humerus fracture. Single view exam of the pelvis demonstrates changes of bilateral acetabular reconstruction and left femur intramedullary nailing. Healed fractures of the left superior and inferior pelvic rami. Extensive heterotopic ossification surrounds both hip joint spaces. IMPRESSION: 1. No acute traumatic injury within the chest or pelvis. Electronically signed by: Sohail Lewis M.D. Antione Honeycutt MD IMG XR PROCEDURES F inal Result * (ABNORMAL) POCT creatinine (12/03/2024 8:47 AM CDT) [facility] Creatinine POC 3.5(H) 0.8 - 1.3 mg/dL Blood 12/03/2024 8:47 AM CDT 12/03/2024 8:47 AM CDT Ward Mcmullen MD LAB POCT ORDERABLES - DEVICE Final Result Performing Organization Address [facility] de Phone Number [facility] [place] [place] [address] * POCT lactate (12/03/2024 8:43 AM CDT) [facility] Lactate POC i-STAT 1.0 0.7 - 2.0 mmol/L Blood 12/03/2024 8:43 AM CDT 12/03/2024 8:43 AM CDT Ward Mcmullen MD LAB POCT ORDERABLES - DEVICE Final Result Performing Organization Address [facility] de Phone Number [facility] [place] [place] [address] * (ABNORMAL) Urinalysis reflex to microscopic and culture Urine (12/03/2024 8:38 AM CDT) Pathologist [facility] Color, ur Yellow Yellow Clarity, ur Cloudy(A) Clear [facility] Specific gravity, ur 1.019 1.003 - 1.030 [facility] pH, urine 6.0 [facility] Comment: Interpretive Data U rine pH is affected by diet, medications, systemic acid-base disturbances, and renal tubular function. pH may affect urinary stone formation. For example, urine pH below 6.0 may help reduce the tendency for calcium phosphate stones and pH greater than 6.0 may reduce the tendency for uric acid stone formation. Source: [facility] Current Interpretive Data was last revised on 2017 Protein, ur ql 2+(A) Negative [facility] Glucose, ur ql Negative Negative [facility] Ketones, ur Trace Negative [facility] Bilirubin, ur Negative Negative [facility] Blood, ur 2+(A) Negative [facility] Urobilinogen, ur <2.0 <2.0 mg/dL [facility] Nitrite, ur Negative Negative [facility] Leukocyte esterase, ur 3+(A) Negative [facility] UA reflex comment Reflex to microscopic UA will be performed. [facility] Urine 12/03/2024 8:38 AM CDT 12/03/2024 8:45 AM CDT Antione Honeycutt MD LAB MICROBIOLOGY - GENERAL ORDERABLES Final Result [facility] One [facility] [place] [address] * (ABNORMAL) Urinalysis, microscopic only (12/03/2024 8:38 AM CDT) WBC, ur >50(A) 0 - 5 /HPF RBC, ur 11-20(A) 0 - 2 /HPF [facility] Epithelial cells, squamous, ur 11-20(A) 0 - 5 /HPF [facility] Comment:Suggestive of contam ination. Consider recollection by clean catch. Bacteria, ur 1+(A) [facility] Mucous, ur Present(A) [facility] Culture Reflex Comment Reflex to urine culture will be performed. [facility] Urine 12/03/2024 8:38 AM CDT 12/03/2024 8:45 AM CDT Antione Honeycutt MD LAB URINE ORDERABLE S Final Result Performing Organization Address [facility] Co de Phone Number [facility] [place] [address] * (ABNORMAL) Urine culture Urine (12/03/2024 8:38 AM CDT) Report Final Report: Greater than or equal to 100,000 colonies/mL of Escherichia coli (.) Organism ESCHERICHIA COLI [facility] Urine 12/03/2024 8:38 AM CDT 12/03/2024 10:33 AM CDT Narrative [facility] - 12/05/2024 9:24 AM CDT Urine culture reflexed based upon urinalysis results. Testing performed by [facility] ([phone]) Organism Antibiotic Method Susceptibility Escherichia coli Ampicillin INTERPRETATION Susceptible Escherichia coli Cefazolin INTERPRETATION Susceptible Escherichia coli Nitrofurantoin INTERPRETATION Susceptible Escherichia coli Gentamicin INTERPRETATION Susceptible Escherichia coli Trimethoprim with Sulfamethoxazole IN TERPRETATION Susceptible Escherichia coli Meropenem INTERPRETATION Susceptible Escherichia coli Cefepime INTERPRETATION Susceptible Escherichia coli Ciprofloxacin INTERPRETATION Susceptible Escherichia coli Ceftazidime INTERPRETATION Susceptible Escherichia coli Ceftriaxone INTERPRETATION Susceptible Escherichia coli Piperacillin/Tazobactam INTERPRETATIO N Susceptible Escherichia coli Cephalexin INTERPRETATION Susceptible Escherichia coli Cefuroxime-axetil INTERPRETATION Susceptible Escherichia coli Cefdinir INTERPRETATION Susceptible Antione Honeycutt MD LAB MICROBIOLOGY - GENERAL ORDERABLES Final Result Performing Organization Address [facility] Co de Phone Number [facility] One [facility] Department [place] [address] * Troponin I high-sensitivity series (baseline, 2hr, 4hr, 6hr) (12/03/2024 8:36 AM CDT) Trop I hs 25 <=35 ng/L Comment: Interpretive Data For further hscTnI resources including the diagnostic algorithm and an aid in interpretation, copy and paste this link: [email or web address] Current Interpretive Data last revised 2020. Blood 12/03/2024 8:36 AM CDT 12/03/2024 8:45 AM CDT Antione Honeycutt MD LAB BLOOD ORDERABLE S Final Result [facility] [place] [address] * (ABNORMAL) eGFR (12/03/2024 8:36 AM CDT) eGFR 18(L) >=60 mL/min/1. 73 m2 Comment: Interpretive Data Reference Interval Normal >/= 90 mL/min/1.73m2 Mildly decreased* 60 - 89 mL/min/1.73m2 Mildly to moderately decreased 45 - 59 mL/min/1.73m2 Moderately to severely decreased 30 - 44 mL/min/1.73m2 Severely decreased 15 - 29 mL/min/1.73m2 Kidney Failure < 15 mL/min/1.73m2 *Relative to young adult level Estimated glomerular filtration rate is determined by the 2020 CKD-EPI equation recommended by the National Kid[employer] (A Unifying Approach to GFR Estimation: Recommendations of the NKF-ASK Task Force on Reassessing the Inclusion of Race in Diagnosing Kidney Disease, JASN 2020). The CKD-EPI equation should not be used for patients with unstable renal function and has not been validated in children and those over 70. Current interpretive data was last reviewed 2021. Blood 12/03/2024 8:36 AM CDT 12/03/2024 8:45 AM CDT us Antione Honeycutt MD LAB BLOOD ORDERABLE S Final Result [facility] [place] [address] * (ABNORMAL) Differential, auto (12/03/2024 8:36 AM CDT) Neutrophil abs 10.24(H) 1.50 - 6.50 K/cumm Imm gran abs 0.08 0.00 - 0.10 K/cumm [facility] Lymphocyte abs 0.45(L) 0.80 - 3.30 K/cumm [facility] Monocyte abs 1.16(H) 0.20 - 0.80 K/cumm [facility] Eosinophil abs 0.00 0.00 - 0.50 K/cumm [facility] Basophil abs 0.02 0.00 - 0.10 K/cumm [facility] Neutrophil pct 85.6 % [facility] Comment: Interpretive Data Percent cell count reference ranges are not reported, since discordance with absolute values may lead to misinterpretation of CBC data. Current Interpretive Data was last revised on 2017. Imm gran pct 0.7 % [facility] Comment: Interpretive Data Percent cell count reference ranges are not reported, since discordance with absolute values may lead to misinterpretation of CBC data. Current Interpretive Data was last revised on 2017. Lymphocyte pct 3.8 % [facility] Comment: Interpretive Data Percent cell count reference ranges are not reported, since discordance with absolute values may lead to misinterpretation of CBC data. Current Interpretive Data was last revised on 2017. Monocyte pct 9.7 % [facility] Comment: Interpretive Data Percent cell count reference ranges are not reported, since discordance with absolute values may lead to misinterpretation of CBC data. Current Interpretive Data was last revised on 2017. Eosinophil pct 0.0 % [facility] Comment: Interpretive Data Percent cell count reference ranges are not reported, since discordance with absolute values may lead to misinterpretation of CBC data. Current Interpretive Data was last revised on 2017. Basophil pct 0.2 % [facility] Comment: Interpretive Data Percent cell count reference ranges are not reported, since discordance with absolute values may lead to misinterpretation of CBC data. Current Interpretive Data was last revised on 2017. Blood 12/03/2024 8:36 AM CDT 12/03/2024 8:45 AM CDT us Antione Honeycutt MD LAB BLOOD ORDERABLE S Final Result [facility] One [facility] [place] [address] * Respiratory pathogen panel Nasopharyngeal (12/03/2024 8:36 AM CDT) Pathologist [facility] Influenza A RNA Not Detected Not Detected Influenza B RNA Not Detected Not Detected [facility] RSV RNA Not Detected Not Detected [facility] COVID-19 RNA Not Detected Not Detected [facility] Coronavirus 229E RNA Not Detected Not Detected [facility] Coronavirus HKU1 RNA Not Detected Not Detected [facility] Coronavirus NL63 RNA Not Detected Not Detected [facility] Coronavirus OC43 RNA Not Detected Not Detected [facility] Adenovirus DNA Not Detected Not Detected [facility] Metapneumovirus RNA Not Detected Not Detected [facility] Rhinovirus/Enterov irus RNA Not Detected Not Detected [facility] Parainfluenza 1 RNA Not Detected Not Detected [facility] Parainfluenza 2 RNA Not Detected Not Detected [facility] Parainfluenza 3 RNA Not Detected Not Detected [facility] Parainfluenza 4 RNA Not Detected Not Detected [facility] B. pertussis DNA Not Detected Not Detected [facility] B. parapertussis DNA Not Detected Not Detected [facility] C. pneumoniae DNA Not Detected Not Detected [facility] M. pneumoniae DNA Not Detected Not Detected [facility] Nasopharyngeal 12/03/2024 8: 36 AM CDT 12/03/2024 8:50 AM CDT Narrative [facility] - 12/03/2024 9:46 AM CDT Is the Patient experiencing symptoms consistent with COVID?->Yes Surveillance testing for transplant patient?->No Interpretive Data The [employer] FilmArray Respiratory Panel (RP2.1) assay is a multiplexed real-time PCR based nucleic acid test capable of simultaneous qualitative detection and identification of multiple respiratory viral and bacterial nucleic acids, including SARS Coronavirus 2 (the causative agent of COVID-19). The following bacteria, viruses and virus subtypes can be identified using the FilmArray RP2.1 assay: Bordetella pertussis, Bordetella parapertussis, Chlamydia pneumoniae, Mycoplasma pneumoniae, Adenovirus, SARS Coronavirus 2, seasonal coronaviruses (Coronavirus HKU1, Coronavirus NL63, Coronavirus 229E, and Coronavirus OC43), Influenza A, Influenza A subtype H1, Influenza A subtype H3, Influenza A subtype 2009 H1, Influenza B, Metapneumovirus, Parainfluenza 1, Parainfluenza 2, Parainfluenza 3, Parainfluenza 4, RSV, Rhinovirus/Enterovirus. Due to the genetic similarity between human Rhinovirus and Enterovirus, the FilmArray RP2.1 assay cannot reliably differentiate them. Coronavirus OC43 may cross-react with some isolates of Coronavirus HKU1. A dual positive result may be due to cross-reactivity or may indicate a co- infection. The detection and identification of specific viral and bacterial nucleic acids from individuals exhibiting signs and symptoms of a respiratory infection aids in the diagnosis of respiratory infection if used in conjunction with other clinical and epidemiological information. The results of this test should not be used as the sole basis for diagnosis, treatment, or other management decisions. Negative results in the setting of a respiratory illness may be due to infection with pathogens that are not detected by this test. Positive results do not rule out infection/co-infection with other organisms. The agent(s) detected by the FilmArray RP2.1 may not be the definite cause of disease. Additional testing (lab, imaging, etc.) may be necessary when evaluating a patient with possible respiratory tract infection. The FilmArray RP2.1 assay has FDA clearance for testing of PROBLEM MANAGER swabs. The performance of additional specimen types has been assessed by the performing laboratory. The performance characteristics of this assay have been determined by [facility]. Current interpretive data was last revised on 22. Antione Honeycutt MD LAB MICROBIOLOGY - GENERAL ORDERABLES Final Result [facility] One [facility] [place] [address] * (ABNORMAL) CBC with auto differential (12/03/2024 8:36 AM CDT) [facility] WBC 11.95(H) 3.80 - 9.90 K/cumm Hgb 9.6(L) 13.0 - 17.5 g/dL [facility] Hct 29.3(L) 38.9 - 50.3 % [facility] Plt 136(L) 150 - 400 K/cumm [facility] MPV 10.7 9.1 - 12.3 fL [facility] RBC 3.11(L) 4.30 - 5.80 M/cumm [facility] MCV 94.2 81.3 - 96.4 fL [facility] MCH 30.9 27.1 - 33.3 pg [facility] MCHC 32.8 32.3 - 35.7 g/dL [facility] RDW CV 13.6 11.1 - 14.9 % [facility] RDW SD 46.9 35.7 - 48.1 fL [facility] NRBC abs 0.00 0.00 - 0.01 K/cumm [facility] Blood 12/03/2024 8:36 AM CDT 12/03/2024 8:45 AM CDT Antione Honeycutt MD LAB BLOOD ORDERABLE S Final Result [facility] One [facility] [place] [address] * (ABNORMAL) Blood culture Blood Peripheral (12/03/2024 8:36 AM CDT) Direct Specimen Exam Stain: Gram Negative Bacilli Time to culture positivity (anaerobic media): 10.4 hours Time to culture positivity (aerobic media): 15.1 hours Notification of: Gram Negative Bacilli called to and read back by: Vani Davis MD [phone] on 12/03/2024 19:44:29 by: Chely Cisneros MT Direct Specimen Exam Molecular Analysis: Presumptive Escherichia coli detected by [employer] ePlex BCID-GN panel. This test does not exclude the possibility of a mixed bacterial infection. Notification of: Presumptive Escherichia coli called to and read back by: Amber Wiggins MD [phone] on 12/03/2024 21:59:15 by: Chely Cisneros MT [facility] Report Final Report: Escherichia coli * * * * * * * * * * * * * * * * * * * * Escherichia coli #2 For susceptibility results, refer to accession number [id number] on the blood culture from 12/03/2024 (.) PAMELA MAJOR Organism ESCHERICHIA COLI [facility] Organism ESCHERICHIA COLI [facility] Blood (Peripheral) 12/03/2024 8:36 AM CDT 12/03/2024 8:46 AM CDT Narrative [facility] - 12/06/2024 12:06 PM CDT From a different site than #1. Draw Blood cultures before administration of Antibiotics Collection->Peripheral 1. Blood cultures are incubated for 4 days on a continuously monitored blood culture system. The first report of a negative culture is issued within 24 hours of receipt of the specimen in the laboratory. 2. Positive culture results are reported as soon as they are detected. 3. The most important factor for detection of microbes in the setting of bloodstream infection is the volume of blood submitted for culture. Failure to collect an optimal blood volume can result in false negative blood cultures. 4. For pediatric patients, the recommended blood volume to collect follows a weight based strategy. See the electronic test catalog for collection instructions. 5. For positive blood cultures, a rapid molecular test may be performed for organism identification using the [employer] ePlex blood culture identification panel for gram positive (BCID-GP) and gram negative (BCID-GN) organisms. This nucleic acid amplification test detects microbial DNA in positive blood culture broth. This assay has been cleared by the [place] Food and Drug Administration and its performance characteristics have been verified by the [facility]. For questions about this culture, contact the Microbiology Laboratory at [phone]. Interpretive data was last revised on 24. Organism Antibiotic Method Susceptibility Escherichia coli Ampicillin INTERPRETATION Susceptible Escherichia coli Cefazolin INTERPRETATION Susceptible Escherichia coli Gentamicin INTERPRETATION Susceptible Escherichia coli Ampicillin with Sulbactam INTERPRETAT ION Susceptible Escherichia coli Trimethoprim with Sulfamethoxazole IN TERPRETATION Susceptible Escherichia coli Meropenem INTERPRETATION Susceptible Escherichia coli Cefepime INTERPRETATION Susceptible Escherichia coli Ciprofloxacin INTERPRETATION Susceptible Escherichia coli Ceftazidime INTERPRETATION Susceptible Escherichia coli Ceftriaxone INTERPRETATION Susceptible Escherichia coli Piperacillin/Tazobactam INTERPRETATIO N Susceptible us Antione Honeycutt MD LAB MICROBIOLOGY - GENERAL ORDERABLES Final Result PAMELA BARNES [facility] [place] [address] * (ABNORMAL) Blood culture Blood Peripheral (12/03/2024 8:36 AM CDT) Direct Specimen Exam Stain: Gram Negative Bacilli Time to culture positivity (anaerobic media): 12.9 hours Time to culture positivity (aerobic media): 13.6 hours Report Final Report: Escherichia coli For susceptibility results, refer to accession number [id number] on the blood culture from 12/03/2024 Escherichia coli #2 (.) [facility] Organism [facility] Organism [facility]ERICH[facility] Blood (Peripheral) 12/03/2024 8:36 AM CDT 12/03/2024 8:46 AM CDT Narrative PAMELA MAJOR - 12/07/2024 2:40 PM CDT Draw Blood cultures before administration of Antibiotics Collection->Peripheral 1. Blood cultures are incubated for 4 days on a continuously monitored blood culture system. The first report of a negative culture is issued within 24 hours of receipt of the specimen in the laboratory. 2. Positive culture results are reported as soon as they are detected. 3. The most important factor for detection of microbes in the setting of bloodstream infection is the volume of blood submitted for culture. Failure to collect an optimal blood volume can result in false negative blood cultures. 4. For pediatric patients, the recommended blood volume to collect follows a weight based strategy. See the electronic test catalog for collection instructions. 5. For positive blood cultures, a rapid molecular test may be performed for organism identification using the renetta ePlex blood culture identification panel for gram positive (BCID-GP) and gram negative (BCID-GN) organisms. This nucleic acid amplification test detects microbial DNA in positive blood culture broth. This assay has been cleared by the [place] Food and Drug Administration and its performance characteristics have been verified by the [facility]. For questions about this culture, contact the Microbiology Laboratory at [phone]. Interpretive data was last revised on 24. Organism Antibiotic Method Susceptibility Escherichia coli Ampicillin INTERPRETATION Susceptible Escherichia coli Cefazolin INTERPRETATION Susceptible Escherichia coli Gentamicin INTERPRETATION Susceptible Escherichia coli Ampicillin with Sulbactam INTERPRETAT ION Susceptible Escherichia coli Trimethoprim with Sulfamethoxazole IN TERPRETATION Susceptible Escherichia coli Meropenem INTERPRETATION Susceptible Escherichia coli Cefepime INTERPRETATION Susceptible Escherichia coli Ciprofloxacin INTERPRETATION Susceptible Escherichia coli Ceftazidime INTERPRETATION Susceptible Escherichia coli Ceftriaxone INTERPRETATION Susceptible Escherichia coli Piperacillin/Tazobactam INTERPRETATIO N Susceptible Antione Honeycutt MD LAB MICROBIOLOGY - GENERAL ORDERABLES Final Result [facility] [place] [address] * (ABNORMAL) Comprehensive metabolic panel (12/03/2024 8:36 AM CDT) [facility] Signature Sodium 138 135 - 145 mmol/L Potassium, pl 5.2(H) 3.3 - 4.9 mmol/L [facility] Chloride 102 97 - 110 mmol/L [facility] CO2 23 22 - 32 mmol/L [facility] Anion gap 13 2 - 15 mmol/L [facility] BUN 60(H) 6 - 25 mg/dL [facility] Creatinine 3.53(H) 0.80 - 1.30 mg/dL [facility] Glucose 245(H) 70 - 199 mg/dL [facility] Comment: Interpretive Data Fasting glucose >/= 126 mg/dl is diagnostic for diabetes. Fasting is defined as no caloric intake for at least 8 hours. Fasting glucose between 100 mg/dl to 125 mg/dl is diagnostic of prediabetes. In a patient with classic symptoms of hyperglycemia or hyperglycemic crisis, a random glucose >/= 200 mg/dl is diagnostic for diabetes. In the absence of unequivocal hyperglycemia, results should be confirmed by repeat testing. The classification and Diagnosis of Diabetes Diabetes Care 202; 46: S19-S40. Current interpretive data was last revised 2022. Calcium 9.0 8.5 - 10.3 mg/dL [facility] Bilirubin, total 0.5 0.1 - 1.2 mg/dL [facility] Protein, pl 7.6 6.5 - 8.5 g/dL [facility] Albumin 3.4(L) 3.5 - 5.0 g/dL [facility] Alk phos 219(H) 40 - 130 Units/L [facility] ALT 18 7 - 55 Units/L [facility] AST 24 10 - 50 Units/L [facility] Blood 12/03/2024 8:36 AM CDT 12/03/2024 8:45 AM CDT us Antione Honeycutt MD LAB BLOOD ORDERABLE S Final Result Performing Organization Address City/[facility] Co de Phone Number [facility] Department [place] [address] * (ABNORMAL) POCT glucose (12/03/2024 8:16 AM CDT) Glucose, POC 242(H) 70 - 199 mg/dL Blood 12/03/2024 8:16 AM CDT 12/03/2024 8:16 AM CDT us Ward Mcmullen MD LAB POCT ORDERABLES - DEVICE Final Result Performing Organization Address City/[facility] Co de Phone Number [facility] [place] [address] * Laceration Repair (12/02/2024 5:54 PM CDT) Narrative Rainer Peralta MD - 12/02/2024 5:54 PM CDT Rainer Peralta MD 12/02/2024 5:56 PM Laceration Repair Date/Time: 12/02/2024 5:54 PM Performed by: Rainer Peralta MD Authorized by: Rainer Peralta MD RN Notified of Procedure: yes Informed consent present: unable due to chronic altered mental status. Patient identity confirmation method: unable due to chronic altered mental status. Procedure verified: unable due to chronic altered mental status. Imaging: Pertinent imaging reviewed, correctly oriented and match to patient identifiers Supplies, devices and special equipment are available: yes Anesthesia method: None Location: Face Face location: L eyebrow Length (cm): 2 Preparation: Patient was prepped and draped in usual sterile fashion Hemostasis achieved with: Direct pressure Area cleansed with: Betadine Repair method: Tissue adhesive Approximation: Close Vermilion border: well-aligned Dressing: Open (no dressing) All guidewires, needles, sponges or other items are accounted for: yes Any special post procedure monitoring, testing or other considerations: n/a All specimens identified, labeled and matched to patient identification: n/a Responsible libertarian for transporting specimen(s) to lab determined: n/a us Rainer Peralta MD IN CLINIC/BEDSIDE ORDERABL ES Final Result * CT Cervical Spine WO Contrast (12/02/2024 4:30 PM CDT) Anatomical Region Laterality Modality Spine N/A Computed Tomogra phy 12/02/2024 5:34 PM CDT Narrative 12/02/2024 5:41 PM CDT EXAM DESCRIPTION: CT CERVICAL SPINE WO CONTRAST REASON FOR STUDY: fall, head injury, r/o Fx c/o fall from wheelchair. Hit head, no LOC, AOx1 baseline. Bleeding controlled on laceration above L.eyebrow. TECHNIQUE: Axial images through the cervical spine with sagittal and coronal reformatted images. Automated exposure control was used as a dose optimization technique for this examination. COMPARISON: 07/28/2024 FINDINGS: ALIGNMENT: Mild, grade 1 anterolisthesis C4 over C5 unchanged with the adjacent disc and facet degenerative change. VERTEBRAE: No fracture. Vertebral body heights well-maintained. C1 vertebra demonstrates discontinuity along right lateral arch this is similar to 1923 exam and by report similar to prior exams before that suggesting old injury or congenital deformity. No displacement identified. No adjacent hematoma. DISCS: Moderate degenerative changes most pronounced C6-7 with loss of disc height, sclerosis, spur formation. HARDWARE: None in the spine. INDIVIDUAL DISC LEVELS: No significant osseous canal stenosis. Right-sided neural foramina demonstrate moderate to severe bony stenosis C3-4 and C4-5 similar to previous. Left-sided neural foramina demonstrate bony stenosis C6-7 primarily similar to previous. UPPER THORACIC: Incompletely imaged. No significant osseous spinal stenosis or osseous neural foraminal stenosis. SKULL BASE: No significant finding. LUNG APICES: No significant abnormality. NECK SOFT TISSUES: No significant abnormality. OTHER: No other significant findings. IMPRESSION: No acute C-spine abnormality. Moderately severe degenerative changes with regions of neural foraminal stenosis similar to previous. C1 vertebra demonstrates discontinuity along right lateral arch similar to prior exams suggesting old injury or congenital deformity. THIS IS AN ELECTRONICALLY VERIFIED FINAL REPORT 12/02/2024 5:41 PM - Electronically signed by Vijay PEREIRA T: Report ID: [id number] Reading Location: [place] [address] Procedure Note Vijay Franco MD - 12/02/2024 EXAM DESCRIPTION: CT CERVICAL SPINE WO CONTRAST REASON FOR STUDY: fall, head injury, r/o Fx c/o fall from wheelchair. Hit head, no LOC, AOx1 baseline. Bleeding controlled on laceration above L.eyebrow. TECHNIQUE: Axial images through the cervical spine with sagittal andcoronal reformatted images. Automated exposure control was used as a doseoptimization technique for this examination. COMPARISON: 07/28/2024 FINDINGS: ALIGNMENT: Mild, grade 1 anterolisthesis C4 over C5 unchanged with the adjacent disc and facet degenerative change. VERTEBRAE: No fracture. Vertebral body heights well-maintained. C1 vertebra demonstrates discontinuity along right lateral arch this is similar to 1923 exam and by report similar to prior exams before that suggesting old injury or congenital deformity. No displacementidentified. No adjacent hematoma. DISCS: Moderate degenerative changes most pronounced C6-7 with loss ofdisc height, sclerosis, spur formation. HARDWARE: None in the spine. INDIVIDUAL DISC LEVELS: No significant osseous canal stenosis. Right-sided neural foramina demonstrate moderate to severe bony stenosisC3-4 and C4-5 similar to previous. Left-sided neural foramina demonstrate bony stenosis C6-7 primarilysimilar to previous. UPPER THORACIC: Incompletely imaged. No significant osseous spinalstenosis or osseous neural foraminal stenosis. SKULL BASE: No significant finding. LUNG APICES: No significant abnormality. NECK SOFT TISSUES: No significant abnormality. OTHER: No other significant findings. IMPRESSION: No acute C-spine abnormality. Moderately severe degenerative changes with regions of neural foraminal stenosis similar to previous. C1 vertebra demonstrates discontinuity along right lateral arch similarto prior exams suggesting old injury or congenital deformity. THIS IS AN ELECTRONICALLY VERIFIED FINAL REPORT 12/02/2024 5:41 PM - Electronically signed by Vijay Franco M.D. RB T: Report ID: [id number] Reading Location: [id number] us Rainer Peralta MD IMG CT PROCEDURES Final Re sult * CT Head WO Contrast (12/02/2024 4:30 PM CDT) Anatomical Region Laterality Modality Head and Neck N/A Computed Tomogra phy 12/02/2024 5:31 PM CDT Narrative 12/02/2024 5:34 PM CDT EXAM DESCRIPTION: CT HEAD WO CONTRAST REASON FOR STUDY: fall, head injury, r/o ICH c/o fall from wheelchair hit head, no LOC, AOx1 baseline. Bleeding controlled on laceration above L.eyebrow. TECHNIQUE: Axial images acquired through the brain without intravenous contrast. Images stored on PACS. Automated exposure control was used as a dose optimization technique for this examination. COMPARISON: 07/28/2024 FINDINGS: BRAIN: No hemorrhage, edema or mass effect. No recent infarct. Normal white matter. EXTRA-AXIAL SPACES: No fluid collections. No masses. CALVARIUM: No fracture. SINUSES/MASTOIDS: Moderate mucoperiosteal thickening left maxillary sinus. ORBITS: No significant abnormality. OTHER: Subtle induration soft tissues over the left superior orbital rim may indicate contusion. No radiopaque foreign body, underlying bony intracranial or orbital abnormality. IMPRESSION: No acute intracranial findings. THIS IS AN ELECTRONICALLY VERIFIED FINAL REPORT 12/02/2024 5:34 PM - Electronically signed by Vijay PEREIRA T: Report ID: [id number] Reading Location: [id number] Procedure Note Vijay Franco MD - 12/02/2024 EXAM DESCRIPTION: CT HEAD WO CONTRAST REASON FOR STUDY: fall, head injury, r/o ICH c/o fall from wheelchair hit head, no LOC, AOx1 baseline. Bleedingcontrolled on laceration above L.eyebrow. TECHNIQUE: Axial images acquired through the brain without intravenous contrast. Images stored on PACS. Automated exposure control was used asa dose optimization technique for this examination. COMPARISON: 07/28/2024 FINDINGS: BRAIN: No hemorrhage, edema or mass effect. No recent infarct. Normal white matter. EXTRA-AXIAL SPACES: No fluid collections. No masses. CALVARIUM: No fracture. SINUSES/MASTOIDS: Moderate mucoperiosteal thickening left maxillarysinus. ORBITS: No significant abnormality. OTHER: Subtle induration soft tissues over the left superior orbital rimmay indicate contusion. No radiopaque foreign body, underlying bonyintracranial or orbital abnormality. IMPRESSION: No acute intracranial findings. THIS IS AN ELECTRONICALLY VERIFIED FINAL REPORT 12/02/2024 5:34 PM - Electronically signed by Vijay Franco M.D. RB T: Report ID: [id number] Reading Location: [place] [address] us Rainer Peralta MD IMG CT PROCEDURES Final Re sult * (ABNORMAL) Lipid panel (07/11/2024 3:37 AM SMUDGER) Cholesterol 82 30 - 199 mg/dL Comment: Interpretive Data Ages < or = 19 years Acceptable: <170 mg/dL Borderline high: 170-199 mg/dL High: >or= 200 mg/dL Ages > or = 20 years Desirable: <200 mg/dL Borderline high: 200-239 mg/dL High: >or= 240 mg/dL Literature References: 1. Expert Panel on Integrated Guidelines for Cardiovascular Health and Risk Reduction in Children and Adolescents. Pediatrics 2011;128:S213 2. NCEP Expert Panel. Circulation 2004;110:227 Current Interpretive Data was last revised on 2018. Triglycerides 103 <=149 mg/dL [facility] Comment: Interpretive Data Ages < or = 9 years Acceptable: <75 mg/dL Borderline high: 75-99 mg/dL High: >or= 100 mg/dL Ages 10 to 20 years Acceptable: <90 mg/dL Borderline high: 90-129 mg/dL High: >or= 130 mg/dL Ages > or = 20 years Desirable: <150 mg/dL Borderline high: 150-199 mg/dL High: 200-499 mg/dL Very high: >or= 499 mg/dL Literature References: 1. Expert Panel on Integrated Guidelines for Cardiovascular Health and Risk Reduction in Children and Adolescents. Pediatrics 2011;128:S213 2. NCEP Expert Panel. Circulation 2004;110:227 Current Interpretive Data was last revised on 2018. HDL 23(L) >=40 mg/dL [facility] Comment: Interpretive Data Ages < or = 19 years Acceptable: >45 mg/dL Borderline low: 40-45 mg/dL Low: <40 mg/dL Ages > or = 20 years Desirable: >or= 60 mg/dL Low: <40 mg/dL Literature References: 1. Expert Panel on Integrated Guidelines for Cardiovascular Health and Risk Reduction in Children and Adolescents. Pediatrics 2011;128:S213 2. NCEP Expert Panel. Circulation 2004;110:227 Current Interpretive Data was last revised on 2018. LDL, calculated 39 <=129 mg/dL [facility] Comment: Interpretive Data Ages < or = 19 years Acceptable: <110 mg/dL Borderline high: 110-129 mg/dL High: >or= 130 mg/dL Ages > or = 20 years Optimal: <100 mg/dL Near optimal: 100-129 mg/dL Borderline high: 130-159 mg/dL High: >160 mg/dL Calculated using the Tanmay LDL-C estimating equation. This equation was implemented on 2024. Prior to this date LDL-C was estimated using the Friedewald equation. Literature References: 1. Expert Panel on Integrated Guidelines for Cardiovascular Health and Risk Reduction in Children and Adolescents. Pediatrics 2011;128:S213 2. NCEP Expert Panel. Circulation 2004;110:227 3. Tanmay Lennon et al. NONA Cardiol. 2019December 08;5(5):540-548. doi: 10.1001/jamacardio.2020.0013 Current Interpretive Data was last revised on 2024. Non-HDL Cholesterol 59 mg/dL [facility] Comment: Interpretive Data Ages < or = 19 years Acceptable: <120 mg/dL Borderline high: 120-144 mg/dL High: >145 mg/dL Ages > or = 20 years When triglycerides are >200 mg/dL, Non-HDL cholesterol is a secondary target of therapy with treatment goals that are 30 mg/dL greater than the LDL cholesterol target. Literature References: 1. Expert Panel on Integrated Guidelines for Cardiovascular Health and Risk Reduction in Children and Adolescents. Pediatrics 2011;128:S213 2. NCEP Expert Panel. Circulation 2004;110:227 Current Interpretive Data was last revised on 2018. Chol/HDL ratio 4 [facility] Blood 07/11/2024 3:37 AM SMUDGER 07/11/2024 3:51 AM SMUDGER Narrative PAMELA - 07/11/2024 5:31 AM SMUDGER This lipid panel was automatically ordered due to a significant change in Troponin. The dietary status of the patient at the collection time should be correlated with the lipid results. us Anthony Goldberg MD LAB BLOOD ORDERABLES Becky l Result [facility] [address] [facility] Department [place] [address] * Hepatitis panel, acute Blood (11/24/2023 2:47 PM CDT) Hep A IgM Nonreactive Nonreactive Hep B core IgM Nonreactive Nonreactive [facility] Hep C Ab Nonreactive Nonreactive [facility] Comment:Antibodies to HCV no t detected. Does NOT exclude the possibility of recent exposure to HCV. 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 Use antibiotics, IV Fluids, and medical treatment unless specifically selected below: No intubation * LIMITED - No CPR Date Activated Date Inactivated Comments 07/11/2024 1:20 AM 07/14/2024 5:53 PM Question Answer Comments Provide aggressive medical m anagement before a full cardiopulmonary arrest occurs. Use antibiotics, IV Fluids, and medical treatment unless specifically selected below: No intubation * LIMITED - No CPR Date Activated Date Inactivated Comments 02/16/2024 1:34 AM 02/17/2024 9:49 PM * Full Code Date Activated Date Inactivated Comments 01/05/2024 10:45 AM 01/06/2024 4:42 AM * Full Code Date Activated Date Inactivated Comments 12/11/2023 7:00 PM 12/15/2023 9:00 PM Care Teams [employer] Reading Teacher Relationship Specialty Start Date End Date Joaquin Briscoe [place] [address] PCP - General Internal Medicine 09/12/24
--- OUTSIDE RECORDS SUMMARY | 2025-01-10 17:52 | XMS_ITS | Clinical Summary ---
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 0.10 K/cumm [facility] Lymphocyte abs 0.33(L) 0.80 - 3.30 K/cumm [facility] Monocyte abs 0.44 0.20 - 0.80 K[facility] Eosinophil abs 0.06 0.00 - 0.50 K/cumm [facility] Basophil abs 0.01 0.00 - 0.10 K/cumm [facility] Neutrophil pct 86.8 % [facility] Comment: Interpretive Data Percent cell count reference ranges are not reported, since discordance with absolute values may lead to misinterpretation of CBC data. Current Interpretive Data was last revised on 2017. Imm gran pct 0.7 % [facility] Comment: Interpretive Data Percent cell count reference ranges are not reported, since discordance with absolute values may lead to misinterpretation of CBC data. Current Interpretive Data was last revised on 2017. Lymphocyte pct 4.9 % [facility] Comment: Interpretive Data Percent cell count reference ranges are not reported, since discordance with absolute values may lead to misinterpretation of CBC data. Current Interpretive Data was last revised on 2017. Monocyte pct 6.6 % [facility] Comment: Interpretive Data Percent cell count reference ranges are not reported, since discordance with absolute values may lead to misinterpretation of CBC data. Current Interpretive Data was last revised on 2017. Eosinophil pct 0.9 % [facility] Comment: Interpretive Data Percent cell count reference ranges are not reported, since discordance with absolute values may lead to misinterpretation of CBC data. Current Interpretive Data was last revised on 2017. Basophil pct 0.1 % [facility] Comment: Interpretive Data Percent cell count reference ranges are not reported, since discordance with absolute values may lead to misinterpretation of CBC data. Current Interpretive Data was last revised on 2017. Blood 12/05/2024 10:3 7 PM CDT 12/05/2024 10:56 PM CDT Chucho Manrique MD LAB BLOOD ORDERABLES F inal Result Performing Organization Address City/[facility]/ZIP Co de Phone Number [facility] [place] [address] * (ABNORMAL) Iron profile w/ IBC (12/05/2024 10:37 PM CDT) Pathologist [facility] [place] Iron 45(L) 50 - 150 mcg/dL TIBC 140(L) 250 - 400 mcg/dL [facility] Transferrin saturation 32 20 - 50 % [facility] Blood 12/05/2024 10:3 7 PM CDT 12/05/2024 10:56 PM CDT Markus Solomon MD LAB BLOOD ORDERABLES Fi nal Result Performing Organization Address [facility] Co de Phone Number [facility] [place] [address] * (ABNORMAL) CBC with auto differential (12/05/2024 10:37 PM CDT) Pathologist [facility] WBC 6.68 3.80 - 9.90 K/cumm Hgb 7.7(L) 13.0 - 17.5 g/dL [facility] Hct 23.3(L) 38.9 - 50.3 % [facility] Plt 110(L) 150 - 400 K/cumm [facility] MPV 11.3 9.1 - 12.3 fL [facility] RBC 2.52(L) 4.30 - 5.80 M/cumm [facility] MCV 92.5 81.3 - 96.4 fL [facility] MCH 30.6 27.1 - 33.3 pg [facility] MCHC 33.0 32.3 - 35.7 g/dL [facility] RDW CV 13.7 11.1 - 14.9 % [facility] RDW SD 46.8 35.7 - 48.1 fL [facility] NRBC abs 0.00 0.00 - 0.01 K/cumm [facility] Blood 12/05/2024 10:3 7 PM CDT 12/05/2024 10:56 PM CDT Chucho Manrique MD LAB BLOOD ORDERABLES F inal Result Performing Organization Address City/[facility] Co de Phone Number [facility] [place] [address] * Folate (12/05/2024 10:37 PM CDT) Pathologist [facility] Folic acid 14.3 >=5.0 ng/mL Blood 12/05/2024 10:3 7 PM CDT 12/05/2024 10:56 PM CDT us Markus Solomon MD LAB BLOOD ORDERABLES Fi nal Result Performing Organization Address [facility] de Phone Number [facility] [place] [address] * (ABNORMAL) Ferritin (12/05/2024 10:37 PM CDT) Pathologist [facility] Ferritin 1,240(H) 30 - 400 ng/mL Blood 12/05/2024 10:3 7 PM CDT 12/05/2024 10:56 PM CDT Markus Solomon MD LAB BLOOD ORDERABLES Fi nal Result Performing Organization Address [facility] Co de Phone Number [facility] [place] [address] * Vitamin B12 (12/05/2024 10:37 PM CDT) Pathologist [facility] Vitamin B12 908 230 - 1,250 pg/mL Blood 12/05/2024 10:3 7 PM CDT 12/05/2024 10:56 PM CDT us Markus Solomon MD LAB BLOOD ORDERABLES Fi nal Result [facility] [place] [address] * (ABNORMAL) Basic metabolic panel (12/05/2024 10:37 PM CDT) [facility] Sodium 137 135 - 145 mmol/L Potassium, pl 4.7 3.3 - 4.9 mmol/L [facility] Chloride 99 97 - 110 mmol/L [facility] CO2 16(L) 22 - 32 mmol/L [facility] Anion gap 22(H) 2 - 15 mmol/L [facility] BUN 85(H) 6 - 25 mg/dL [facility] Creatinine 5.05(H) 0.80 - 1.30 mg/dL [facility] Glucose 130 70 - 199 mg/dL [facility] Comment: Interpretive Data Fasting glucose >/= 126 [...] 2022. Calcium 8.3(L) 8.5 - 10.3 mg/dL [facility] Blood 12/05/2024 10:3 7 PM CDT 12/05/2024 10:56 PM CDT us Vani Pedro MD LAB BLOOD ORDER DARYA Final Result [facility] [place] [address] * POCT glucose (12/05/2024 7:51 PM CDT) Glucose, POC 145 70 - 199 mg/dL Blood 12/05/2024 7:51 PM CDT 12/05/2024 7:51 PM CDT Markus Solomon MD LAB POCT ORDERABLES - D EVICE Final Result Performing Organization Address [facility] Co de Phone Number [facility] [place] [address] * POCT glucose (12/05/2024 5:07 PM CDT) Glucose, POC 164 70 - 199 mg/dL Blood 12/05/2024 5:07 PM CDT 12/05/2024 5:07 PM CDT Markus Solomon MD LAB POCT ORDERABLES - D EVICE Final Result Performing Organization Address [facility] de Phone Number [facility] [place] [address] * FL Modified Barium Swallow W Video [...] IMG FLUOROSCOPY PROCED URES Final Result * 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 Evaluate and Treat (VFSS) (12/05/2024 1:03 PM CDT) Narrative Vicky Tenorio, BRIDGETTE - 12/05/2024 1:03 PM CDT Vicky Tenorio SLP 12/05/2024 4:17 PM Speech-Language Pathology: Videofluoroscopic Study of Swallow (VFSS/MBS) HPI/PMH 69 y.o. male with Alzheimer's dementia, HTN, ?HFpEF (EF 50-55% 07/2024), T2DM on insulin, mood disorder vs. ?schizophrenia who presents from his snf [facility] after a fall from his wheelchair on to his face. In the ED 12/03- RN performed a bedside swallow eval and he started coughing with water. He is on nectar think liquids and reg diet at SNF. Will start on nectar think liquids and [facility] soft foods for now. If he has [...] thick liquid General Information Lukas Benson 12/05/24 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 Received On: 12/05/24 General Observations: Seated upright [...] functionally cleared with liquid wash. No further 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 warranted. Assessment Details & Results Purpose and [...] at 90 degrees. Consistencies Administered: Thin liquids, Swift Bird thickened liquids, Purees, Solids Respiratory Support: No Significant Impairment- Respiratory support is adequate for speech & swallowing Administered consistencies contain barium product. Thin Liquids: Laryngeal Penetration: Present Aspiration Present: No Successful Modifications : None Unsuccessful Modifications: None Successful Modification Combinations: None Unsuccessful Modification Combinations: None Penetration Aspiration Scale-Thin: 2-Material enters the airway, remains above the vocal folds and is ejected from the airway Swift Bird Thickened Liquids: Laryngeal Penetration: Present Aspiration Present: No Successful Modifications : None Unsuccessful Modifications: None Successful Modification Combinations: None Unsuccessful Modification Combinations: None Penetration Aspiration Scale-Swift Bird: 2-Material enters the airway, remains above the [...] treatment goals and details, if indicated. Plan 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 Frequency of Services during current admission: Discharge from this Service 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 Recommendation (Add'l Services): No further 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 indicated Next Visit Plan: No further ST warranted Additional Referrals: None Discharge Summary Statement If this is the last swallow therapy visit, this serves as the discharge summary. us Chucho Manrique MD 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 ORDERABLES Final Result * POCT glucose (12/05/2024 11:55 AM CDT) Glucose, POC 143 70 - 199 mg/dL Blood 12/05/2024 11:5 5 AM CDT 12/05/2024 11:55 AM CDT us Markus Solomon MD LAB POCT ORDERABLES - D EVICE Final Result [facility] [place] [address] * US Kidney Complete (12/05/2024 11:11 AM [...] hydronephrosis. Electronically signed by: Vianey Thomas M.D. us Markus Solomon MD [facility] US PROCEDURES Final Result * Urea nitrogen, urine, random (12/05/2024 10:47 AM CDT) Urea nitrogen, ur 259 mg/dL Comment: Interpretive Data No reference range established. Current interpretive data was last revised 2018. Urine 12/05/2024 10:4 7 AM CDT 12/05/2024 12:06 PM CDT Markus Solomon MD LAB URINE ORDERABLES Fi nal Result Performing Organization Address City/[facility]/ZIP Co de Phone Number [facility] [place] [address] * (ABNORMAL) Protein / creatinine ratio, urine, random (12/05/2024 10:47 AM CDT) Protein, ur, quant 167.3 mg/dL Comment: Interpretive Data No reference range established. Current interpretive data was last revised 2018. Creatinine Ur 147.5 mg/dL [facility] Comment: Interpretive Data No reference range established. Current interpretive data was last revised 2018. Protein/creatinin e ratio 1,134.2(H ) 0.0 - 180.0 mg/g CR [facility] Urine 12/05/2024 10:4 7 AM CDT 12/05/2024 12:06 PM CDT us Markus Solomon MD LAB URINE ORDERABLES Fi nal Result Performing Organization Address [facility] Co de Phone Number [facility] [place] [address] * Sodium, urine, random (12/05/2024 10:47 AM CDT) Sodium, ur 32 mmol/L Comment: Interpretive Data No reference range established. Current interpretive data was last revised 2018. Urine 12/05/2024 10:4 7 AM CDT 12/05/2024 12:06 PM CDT Markus Solomon MD LAB URINE ORDERABLES Fi nal Result Performing Organization Address City/[facility] Co de Phone Number [facility] [place] [address] * Creatinine, urine, random (12/05/2024 10:47 AM CDT) Creatinine Ur 147.5 mg/dL Comment: Interpretive Data No reference range established. Current interpretive data was last revised 2018. Urine 12/05/2024 10:4 7 AM CDT 12/05/2024 12:06 PM CDT us Markus Solomon MD LAB URINE ORDERABLES nal Result [facility] [place] [address] * (ABNORMAL) Differential, auto (12/05/2024 8:22 AM CDT) Neutrophil abs 7.15(H) 1.50 - 6.50 K/cumm Imm gran abs 0.06 0.00 - 0.10 K/cumm [facility] Lymphocyte abs 0.57(L) 0.80 - 3.30 K/cumm [facility] Monocyte abs 0.54 0.20 - 0.80 K/cumm [facility] Eosinophil abs 0.08 0.00 - 0.50 K[facility]cumm [facility] Basophil abs 0.02 0.00 - 0.10 K/cumm [facility] Neutrophil pct 84.9 % [facility] Comment: Interpretive Data Percent cell count reference ranges are not reported, since discordance with absolute values may lead to misinterpretation of CBC data. Current Interpretive Data was last revised on 2017. Imm gran pct 0.7 % [facility] Comment: Interpretive Data Percent cell count reference ranges are not reported, since discordance with absolute values may lead to misinterpretation of CBC data. Current Interpretive Data was last revised on 2017. Lymphocyte pct 6.8 % [facility] Comment: Interpretive Data Percent cell count reference ranges are not reported, since discordance with absolute values may lead to misinterpretation of CBC data. Current Interpretive Data was last revised on 2017. Monocyte pct 6.4 % [facility] Comment: Interpretive Data Percent cell count reference ranges are not reported, since discordance with absolute values may lead to misinterpretation of CBC data. Current Interpretive Data was last revised on 2017. Eosinophil pct 1.0 % [facility] Comment: Interpretive Data Percent cell count reference ranges are not reported, since discordance with absolute values may lead to misinterpretation of CBC data. Current Interpretive Data was last revised on 2017. Basophil pct 0.2 % [facility] Comment: Interpretive Data Percent cell count reference ranges are not reported, since discordance with absolute values may lead to misinterpretation of CBC data. Current Interpretive Data was last revised on 2017. Blood 12/05/2024 8:22 AM CDT 12/05/2024 8:31 AM CDT us Chucho Manrique MD LAB BLOOD ORDERABLES F inal Result [facility] [place] [address] * (ABNORMAL) CBC with auto differential (12/05/2024 8:22 AM CDT) WBC 8.42 3.80 - 9.90 K/cumm Hgb 8.6(L) 13.0 - 17.5 g/dL [facility] Hct 26.4(L) 38.9 - 50.3 % [facility] Plt 119(L) 150 - 400 K/cumm [facility] MPV 10.9 9.1 - 12.3 fL [facility] RBC 2.81(L) 4.30 - 5.80 M/cumm [facility] MCV 94.0 81.3 - 96.4 fL [facility] MCH 30.6 27.1 - 33.3 pg [facility] MCHC 32.6 32.3 - 35.7 g/dL [facility] RDW CV 13.8 11.1 - 14.9 % [facility] RDW SD 47.1 35.7 - 48.1 fL [facility] NRBC abs 0.00 0.00 - 0.01 K/cumm [facility] Blood 12/05/2024 8:22 AM CDT 12/05/2024 8:31 AM CDT us Chucho Manrique MD LAB BLOOD ORDERABLES F inal Result Performing Organization Address [facility] Co de Phone Number [facility] [place] [address] * POCT glucose (12/05/2024 7:50 AM CDT) Glucose, POC 106 70 - 199 mg/dL Blood 12/05/2024 7:50 AM CDT 12/05/2024 7:50 AM CDT us Markus Solomon MD LAB POCT ORDERABLES - D EVICE Final Result Performing Organization Address [facility] de Phone Number [facility] [place] [address] * POCT glucose (12/05/2024 3:21 AM CDT) Glucose, POC 72 70 - 199 mg/dL Blood 12/05/2024 3:21 AM CDT 12/05/2024 3:21 AM CDT us Markus Solomon MD LAB POCT ORDERABLES - D EVICE Final Result Performing Organization Address [facility] de Phone Number [facility] [place] [address] * POCT glucose (12/04/2024 11:24 PM CDT) Glucose, POC 91 70 - 199 mg/dL Blood 12/04/2024 11:2 4 PM CDT 12/04/2024 11:24 PM CDT us Markus Solomon MD LAB POCT ORDERABLES - D EVICE Final Result Performing Organization Address [facility] de Phone Number [facility] [place] [address] * (ABNORMAL) eGFR (12/04/2024 8:56 PM CDT) [facility] eGFR 13(L) >=60 mL/min/1. 73 m2 Comment: [...] ORDERABLES F inal Result Performing Organization Address [facility] Co de Phone Number [facility] [place] [address] * (ABNORMAL) Differential, auto (12/04/2024 8:56 PM CDT) [facility] Neutrophil abs 7.70(H) 1.50 - 6.50 K/cumm Imm gran abs 0.05 0.00 - 0.10 K/cumm [facility] Lymphocyte abs 0.58(L) 0.80 - 3.30 K/cumm [facility] Monocyte abs 0.60 0.20 - 0.80 K/cumm [facility] Eosinophil abs 0.04 0.00 - 0.50 K/cumm [facility] Basophil abs 0.01 0.00 - 0.10 K/cumm [facility] [facility] Neutrophil pct 85.7 % [facility] Comment: Interpretive Data Percent cell count reference ranges are not reported, since discordance with absolute values may lead to misinterpretation of CBC data. Current Interpretive Data was last revised on 2017. Imm gran pct 0.6 % [facility] Comment: Interpretive Data Percent cell count reference ranges are not reported, since discordance with absolute values may lead to misinterpretation of CBC data. Current Interpretive Data was last revised on 2017. Lymphocyte pct 6.5 % [facility] Comment: Interpretive Data Percent cell count reference ranges are not reported, since discordance with absolute values may lead to misinterpretation of CBC data. Current Interpretive Data was last revised on 2017. Monocyte pct 6.7 % [facility] Comment: Interpretive Data Percent cell count reference ranges are not reported, since discordance with absolute values may lead to misinterpretation of CBC data. Current Interpretive Data was last revised on 2017. Eosinophil pct 0.4 % [facility] Comment: Interpretive Data Percent cell count reference ranges are not reported, since discordance with absolute values may lead to misinterpretation of CBC data. Current Interpretive Data was last revised on 2017. Basophil pct 0.1 % [facility] Comment: Interpretive Data Percent cell count reference ranges are not reported, since discordance with absolute values may lead to misinterpretation of CBC data. Current Interpretive Data was last revised on 2017. Blood 12/04/2024 8:56 PM CDT 12/04/2024 9:48 PM CDT us Chucho Manrique MD LAB BLOOD ORDERABLES F inal Result [facility] [place] [address] * (ABNORMAL) CBC with auto differential (12/04/2024 8:56 PM CDT) [facility] WBC 8.98 3.80 - 9.90 K/cumm Hgb 7.6(L) 13.0 - 17.5 g/dL [facility] Hct 23.2(L) 38.9 - 50.3 % [facility] Plt 116(L) 150 - 400 K/cumm [facility] MPV 11.2 9.1 - 12.3 fL [facility] RBC 2.46(L) 4.30 - 5.80 M/cumm [facility] MCV 94.3 81.3 - 96.4 fL [facility] MCH 30.9 27.1 - 33.3 pg [facility] MCHC 32.8 32.3 - 35.7 g/dL [facility] RDW CV 13.8 11.1 - 14.9 % [facility] RDW SD 47.4 35.7 - 48.1 fL [facility] NRBC abs 0.00 0.00 - 0.01 K/cumm [facility] Blood 12/04/2024 8:56 PM CDT 12/04/2024 9:48 PM CDT Chucho Manrique MD LAB BLOOD ORDERABLES F inal Result Performing Organization Address [facility] de Phone Number [facility] [place] [address] * Magnesium (12/04/2024 8:56 PM CDT) [facility] Magnesium 2.1 1.4 - 2.5 mg/dL Blood 12/04/2024 8:56 PM CDT 12/04/2024 9:47 PM CDT Cindy Carmichael MD LAB BLOOD ORDERABLES F inal Result Performing Organization Address [facility] Co de Phone Number [facility] [place] [address] * (ABNORMAL) Renal function panel (12/04/2024 8:56 PM CDT) Sodium 136 135 - 145 mmol/L Potassium, pl 4.8 3.3 - 4.9 mmol/L [facility] Chloride 102 97 - 110 mmol/L [facility] CO2 22 22 - 32 mmol/L [facility] Anion gap 12 2 - 15 mmol/L [facility] BUN 77(H) 6 - 25 mg/dL [facility] Creatinine 4.61(H) 0.80 - 1.30 mg/dL [facility] Glucose 88 70 - 199 mg/dL [facility] Comment: Interpretive Data Fasting glucose >/= 126 [...] 2022. Calcium 8.3(L) 8.5 - 10.3 mg/dL [facility] Phosphorus, pl 4.3 2.3 - 4.5 mg/dL [facility] Albumin 2.8(L) 3.5 - 5.0 g/dL [facility] Blood 12/04/2024 8:56 PM CDT 12/04/2024 9:47 PM CDT us Cindy Carmichael MD LAB BLOOD ORDERABLES F inal Result [facility] Department of Laboratories [place], [place] [id number] * POCT glucose (12/04/2024 7:43 PM CDT) Glucose, POC 95 70 - 199 mg/dL Blood 12/04/2024 7:43 PM CDT 12/04/2024 7:43 PM CDT Chucho Manrique MD LAB POCT ORDERABLES - DEVICE Final Result [facility] [place] [address] * POCT glucose (12/04/2024 5:27 PM CDT) Glucose, POC 86 70 - 199 mg/dL Blood 12/04/2024 5:27 PM CDT 12/04/2024 5:27 PM CDT Chucho Manrique MD LAB POCT ORDERABLES - DEVICE Final Result Performing Organization Address [facility] de Phone Number [facility] [place] [place] [address] * (ABNORMAL) eGFR (12/04/2024 1:52 PM CDT) [facility] eGFR 14(L) >=60 mL/min/1. 73 m2 Comment: [...] BLOOD ORDERABLES Final Result Performing Organization Address [facility] Co de Phone Number [facility] [place] [address] * (ABNORMAL) Hemoglobin and hematocrit (12/04/2024 1:52 PM CDT) Hgb 9.1(L) 13.0 - 17.5 g/dL Hct 28.3(L) 38.9 - 50.3 % [facility] Blood 12/04/2024 1:52 PM CDT 12/04/2024 2:38 PM CDT Chucho Manrique MD LAB BLOOD ORDERABLES F inal Result Performing Organization Address [facility] de Phone Number [facility] [place] [address] * Type and screen (12/04/2024 1:52 PM CDT) ABO Rh O Positive Ana, indirect Negative [facility] Blood 12/04/2024 1:52 PM CDT 12/04/2024 2:06 PM CDT Narrative [facility] - 12/04/2024 2:58 PM CDT Has the patient had Daratumumab or Isatuximab in the past 6 months?->Unknown Chucho Manrqiue MD LAB BLOOD BANK TEST OR DERABLES Final Result Performing Organization Address [facility] Co de Phone Number [facility] [place], [place] [id number] * Magnesium (12/04/2024 1:52 PM CDT) Magnesium 2.2 1.4 - 2.5 mg/dL Blood 12/04/2024 1:52 PM CDT 12/04/2024 2:16 PM CDT Jake Mccray MD LAB BLOOD ORDERABLES Final Result [facility] [place] [address] * (ABNORMAL) Renal function panel (12/04/2024 1:52 PM CDT) Sodium 136 135 - 145 mmol/L Potassium, pl 4.7 3.3 - 4.9 mmol/L [facility] Chloride 99 97 - 110 mmol/L [facility] CO2 25 22 - 32 mmol/L [facility] Anion gap 12 2 - 15 mmol/L [facility] BUN 74(H) 6 - 25 mg/dL [facility] Creatinine 4.37(H) 0.80 - 1.30 mg/dL [facility] Glucose 152 70 - 199 mg/dL [facility] Comment: Interpretive Data Fasting glucose >/= 126 [...] 2022. Calcium 8.7 8.5 - 10.3 mg/dL [facility] Phosphorus, pl 4.5 2.3 - 4.5 mg/dL [facility] Albumin 3.3(L) 3.5 - 5.0 g/dL [facility] Blood 12/04/2024 1:52 PM CDT 12/04/2024 2:16 PM CDT Jake Mccray MD LAB BLOOD ORDERABLES Final Result [facility] Department [place] [address] * (ABNORMAL) eGFR (12/04/2024 12:13 PM CDT) Pathologist [facility] [place] eGFR 15(L) >=60 mL/min/1. 73 m2 Comment: [...] MD LAB BLOOD ORDERABLES F inal Result [facility] [place] [address] * (ABNORMAL) Differential, auto (12/04/2024 12:13 PM CDT) Pathologist [facility] [place] Neutrophil abs 9.09(H) 1.50 - 6.50 K/cumm Imm gran abs 0.07 0.00 - 0.10 K/cumm [facility] Lymphocyte abs 0.60(L) 0.80 - 3.30 K/cumm [facility] Monocyte abs 0.79 0.20 - 0.80 K/cumm [facility] Eosinophil abs 0.01 0.00 - 0.50 K/cumm [facility] Basophil abs 0.02 0.00 - 0.10 K/cumm [facility] Neutrophil pct 85.8 % [facility] Comment: Interpretive Data Percent cell count reference ranges are not reported, since discordance with absolute values may lead to misinterpretation of CBC data. Current Interpretive Data was last revised on 2017. Imm gran pct 0.7 % [facility] Comment: Interpretive Data Percent cell count reference ranges are not reported, since discordance with absolute values may lead to misinterpretation of CBC data. Current Interpretive Data was last revised on 2017. Lymphocyte pct 5.7 % [facility] Comment: Interpretive Data Percent cell count reference ranges are not reported, since discordance with absolute values may lead to misinterpretation of CBC data. Current Interpretive Data was last revised on 2017. Monocyte pct 7.5 % [facility] Comment: Interpretive Data Percent cell count reference ranges are not reported, since discordance with absolute values may lead to misinterpretation of CBC data. Current Interpretive Data was last revised on 2017. Eosinophil pct 0.1 % [facility] Comment: Interpretive Data Percent cell count reference ranges are not reported, since discordance with absolute values may lead to misinterpretation of CBC data. Current Interpretive Data was last revised on 2017. Basophil pct 0.2 % [facility] Comment: Interpretive Data Percent cell count reference ranges are not reported, since discordance with absolute values may lead to misinterpretation of CBC data. Current Interpretive Data was last revised on 2017. Blood 12/04/2024 12:1 3 PM CDT 12/04/2024 12:29 PM CDT us Chucho Manrique MD LAB BLOOD ORDERABLES F inal Result [facility] [place] [address] * (ABNORMAL) CBC with auto differential (12/04/2024 12:13 PM CDT) WBC 10.58(H) 3.80 - 9.90 K/cumm Hgb 6.5(L) 13.0 - 17.5 g/dL [facility] Hct 20.3(L) 38.9 - 50.3 % [facility] Plt 125(L) 150 - 400 K/cumm [facility] MPV 11.0 9.1 - 12.3 fL [facility] RBC 2.13(L) 4.30 - 5.80 M/cumm [facility] MCV 95.3 81.3 - 96.4 fL [facility] MCH 30.5 27.1 - 33.3 pg [facility] MCHC 32.0(L) 32.3 - 35.7 g/dL [facility] RDW CV 13.7 11.1 - 14.9 % [facility] RDW SD 47.4 35.7 - 48.1 fL [facility] NRBC abs 0.00 0.00 - 0.01 K/cumm [facility] Blood 12/04/2024 12:1 3 PM CDT 12/04/2024 12:29 PM CDT Chucho Manrique MD LAB BLOOD ORDERABLES F inal Result [facility] [place] [address] * Blood culture Blood (12/04/2024 12:13 PM CDT) Report Final Report: No growth Blood 12/04/2024 12:1 3 PM CDT 12/04/2024 12:26 PM CDT Narrative [facility] - 12/08/2024 4:00 PM CDT Collection->Peripheral 1. [...] performance characteristics have been verified by the [facility] Microbiology Laboratory. For questions about this culture, contact the Microbiology Laboratory at [phone]. Interpretive data was last revised on 24. Amber Wiggins MD LAB MICROBIOLOGY - [facility] ORDERABLES Final Result [facility] [place] [address] * (ABNORMAL) Basic metabolic panel (12/04/2024 12:13 PM CDT) Sodium 138 135 - 145 mmol/L Potassium, pl 4.6 3.3 - 4.9 mmol/L [facility] Chloride 101 97 - 110 mmol/L [facility] CO2 24 22 - 32 mmol/L [facility] Anion gap 13 2 - 15 mmol/L [facility] BUN 78(H) 6 - 25 mg/dL [facility] Creatinine 4.23(H) 0.80 - 1.30 mg/dL [facility] Glucose 190 70 - 199 mg/dL [facility] Comment: Interpretive Data Fasting glucose >/= 126 [...] 2022. Calcium 8.4(L) 8.5 - 10.3 mg/dL [facility] Blood 12/04/2024 12:1 3 PM CDT 12/04/2024 12:29 PM CDT Chucho Manrique MD LAB BLOOD ORDERABLES F inal Result Performing Organization Address [facility] de Phone Number [facility] [place] [address] * (ABNORMAL) POCT glucose (12/04/2024 11:36 AM CDT) Glucose, POC 218(H) 70 - 199 mg/dL Blood 12/04/2024 11:3 6 AM CDT 12/04/2024 11:36 AM CDT Chucho Manrique MD LAB POCT ORDERABLES - DEVICE Final Result Performing Organization Address [facility] de Phone Number [facility] Department [place] [address] * POCT glucose (12/04/2024 7:19 AM CDT) Glucose, POC 175 70 - 199 mg/dL Blood 12/04/2024 7:19 AM CDT 12/04/2024 7:19 AM CDT Chucho Manrique MD LAB POCT ORDERABLES - DEVICE Final Result Performing Organization Address [facility] de Phone Number [facility] [place] [address] * POCT glucose (12/04/2024 4:44 AM CDT) Glucose, POC 194 70 - 199 mg/dL Blood 12/04/2024 4:44 AM CDT 12/04/2024 4:44 AM CDT us Jake Mccray MD LAB POCT ORDERABLES - DEVIC E Final Result [facility] [place] [address] * Blood culture Blood (12/04/2024 4:44 AM CDT) Report Final Report: No growth Blood 12/04/2024 4:44 AM CDT 12/04/2024 6:01 AM CDT Narrative [facility] - 12/08/2024 7:00 AM CDT Collection->Peripheral 1. [...] performance characteristics have been verified by the [facility]biology Laboratory. For questions about this culture, contact the Microbiology Laboratory at [phone]. Interpretive data was last revised on 24. Jake Mccray MD LAB MICROBIOLOGY - GENERAL ORDERABLES Final Result [facility] [place] [address] * POCT glucose (12/04/2024 12:03 AM CDT) Glucose, POC 157 70 - 199 mg/dL Blood 12/04/2024 12:0 3 AM CDT 12/04/2024 12:03 AM CDT Jkae Mccray MD LAB POCT ORDERABLES - DEVIC E Final Result Performing Organization Address [facility] Co de Phone Number [facility] [place] [place] [address] * (ABNORMAL) eGFR (12/03/2024 8:04 PM CDT) eGFR 19(L) >=60 mL/min/1. 73 m2 Comment: [...] 8:04 PM CDT 12/03/2024 8:24 PM CDT Jake Mccray MD LAB BLOOD ORDERABLES Final Result Performing Organization Address [facility]/ZIP Co de Phone Number [facility] [place] [address] * (ABNORMAL) Differential, auto (12/03/2024 8:04 PM CDT) Neutrophil abs 9.93(H) 1.50 - 6.50 K/cumm Imm gran abs 0.07 0.00 - 0.10 K/cumm [facility] Lymphocyte abs 0.49(L) 0.80 - 3.30 K/cumm [facility] Monocyte abs 1.09(H) 0.20 - 0.80 K/cumm [facility] Eosinophil abs 0.00 0.00 - 0.50 K/cumm [facility] Basophil abs 0.02 0.00 - 0.10 K/cumm [facility] Neutrophil pct 85.6 % [facility] Comment: Interpretive Data Percent cell count reference ranges are not reported, since discordance with absolute values may lead to misinterpretation of CBC data. Current Interpretive Data was last revised on 2017. Imm gran pct 0.6 % [facility] Comment: Interpretive Data Percent cell count reference ranges are not reported, since discordance with absolute values may lead to misinterpretation of CBC data. Current Interpretive Data was last revised on 2017. Lymphocyte pct 4.2 % [facility] Comment: Interpretive Data Percent cell count reference ranges are not reported, since discordance with absolute values may lead to misinterpretation of CBC data. Current Interpretive Data was last revised on 2017. Monocyte pct 9.4 % [facility] Comment: Interpretive Data Percent cell count reference ranges are not reported, since discordance with absolute values may lead to misinterpretation of CBC data. Current Interpretive Data was last revised on 2017. Eosinophil pct 0.0 % [facility] Comment: Interpretive Data Percent cell count reference ranges are not reported, since discordance with absolute values may lead to misinterpretation of CBC data. Current Interpretive Data was last revised on 2017. Basophil pct 0.2 % [facility] Comment: Interpretive Data Percent cell count reference ranges are not reported, since discordance with absolute values may lead to misinterpretation of CBC data. Current Interpretive Data was last revised on 2017. Blood 12/03/2024 8:04 PM CDT 12/03/2024 8:14 PM CDT us Jake Mccray MD LAB BLOOD ORDERABLES Final Result [facility] [place] [address] * (ABNORMAL) CBC with auto differential (12/03/2024 8:04 PM CDT) WBC 11.60(H) 3.80 - 9.90 K/cumm Hgb 8.1(L) 13.0 - 17.5 g/dL [facility] Hct 24.8(L) 38.9 - 50.3 % [facility] Plt 124(L) 150 - 400 K/cumm [facility] MPV 10.4 9.1 - 12.3 fL [facility] RBC 2.62(L) 4.30 - 5.80 M/cumm [facility] MCV 94.7 81.3 - 96.4 fL [facility] MCH 30.9 27.1 - 33.3 pg [facility] MCHC 32.7 32.3 - 35.7 g/dL [facility] RDW CV 13.6 11.1 - 14.9 % [facility] RDW SD 47.3 35.7 - 48.1 fL [facility] NRBC abs 0.00 0.00 - 0.01 K/cumm [facility] Blood 12/03/2024 8:04 PM CDT 12/03/2024 8:14 PM CDT us Jake Mccray MD LAB BLOOD ORDERABLES Final Result Performing Organization Address [facility]/ZIP Co de Phone Number [facility] [place] [address] * Magnesium (12/03/2024 8:04 PM CDT) Pathologist [facility] [place] Magnesium 2.1 1.4 - 2.5 mg/dL Blood 12/03/2024 8:04 PM CDT 12/03/2024 8:11 PM CDT Jake Mccray MD LAB BLOOD ORDERABLES Final Result Performing Organization Address [facility] de Phone Number [facility] [place] [address] * (ABNORMAL) Hemoglobin A1c (12/03/2024 8:04 PM CDT) Hgb A1C 6.2(H) 4.0 - 5.6 % Estimated Average Glucose 131 mg/dL [facility] Comment: The ADA recommends reporting an estimated Average Glucose (eAG) with all Hemoglobin A1c results using the equation derived from a study of 507 normal and diabetic adults. Minority populations were underrepresented and children were not included. (Diabetes Care 2020; 43(S1): S66-S76). The eAG is not equivalent to a fasting glucose. Blood 12/03/2024 8:04 PM CDT 12/03/2024 8:21 PM CDT Jake Mccray MD LAB BLOOD ORDERABLES Final Result Performing Organization Address [facility] de Phone Number [facility] [place] [address] * (ABNORMAL) Valproic acid level, total (12/03/2024 8:04 PM CDT) Pathologist [facility] [place] Valproic Acid 16.0(L) 50.0 - 100.0 mcg/mL [...] BLOOD ORDERABLES Final Result Performing Organization Address [facility] Co de Phone Number [facility] Department [place] [address] * (ABNORMAL) Renal function panel (12/03/2024 8:04 PM CDT) Sodium 139 135 - 145 mmol/L Potassium, pl 5.2(H) 3.3 - 4.9 mmol/L [facility] Chloride 105 97 - 110 mmol/L [facility] CO2 23 22 - 32 mmol/L [facility] Anion gap 11 2 - 15 mmol/L [facility] BUN 68(H) 6 - 25 mg/dL [facility] Creatinine 3.43(H) 0.80 - 1.30 mg/dL [facility] Glucose 199 70 - 199 mg/dL [facility] Comment: Interpretive Data Fasting glucose >/= 126 [...] 2022. Calcium 8.8 8.5 - 10.3 mg/dL [facility] Phosphorus, pl 3.6 2.3 - 4.5 mg/dL [facility] Albumin 3.0(L) 3.5 - 5.0 g/dL [facility] Blood 12/03/2024 8:04 PM CDT 12/03/2024 8:11 PM CDT us Jake Mccray MD LAB BLOOD ORDERABLES Final Result [facility] Department [place] [address] * (ABNORMAL) POCT glucose (12/03/2024 7:51 PM CDT) Glucose, POC 210(H) 70 - 199 mg/dL Blood 12/03/2024 7:51 PM CDT 12/03/2024 7:51 PM CDT us Jake Mccray MD LAB POCT ORDERABLES - DEVIC E Final Result Performing Organization Address [facility] Co de Phone Number [facility] [place] [address] * (ABNORMAL) POCT glucose (12/03/2024 6:25 PM CDT) Glucose, POC 230(H) 70 - 199 mg/dL Blood 12/03/2024 6:25 PM CDT 12/03/2024 6:25 PM CDT us Jake Mccray MD LAB POCT ORDERABLES - DEVIC E Final Result Performing Organization Address [facility] de Phone Number [facility] [place] [address] * (ABNORMAL) POCT glucose (12/03/2024 4:17 PM CDT) Glucose, POC 228(H) 70 - 199 mg/dL Blood 12/03/2024 4:17 PM CDT 12/03/2024 4:17 PM CDT us Jake Mccray MD LAB POCT ORDERABLES - DEVIC E Final Result Performing Organization Address [facility] de Phone Number [facility] [place] [address] * (ABNORMAL) POCT glucose (12/03/2024 12:22 PM CDT) Glucose, POC 216(H) 70 - 199 mg/dL Blood 12/03/2024 12:2 2 PM CDT 12/03/2024 12:22 PM CDT us Jake Mccray MD LAB POCT ORDERABLES - DEVIC E Final Result [facility] [place] [address] * CT Recon Thoracic and Lumbar Spine [...] the chest or pelvis. Electronically signed by: Vincent Cortes Mellnick, M.D. us Antione Honeycutt MD IMG XR PROCEDURES F inal Result * (ABNORMAL) POCT creatinine (12/03/2024 8:47 AM CDT) Pathologist [facility] [place] Creatinine POC 3.5(H) 0.8 - 1.3 mg/dL Blood 12/03/2024 8:47 AM CDT 12/03/2024 8:47 AM CDT us Ward Mcmullen MD LAB POCT ORDERABLES - DEVICE Final Result Performing Organization Address [facility]/ZIP Co de Phone Number [facility] [place] [address] * POCT lactate (12/03/2024 8:43 AM CDT) [facility] Lactate POC i-STAT 1.0 0.7 - 2.0 mmol/L Blood 12/03/2024 8:43 AM CDT 12/03/2024 8:43 AM CDT us Ward Mcmullen MD LAB POCT ORDERABLES - DEVICE Final Result Performing Organization Address [facility] de Phone Number [facility] [place] [address] * (ABNORMAL) Urinalysis reflex to microscopic and culture Urine (12/03/2024 8:38 AM CDT) Pathologist [facility] [place] Color, ur Yellow Yellow Clarity, ur Cloudy(A) Clear [facility] Specific gravity, ur 1.019 1.003 - 1.030 [facility] [facility] pH, urine 6.0 [facility] Comment: Interpretive Data U rine pH is affected by diet, medications, systemic acid-base disturbances, and renal tubular function. pH may affect urinary stone formation. For example, urine pH below 6.0 may help reduce the tendency for calcium phosphate stones and pH greater than 6.0 may reduce the tendency for uric acid stone formation. Source: [facility] Current Interpretive Data was last revised on 2017 Protein, ur ql 2+(A) Negative [facility] Glucose, ur ql Negative Negative [facility] Ketones, ur Trace Negative [facility] Bilirubin, ur Negative Negative [facility] Blood, ur 2+(A) Negative [facility] Urobilinogen, ur <2.0 <2.0 mg/dL [facility] Nitrite, ur Negative Negative [facility] Leukocyte esterase, ur 3+(A) Negative [facility] UA reflex comment Reflex to microscopic UA will be performed. [facility] Urine 12/03/2024 8:38 AM CDT 12/03/2024 8:45 AM CDT Antione Honeycutt MD LAB MICROBIOLOGY - GENERAL ORDERABLES Final Result Performing Organization Address [facility] de Phone Number [facility] [place] [address] * (ABNORMAL) Urinalysis, microscopic only (12/03/2024 8:38 AM CDT) WBC, ur >50(A) 0 - 5 /HPF RBC, ur 11-20(A) 0 - 2 /HPF [facility] Epithelial cells, squamous, ur 11-20(A) 0 - 5 /HPF [facility] Comment:Suggestive of contam ination. Consider recollection by clean catch. Bacteria, ur 1+(A) [facility] Mucous, ur Present(A) [facility] Culture Reflex Comment Reflex to urine culture will be performed. [facility] Urine 12/03/2024 8:38 AM CDT 12/03/2024 8:45 AM CDT Antione Honeycutt MD LAB URINE ORDERABLE S Final Result Performing Organization Address [facility] de Phone Number [facility] [place] [address] * (ABNORMAL) Urine culture Urine (12/03/2024 8:38 AM CDT) Report Final Report: Greater than or equal to 100,000 colonies/mL of Escherichia coli (.) Organism ESCHERICHIA COLI [facility] Urine 12/03/2024 8:38 AM CDT 12/03/2024 10:33 AM CDT Narrative [facility] - 12/05/2024 9:24 AM CDT Urine culture reflexed based upon urinalysis results. Testing performed by [facility] ([phone]) Organism Antibiotic Method Susceptibility Escherichia coli Ampicillin [...] LAB MICROBIOLOGY - GENERAL ORDERABLES Final Result [facility] [place] [address] * Troponin I high-sensitivity series (baseline, 2hr, [...] MD LAB BLOOD ORDERABLE S Final Result [facility] [place] [address] * (ABNORMAL) eGFR (12/03/2024 8:36 AM CDT) [...] MD LAB BLOOD ORDERABLE S Final Result [facility] [place] [address] * (ABNORMAL) Differential, auto (12/03/2024 8:36 AM CDT) Neutrophil abs 10.24(H) 1.50 - 6.50 K/cumm Imm gran abs 0.08 0.00 - 0.10 K/cumm [facility] Lymphocyte abs 0.45(L) 0.80 - 3.30 K/cumm [facility] Monocyte abs 1.16(H) 0.20 - 0.80 K/cumm [facility] Eosinophil abs 0.00 0.00 - 0.50 K/cumm [facility] Basophil abs 0.02 0.00 - 0.10 K/cumm [facility] Neutrophil pct 85.6 % [facility] Comment: Interpretive Data Percent cell count reference ranges are not reported, since discordance with absolute values may lead to misinterpretation of CBC data. Current Interpretive Data was last revised on 2017. Imm gran pct 0.7 % [facility] Comment: Interpretive Data Percent cell count reference ranges are not reported, since discordance with absolute values may lead to misinterpretation of CBC data. Current Interpretive Data was last revised on 2017. Lymphocyte pct 3.8 % [facility] Comment: Interpretive Data Percent cell count reference ranges are not reported, since discordance with absolute values may lead to misinterpretation of CBC data. Current Interpretive Data was last revised on 2017. Monocyte pct 9.7 % [facility] Comment: Interpretive Data Percent cell count reference ranges are not reported, since discordance with absolute values may lead to misinterpretation of CBC data. Current Interpretive Data was last revised on 2017. Eosinophil pct 0.0 % [facility] Comment: Interpretive Data Percent cell count reference ranges are not reported, since discordance with absolute values may lead to misinterpretation of CBC data. Current Interpretive Data was last revised on 2017. Basophil pct 0.2 % [facility] Comment: Interpretive Data Percent cell count reference ranges are not reported, since discordance with absolute values may lead to misinterpretation of CBC data. Current Interpretive Data was last revised on 2017. Blood 12/03/2024 8:36 AM CDT 12/03/2024 8:45 AM CDT us Antione Honeycutt MD LAB BLOOD ORDERABLE S Final Result [facility] [place] [address] * Respiratory pathogen panel Nasopharyngeal (12/03/2024 8:36 AM CDT) Influenza A RNA Not Detected Not Detected Influenza B RNA Not Detected Not Detected [facility] RSV RNA Not Detected Not Detected [facility] COVID-19 RNA Not Detected Not Detected [facility] Coronavirus 229E RNA Not Detected Not Detected [facility] Coronavirus HKU1 RNA Not Detected Not Detected [facility] Coronavirus NL63 RNA Not Detected Not Detected [facility] Coronavirus OC43 RNA Not Detected Not Detected [facility] Adenovirus DNA Not Detected Not Detected [facility] Metapneumovirus RNA Not Detected Not Detected [facility] Rhinovirus/Enterov irus RNA Not Detected Not Detected [facility] Parainfluenza 1 RNA Not Detected Not Detected [facility] Parainfluenza 2 RNA Not Detected Not Detected [facility] Parainfluenza 3 RNA Not Detected Not Detected [facility] Parainfluenza 4 RNA Not Detected Not Detected [facility] B. pertussis DNA Not Detected Not Detected [facility] B. parapertussis DNA Not Detected Not Detected [facility] C. pneumoniae DNA Not Detected Not Detected [facility] M. pneumoniae DNA Not Detected Not Detected [facility] Nasopharyngeal 12/03/2024 8: 36 AM CDT 12/03/2024 8:50 AM CDT Narrative [facility] - 12/03/2024 9:46 AM CDT Is the Patient experiencing symptoms consistent with COVID?->Yes Surveillance testing for transplant patient?->No Interpretive Data The ZetrOZ FilmArray Respiratory Panel (RP2.1) assay is a [...] assay has FDA clearance for testing of SUPERVISOR ESTERS AND EMULSIFIERS swabs. The performance of additional specimen types has been assessed by the performing laboratory. The performance characteristics of this assay have been determined by [facility] Molecular Infectious Disease Laboratory. Current interpretive data was last revised on 22. Antione Honeycutt MD LAB MICROBIOLOGY - GENERAL ORDERABLES Final Result [facility] [place] [address] * (ABNORMAL) CBC with auto differential (12/03/2024 8:36 AM CDT) [facility] WBC 11.95(H) 3.80 - 9.90 K/cumm Hgb 9.6(L) 13.0 - 17.5 g/dL [facility] Hct 29.3(L) 38.9 - 50.3 % [facility] Plt 136(L) 150 - 400 K/cumm [facility] MPV 10.7 9.1 - 12.3 fL [facility] RBC 3.11(L) 4.30 - 5.80 M/cumm [facility] MCV 94.2 81.3 - 96.4 fL [facility] MCH 30.9 27.1 - 33.3 pg [facility] MCHC 32.8 32.3 - 35.7 g/dL [facility] RDW CV 13.6 11.1 - 14.9 % [facility] RDW SD 46.9 35.7 - 48.1 fL [facility] NRBC abs 0.00 0.00 - 0.01 K/cumm [facility] Blood 12/03/2024 8:36 AM CDT 12/03/2024 8:45 AM CDT us Antione Honeycutt MD LAB BLOOD ORDERABLE S Final Result [facility] [place] [address] * (ABNORMAL) Blood culture Blood Peripheral (12/03/2024 8:36 AM CDT) Direct Specimen Exam Stain: Gram Negative Bacilli Time to culture positivity (anaerobic media): 10.4 hours Time to culture positivity (aerobic media): 15.1 hours Notification of: Gram Negative Bacilli called to and read back by: Vani Davis MD [phone] on 12/03/2024 19:44:29 by: Chely Cisneros [place] Direct Specimen Exam Molecular Analysis: Presumptive Escherichia coli detected by renetta eP[facility] BCID-GN panel. This test does not exclude the possibility of a mixed bacterial infection. Notification of: Presumptive Escherichia coli called to and read back by: Amber Wiggins MD [phone] on 12/03/2024 21:59:15 by: Chely Cisneros [place] [facility] Report Final Report: Escherichia coli * * * * * * * * * * * * * * * * * * * * Escherichia coli #2 For susceptibility results, refer to accession number [id number] on the blood culture from 12/03/2024 (.) [facility] Organism ESCHERICHIA COLI [facility] Organism ESCHERICHIA COLI [facility] Blood (Peripheral) 12/03/2024 8:36 AM CDT 12/03/2024 8:46 AM CDT Narrative [facility] - 12/06/2024 12:06 PM CDT From a [...] performance characteristics have been verified by the [facility]. For questions about this culture, contact the Microbiology Laboratory at [phone]. Interpretive data was last revised on 24. [...] MICROBIOLOGY - GENERAL ORDERABLES Final Result [facility] Department [place] [address] * (ABNORMAL) Blood culture Blood Peripheral (12/03/2024 8:36 AM CDT) Direct Specimen Exam Stain: Gram Negative Bacilli Time to culture positivity (anaerobic media): 12.9 hours Time to culture positivity (aerobic media): 13.6 hours Report Final Report: Escherichia coli For susceptibility results, refer to accession number [id number] on the blood culture from 12/03/2024 Escherichia coli #2 (.) [facility] Organism ESCHERICHIA COLI [facility] Organism ESCHERICHIA COLI [facility] Blood (Peripheral) 12/03/2024 8:36 AM CDT 12/03/2024 8:46 AM CDT Narrative [facility] - 12/07/2024 2:40 PM CDT Draw Blood [...] performance characteristics have been verified by the [facility]. For questions about this culture, contact the Microbiology Laboratory at [phone]. Interpretive data was last revised on 24. [...] LAB MICROBIOLOGY - GENERAL ORDERABLES Final Result [facility] [place] [address] * (ABNORMAL) Comprehensive metabolic panel (12/03/2024 8:36 AM CDT) Sodium 138 135 - 145 mmol/L Potassium, pl 5.2(H) 3.3 - 4.9 mmol/L [facility] Chloride 102 97 - 110 mmol/L [facility] CO2 23 22 - 32 mmol/L [facility] Anion gap 13 2 - 15 mmol/L [facility] BUN 60(H) 6 - 25 mg/dL [facility] Creatinine 3.53(H) 0.80 - 1.30 mg/dL [facility] Glucose 245(H) 70 - 199 mg/dL [facility] Comment: Interpretive Data Fasting glucose >/= 126 [...] 2022. Calcium 9.0 8.5 - 10.3 mg/dL [facility] Bilirubin, total 0.5 0.1 - 1.2 mg/dL [facility] Protein, pl 7.6 6.5 - 8.5 g/dL [facility] Albumin 3.4(L) 3.5 - 5.0 g/dL [facility] Alk phos 219(H) 40 - 130 Units/L [facility] ALT 18 7 - 55 Units/L [facility] AST 24 10 - 50 Units/L [facility] Blood 12/03/2024 8:36 AM CDT 12/03/2024 8:45 AM CDT us Antione Honeycutt MD LAB BLOOD ORDERABLE S Final Result Performing Organization Address City/[facility] Co de Phone Number [facility] Ray[facility] [place] [address] * (ABNORMAL) POCT glucose (12/03/2024 8:16 AM CDT) Glucose, POC 242(H) 70 - 199 mg/dL Blood 12/03/2024 8:16 AM CDT 12/03/2024 8:16 AM CDT us Ward Mcmullen MD LAB POCT ORDERABLES - DEVICE Final Result Performing Organization Address [facility] Co de Phone Number [facility] Rayna [facility] [place] [address] * Laceration Repair (12/02/2024 5:54 PM CDT) [...] and matched to patient identification: n/a Responsible constitution party for transporting specimen(s) to lab determined: n/a [...] signed by Vijay PEREIRA T: Report ID: [id number] Reading Location: [id number] Procedure Note Vijay Franco MD - 12/02/2024 [...] signed by Vijay PEREIRA T: Report ID: [id number] Reading Location: [id number] us Rainer Peralta MD IMG CT PROCEDURES [...] Vijay Franco M.D. RB T: Report ID: [id number] Reading Location: [place] [address] Procedure Note Vijay Franco MD - 12/02/2024 [...] Vijay Franco M.D. 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 Triglycerides 103 <=149 mg/dL [facility] Comment: Interpretive Data Ages < or = [...] 2018. LDL, calculated 39 <=129 mg/dL [facility] Comment: Interpretive Data Ages < or = [...] NCEP Expert Panel. Circulation 2004;110:227 3. Tanmay M et al. NONA Cardiol. 2020 December 08;5(5):540-548. doi: 10.1001/jamacardio.2020.0013 Current Interpretive Data was last revised on 2024. Non-HDL Cholesterol 59 mg/dL [facility] Comment: Interpretive Data Ages < or = [...] last revised on 2018. Chol/HDL ratio 4 [facility] Blood 07/11/2024 3:37 AM [employer] FARM SUPERVISOR 07/11/2024 3:51 AM [employer] FARM SUPERVISOR Narrative [facility] - 07/11/2024 5:31 AM [employer] FARM SUPERVISOR This lipid panel was automatically ordered due to a significant change in Troponin. The dietary status of the patient at the collection time should be correlated with the lipid results. us Anthony Goldberg MD LAB BLOOD ORDERABLES Becky l Result [facility] [address] [facility] Department [place] [address] * Hepatitis panel, acute Blood (11/24/2023 2:47 PM CDT) Hep A IgM Nonreactive Nonreactive Hep B core IgM Nonreactive Nonreactive [facility] Hep C Ab Nonreactive Nonreactive [facility] Comment:Antibodies to HCV no t detected. Does NOT exclude the possibility of recent exposure to HCV. Current interpretive data was last revised on 22 HepBsAg Nonreactive Nonreactive [facility] Blood 11/24/2023 2:47 PM CDT 11/24/2023 3:07 PM CDT us Andria Gutierrez MD LAB MICROBIOLOGY - GENERAL O RDERABLES Final Result Performing Organization Address City/[facility] Co de Phone Number [facility] [place] [address] from Last 3 Months or Most Recently Relevant to Health Maintenance Insurance MEDICARE IDPA Member Subscriber Plan / Payer (Ef fective 2021-Present) Name:Marcelino Lukas Garcia Relation to Subscriber:Self Name:MarcelinoGeorges bullardsonia Garcia Payer ID:[id number] Group ID:Not on file Type:[place]ICAID [place] Address: [place] [id number] [place] MED[place] Member Subscriber Plan / Payer ( fective 2021-) Name:Lukas Benson Relation to Subscriber:Self Name:Lukas Benson Payer ID:[id number] Group ID:Not on file Type:[place] Address: [place] [id number] MEDICARE Advance Directives For more information, please contact: [phone] Documents on File Type Date 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
[2025-01-10 18:33] LABS: Basophils Percent Auto 0.3 % (0.2-1.2); Hematocrit 28.7 % (42.0-52.0); Hemoglobin 9.4 g/dL (14.0-18.0); Immature Granulocyte Absolute 0.07 K/mm3 (0.00-0.031); Immature Granulocyte Percent A 0.9 % (0-0.5); Lymphocytes Absolute Auto 0.71 K/mm3 (0.9-3.2); Lymphocytes Percent Auto 9.2 % (18.3-44.2); Mean Corpuscular HGB Conc 32.8 g/dl (32-36); Mean Corpuscular Hemoglobin 30.8 pg (26-34); Mean Corpuscular Volume 94.1 fl (80-100); Mean Platelet Volume 10.8 fl (7.4-10.4); Monocytes Absolute Auto 0.9 K/mm3 (0.1-0.6); Neutrophils Absolute Auto 6.1 K/mm3 (1.3-6.7); Neutrophils Percent Auto 78.6 % (45.5-73.1); Platelet Count Result 109 k/mm3 (150-375); Red Blood Count 3.05 M/mm3 (4.6-6.20); Red Cell Distribution Width 14.5 % (11.5-14.5); White Blood Count 7.7 K/mm3 (4.5-10.0)
[2025-01-10 18:37] LABS: Add Urine Microscopic? YES; Appearance Urine Cloudy (Clear); Bacteria Urine 4+ /hpf; Bilirubin Urine Negative (Negative); Blood Urine 1+ (Negative); Color Urine Yellow (Yellow); Glucose Urine UA Negative (Negative); Ketones Urine Trace mg/dL (Negative); Leukocyte Esterase Ur 3+ LEU/UL (Negative); Need Manual Microscopic Reviewed; Nitrate Urine Negative (Negative); Non Pathogenic Casts 0-2; Protein Urine 2+ mg/dL (Negative); Specific Grav Ur 1.013 (1.001-1.035); Squamous Epithelial Cell Urine None Seen /hpf (Few); WBC Urine >100 /hpf (0-3); pH Urine 5.5 (5.0-9.0)
[2025-01-10 18:44] LABS: Anion Gap 12 mmol/L (4-12); Blood Urea Nitrogen 40 mg/dL (9-20); Calcium 9.4 mg/dL (8.4-10.2); Carbon Dioxide 22 mmol/L (22-30); Chloride 104 mmol/L (98-107); Estimated Glomerular Filt Rate 30; Glucose 201 mg/dL (65-110); Potassium 4.2 mmol/L (3.4-5.0); Sodium 138 mmol/L (137-145)
[2025-01-10 18:48] LABS: INR 1.1; Prothrombin Time 14.2 Seconds (11.1-14.7)
[2025-01-10 18:49] LABS: Partial Thromboplastin Time 36.2 Seconds (22.3-36.8)
[2025-01-10] MEDS: SODIUM CHLORIDE 0.9% IV 1,000 ML 999 ML IV CONT (18:57)
[2025-01-10] MEDS: SODIUM CHLORIDE 0.9% IV 1,000 ML 100 ML IV CONT (20:34)
[2025-01-10 21:24] LABS: Alanine Aminotransferase 22 U/L (6-50); Alkaline Phosphatase 251 U/L (38-126); Aspartate Amino Transferase 35 U/L (17-59); Bilirubin Direct 0.2 mg/dL (0-0.3); Bilirubin,Total 0.6 mg/dL (0.2-1.3); Creatine Kinase 70 U/L (55-170); Total Protein 8.1 g/dL (6.3-8.2)
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
[2025-01-11 01:13] VITALS: BMI 25.6
--- NOTE | 2025-01-11 01:51 | ADMGEN ---
This patient, Lukas Benson, was admitted to [facility] Surg Room 316-02. Patient/family oriented to hospital policies and general routines including ID bracelet, bed and alarms, visiting hours, pain management, procedures, bathroom and other care routines, personal items, smoking policy, room service/diet, and visiting hours. Information on how to activate the Rapid Response Team has been discussed. Patient/Family are encouraged to report perceived risks to care and to ask questions if they do not understand what they are told or what they should do.
--- NOTE | 2025-01-11 01:51 | PC.NURSE ---
Pt poor historian
--- NOTE | 2025-01-11 02:05 | ECHO_ITS ---
Patient Info Name: Lukas Benson Age: 69 years : 1955 Gender: Male Ht: 72 in Wt: 190 lbs BSA: 2.10 m2 HR: 90 bpm BP: 114 / 68 mmHg Technical Quality: Good Exam Date: 01/11/2025 8:54 AM Patient Status: I Admit Date: 01/10/2025 Exam Type: CA echo doppler color flow Complete two-dimensional, color flow and Doppler transthoracic echocardiogram is performed. Staff Referring Physician: Roberta Holland [facility] Traction Power Engineer: Mariposa Mcgrath Attending Provider: Yobani Carty Summary 1. Left ventricular chamber dimension is normal. 2. Left ventricular systolic function is normal, estimated at 60-65. 3. There is mildly increased left ventricular wall thickness. 4. The left ventricular diastolic function is grade I diastolic dysfunction. 5. Right ventricular systolic function is normal. 6. No significant valvular disease. Left Ventricle Left ventricular chamber dimension is normal. Left ventricular systolic function is normal, estimated at 60-65. There is mildly increased left ventricular wall thickness. The left ventricular diastolic function is grade I diastolic dysfunction. Right Ventricle Right ventricular chamber dimension is normal. Right ventricular systolic function is normal. Left Atria Left atrial chamber dimension is normal. Right Atria Right atrial chamber dimension is normal. Atrial Septum Intact interatrial septum visualized by color flow imaging. Aortic Valve The aortic valve is trileaflet. There is mild aortic valve sclerosis. There is no aortic valve stenosis. There is no aortic valve regurgitation. Pulmonic Valve The pulmonic valve is not well visualized. There is trace pulmonic regurgitation. Mitral Valve There is trace mitral valve regurgitation. Tricuspid Valve There is trace tricuspid valve regurgitation. Pericardium/Pleural There is no pericardial effusion. Inferior Vena Cava Dilated inferior vena cava with <50% collapse upon inspiration consistent with elevated right atrial pressure, 15 mmHg. Aorta The aortic root size at the sinus of Valsalva is normal. Left Ventricular Outflow Tract Name Value Normal LVOT 2D LVOT Diameter 2.0 cm LVOT Doppler LVOT Peak Velocity 117 cm/s LVOT Peak Gradient 5 mmHg LVOT Mean Gradient 3 mmHg LVOT VTI 23 cm LVOT VTI/AV VTI Ratio 0.8 LVOT Stroke Volume 70 ml LVOT CO 6.1 l/min LVOT CI 2.9 l/min/m2 Pulmonic Valve Name Value Normal PV Doppler PV Peak Velocity 134 cm/s PV Peak Gradient 7 mmHg PV Regurgitation Doppler DC Peak End Diastolic Velocity 101 cm/s Mitral Valve Name Value Normal MV Diastolic Function MV E Peak Velocity 91 cm/s MV A Peak Velocity 99 cm/s MV E/A 0.9 MV Decel Time (PW) 145 ms MV Annular TDI MV E/e' (Septal) 7.8 MV E/e' (Lateral) 8.4 MV E/e' (Average) 8.1 Tricuspid Valve Name Value Normal TV Regurgitation Doppler TR Peak Velocity 212 cm/s TR Peak Gradient 18 mmHg Estimated PAP/RSVP RA Pressure 15 mmHg <=5 PA Systolic Pressure 33 mmHg <36 RV Systolic Pressure 33 mmHg <36 TV Annular TDI TV Lateral Antionette s' Velocity 13.6 cm/s >=9.5 Aortic Valve Name Value Normal AV Doppler AV Peak Velocity 160 cm/s AV Peak Gradient 10 mmHg AV Mean Gradient 6 mmHg AV VTI 29 cm AV Area (Cont Eq VTI) 2.4 cm2 >=3.0 AV Area (Cont Eq Lawson) 2.2 cm2 AV DI (Lawson) 0.73 AV Regurgitation 2D LVOT Area 3.1 cm2 Ventricles Name Value Normal LV Dimensions 2D/MM IVS Diastolic Thickness (2D) 1.1 cm 0.6-1.0 LVID Diastole (2D) 5.3 cm 4.2-5.8 LVIW Diastolic Thickness (2D) 1.1 cm 0.6-1.0 LVID Systole (2D) 3.8 cm 2.5-4.0 LVOT Diameter 2.0 cm LV Mass (2D Cubed) 234.23 g 88.00-224.00 LV Mass Index (2D Cubed) 111 g/m2 49-115 Relative Wall Thickness (2D) 0.43 <=0.42 LV Fractional Shortening/Ejection Fraction 2D/MM LV Fractional Shortening (2D) 28 % 25-43 LV EF (2D Teichholz) 54 % LV Diastolic Volume (4C MOD) 89 ml LV EF (4C MOD) 54 % LV Diastolic Volume (2C MOD) 52 ml LV EF (2C MOD) 64 % LV Diastolic Volume (BP MOD) 66 ml 62-150 LV Diastolic Volume Index (BP MOD) 31 ml/m2 34-74 LV Systolic Volume (BP MOD) 28 ml 21-61 LV Systolic Volume Index (BP MOD) 14 ml/m2 11-31 LV EF (BP MOD) 57 % 52-72 LV Diastolic Length (4C) 8.3 cm LV Systolic Length (4C) 6.9 cm LV Stroke Volume (4C MOD) 48 ml Atria Name Value Normal LA Dimensions LA Volume (4C A-L) 46 ml RA Dimensions RA Systolic Major [employer] Length (4C) 4.6 cm 2.1-2.7 RA Area (4C) 10.4 cm2 <=18.0 Report Signatures
[2025-01-11 04:39] LABS: Hematocrit 23.3 % (42.0-52.0); Hemoglobin 7.3 g/dL (14.0-18.0); Mean Corpuscular HGB Conc 31.3 g/dl (32-36); Mean Corpuscular Hemoglobin 30.5 pg (26-34); Mean Corpuscular Volume 97.5 fl (80-100); Mean Platelet Volume 11.4 fl (7.4-10.4); Platelet Count Result 100 k/mm3 (150-375); Red Blood Count 2.39 M/mm3 (4.6-6.20); Red Cell Distribution Width 14.5 % (11.5-14.5); White Blood Count 7.1 K/mm3 (4.5-10.0)
[2025-01-11 04:52] LABS: Anion Gap 11 mmol/L (4-12); Blood Urea Nitrogen 40 mg/dL (9-20); Calcium 8.6 mg/dL (8.4-10.2); Carbon Dioxide 20 mmol/L (22-30); Chloride 108 mmol/L (98-107); Estimated CRCL calculation 36 ml/min; Estimated Glomerular Filt Rate 34; Glucose 181 mg/dL (65-110); Magnesium 1.8 mg/dL (1.6-2.3); Potassium 3.5 mmol/L (3.4-5.0); Sodium 139 mmol/L (137-145)
[2025-01-11 05:24] LABS: Valproic Acid 67.2 ug/mL (50-120)
[2025-01-11 05:29] LABS: Thyroid Stimulating Hormone Reflex 0.259 uIU/mL (0.465-4.68)
[2025-01-11 06:15] VITALS: BP 114/68; PULSE 82; RESP 20; TEMP 35.8; O2SAT 98
[2025-01-11] MEDS: SODIUM CHLORIDE 0.9% IV 1,000 ML 100 ML IV CONT ×2 (06:28→18:07)
[2025-01-11] MEDS: KETOROLAC 0.5% OP SOLN 5 ML BOTTLE 1 DROP EACH EYE ×3 (06:30→20:36)
[2025-01-11] MEDS: prednisoLONE ACETATE 1% OPHTH 5 ML 1 DROP EACH EYE ×3 (06:30→20:36)
--- NOTE | 2025-01-11 07:22 | P.PNIM_ITS ---
Progress Note: A&P Assessment and Plan (1) Acute kidney injury: Code(s): N17.9 - Acute kidney failure, unspecified Status: Acute Assessment and Plan: * Creatinine: 2.22, GFR: 30, BUN: 40 * IV Fluids: NS 100mls/hr * Trend renal function * trend electrolytes, correct as needed * Renal US: Possible mild bladder wall thickening with debris in bladder lumen which may represent proteinaceous material or blood products, consider cystitis * Continue IV fluid hydration * Creatinine improving, down from 2.22 yesterday to 1.96 today (2) Urinary tract infection: Code(s): N39.0 - Urinary tract infection, site not specified Status: Acute Assessment and Plan: * UA:>100 WBC, 4+ bacteria 3+ leukocyte esterase * UC obtained on 01/10 * No previous micro * started on Rocephin (3) Thrombocytopenia: Code(s): D69.6 - Thrombocytopenia, unspecified Status: Acute Assessment and Plan: * Plts 109 upon admission, lowest seen on chart * Etiology unclear (4) Chronic anemia: Code(s): D64.9 - Anemia, unspecified Status: Acute Assessment and Plan: - Hgb: 9.4 on admission - Hx: Chronic normocytic anemia - transfuse if <7 - trend H&H (5) Hypertension: Code(s): I10 - Essential (primary) hypertension Status: Acute Assessment and Plan: * Patient's blood pressure was reviewed on 01/11 * Blood pressure remains well controlled. * Will continue current medications. (6) Insulin dependent type 2 diabetes mellitus: Code(s): E11.9 - Type 2 diabetes mellitus without complications; Z79.4 - terminologist (current) use of insulin Status: Acute Assessment and Plan: * hypoglycemia protocol * POC blood glucose ACHS * home medication - none * correct regimen ordered - low dose TIDWM and HS * A1C 6.0 (7) Psychiatric illness: Code(s): F99 - Mental disorder, not otherwise specified Status: Acute Assessment and Plan: * Continue at home medications (8) Cardiomegaly: Code(s): I51.7 - Cardiomegaly Status: Acute Assessment and Plan: * CXR: Cardiomegaly with congestive baltazar. Left perihilar opacification which may indicate atelectasis. * Echocardiogram pending Subjective Date/time seen: 01/11/25 07:22 Interval history: 69-year-old male with history of insulin-dependent diabetes, hypertension, bipolar disorder, anxiety, and schizophrenia who presented to the emergency department via EMS from [facility] for evaluation after a fall. 01/11/2025 Patient sitting comfortably in bed time examination. Denies any pain complaints at this time. Urine culture still pending at this time. Creatinine improving 1.96 down from 2.22 yesterday. Echocardiogram pending at this time as well. Continue fluid hydration IV antibiotics for UTI. Review of Systems Review of Systems: Unable to obtain given the patient's clinical condition as detailed above. Exam Narrative: General: Chronically ill-appearing male in the semi-Ortiz position in bed. Weight: 86.3 kg. HEENT: Pupils are reactive. Extraocular motions appear to be intact. Tacky mucous membranes. Missing teeth. Oropharynx not visualized. Neck: Supple. No midline vertebral tenderness or nuchal rigidity. Respiratory: Respirations are nonlabored. Lung sounds are diminished due to poor effort but otherwise sound clear to auscultation. Cardiovascular: Regular rate and rhythm with S1-S2. Gastrointestinal: Abdomen is soft, nontender, and nondistended with positive bowel sounds. Skin: Warm and dry. Generalized pallor. Extremities: No cyanosis, clubbing, or edema. Radial and pedal pulses intact. Neurological: Alert to self. Cranial nerves 2-12 are grossly intact. He does not participate in the neurologic exam. Noted to spontaneously move upper and lower extremities and withdraws to pain. Psychiatric: Cooperative but minimally interactive. Poor eye contact, he kept his eyes closed a lot. Objective Data Vital Signs Vital Signs: Vital Signs - 24 hr 01/10/25 17:32 01/10/25 17:42 01/10/25 17:47 Temperature 97.7 F Pulse Rate 99 101 H 98 Respiratory Rate 24 H 32 H 32 H Blood Pressure 137/50 L 137/50 L 134/51 L Pulse Oximetry 100 98 98 Oxygen Delivery Room Air 01/10/25 18:09 01/10/25 18:17 01/10/25 18:47 Temperature Pulse Rate 97 99 96 Respiratory Rate 37 H 29 H 26 H Blood Pressure 133/46 L 133/56 L 144/59 H Pulse Oximetry 96 97 96 Oxygen Delivery 01/10/25 19:29 01/10/25 20:34 01/10/25 21:38 Temperature Pulse Rate 92 98 107 H Respiratory Rate 18 22 H 23 H Blood Pressure 130/39 L 135/55 L 167/66 H Pulse Oximetry 98 98 97 Oxygen Delivery 01/10/25 22:25 01/11/25 06:15 Temperature 99.5 F 96.4 F L Pulse Rate 106 H 82 Respiratory Rate 28 H 20 Blood Pressure 154/88 H 114/68 Pulse Oximetry 96 98 Oxygen Delivery Intake/Output Intake/Output: Intake & Output 01/08/25 01/09/25 01/10/25 01/11/25 23:59 23:59 23:59 23:59 Intake Total 1050 1090 Output Total 100 Balance 950 1090 Meds/Results Medications: Active Medications Generic Name Dose Route Start Last Admin Trade Name Freq PRN Reason Stop Dose Admin Acetaminophen 650 mg 01/10/25 20:12 Acetaminophen 325 Mg Tablet PO Q4H PRN Mild Pain (1-3) or Fever Hydrocodone Bitart/Acetaminophen 1 tab 01/11/25 02:05 Hydrocodone/Acetaminophen (*Crx) 5-325 Mg Tablet PO Q6H PRN pain 4-6 Alprazolam 0.5 mg 01/11/25 09:00 Alprazolam (*Crx) 0.5 Mg Tablet PO BID [facility] Dextrose 12.5 gm 01/10/25 22:10 Dextrose 50% 25 Gm/50 Ml Syringe IV PUSH PRN PRN Hypoglycemia Protocol Divalproex Sodium 500 mg 01/11/25 09:[address] 250 Mg Tabec PO Q12HR [facility] Ezetimibe 10 mg 01/11/25 09:00 Ezetimibe 10 Mg Tablet PO DAILY [facility] Ferrous Sulfate 325 mg 01/11/25 09:00 Ferrous Sulfate [address] PO DAILY [facility] Glucagon 1 mg 01/10/25 22:10 Glucagon For Inj 1 Mg Vial IM PRN PRN Hypoglycemia Protocol Glucose 15 gm 01/10/25 22:10 Glucose Oral Gel 15 Gm Of Glucse In 37.5 Gm Tube PO PRN PRN Hypoglycemia Protocol Ceftriaxone Sodium 1 gm in 50 mls @ 100 mls/hr 01/11/25 19:00 Rocephin 1 Gm/Ns 50 Ml IVPB Q24H [facility] Sodium Chloride 1,000 mls @ 100 mls/hr 01/10/25 20:15 01/11/25 06:28 Normal Saline Iv IV CONT 100 mls/hr .Q10H [facility] Administration Dextrose 1,000 mls @ 100 mls/hr 01/10/25 22:10 Dextrose 5% 1,000 Ml IVPB PRN PRN Hypoglycemia Protocol Insulin Aspart 3 - 6 units 01/11/25 08:00 Insulin Aspart (*Bkc) 100 Units/Ml SUB-Q TIDWM [facility] Protocol Insulin Aspart 1 - 3 units 01/11/25 21:00 Insulin Aspart (*Bkc) 100 Units/Ml SUB-Q HS [facility] Protocol Insulin Glargine 13 units 01/11/25 21:00 Insulin Glargine (*Bkc) 100 Units/Ml SUB-Q HS [facility] Ketorolac Tromethamine 1 drop 01/11/25 06:00 01/11/25 06:30 Ketorolac 0.5% Op Soln 5 Ml Bottle EACH EYE 1 drop Q8HR [facility] Administration Montelukast Sodium 10 mg 01/11/25 09:00 Montelukast Sodium 10 Mg Tablet PO DAILY [facility] Ondansetron HCl 4 mg 01/10/25 20:12 Ondansetron Inj 4 Mg/2 Ml Vial IV PUSH Q4H PRN Nausea Perflutren Lipid Microsphere 0 ml 01/11/25 02:05 Perflutren Lipid Microspheres 1.5 Ml Vial Diluted To 10 Ml Total Volume IV PUSH 01/14/25 02:05 ONCE PRN adequate visualization Protocol Polyethylene Glycol 17 gm 01/11/25 02:05 Polyethylene Glycol 3350 17 Gm Powd.Pack PO QAM PRN Constipation Prednisolone Acetate 1 drop 01/11/25 06:00 01/11/25 06:30 Prednisolone Acetate 1% Ophth 5 Ml EACH EYE 1 drop Q8HR [facility] Administration Risperidone 0.5 mg 01/11/25 09:00 Risperidone 0.5 Mg Tablet PO Q12HR [facility] Sertraline HCl 75 mg 01/11/25 09:00 Sertraline Hcl 25 Mg Tablet PO DAILY [facility] Trazodone HCl 50 mg 01/11/25 21:00 Trazodone Hcl 50 Mg Tablet PO [facility] Radiology Results: ITS Impressions Head CT 01/10/25 18:18 IMPRESSION: No acute intracranial findings. Highly suggestive fracture in the right C1 lateral arch. ADDENDUM: 01/10/25 5130 The fractures seen in the right lateral arch of C1 is chronic and seen in the cervical spine CT done in 2021. Cervical Spine CT 01/10/25 18:26 IMPRESSION: No acute osseous abnormality cervical spine. Defect in the right lateral arch of C1 which is unchanged from previous examination. Degenerative disc disease at the level of C6-C7 with multilevel intervertebral foraminal narrowing. Chest X-Ray 01/10/25 19:04 IMPRESSION: Cardiomegaly with congestive baltazar. Left perihilar opacification which may indicate atelectasis. Hip/Pelvis X-Ray 01/10/25 19:08 IMPRESSION: No acute osseous abnormality of the bilateral hips and pelvis. Labs Labs: Laboratory Results - last 24 hr 01/10/25 01/10/25 01/11/25 18:16 18:27 03:50 WBC 7.7 7.1 RBC 3.05 L 2.39 L Hgb 9.4 L 7.3 L Hct 28.7 L 23.3 L MCV 94.1 97.5 MCH 30.8 30.5 MCHC 32.8 31.3 L RDW 14.5 14.5 Plt Count 109 L D 100 L MPV 10.8 H 11.4 H Immature Gran % (Auto) 0.9 H Neut % (Auto) 78.6 H Lymph % (Auto) 9.2 L [place] % (Auto) 11.0 H Eos % (Auto) 0.0 Baso % (Auto) 0.3 Lymph # (Auto) 0.71 L [place] # (Auto) 0.9 H Eos # (Auto) 0.0 Baso # (Auto) 0.0 Abs Immat Gran (auto) 0.07 H Absolute Neuts (auto) 6.1 Absolute Nucleated RBC 0.000 Nucleated RBC % 0.0 PT 14.2 INR 1.1 APTT 36.2 Sodium 138 139 Potassium 4.2 3.5 Chloride 104 108 H Carbon Dioxide 22 20 L Anion Gap 12 11 BUN 40 H D 40 H Creatinine 2.22 H 1.96 H Estim Creat Clear Calc Not Reportable 36 Estimated GFR 30 L 34 L Glucose 201 H 181 H Hemoglobin A1c 6.0 H Calcium 9.4 8.6 Magnesium 1.8 Total Bilirubin 0.6 Direct Bilirubin 0.2 AST 35 ALT 22 Alkaline Phosphatase 251 H Total Creatine Kinase 70 Troponin I 0.020 Total Protein 8.1 Albumin 4.0 TSH (Reflex) 0.259 L Urine Color Yellow Urine Appearance Cloudy H Urine pH 5.5 Ur Specific [place] 1.013 Urine Protein 2+ H Urine Glucose (UA) Negative Urine Ketones Trace H Ur Blood (Man) 1+ H Urine Nitrate Negative Urine Bilirubin Negative Urine Urobilinogen 1.0 Add Ur Microanalysis Reviewed Leukocyte Esterase Rfl 3+ H Urine RBC 3-5 H Urine WBC >100 H Ur Squamous Epith Cells None seen Urine Bacteria 4+ H Urine Casts 0-2 Valproic Acid 67.2 Quality VTE Prophylaxis VTE prophylaxis: mechanical ordered
[2025-01-11 07:32] LABS: Free T4 Free Thyroxine Reflex 1.33 ng/dL (0.78-2.19)
[2025-01-11 08:02] LABS: Glucose Point of Care 153 mg/dl (65-105)
[2025-01-11] MEDS: EZETIMIBE 10 MG TABLET PO (09:20)
[2025-01-11] MEDS: ALPRAZolam (*CRX) 0.5 MG TABLET PO ×2 (09:20→18:05)
[2025-01-11] MEDS: MONTELUKAST SODIUM 10 MG TABLET PO (09:20)
[2025-01-11] MEDS: FERROUS SULFATE 325 MG TABLET DR PO (09:20)
[2025-01-11] MEDS: risperiDONE 0.5 MG TABLET PO ×2 (09:20→20:35)
[2025-01-11] MEDS: DIVALPROEX SODIUM DR 250 MG TABEC 500 MG PO ×2 (09:20→20:35)
[2025-01-11] MEDS: SERTRALINE HCL 25 MG TABLET 75 MG PO (09:21)
[2025-01-11 11:26] LABS: Total Triiodothyronine (T3) 1.66 NG/ML (0.82-1.58)
[2025-01-11 11:34] VITALS: BMI 25.4
[2025-01-11 12:08] LABS: Glucose Point of Care 240 mg/dl (65-105)
[2025-01-11] MEDS: INSULIN ASPART (*BKC) 100 UNITS/ML SUB-Q (13:00)
[2025-01-11 14:00] VITALS: BP 88/49; PULSE 80; RESP 18; TEMP 36.3; O2SAT 95
[2025-01-11 16:49] LABS: Glucose Point of Care 133 mg/dl (65-105)
[2025-01-11 20:00] VITALS: BP 125/43; BP 129/47; PULSE 89; PULSE 90; RESP 28; TEMP 36.9; TEMP 37; O2SAT 97; O2SAT 98
[2025-01-11] MEDS: traZODone HCL 50 MG TABLET PO (20:35)
[2025-01-11] MEDS: INSULIN GLARGINE (*BKC) 100 UNITS/ML 13 UNITS SUB-Q (21:48)
[2025-01-11 21:51] LABS: Glucose Point of Care 143 mg/dl (65-105)
[2025-01-12] VITALS (9 sets, daily range): BP systolic 106–159; BP diastolic 54–70; PULSE 56–81; RESP 14–32; TEMP 36.1–38.8; O2SAT 93–100
[2025-01-12] MEDS: SODIUM CHLORIDE 0.9% IV 1,000 ML 100 ML IV CONT ×2 (03:21→22:29)
[2025-01-12] MEDS: prednisoLONE ACETATE 1% OPHTH 5 ML 1 DROP EACH EYE ×3 (05:58→22:30)
[2025-01-12] MEDS: KETOROLAC 0.5% OP SOLN 5 ML BOTTLE 1 DROP EACH EYE ×3 (05:58→22:30)
[2025-01-12] MEDS: ACETAMINOPHEN 325 MG TABLET 650 MG PO (06:22)
[2025-01-12 07:40] LABS: Basophils Percent Auto 0.6 % (0.2-1.2); Eosinophils Absolute Auto 0.1 K/mm3 (0-0.3); Eosinophils Percent Auto 2.5 % (0-4.4); Hematocrit 22.4 % (42.0-52.0); Immature Granulocyte Absolute 0.02 K/mm3 (0.00-0.031); Immature Granulocyte Percent A 0.6 % (0-0.5); Immature Platelet Fraction Pct 4.1 % (0.9-11.2); Lymphocytes Absolute Auto 0.69 K/mm3 (0.9-3.2); Lymphocytes Percent Auto 19.1 % (18.3-44.2); Mean Corpuscular HGB Conc 30.8 g/dl (32-36); Mean Corpuscular Volume 97.4 fl (80-100); Monocytes Absolute Auto 0.5 K/mm3 (0.1-0.6); Monocytes Percent Auto 12.7 % (2.6-8.5); Neutrophils Absolute Auto 2.3 K/mm3 (1.3-6.7); Neutrophils Percent Auto 64.5 % (45.5-73.1); Platelet Count Result 100 k/mm3 (150-375); Red Cell Distribution Width 14.4 % (11.5-14.5); White Blood Count 3.6 K/mm3 (4.5-10.0)
[2025-01-12 07:48] LABS: Lactic Acid Reflex 0.7 mmol/L (0.7-2.0)
--- NOTE | 2025-01-12 07:49 | P.PNIM_ITS ---
Progress Note: A&P Assessment and Plan (1) Sepsis: Code(s): A41.9 - Sepsis, unspecified organism Status: Acute Assessment and Plan: Meets SIRS criteria: Tachypnea, Fever * lactic acid: 0.7 * suspected source: Urine * blood cultures drawn on 01/12 * UA: >100 WBC, 3-5 RBC, 3+ Leuk esterase, 4+ bacteria * Urine culture showed E coli with car susceptability * CXR: Patchy bilateral airspace disease, compatible with pneumonia. (2) Acute kidney injury: Code(s): N17.9 - Acute kidney failure, unspecified Status: Acute Assessment and Plan: * Creatinine: 2.22, GFR: 30, BUN: 40 * IV Fluids: NS 100mls/hr * Trend renal function * trend electrolytes, correct as needed * Renal US: Possible mild bladder wall thickening with debris in bladder lumen which may represent proteinaceous material or blood products, consider cystitis * Continue IV fluid hydration * Creatinine improving, down from 2.22 yesterday to 1.96 today (3) Urinary tract infection: Code(s): N39.0 - Urinary tract infection, site not specified Status: Acute Assessment and Plan: * UA:>100 WBC, 4+ bacteria 3+ leukocyte esterase * UC obtained on 01/10, showed growth of E coli with car susceptibility except to Cefazolin * No previous micro * Continue Rocephin (4) Pneumonia: Code(s): J18.9 - Pneumonia, unspecified organism Status: Acute Assessment and Plan: * CXR: Patchy bilateral airspace disease, compatible with pneumonia. * started on CAP tx: azithromycin & ceftriaxone * Viral PCR: negative for Flu/COVID/RSV * Consider ordering legionella, mycoplasma and pneumococcal * no supplemental O2 requirement * Monitor vital signs, I&Os, neuro status and patient is a fall risk * Follow WBC, serum electrolytes, temperature curves and cultures * Send sputum cultures * Oxygen via NC; wean as tolerated. Keep SpO2 greater than 88% * Gentle IV fluid resuscitation * Ceftriaxone 2 gram IV q24H and Azithromycin 500mg IV q24H (5) Pancytopenia: Code(s): D61.818 - Other pancytopenia Status: Acute Assessment and Plan: * Upon admission: Plt 109, WBC 7.7, RBC 3.05 * Etiology unclear, could be 2/2 Sepsis? * 6/5: Plt 100, WBC 3.6, RBC 2.3, Hgb 6.9 (to receive 1 unit PRBC) * Heme/Onc consult * To obtain Iron panel, Vit B12, Folate levels (6) Chronic anemia: Code(s): D64.9 - Anemia, unspecified Status: Acute Assessment and Plan: * Hgb: 9.4 on admission * Hx: Chronic normocytic anemia * Transfuse if <7 * Trend H&H * /: Hgb 6.9 * Will order 1 unit PRBC * To obtain Iron panel, Vit B12, Folate levels (7) Hypertension: Code(s): I10 - Essential (primary) hypertension Status: Acute Assessment and Plan: * Patient's blood pressure was reviewed on 01/11 * Blood pressure remains well controlled. * Will continue current medications. (8) Insulin dependent type 2 diabetes mellitus: Code(s): E11.9 - Type 2 diabetes mellitus without complications; Z79.4 - intermodal customer service (current) use of insulin Status: Acute Assessment and Plan: * hypoglycemia protocol * POC blood glucose ACHS * home medication - none * correct regimen ordered - low dose TIDWM and HS * A1C 6.0 (9) Psychiatric illness: Code(s): F99 - Mental disorder, not otherwise specified Status: Acute Assessment and Plan: * Continue at home medications (10) Cardiomegaly: Code(s): I51.7 - Cardiomegaly Status: Acute Assessment and Plan: * CXR: Cardiomegaly with congestive baltazar. Left perihilar opacification which may indicate atelectasis. * Echocardiogram pending Subjective Date/time seen: 01/12/25 07:49 Interval history: 69-year-old male with history of insulin-dependent diabetes, hypertension, bipolar disorder, anxiety, and schizophrenia who presented to the emergency department via EMS from [facility] for evaluation after a fall. 01/12/2025 Patient sitting comfortably in bed time examination. Denies any pain complaints at this time. Urine culture still pending at this time. Review of Systems Review of Systems: Unable to obtain given the patient's clinical condition as detailed above. Exam Narrative: General: Chronically ill-appearing male in the semi-Ortiz position in bed. Weight: 86.3 kg. HEENT: Pupils are reactive. Extraocular motions appear to be intact. Tacky mucous membranes. Missing teeth. Oropharynx not visualized. Neck: Supple. No midline vertebral tenderness or nuchal rigidity. Respiratory: Respirations are nonlabored. Lung sounds are diminished due to poor effort but otherwise sound clear to auscultation. Cardiovascular: Regular rate and rhythm with S1-S2. Gastrointestinal: Abdomen is soft, nontender, and nondistended with positive bowel sounds. Skin: Warm and dry. Generalized pallor. Extremities: No cyanosis, clubbing, or edema. Radial and pedal pulses intact. Neurological: Alert to self. Cranial nerves 2-12 are grossly intact. He does not participate in the neurologic exam. Noted to spontaneously move upper and lower extremities and withdraws to pain. Psychiatric: Cooperative but minimally interactive. Poor eye contact, he kept his eyes closed a lot. Objective Data Vital Signs Vital Signs: Vital Signs - 24 hr 01/11/25 08:00 01/11/25 14:00 01/11/25 20:00 Temperature 97.4 F L 98.6 F Pulse Rate 80 89 Respiratory Rate 18 28 H Blood Pressure 88/49 L 125/43 L Pulse Oximetry 95 97 Oxygen Delivery Room Air 01/11/25 20:00 01/11/25 20:00 01/12/25 06:00 Temperature 98.4 F 101.8 F H Pulse Rate 90 90 81 Respiratory Rate 28 H 28 H 32 H Blood Pressure 129/47 L 118/60 Pulse Oximetry 98 98 93 Oxygen Delivery Room Air 01/12/25 06:22 01/12/25 07:20 Temperature 101.3 F H 99.3 F Pulse Rate Respiratory Rate Blood Pressure Pulse Oximetry Oxygen Delivery Intake/Output Intake/Output: Intake & Output 01/09/25 01/10/25 01/11/25 01/12/25 23:59 23:59 23:59 23:59 Intake Total 1050 3230 923.3 Output Total 100 Balance 950 3230 923.3 Meds/Results Medications: Active Medications Generic Name Dose Route Start Last Admin Trade Name Freq PRN Reason Stop Dose Admin Acetaminophen 650 mg 01/10/25 20:12 01/12/25 06:22 Acetaminophen 325 Mg Tablet PO 650 mg Q4H PRN Administration Mild Pain (1-3) or Fever Hydrocodone Bitart/Acetaminophen 1 tab 01/11/25 02:05 Hydrocodone/Acetaminophen (*Crx) 5-325 Mg Tablet PO Q6H PRN pain 4-6 Alprazolam 0.5 mg 01/11/25 09:00 01/11/25 18:05 Alprazolam (*Crx) 0.5 Mg Tablet PO 0.5 mg BID [facility] Administration Dextrose 12.5 gm 01/10/25 22:10 Dextrose 50% 25 Gm/50 Ml Syringe IV PUSH PRN PRN Hypoglycemia Protocol Divalproex Sodium 500 mg 01/11/25 09:00 01/11/25 20:[address] 250 Mg Tabec PO 500 mg Q12HR [facility] Administration Ezetimibe 10 mg 01/11/25 09:00 01/11/25 09:20 Ezetimibe 10 Mg Tablet PO 10 mg DAILY [facility] Administration Ferrous Sulfate 325 mg 01/11/25 09:00 01/11/25 09:20 Ferrous Sulfate [address] PO 325 mg DAILY [facility] Administration Glucagon 1 mg 01/10/25 22:10 Glucagon For Inj 1 Mg Vial IM PRN PRN Hypoglycemia Protocol Glucose 15 gm 01/10/25 22:10 Glucose Oral Gel 15 Gm Of Glucse In 37.5 Gm Tube PO PRN PRN Hypoglycemia Protocol Ceftriaxone Sodium 1 gm in 50 mls @ 100 mls/hr 01/11/25 19:00 01/11/25 18:40 Rocephin 1 Gm/Ns 50 Ml IVPB Infused Q24H [facility] Infusion Sodium Chloride 1,000 mls @ 100 mls/hr 01/10/25 20:15 01/12/25 03:21 Normal Saline Iv IV CONT 100 mls/hr .Q10H [facility] Administration Dextrose 1,000 mls @ 100 mls/hr 01/10/25 22:10 Dextrose 5% 1,000 Ml IVPB PRN PRN Hypoglycemia Protocol Insulin Aspart 3 - 6 units 01/11/25 08:00 01/11/25 17:00 Insulin Aspart (*Bkc) 100 Units/Ml SUB-Q Not Given TIDWM [facility] Protocol Insulin Aspart 1 - 3 units 01/11/25 21:00 01/11/25 21:46 Insulin Aspart (*Bkc) 100 Units/Ml SUB-Q Not Given HS [facility] Protocol Insulin Glargine 13 units 01/11/25 21:00 01/11/25 21:48 Insulin Glargine (*Bkc) 100 Units/Ml SUB-Q 13 units HS [facility] Administration Ketorolac Tromethamine 1 drop 01/11/25 06:00 01/12/25 05:58 Ketorolac 0.5% Op Soln 5 Ml Bottle EACH EYE 1 drop Q8HR [facility] Administration Montelukast Sodium 10 mg 01/11/25 09:00 01/11/25 09:20 Montelukast Sodium 10 Mg Tablet PO 10 mg DAILY [facility] Administration Ondansetron HCl 4 mg 01/10/25 20:12 Ondansetron Inj 4 Mg/2 Ml Vial IV PUSH Q4H PRN Nausea Perflutren Lipid Microsphere 0 ml 01/11/25 02:05 Perflutren Lipid Microspheres 1.5 Ml Vial Diluted To 10 Ml Total Volume IV PU SH 01/14/25 02:05 ONCE PRN adequate visualization Protocol Polyethylene Glycol 17 gm 01/11/25 02:05 Polyethylene Glycol 3350 17 Gm Powd.Pack PO QAM PRN Constipation Prednisolone Acetate 1 drop 01/11/25 06:00 01/12/25 05:58 Prednisolone Acetate 1% Ophth 5 Ml EACH EYE 1 drop Q8HR [facility] Administration Risperidone 0.5 mg 01/11/25 09:00 01/11/25 20:35 Risperidone 0.5 Mg Tablet PO 0.5 mg Q12HR [facility] Administration Sertraline HCl 75 mg 01/11/25 09:00 01/11/25 09:21 Sertraline Hcl 25 Mg Tablet PO 75 mg DAILY [facility] Administration Trazodone HCl 50 mg 01/11/25 21:00 01/11/25 20:35 Trazodone Hcl 50 Mg Tablet PO 50 mg HS [facility] Administration Radiology Results: ITS Impressions Head CT 01/10/25 18:18 IMPRESSION: No acute intracranial findings. Highly suggestive fracture in the right C1 lateral arch. ADDENDUM: 01/10/25 1850 The fractures seen in the right lateral arch of C1 is chronic and seen in the cervical spine CT done in 2021. Cervical Spine CT 01/10/25 18:26 IMPRESSION: No acute osseous abnormality cervical spine. Defect in the right lateral arch of C1 which is unchanged from previous examination. Degenerative disc disease at the level of C6-C7 with multilevel intervertebral foraminal narrowing. Chest X-Ray 01/10/25 19:04 IMPRESSION: Cardiomegaly with congestive baltazar. Left perihilar opacification which may indicate atelectasis. Hip/Pelvis X-Ray 01/10/25 19:08 IMPRESSION: No acute osseous abnormality of the bilateral hips and pelvis. Renal Ultrasound 01/11/25 08:53 Impression: 1: Possible mild bladder wall thickening with debris in the bladder lumen which may represent proteinaceous material or blood products. Consider cystitis in the appropriate clinical setting. Labs Labs: Laboratory Results - last 24 hr 01/11/25 01/11/25 01/11/25 03:50 07:55 11:57 POC Capillary Glucose 153 H 240 H Lactic Acid Total T3 1.66 H 01/11/25 01/11/25 01/12/25 16:42 21:07 07:13 POC Capillary Glucose 133 H 143 H Lactic Acid 0.7 Total T3 Quality VTE Prophylaxis VTE prophylaxis: mechanical ordered
[2025-01-12 07:54] LABS: Glucose Point of Care 112 mg/dl (65-105)
[2025-01-12 08:05] LABS: Hemoglobin 6.9 g/dL (14.0-18.0)
[2025-01-12 08:20] LABS: Anisocytosis 1+; Platelet Estimate Decreased (Adequate)
[2025-01-12 08:21] LABS: Erythrocyte Sedimentation Rate > 140 mm/hr (0-20); Ovalocytes 1+; Schistocytes None Seen
[2025-01-12 08:31] LABS: Alanine Aminotransferase 25 U/L (6-50); Albumin Level 3.1 g/dL (3.5-5.1); Alkaline Phosphatase 229 U/L (38-126); Anion Gap 9 mmol/L (4-12); Aspartate Amino Transferase 40 U/L (17-59); Bilirubin,Total 0.3 mg/dL (0.2-1.3); Blood Urea Nitrogen 40 mg/dL (9-20); CRP 30.6 mg/dL (<1.0); Calcium 8.5 mg/dL (8.4-10.2); Carbon Dioxide 21 mmol/L (22-30); Chloride 108 mmol/L (98-107); Estimated CRCL calculation 32 ml/min; Estimated Glomerular Filt Rate 30; Glucose 112 mg/dL (65-110); Potassium 3.4 mmol/L (3.4-5.0); Sodium 138 mmol/L (137-145); Total Protein 6.8 g/dL (6.3-8.2)
[2025-01-12 09:32] LABS: Procalcitonin 3.5 ng/mL
[2025-01-12] MEDS: DIVALPROEX SODIUM DR 250 MG TABEC 500 MG PO ×2 (10:52→20:31)
[2025-01-12 11:35] LABS: Glucose Point of Care 101 mg/dl (65-105)
[2025-01-12] MEDS: AZITHROMYCIN 500 MG/NS 250 ML 500 MG/250 ML BAG 250 MG IVPB (15:02)
[2025-01-12 16:01] LABS: Hematocrit 26.2 % (42.0-52.0); Hemoglobin 8.2 g/dL (14.0-18.0)
[2025-01-12 16:45] LABS: Glucose Point of Care 179 mg/dl (65-105)
[2025-01-12 16:46] LABS: Iron 34 ug/dL (49-181); Percent Iron Saturation 18 % (20-50)
[2025-01-12] MEDS: ALPRAZolam (*CRX) 0.5 MG TABLET PO (17:43)
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
[2025-01-12] MEDS: IRON SUCROSE COMPLEX 400 MG, IRON SUCROSE COMPLEX 100 MG in SODIUM CHLORIDE 0.9% IV 250 ML 78.57 MG IVPB (18:50)
[2025-01-12 20:26] LABS: Glucose Point of Care 208 mg/dl (65-105)
[2025-01-12] MEDS: traZODone HCL 50 MG TABLET PO (20:32)
[2025-01-12] MEDS: INSULIN ASPART (*BKC) 100 UNITS/ML SUB-Q (20:32)
[2025-01-12] MEDS: risperiDONE 0.5 MG TABLET PO (20:32)
[2025-01-12] MEDS: INSULIN GLARGINE (*BKC) 100 UNITS/ML 13 UNITS SUB-Q (20:32)
[2025-01-13 06:00] VITALS: BP 127/62; PULSE 71; RESP 18; TEMP 37.1; O2SAT 98
[2025-01-13] MEDS: KETOROLAC 0.5% OP SOLN 5 ML BOTTLE 1 DROP EACH EYE ×3 (06:25→22:40)
[2025-01-13] MEDS: prednisoLONE ACETATE 1% OPHTH 5 ML 1 DROP EACH EYE ×3 (06:25→22:40)
--- NOTE | 2025-01-13 07:45 | P.PNIM_ITS ---
Progress Note: A&P Assessment and Plan (1) Sepsis: Code(s): A41.9 - Sepsis, unspecified organism Status: Acute Assessment and Plan: Meets SIRS criteria: Tachypnea, Fever * lactic acid: 0.7 * suspected source: Urine * blood cultures drawn on 01/12, pending at this time * UA: >100 WBC, 3-5 RBC, 3+ Leuk esterase, 4+ bacteria * Urine culture showed E coli with car susceptibility * CXR: Patchy bilateral airspace disease, compatible with pneumonia. (2) Acute kidney injury: Code(s): N17.9 - Acute kidney failure, unspecified Status: Acute Assessment and Plan: * Creatinine: 2.22, GFR: 30, BUN: 40 * IV Fluids: NS 100mls/hr * Trend renal function * trend electrolytes, correct as needed * Renal US: Possible mild bladder wall thickening with debris in bladder lumen which may represent proteinaceous material or blood products, consider cystitis * Continue IV fluid hydration * 01/13: Creatinine down from 2.22 upon admit to 1.88 today. (3) Urinary tract infection: Code(s): N39.0 - Urinary tract infection, site not specified Status: Acute Assessment and Plan: * UA:>100 WBC, 4+ bacteria 3+ leukocyte esterase * UC obtained on 01/10, showed growth of E coli with car susceptibility except to Cefazolin * No previous micro * Continue Rocephin, switched to Keflex today (4) Pneumonia: Code(s): J18.9 - Pneumonia, unspecified organism Status: Acute Assessment and Plan: * CXR: Patchy bilateral airspace disease, compatible with pneumonia. * started on CAP tx: azithromycin & ceftriaxone * Viral PCR: negative for Flu/COVID/RSV * Legionella, mycoplasma and pneumococcal pending * no supplemental O2 requirement * Monitor vital signs, I&Os, neuro status and patient is a fall risk * Follow WBC, serum electrolytes, temperature curves and cultures * Oxygen via NC; wean as tolerated. Keep SpO2 greater than 88% * Gentle IV fluid resuscitation * Initially placed on Ceftriaxone 2 gram IV q24H and Azithromycin 500mg IV q24H * No leukocytosis or fever * Switched to Keflex (5) Pancytopenia: Code(s): D61.818 - Other pancytopenia Status: Acute Assessment and Plan: * Upon admission: Plt 109, WBC 7.7, RBC 3.05 * Etiology unclear, could be 2/2 Sepsis? * 01/12: Plt 100, WBC 3.6, RBC 2.3, Hgb 6.9 (to receive 1 unit PRBC) * Iron panel, Vit B12, Folate levels * In 11/29: Iron 30, TIBC 262, % Sat 11, Ferritin 702 * 01/12: Iron 34, TIBC 184, % Sat 18, Ferritin 592 * Heme/Onc consult * RUQ US to r/o hepatosplenomegaly - Splenomegaly. Gallbladder wall thickening. * Iron infusion * Consider Procrit once infusion completed (6) Chronic anemia: Code(s): D64.9 - Anemia, unspecified Status: Acute Assessment and Plan: * Hgb: 9.4 on admission * Hx: Chronic normocytic anemia * Transfuse if <7 * Trend H&H * 01/12: Hgb 6.9 * Will order 1 unit PRBC * 01/13: Hgb 8.2 (7) Hypertension: Code(s): I10 - Essential (primary) hypertension Status: Acute Assessment and Plan: * Patient's blood pressure was reviewed on 01/11 * Blood pressure remains well controlled. * Will continue current medications. (8) Insulin dependent type 2 diabetes mellitus: Code(s): E11.9 - Type 2 diabetes mellitus without complications; Z79.4 - bed bug exterminator (current) use of insulin Status: Acute Assessment and Plan: * hypoglycemia protocol * POC blood glucose ACHS * home medication - none * correct regimen ordered - low dose TIDWM and HS * A1C 6.0 (9) Psychiatric illness: Code(s): F99 - Mental disorder, not otherwise specified Status: Acute Assessment and Plan: * Continue at home medications (10) Cardiomegaly: Code(s): I51.7 - Cardiomegaly Status: Acute Assessment and Plan: * CXR: Cardiomegaly with congestive baltazar. Left perihilar opacification which may indicate atelectasis. * Echocardiogram * Left ventricular systolic function is normal, estimated at 60-65. * There is mildly increased left ventricular wall thickness. * G1DD Subjective Date/time seen: 01/13/25 07:45 Interval history: 69-year-old male with history of insulin-dependent diabetes, hypertension, bipolar disorder, anxiety, and schizophrenia who presented to the emergency department via EMS from [facility] for evaluation after a fall. 01/13/2025 Patient sitting comfortably in bed time examination. Denies any pain complaints at this time. Urine culture showed Ecoli with pansensitive. Blood cultures still pending. Cr downtrending, down from 2.22 upon admission to 1.8. Heme/Onc consult still pending at this time. Hemoglobin, vital signs stable. Patient otherwise has no complaints. Review of Systems Review of Systems: Unable to obtain given the patient's clinical condition as detailed above. Exam Narrative: General: Chronically ill-appearing male in the semi-Ortiz position in bed. Weight: 86.3 kg. HEENT: Pupils are reactive. Extraocular motions appear to be intact. Tacky mucous membranes. Missing teeth. Oropharynx not visualized. Neck: Supple. No midline vertebral tenderness or nuchal rigidity. Respiratory: Respirations are nonlabored. Lung sounds are diminished due to poor effort but otherwise sound clear to auscultation. Cardiovascular: Regular rate and rhythm with S1-S2. Gastrointestinal: Abdomen is soft, nontender, and nondistended with positive bowel sounds. Skin: Warm and dry. Generalized pallor. Extremities: No cyanosis, clubbing, or edema. Radial and pedal pulses intact. Neurological: Alert to self. Cranial nerves 2-12 are grossly intact. He does not participate in the neurologic exam. Noted to spontaneously move upper and lower extremities and withdraws to pain. Psychiatric: Cooperative but minimally interactive. Poor eye contact, he kept his eyes closed a lot. Objective Data Vital Signs Vital Signs: Vital Signs - 24 hr 01/12/25 11:00 01/12/25 11:54 01/12/25 12:15 Temperature 97.6 F 96.9 F L Pulse Rate 57 L 59 L Respiratory Rate 18 16 Blood Pressure 106/55 L 115/54 L Pulse Oximetry 99 100 Oxygen Delivery Room Air 01/12/25 13:10 01/12/25 14:10 01/12/25 14:45 Temperature 97.6 F 97.6 F 97.5 F L Pulse Rate 56 L 59 L 62 Respiratory Rate 14 16 16 Blood Pressure 123/58 L 129/62 107/60 Pulse Oximetry 100 99 100 Oxygen Delivery 01/12/25 19:38 01/13/25 06:00 Temperature 97.8 F 98.7 F Pulse Rate 80 71 Respiratory Rate 18 18 Blood Pressure 159/70 H 127/62 Pulse Oximetry 100 98 Oxygen Delivery Intake/Output Intake/Output: Intake & Output 01/10/25 01/11/25 01/12/25 01/13/25 23:59 23:59 23:59 23:59 Intake Total 1050 3230 3663.5 200 Output Total 100 350 650 Balance 950 3230 3313.5 -450 Meds/Results Medications: Active Medications Generic Name Dose Route Start Last Admin Trade Name Freq PRN Reason Stop Dose Admin Acetaminophen 650 mg 01/10/25 20:12 01/12/25 06:22 Acetaminophen 325 Mg Tablet PO 650 mg Q4H PRN Administration Mild Pain (1-3) or Fever Hydrocodone Bitart/Acetaminophen 1 tab 01/11/25 02:05 Hydrocodone/Acetaminophen (*Crx) 5-325 Mg Tablet PO Q6H PRN pain 4-6 Alprazolam 0.5 mg 01/11/25 09:00 01/12/25 18:36 Alprazolam (*Crx) 0.5 Mg Tablet PO Not Given BID CHONG Dextrose 12.5 gm 01/10/25 22:10 Dextrose 50% 25 Gm/50 Ml Syringe IV PUSH PRN PRN Hypoglycemia Protocol Divalproex Sodium 500 mg 01/11/25 09:00 01/12/25 20:[address] 250 Mg Tabec PO 500 mg Q12HR CHONG Administration Ezetimibe 10 mg 01/11/25 09:00 01/12/25 18:36 Ezetimibe 10 Mg Tablet PO Not Given DAILY CHONG Ferrous Sulfate 325 mg 01/11/25 09:00 01/12/25 18:36 Ferrous Sulfate [address] PO Not Given DAILY CHONG Glucagon 1 mg 01/10/25 22:10 Glucagon For Inj 1 Mg Vial IM PRN PRN Hypoglycemia Protocol Glucose 15 gm 01/10/25 22:10 Glucose Oral Gel 15 Gm Of Glucse In 37.5 Gm Tube PO PRN PRN Hypoglycemia Protocol Ceftriaxone Sodium 1 gm in 50 mls @ 100 mls/hr 01/11/25 19:00 01/12/25 18:04 Rocephin 1 Gm/Ns 50 Ml IVPB 100 mls/hr Q24H CHONG Administration Sodium Chloride 1,000 mls @ 100 mls/hr 01/10/25 20:15 06/05/25 23:39 Normal Saline Iv IV CONT Not Given .Q10H CHONG Dextrose 1,000 mls @ 100 mls/hr 01/10/25 22:10 Dextrose 5% 1,000 Ml IVPB PRN PRN Hypoglycemia Protocol Insulin Aspart 3 - 6 units 01/11/25 08:00 01/12/25 17:42 Insulin Aspart (*Bkc) 100 Units/Ml SUB-Q Not Given TIDWM CHONG Protocol Insulin Aspart 1 - 3 units 01/11/25 21:00 01/12/25 20:32 Insulin Aspart (*Bkc) 100 Units/Ml SUB-Q 1 units HS CHONG Administration Protocol Insulin Glargine 13 units 01/11/25 21:00 01/12/25 20:32 Insulin Glargine (*Bkc) 100 Units/Ml SUB-Q 13 units HS CHONG Administration Ketorolac Tromethamine 1 drop 01/11/25 06:00 01/13/25 06:25 Ketorolac 0.5% Op Soln 5 Ml Bottle EACH EYE 1 drop Q8HR CHONG Administration Montelukast Sodium 10 mg 01/11/25 09:00 01/12/25 18:36 Montelukast Sodium 10 Mg Tablet PO Not Given DAILY CHONG Ondansetron HCl 4 mg 01/10/25 20:12 Ondansetron Inj 4 Mg/2 Ml Vial IV PUSH Q4H PRN Nausea Perflutren Lipid Microsphere 0 ml 01/11/25 02:05 Perflutren Lipid Microspheres 1.5 Ml Vial Diluted To 10 Ml Total Volume IV PUSH 01/14/25 02:05 ONCE PRN adequate visualization Protocol Polyethylene Glycol 17 gm 01/11/25 02:05 Polyethylene Glycol 3350 17 Gm Powd.Pack PO QAM PRN Constipation Prednisolone Acetate 1 drop 01/11/25 06:00 01/13/25 06:25 Prednisolone Acetate 1% Ophth 5 Ml EACH EYE 1 drop Q8HR CHONG Administration Risperidone 0.5 mg 01/11/25 09:00 01/12/25 20:32 Risperidone 0.5 Mg Tablet PO 0.5 mg Q12HR CHONG Administration Sertraline HCl 75 mg 01/11/25 09:00 01/12/25 18:36 Sertraline Hcl 25 Mg Tablet PO Not Given DAILY CHONG Trazodone HCl 50 mg 01/11/25 21:00 01/12/25 20:32 Trazodone Hcl 50 Mg Tablet PO 50 mg HS CHONG Administration Radiology Results: ITS Impressions Head CT 01/10/25 18:18 IMPRESSION: No acute intracranial findings. Highly suggestive fracture in the right C1 lateral arch. ADDENDUM: 01/10/25 1850 The fractures seen in the right lateral arch of C1 is chronic and seen in the cervical spine CT done in 2021. Cervical Spine CT 01/10/25 18:26 IMPRESSION: No acute osseous abnormality cervical spine. Defect in the right lateral arch of C1 which is unchanged from previous examination. Degenerative disc disease at the level of C6-C7 with multilevel intervertebral foraminal narrowing. Hip/Pelvis X-Ray 01/10/25 19:08 IMPRESSION: No acute osseous abnormality of the bilateral hips and pelvis. Renal Ultrasound 01/11/25 08:53 Impression: 1: Possible mild bladder wall thickening with debris in the bladder lumen which may represent proteinaceous material or blood products. Consider cystitis in the appropriate clinical setting. Chest X-Ray 01/12/25 10:07 Impression: 1: Patchy bilateral airspace disease, compatible with pneumonia. Labs Labs: Laboratory Results - last 24 hr 01/12/25 01/12/25 01/12/25 07:13 07:42 09:15 WBC 3.6 L RBC 2.30 L Hgb 6.9 L* Hct 22.4 L MCV 97.4 MCH 30.0 MCHC 30.8 L RDW 14.4 Plt Count 100 L MPV 11.0 H Immature Gran % (Auto) 0.6 H Neut % (Auto) 64.5 Lymph % (Auto) 19.1 [place] % (Auto) 12.7 H Eos % (Auto) 2.5 Baso % (Auto) 0.6 Lymph # (Auto) 0.69 L [place] # (Auto) 0.5 Eos # (Auto) 0.1 Baso # (Auto) 0.0 Abs Immat Gran (auto) 0.02 Absolute Neuts (auto) 2.3 Absolute Nucleated RBC 0.000 Band Neutrophils % Not Reportable Nucleated RBC % 0.0 Platelet Estimate Decreased % Immature Plt Fraction 4.1 Anisocytosis 1+ Ovalocytes 1+ Schistocytes None seen ESR > 140 H Sodium 138 Potassium 3.4 Chloride 108 H Carbon Dioxide 21 L Anion Gap 9 BUN 40 H Creatinine 2.19 H Estim Creat Clear Calc 32 Estimated GFR 30 L Glucose 112 H POC Capillary Glucose 112 H Lactic Acid 0.7 Calcium 8.5 Iron 34 L TIBC 184 L % Saturation 18 L Ferritin 592.00 H Total Bilirubin 0.3 AST 40 ALT 25 Alkaline Phosphatase 229 H C-Reactive Protein 30.6 H Total Protein 6.8 Albumin 3.1 L Vitamin B12 631.0 Procalcitonin 3.5 Blood Type O Positive Antibody Screen Negative Crossmatch See Detail 01/12/25 01/12/25 01/12/25 11:29 15:54 16:41 WBC RBC Hgb 8.2 L Hct 26.2 L MCV MCH MCHC RDW Plt Count MPV Immature Gran % (Auto) Neut % (Auto) Lymph % (Auto) [place] % (Auto) Eos % (Auto) Baso % (Auto) Lymph # (Auto) [place] # (Auto) Eos # (Auto) Baso # (Auto) Abs Immat Gran (auto) Absolute Neuts (auto) Absolute Nucleated RBC Band Neutrophils % Nucleated RBC % Platelet Estimate % Immature Plt Fraction Anisocytosis Ovalocytes Schistocytes ESR Sodium Potassium Chloride Carbon Dioxide Anion Gap BUN Creatinine Estim Creat Clear Calc Estimated GFR Glucose POC Capillary Glucose 101 179 H Lactic Acid Calcium Iron TIBC % Saturation Ferritin Total Bilirubin AST ALT Alkaline Phosphatase C-Reactive Protein Total Protein Albumin Vitamin B12 Procalcitonin Blood Type Antibody Screen Crossmatch 01/12/25 19:40 WBC RBC Hgb Hct MCV MCH MCHC RDW Plt Count MPV Immature Gran % (Auto) Neut % (Auto) Lymph % (Auto) [place] % (Auto) Eos % (Auto) Baso % (Auto) Lymph # (Auto) [place] # (Auto) Eos # (Auto) Baso # (Auto) Abs Immat Gran (auto) Absolute Neuts (auto) Absolute Nucleated RBC Band Neutrophils % Nucleated RBC % Platelet Estimate % Immature Plt Fraction Anisocytosis Ovalocytes Schistocytes ESR Sodium Potassium Chloride Carbon Dioxide Anion Gap BUN Creatinine Estim Creat Clear Calc Estimated GFR Glucose POC Capillary Glucose 208 H Lactic Acid Calcium Iron TIBC % Saturation Ferritin Total Bilirubin AST ALT Alkaline Phosphatase C-Reactive Protein Total Protein Albumin Vitamin B12 Procalcitonin Blood Type Antibody Screen Crossmatch Quality VTE Prophylaxis VTE prophylaxis: mechanical ordered
[2025-01-13 08:00] VITALS: BP 127/62; PULSE 71; RESP 18; TEMP 37.1; O2SAT 98
[2025-01-13 08:57] LABS: Basophils Percent Auto 0.6 % (0.2-1.2); Eosinophils Absolute Auto 0.1 K/mm3 (0-0.3); Eosinophils Percent Auto 2.2 % (0-4.4); Hematocrit 26.1 % (42.0-52.0); Hemoglobin 8.2 g/dL (14.0-18.0); Immature Granulocyte Absolute 0.04 K/mm3 (0.00-0.031); Immature Granulocyte Percent A 1.1 % (0-0.5); Lymphocytes Absolute Auto 0.79 K/mm3 (0.9-3.2); Mean Corpuscular HGB Conc 31.4 g/dl (32-36); Mean Corpuscular Hemoglobin 30.3 pg (26-34); Mean Corpuscular Volume 96.3 fl (80-100); Mean Platelet Volume 11.2 fl (7.4-10.4); Monocytes Absolute Auto 0.5 K/mm3 (0.1-0.6); Monocytes Percent Auto 12.5 % (2.6-8.5); Neutrophils Absolute Auto 2.2 K/mm3 (1.3-6.7); Neutrophils Percent Auto 61.6 % (45.5-73.1); Platelet Count Result 109 k/mm3 (150-375); Red Blood Count 2.71 M/mm3 (4.6-6.20); Red Cell Distribution Width 14.6 % (11.5-14.5); White Blood Count 3.6 K/mm3 (4.5-10.0)
[2025-01-13 09:08] LABS: Alanine Aminotransferase 30 U/L (6-50); Albumin Level 3.1 g/dL (3.5-5.1); Alkaline Phosphatase 264 U/L (38-126); Anion Gap 11 mmol/L (4-12); Aspartate Amino Transferase 48 U/L (17-59); Bilirubin,Total 0.5 mg/dL (0.2-1.3); Blood Urea Nitrogen 39 mg/dL (9-20); Calcium 8.7 mg/dL (8.4-10.2); Carbon Dioxide 21 mmol/L (22-30); Chloride 109 mmol/L (98-107); Estimated CRCL calculation 38 ml/min; Estimated Glomerular Filt Rate 36; Glucose 110 mg/dL (65-110); Potassium 3.7 mmol/L (3.4-5.0); Sodium 141 mmol/L (137-145); Total Protein 6.9 g/dL (6.3-8.2)
[2025-01-13] MEDS: DIVALPROEX SODIUM DR 250 MG TABEC 500 MG PO ×2 (09:39→20:37)
[2025-01-13] MEDS: risperiDONE 0.5 MG TABLET PO ×2 (09:39→20:37)
[2025-01-13] MEDS: FERROUS SULFATE 325 MG TABLET DR PO (09:39)
[2025-01-13] MEDS: MONTELUKAST SODIUM 10 MG TABLET PO (09:39)
[2025-01-13] MEDS: SERTRALINE HCL 25 MG TABLET 75 MG PO (09:39)
[2025-01-13] MEDS: EZETIMIBE 10 MG TABLET PO (09:39)
[2025-01-13] MEDS: ALPRAZolam (*CRX) 0.5 MG TABLET PO ×2 (09:40→17:48)
[2025-01-13] MEDS: SODIUM CHLORIDE 0.9% IV 1,000 ML 100 ML IV CONT ×2 (11:44→20:36)
[2025-01-13 14:00] VITALS: BP 143/74; PULSE 70; RESP 16; TEMP 36.6; O2SAT 100
[2025-01-13 16:51] LABS: Glucose Point of Care 163 mg/dl (65-105)
[2025-01-13] MEDS: AMOXICILLIN/CLAVULANATE K 875-125 MG TAB 1 TABLET PO (17:48)
[2025-01-13] MEDS: AZITHROMYCIN 250 MG TABLET 500 MG PO (17:48)
[2025-01-13 19:57] VITALS: BP 151/67; PULSE 76; RESP 16; TEMP 35.7; O2SAT 97
[2025-01-13 19:59] VITALS: BP 151/67; PULSE 76; RESP 16; TEMP 35.7; O2SAT 97
[2025-01-13] MEDS: traZODone HCL 50 MG TABLET PO (20:37)
[2025-01-13] MEDS: INSULIN GLARGINE (*BKC) 100 UNITS/ML 13 UNITS SUB-Q (20:38)
[2025-01-13 20:42] LABS: Glucose Point of Care 160 mg/dl (65-105)
[2025-01-14 05:52] VITALS: BP 122/46; PULSE 87; RESP 16; TEMP 35.8; O2SAT 95
[2025-01-14 06:01] LABS: Basophils Percent Auto 0.4 % (0.2-1.2); Eosinophils Percent Auto 0.4 % (0-4.4); Hematocrit 24.5 % (42.0-52.0); Hemoglobin 7.8 g/dL (14.0-18.0); Immature Granulocyte Absolute 0.06 K/mm3 (0.00-0.031); Immature Granulocyte Percent A 1.1 % (0-0.5); Lymphocytes Absolute Auto 0.72 K/mm3 (0.9-3.2); Lymphocytes Percent Auto 12.9 % (18.3-44.2); Mean Corpuscular HGB Conc 31.8 g/dl (32-36); Mean Corpuscular Hemoglobin 30.5 pg (26-34); Mean Corpuscular Volume 95.7 fl (80-100); Mean Platelet Volume 10.7 fl (7.4-10.4); Monocytes Absolute Auto 0.5 K/mm3 (0.1-0.6); Monocytes Percent Auto 8.2 % (2.6-8.5); Neutrophils Absolute Auto 4.3 K/mm3 (1.3-6.7); Platelet Count Result 107 k/mm3 (150-375); Red Blood Count 2.56 M/mm3 (4.6-6.20); Red Cell Distribution Width 14.3 % (11.5-14.5); White Blood Count 5.6 K/mm3 (4.5-10.0)
[2025-01-14] MEDS: KETOROLAC 0.5% OP SOLN 5 ML BOTTLE 1 DROP EACH EYE ×2 (06:27→13:56)
[2025-01-14] MEDS: prednisoLONE ACETATE 1% OPHTH 5 ML 1 DROP EACH EYE ×2 (06:27→13:56)
[2025-01-14 06:29] LABS: Glucose Point of Care 200 mg/dl (65-105)
[2025-01-14] MEDS: SODIUM CHLORIDE 0.9% IV 1,000 ML 100 ML IV CONT (06:42)
[2025-01-14 06:43] LABS: Alanine Aminotransferase 30 U/L (6-50); Albumin Level 2.8 g/dL (3.5-5.1); Alkaline Phosphatase 319 U/L (38-126); Anion Gap 10 mmol/L (4-12); Aspartate Amino Transferase 41 U/L (17-59); Bilirubin,Total 0.4 mg/dL (0.2-1.3); Blood Urea Nitrogen 34 mg/dL (9-20); Calcium 8.3 mg/dL (8.4-10.2); Carbon Dioxide 19 mmol/L (22-30); Chloride 111 mmol/L (98-107); Estimated CRCL calculation 44 ml/min; Estimated Glomerular Filt Rate 43; Glucose 211 mg/dL (65-110); Potassium 3.6 mmol/L (3.4-5.0); Sodium 140 mmol/L (137-145); Total Protein 6.3 g/dL (6.3-8.2)
[2025-01-14 08:00] VITALS: O2SAT 95
[2025-01-14 09:00] LABS: Glucose Point of Care 152 mg/dl (65-105)
[2025-01-14] MEDS: AZITHROMYCIN 250 MG TABLET 500 MG PO (09:24)
[2025-01-14] MEDS: SERTRALINE HCL 25 MG TABLET 75 MG PO (09:25)
[2025-01-14] MEDS: DIVALPROEX SODIUM DR 250 MG TABEC 500 MG PO (09:25)
[2025-01-14] MEDS: EZETIMIBE 10 MG TABLET PO (09:26)
[2025-01-14] MEDS: ALPRAZolam (*CRX) 0.5 MG TABLET PO (09:26)
[2025-01-14] MEDS: AMOXICILLIN/CLAVULANATE K 875-125 MG TAB 1 TABLET PO (09:26)
[2025-01-14] MEDS: FERROUS SULFATE 325 MG TABLET DR PO (09:26)
[2025-01-14] MEDS: risperiDONE 0.5 MG TABLET PO (09:26)
[2025-01-14] MEDS: MONTELUKAST SODIUM 10 MG TABLET PO (09:27)
[2025-01-14 11:41] LABS: Glucose Point of Care 173 mg/dl (65-105)
--- NOTE | 2025-01-14 11:42 | P.DS_ITS ---
DS: Admitting Diagnosis Discharge Date 01/14/2025 Admitting Diagnosis Pneumonia, UTI, sepsis DS: Discharge Diagnosis Discharge Diagnosis (1) Sepsis: Code(s): A41.9 - Sepsis, unspecified organism Status: Acute (2) Acute kidney injury: Code(s): N17.9 - Acute kidney failure, unspecified Status: Acute (3) Urinary tract infection: Code(s): N39.0 - Urinary tract infection, site not specified Status: Acute (4) Pneumonia: Code(s): J18.9 - Pneumonia, unspecified organism Status: Acute (5) Pancytopenia: Code(s): D61.818 - Other pancytopenia Status: Acute (6) Chronic anemia: Code(s): D64.9 - Anemia, unspecified Status: Acute (7) Hypertension: Code(s): I10 - Essential (primary) hypertension Status: Acute (8) Insulin dependent type 2 diabetes mellitus: Code(s): E11.9 - Type 2 diabetes mellitus without complications; Z79.4 - joint terminal attack controller (current) use of insulin Status: Acute (9) Psychiatric illness: Code(s): F99 - Mental disorder, not otherwise specified Status: Acute (10) Cardiomegaly: Code(s): I51.7 - Cardiomegaly Status: Acute DS: Summary Hospital Course Reason for hospitalization: Fall Hospital Course: This is a 69-year-old male with history of insulin-dependent diabetes, hypertension, bipolar disorder, anxiety, and schizophrenia who presented to the emergency department via EMS from [facility] for evaluation after a fall. He is alert and oriented x1 at baseline and is not a great historian. As such majority of the following history is obtained via a review of his EMR. shelter staff report that the patient had a fall at about 11:30 without injuries. He was monitored throughout the day and seemed to be doing just fine. At 16:30 he received his scheduled alprazolam and not long thereafter staff noticed that he seemed to be leaning to the left side, he needed more assistance, and he seemed to be less interactive so they sent him in for evaluation. No other information was provided by the transferring facility and the patient is unable to provide any reliable history as he does not answer many of my questions. He tells me he has no pain. There were no reports of fever, recent illnesses, vomiting, or diarrhea. In the ED: Vital signs on arrival include a temperature of 97.7?, blood pressure 137/50, pulse 99, respiratory 24, SpO2 100%. Labs are significant for a hemoglobin of 9.4, platelet 109, BUN 40, creatinine 2.22, glucose 201, alkaline phosphatase 251, troponin 0.020. Urinalysis was positive for 2+ protein, trace ketones, 1+ blood, 3+ leukocyte esterase, 3 to 5 RBC, greater than 100 WBC, and 4+ bacteria. Head and cervical spine CTs were without acute findings but did note a chronic fracture of the right lateral arch of C1. Chest x-ray showed cardiomegaly with congestive baltazar and left perihilar opacification which may indicate atelectasis. Hip and pelvis x-rays showed no acute findings. He was given ceftriaxone 1 g and 1 L normal saline bolus and he is being admitted in this setting for further treatment and evaluation.. Patient was initially admitted for LULÚ with concurrent UTI. Fluids were i nitiated and Rocephin was started for UTI. Urine cultures showed E coli growth with car sensitivity. Oncology was consulted who suggested that anemia could be isolated from renal insufficiency and concurrent thrombocytopenia could also be attributed to secondary UTI/medication use. Abdominal ultrasound showed splenomegaly and gallbladder wall thickening. Otherwise they recommended following up with their office and possible use of Procrit if hemoglobin dropped, but throughout hospitalization patient's hemoglobin remained at around 8.0. Sepsis protocol orders were initiated on 01/12. Chest x-ray showed patchy bilateral airspace disease compatible with pneumonia on 01/12. Patient was then subsequently started on empiric from pneumonia treatment, ceftriaxone and azithromycin. Initial blood cultures were negative for any growth and repeat blood cultures were obtained which continued to show no growth. As for LULÚ, continue to improve with creatinine decreasing from 2.22 on admission to 1.60 upon discharge. He will be encouraged to continue oral fluid hydration upon discharge. Patient is otherwise hemodynamically stable with stable/improving blood work and vital signs, and as he is able to take p.o. medications, can safely be discharged back to SNF at this time. He will be discharged with Augmentin and azithromycin for continued UTI and pneumonia coverage. Plan for discharge at this time. Status at Discharge Overall status at discharge: patient is progressing back to baseline Time Spent with Patient Time attestation: Total time spent providing and/or coordinating discharge services: 35 Exam Narrative: General: Chronically ill-appearing male in the semi-Ortzi position in bed. Weight: 86.3 kg. HEENT: Pupils are reactive. Extraocular motions appear to be intact. Tacky mucous membranes. Missing teeth. Oropharynx not visualized. Neck: Supple. No midline vertebral tenderness or nuchal rigidity. Respiratory: Respirations are nonlabored. Lung sounds are diminished due to poor effort but otherwise sound clear to auscultation. Cardiovascular: Regular rate and rhythm with S1-S2. Gastrointestinal: Abdomen is soft, nontender, and nondistended with positive bowel sounds. Skin: Warm and dry. Generalized pallor. Extremities: No cyanosis, clubbing, or edema. Radial and pedal pulses intact. Neurological: Alert to self. Cranial nerves 2-12 are grossly intact. He does not participate in the neurologic exam. Noted to spontaneously move upper and lower extremities and withdraws to pain. Psychiatric: Cooperative but minimally interactive. Poor eye contact, he kept his eyes closed a lot. DS: Data Data Completed and Pending Labs on day of discharge: Labs from last 24 hours 01/14/25 01/14/25 01/14/25 11:13 07:43 06:22 WBC RBC Hgb Hct MCV MCH MCHC RDW Plt Count MPV Immature Gran % (Auto) Neut % (Auto) Lymph % (Auto) [place] % (Auto) Eos % (Auto) Baso % (Auto) Lymph # (Auto) [place] # (Auto) Eos # (Auto) Baso # (Auto) Abs Immat Gran (auto) Absolute Neuts (auto) Absolute Nucleated RBC Nucleated RBC % Sodium Potassium Chloride Carbon Dioxide Anion Gap BUN Creatinine Estim Creat Clear Calc Estimated GFR Glucose POC Capillary Glucose 173 H 152 H 200 H Calcium Total Bilirubin AST ALT Alkaline Phosphatase Total Protein Albumin Legionella Source Legionella Culture Legionella Cult Status Mycoplasma pneumon IgM 01/14/25 01/13/25 01/13/25 05:41 22:28 20:31 WBC 5.6 RBC 2.56 L Hgb 7.8 L Hct 24.5 L MCV 95.7 MCH 30.5 MCHC 31.8 L RDW 14.3 Plt Count 107 L MPV 10.7 H Immature Gran % (Auto) 1.1 H Neut % (Auto) 77.0 H Lymph % (Auto) 12.9 L [place] % (Auto) 8.2 Eos % (Auto) 0.4 Baso % (Auto) 0.4 Lymph # (Auto) 0.72 L [place] # (Auto) 0.5 Eos # (Auto) 0.0 Baso # (Auto) 0.0 Abs Immat Gran (auto) 0.06 H Absolute Neuts (auto) 4.3 Absolute Nucleated RBC 0.000 Nucleated RBC % 0.0 Sodium 140 Potassium 3.6 Chloride 111 H Carbon Dioxide 19 L Anion Gap 10 BUN 34 H Creatinine 1.60 H Estim Creat Clear Calc 44 Estimated GFR 43 L Glucose 211 H POC Capillary Glucose 160 H Calcium 8.3 L Total Bilirubin 0.4 AST 41 ALT 30 Alkaline Phosphatase 319 H Total Protein 6.3 Albumin 2.8 L Legionella Source Pending Legionella Culture Pending Legionella Cult Status Pending Mycoplasma pneumon IgM 01/13/25 01/13/25 16:43 08:23 WBC RBC Hgb Hct MCV MCH MCHC RDW Plt Count MPV Immature Gran % (Auto) Neut % (Auto) Lymph % (Auto) [place] % (Auto) Eos % (Auto) Baso % (Auto) Lymph # (Auto) [place] # (Auto) Eos # (Auto) Baso # (Auto) Abs Immat Gran (auto) Absolute Neuts (auto) Absolute Nucleated RBC Nucleated RBC % Sodium Potassium Chloride Carbon Dioxide Anion Gap BUN Creatinine Estim Creat Clear Calc Estimated GFR Glucose POC Capillary Glucose 163 H Calcium Total Bilirubin AST ALT Alkaline Phosphatase Total Protein Albumin Legionella Source Legionella Culture Legionella Cult Status Mycoplasma pneumon IgM Pending Preliminary micro results at discharge 01/12/25 07:25 Blood Culture - Preliminary Blood 01/12/25 07:12 Blood Culture - Preliminary Blood 01/11/25 03:50 Blood Culture - Preliminary Blood 01/11/25 03:50 Blood Culture - Preliminary Blood Discharge Plan Discharge Attending physician on discharge: Nevaeh Hillman Consulting providers: Nithin Briseno; Shawn Henson Discharging Clinician: Nithin Briseno Anticipated Discharge Date/Time: 01/14/25 11:21 Patient Disposition: SNF Activity: as tolerated Diet: as tolerated Discharge Instructions: Take all medications as prescribed even if feeling better. You will be prescribed Augmentin and Azithromycin for your urinary tract infection and pneumonia infection. Eat well balanced meals and stay hydrated Keep active to remain strong If you should experience any chest pain, shortness of breath, temps >100.4 or any other worrisome symptoms please follow up with your PCP come back to the hospital Follow up with your primary in 2-3 weeks Also follow up with Dr. Henson of Oncology/Hematology for further workup regarding your Pancytopenia. It has been a pleasure taking care of you thank you for using our services Patient Instructions: Antibiotic Form, Urinary Tract Infection in Men (GEN), Pain Management in Older Adults (GEN), Pneumonia (GEN) Patient Language: Estonian Stand Alone Forms: General Discharge Information Follow-up/Referrals: Shawn Henson MD [Physician] - PHYSICIAN NOT ON STAFF,NONSTAFF [Primary Care Provider] - Discharge Medications: New azithromycin 500 mg tablet 500 mg PO DAILY 2 Days Qty: 2 0RF Rx Instructions: start on day 2 of therapy amoxicillin-pot clavulanate 875-125 mg tablet 1 tablet PO Q12H Qty: 6 0RF Continued sertraline 100 mg Tablet 75 mg PO DAILY ferrous sulfate 325 mg (65 mg iron) Tablet 325 mg PO DAILY ezetimibe 10 mg tablet 10 mg PO DAILY Rx Instructions: take PO one time per day for hyperlipidemia montelukast 10 mg tablet 10 mg PO DAILY polyethylene glycol 3350 [Miralax] 17 gram Powder In Packet 17 g PO QAM PRN (Reason: Constipation) Qty: 30 0RF hydrocodone-acetaminophen 5-325 mg tablet 1 tablet PO Q6H PRN (Reason: pain) Qty: 20 0RF alprazolam 0.5 mg tablet 0.5 mg PO BID Qty: 60 0RF insulin glargine [Lantus U-100 Insulin] 100 unit/mL Solution 13 unit subcut HS divalproex 500 mg tablet,delayed release (DR/EC) 500 mg PO BID trazodone 50 mg tablet 50 mg PO HS ketorolac 0.5 % drops 1 drp EACH EYE TID prednisolone acetate 1 % drops,suspension 1 drp EACH EYE TID risperidone 0.5 mg tablet 0.5 mg PO BID Discontinued ergocalciferol (vitamin D2) 50,000 unit Tablet 50,000 unit PO WEEKLY Rx Instructions: Every acetaminophen [Mapap (acetaminophen)] 325 mg Tablet 650 mg PO Q6H PRN (Reason: Mild Pain (1-3) Or Fever) Qty: 60 0RF Date of admission: 01/11/25 15:53 Primary Care Provider: PHYSICIAN NOT ON STAFF,NONSTAFF Admitting Provider: Yobani Carty Attending physician on admission: Yobani Carty Condition: Stable Quality VTE Prophylaxis VTE prophylaxis: mechanical ordered
[2025-01-14 14:00] VITALS: BP 123/55; PULSE 66; RESP 14; TEMP 35.8; O2SAT 97
[2025-01-16 16:54] LABS: Red Blood Cell Folate 917 ng/mL RBC (>280)
[2025-01-18 07:46] LABS: Legionella Culture Source NG
[2025-01-19 18:22] LABS: Mycoplasma IgM Antibody Titer 147 U/mL
== END 2025-01-14 17:02 | DRG 871 ==
LOC: ANHED 17:50 → ANH3MEDSUR 21:25
PROVIDERS: Nurse Practitioner; Physician Assistant; Admitting Provider Internal Medicine; Emergency Provider Physician Assistant; Visit Provider Physician Assistant
DX: A41.9 Sepsis, unspecified organism (principal); J18.9 Pneumonia, unspecified organism; N39.0 Urinary tract infection, site not specified; N17.9 Acute kidney failure, unspecified; D61.818 Other pancytopenia; B96.20 Unspecified Escherichia coli [E. coli] as the cause of diseases classified elsewhere; E11.9 Type 2 diabetes mellitus without complications; I51.7 Cardiomegaly; Z79.4 Long term (current) use of insulin; F20.9 Schizophrenia, unspecified; E78.5 Hyperlipidemia, unspecified; I10 Essential (primary) hypertension; F41.9 Anxiety disorder, unspecified
CPT/HCPCS: 36415; 36430; 70450; 71045; 72125; 73521; 76705; 76775; 80048; 80053; 80076; 80164; 81001; 82550; 82607; 82728; 82747; 82948; 83036; 83540; 83550; 83605; 83735; 84145; 84439; 84443; 84480; 84484; 85014; 85018; 85025; 85027; 85055; 85610; 85652; 85730; 86140; 86738; 86850; 86900; 86901; 86923; 87040; 87081; 87086; 87186; 87899; 93005; 93306; 96365; 96375; 99285; A9270; G0378; J0456; J0696; J1756; J1815; J7030; J7050; P9016